=== PATIENT | male | born 1930 | race Caucasian/White ===

== ENCOUNTER 2016-04-02 09:43 | Outpatient (RCR) | payer MEDICARE ==
--- OUTSIDE RECORDS SUMMARY | 2016-02-03 09:50 | XMS REPORT | Continuity of Care Document ---
Author Author [facility] Organization [facility] Address Unknown Phone Unavailable Care Team Providers Care Green Tire Inspector Name Role Phone ROSALINA MENDEZ MD PCP Insurance Providers Payer Name Policy Number Subscriber Name Relationship Wps Medicare [id number] Shirley Dubois 18 Self / Same As Patient Blue Cross [facility] Supp [id number] Shirley Dubois 18 Self / Same As Patient Advance Directives Directive Response Recorded Date/Time Advance Directives Yes 11/06/15 9:54am Health Care Power of Etl Lead Yes 11/06/15 9:54am Organ Donor No 11/06/15 9:54am Resuscitation Status Full Code 11/06/15 9:54am Problems Active Problems Medical Problem Onset Date Status CVA (cerebral vascular accident) Unknown Acute Chest pain Unknown Acute GI bleed Unknown Acute Minor head injury Unknown Acute Renal insufficiency Unknown Acute Syncope Unknown Acute Urinary tract infection Unknown Acute Medications Current Home Medications Medication Dose Units Route Directions Days/Qty Instructions Start Date Oxybutynin Chloride 10 Mg 10 Mg Oral Daily 10/02/14 Psyllium Hydrophilic Mucilloid 1 Pkt 1 Tbs Oral Bedtime for Does Not Use On Sundays10/02/14 Magnesium Oxide 250 Mg 250 Mg Oral Daily 10/02/14 Tizanidine Hcl 4 Mg 4 Mg Oral Twice A Day as needed for Muscle Spasms 10/03/14 Calcium Carbonate/Vitamin D3 1 Each 1 Tab Oral Daily 10/03/14 Ferrous Sulfate 325 Mg 325 Mg Oral Daily 12/20/14 Cyanocobalamin (Vitamin B-12) 1,000 Mcg 1,000 Mcg Oral Daily Simvastatin 10 Mg 10 Mg Oral Daily 07/08/15 Pantoprazole Sodium 40 Mg 40 Mg Oral Twice A Day 07/08/15 Levothyroxine Sodium 88 Mcg 88 Mcg Oral Daily 11/06/15 Prochlorperazine Maleate 10 Mg 10 Mg Oral As Needed as needed for Nausea 11/06/15 Hyoscyamine Sulfate 0.125 Mg 0.125 Mg Oral As Needed as needed for Abdominal Pain 11/06/15 Hydrocodone/Acetaminophen 1 Each 1 Each Oral Every 4HRS as needed for Pain 11/06/15 Aspirin 81 Mg 81 Mg Oral Daily 11/06/15 Diclofenac Sodium 75 Mg 75 Mg Oral Daily 11/06/15 Past Home Medications Medication Directions Ordered Status Simvastatin 10 Mg Tab, 10 Mg Oral Daily 04/30/11 Discontinued [Volt] , 04/30/11 Discontinued [Synthroid Daily] , 04/30/11 Discontinued Aspirin 81 Mg Tabec, 81 Mg Oral Daily 05/17/13 Discontinued [Voltaren] , Oral 05/17/13 Discontinued Simvastatin 10 Mg Tab, 10 Mg Oral Bedtime 05/17/13 Discontinued [Thyroid ] , 0.1 Daily 05/17/13 Discontinued Psyllium Hydrophilic Mucilloid 1 Pkt Packet, 1 Pkt Oral Bedtime 05/17/13 Discontinued [Voltaren] , 05/17/13 Discontinued Pantoprazole Sodium 40 Mg Tablet., 1 Tab Oral Daily 05/17/13 Discontinued Simvastatin 10 Mg Tablet, 10 Mg Oral Daily 10/02/14 Discontinued Diclofenac Sodium 75 Mg Tablet.dr 75 Mg Oral Daily 10/02/14 Discontinued Levothyroxine Sodium (Levothroid) 100 Mcg Tablet, 100 Mcg Oral Daily Discontinued Tizanidine Hcl 4 Mg Capsule, 4 Mg Oral As Needed for Muscle Spasms 10/02/14 Discontinued Calcium Carbonate 1.25 G Tablet, 1.25 G Oral Daily 10/02/14 Discontinued Ibuprofen 200 Mg Tablet, 200 Mg Oral As Needed 10/02/14 Discontinued Simvastatin 20 Mg Tablet, 10 Mg Oral Bedtime 10/03/14 Discontinued Hydrocodone Bit/Acetaminophen 1 Tab Tablet, 1-2 Tab Oral Daily as needed for Severe Pain 10/03/14 Discontinued Docusate Sodium 100 Mg Cap, 100 Mg Oral Twice A Day 10/08/14 Discontinued Sucralfate 1 Gm Tab, 1 Gm Oral Before Meals And At Bedtime 10/08/14 Discontinued [Omnicef] , 300 Twice A Day 12/23/14 Discontinued Social History Social History Problem Response Recorded Date/Time Alcohol Use Denies Use 11/06/2015 9:54am Recreational Drug Use No 11/06/2015 9:54am Recent Foreign Travel No 11/06/2015 9:54am Recent Infectious Disease Exposure No 11/06/2015 9:54am Hospitalization with Isolation Denies 11/06/2015 9:54am Sexually Transmitted Disease No 11/06/2015 9:54am HIV/AIDS No 11/06/2015 9:54am Smoking Status Never a Smoker 11/06/2015 9:53am Do you dip or chew tobacco? No 07/09/2015 1:34pm Query Response Start Date Stop Date Smoking Status Never a Smoker 01/01/1955 Hospital Discharge Instructions No hospital discharge instructions. Plan of Care Discharge Date 11/06/15 12:37pm Prescriptions See Medication Section Functional Status No functional status results. Allergies, Adverse Reactions, Alerts Allergen Type Severity Reaction Status Last Updated Morphine Allergy Mild Active 12/20/14 sulfamethoxazole ([id number]) Allergy Unknown Active 11/06/15 Trimethoprim Allergy Unknown Active 11/06/15 Quinine Allergy Mild Active 12/20/14 Immunizations Name Given Type Date of Pneumonia Vaccine 01/17/15 Historical Date of Influenza Vaccine 01/17/15 Historical Tetanus Booster (TDap) Less than 5yrs Historical Vital Signs Acute Vital Signs Vital Response Date/Time Pulse Rate (adult) 61 bpm (60 - 90) 11/06/2015 9:54am Respiratory Rate 16 bpm (12 - 24) 11/06/2015 9:54am O2 Sat by Pulse Oximetry 98 % (88 - 100) 11/06/2015 9:54am Blood Pressure 140/61 mm Hg 11/06/2015 9:54am Pain Numeric Pain Scale 8 11/06/2015 9:54am Height (Feet) 5 feet 11/06/2015 9:54am Height (Inches) 10.00 inches 11/06/2015 9:54am Height (Calculated Centimeters) 177.680514 cm 11/06/2015 9:54am Weight (Pounds) 165 pounds 11/06/2015 9:54am Weight (Ounces) 2.0 oz 11/06/2015 9:54am Weight (Calculated Grams) 31685.441 gm 11/06/2015 9:54am Weight (Calculated Kilograms) 74.727268 kilograms 11/06/2015 9:54am Calculated BMI 27.45 11/06/2015 9:54am Results Laboratory Results Test Name Result Units Flags Reference Collection Date/Time Result Date/ Time Comments White Blood Count 5.3 10^3/uL 4.3-11.0 10/08/2015 2:52pm 10/08/2015 2: 59pm Red Blood Count 3.55 10^6/uL L 4.35-5.85 10/08/2015 2:52pm 10/08/2015 2: 59pm Hemoglobin 10.8 G/DL L 13.3-17.7 10/08/2015 2:52pm 10/08/2015 2:59pm Hematocrit 35 % L 40-54 10/08/2015 2:52pm 10/08/2015 2:59pm Mean Corpuscular Volume 97 FL 80-99 10/08/2015 2:52pm 10/08/2015 2: 59pm Mean Corpuscular Hemoglobin 30 PG 25-34 10/08/2015 2:52pm 10/08/2015 2: 59pm Mean Corpuscular Hemoglobin Concent 31 G/DL L 32-36 10/08/2015 2:52pm 2:59pm Red Cell Distribution Width 14.1 % 10.0-14.5 10/08/2015 2:52pm 2015 2:59pm Platelet Count 189 10^3/uL 130-400 10/08/2015 2:52pm 10/08/2015 2:59pm Mean Platelet Volume 9.3 FL 7.4-10.4 10/08/2015 2:52pm 10/08/2015 2: 59pm Neutrophils (%) (Auto) 69 % 42-75 10/08/2015 2:52pm 10/08/2015 2:59pm Lymphocytes (%) (Auto) 19 % 12-44 10/08/2015 2:52pm 10/08/2015 2:59pm Monocytes (%) (Auto) 10 % 0-12 10/08/2015 2:52pm 10/08/2015 2:59pm Eosinophils (%) (Auto) 2 % 0-10 10/08/2015 2:52pm 10/08/2015 2:59pm Basophils (%) (Auto) 0 % 0-10 10/08/2015 2:52pm 10/08/2015 2:59pm Neutrophils # (Auto) 3.7 X 10^3 1.8-7.8 10/08/2015 2:52pm 10/08/2015 2: 59pm Lymphocytes # (Auto) 1.0 X 10^3 1.0-4.0 10/08/2015 2:52pm 10/08/2015 2: 59pm Monocytes # (Auto) 0.5 X 10^3 0.0-1.0 10/08/2015 2:52pm 10/08/2015 2: 59pm Eosinophils # (Auto) 0.1 10^3/uL 0.0-0.3 10/08/2015 2:52pm 10/08/2015 2 :59pm Basophils # (Auto) 0.0 10^3/uL 0.0-0.1 10/08/2015 2:52pm 10/08/2015 2: 59pm Sodium Level 145 MMOL/L 135-145 10/02/2015 9:0510/02/2015 9:38am Potassium Level 5.0 MMOL/L 3.6-5.0 10/02/2015 9:0510/02/2015 9:38am Chloride Level 112 MMOL/L H 98-107 10/02/2015 9:0510/02/2015 9:38am Carbon Dioxide Level 23 MMOL/L 21-32 10/02/2015 9:0510/02/2015 9: 38am Anion Gap 10 MMOL/L 5-14 10/02/2015 9:0510/02/2015 9:38am Blood Urea Nitrogen 29 MG/DL H 7-18 10/02/2015 9:0510/02/2015 9:38am Creatinine 1.42 MG/DL H 0.60-1.30 10/02/2015 9:0510/02/2015 9:38am BUN/Creatinine Ratio 20 10/02/2015 9:0510/02/2015 9:38am Estimat Glomerular Filtration Rate 47 10/02/2015 9:0510/02/2015 9:38am GFR INTERPRETIVE DATA UNITS FOR ESTIMATED GFR (eGFR): mL/min/1.73 M2 REFERENCE RANGE FOR ESTIMATED GFR (eGFR) eGFR NORMAL eGFR >60 MODERATELY DECREASED eGFR 30-59 SEVERLY DECREASED eGFR 15-29 KIDNEY FAILURE <15 (OR DIALYSIS) Glucose Level 95 MG/DL 70-105 10/02/2015 9:0510/02/2015 9:38am Calcium Level 8.4 MG/DL L 8.5-10.1 10/02/2015 9:0510/02/2015 9:38am Total Bilirubin 0.5 MG/DL 0.1-1.0 10/02/2015 9:0510/02/2015 9:38am Alkaline Phosphatase 89 U/L 40-136 10/02/2015 9:0510/02/2015 9:38am Aspartate Amino Transf (AST/SGOT) 13 U/L 5-34 10/02/2015 9:052015 9:38am Alanine Aminotransferase (ALT/SGPT) 8 U/L 0-55 10/02/2015 9:052015 9:38am Lactate Dehydrogenase 183 U/L 125-220 10/02/2015 9:0510/02/2015 9: 38am Total Protein 5.9 G/DL L 6.4-8.2 10/02/2015 9:0510/02/2015 9:38am Albumin 3.4 G/DL 3.2-4.5 10/02/2015 9:0510/02/2015 9:38am Ferritin 54 ng/mL 25-300 10/08/2015 2:52pm 10/10/2015 8:45am Test performed at [facility], CLIA# [id number] Iron Level 130 ug/dL 40-180 10/08/2015 2:52pm 10/09/2015 1:12pm Transferrin % Saturation 46 % 15-50 10/08/2015 2:52pm 10/09/2015 1: 12pm Total Iron Binding Capacity 280 ug/dL 280-380 10/08/2015 2:52pm 2015 1:12pm Unsaturated Iron Binding Capacity 150 ug/dL 55-450 10/08/2015 2:52pm 1:12pm Test performed at [facility], CLIA# [id number] Procedures No known history of procedures. Encounters Encounter Location Arrival/Admit Date Discharge/Depart Date Attending Provider Departed Clinic [facility] 11/06/15 9:37am 11/06/15 12: 37pm ERIKA COLBY DO Registered Clinic [facility] 10/28/15 11:40am ROSALINA MENDEZ MD Registered Clinic [facility] 10/17/15 2:17pm ROSALINA MENDEZ MD Registered Recurring [facility] 10/08/15 1:27pm CHRISTOPHER MANCUSO
[2016-02-03 09:58] LABS: BASOPHILS % (AUTO) 0 % (0-10); EOSINOPHILS # (AUTO) 0.1 10^3/uL (0.0-0.3); EOSINOPHILS % (AUTO) 2 % (0-10); LYMPHOCYTES # (AUTO) 0.6 X 10^3 (1.0-4.0); LYMPHOCYTES % (AUTO) 14 % (12-44); MEAN CORPUSCULAR HEMOGLOBIN 30 PG (25-34); MEAN CORPUSCULAR HGB CONC 31 G/DL (32-36); MEAN CORPUSCULAR VOLUME 97 FL (80-99); MEAN PLATELET VOLUME 8.9 FL (7.4-10.4); MONOCYTES # (AUTO) 0.4 X 10^3 (0.0-1.0); MONOCYTES % (AUTO) 10 % (0-12); NEUTROPHILS % (AUTO) 74 % (42-75); PLATELET COUNT 184 10^3/uL (130-400); RED BLOOD COUNT 3.65 10^6/uL (4.35-5.85); RED CELL DISTRIBUTION WIDTH 14.4 % (10.0-14.5)
[2016-02-03 10:28] LABS: ALBUMIN 3.4 G/DL (3.2-4.5); BILIRUBIN,TOTAL 0.6 MG/DL (0.1-1.0); CALCIUM 8.7 MG/DL (8.5-10.1); CREATININE SERUM 1.39 MG/DL (0.60-1.30); POTASSIUM 4.7 MMOL/L (3.6-5.0)
[~2016-04-02 09:43] MED LIST: ASP81TEC PO; ASPI-586 PO; ASPI-587 PO; CALC-656 PO; CALC500T55 PO; CYAN100088 PO; DCS100C PO; DICL75TA2 PO; FERR-84 PO; HYDR-3062 PO; HYDR-3454 PO; HYDR-3714 PO; HYDR-3812 PO; HYOS0.127 PO; IBUP200T48 PO; LEVO88TA54 PO; LVT.1T PO; MAGN250T7 PO; OMNICEF; OXYB10TA8 PO; PANT40TA2 PO; PANT40VI3 PO; PNT40TEC PO; PROC10TA PO; PSYL1PAC15 PO; PSYL1PAC18 PO; SCR1T1 PO; SIMV10TA PO; SIMV10TA3 PO; SIMV20TA3 PO; SMV10T PO; TIZA4CAP6 PO; TIZA4TAB55 PO; [UNRECOGNIZED DRUG - OTHER]; [UNRECOGNIZED DRUG - OTHER]; thyroid; voltaren; voltaren PO
[2016-04-02 10:00] LABS: BASOPHILS % (AUTO) 0 % (0-10); EOSINOPHILS # (AUTO) 0.1 10^3/uL (0.0-0.3); EOSINOPHILS % (AUTO) 2 % (0-10); LYMPHOCYTES # (AUTO) 0.8 X 10^3 (1.0-4.0); LYMPHOCYTES % (AUTO) 18 % (12-44); MEAN CORPUSCULAR HEMOGLOBIN 30 PG (25-34); MEAN CORPUSCULAR HGB CONC 32 G/DL (32-36); MEAN CORPUSCULAR VOLUME 96 FL (80-99); MEAN PLATELET VOLUME 9.2 FL (7.4-10.4); MONOCYTES # (AUTO) 0.4 X 10^3 (0.0-1.0); MONOCYTES % (AUTO) 10 % (0-12); NEUTROPHILS % (AUTO) 69 % (42-75); PLATELET COUNT 184 10^3/uL (130-400); RED BLOOD COUNT 3.72 10^6/uL (4.35-5.85); RED CELL DISTRIBUTION WIDTH 14.1 % (10.0-14.5); WHITE BLOOD COUNT 4.3 10^3/uL (4.3-11.0)
[2016-04-02 10:30] LABS: ALBUMIN 3.6 G/DL (3.2-4.5); BILIRUBIN,TOTAL 0.6 MG/DL (0.1-1.0); CALCIUM 8.7 MG/DL (8.5-10.1); CREATININE SERUM 1.53 MG/DL (0.60-1.30); POTASSIUM 4.9 MMOL/L (3.6-5.0)
== END 2016-05-03 | disposition home or self-care (01) ==
LOC: ONC 09:43
PROVIDERS: ATTEND Internal Medicine Hematology & Oncology
DX: C49.4 Malignant neoplasm of connective and soft tissue of abdomen (principal); E03.9 Hypothyroidism, unspecified; N18.3 Chronic kidney disease, stage 3 (moderate); D50.0 Iron deficiency anemia secondary to blood loss (chronic); Z79.899 Other long term (current) drug therapy
CPT/HCPCS: 36415; 80053; 82728; 85025; 99213

== ENCOUNTER → 2016-05-06 | Outpatient (CLI) | payer MEDICARE ==
--- OUTSIDE RECORDS SUMMARY | 2016-05-06 12:14 | XMS REPORT | Continuity of Care Document ---
Author Author [facility] Organization [facility] Address Unknown Phone Unavailable Care Team Providers Care Home School Coordinator Name Role Phone ROSALINA MENDEZ MD PCP Insurance Providers Payer Name Policy Number Subscriber Name Relationship Wps Medicare [id number] Shirley Dubois 18 Self / Same As Patient Blue Cross [facility] Supp [id number] Shirley Dubois 18 Self / Same As Patient Advance Directives Directive Response Recorded Date/Time Advance Directives Yes 11/06/15 9:54am Health Care Power of Livestock Exhibitor Yes 11/06/15 9:54am Organ Donor No 11/06/15 [...] Updated Morphine Allergy Mild Active 12/20/14 sulfamethoxazole ([id number]) Allergy Unknown Active 11/06/15 Trimethoprim Allergy Unknown [...] 10.00 inches 11/06/2015 9:54am Height (Calculated Centimeters) 177.266060 cm 11/06/2015 9:54am Weight (Pounds) 165 pounds 11/06/2015 9:54am Weight (Ounces) 2.0 oz 11/06/2015 9:54am Weight (Calculated Grams) 71819.441 gm 11/06/2015 9:54am Weight (Calculated Kilograms) 74.448858 kilograms 11/06/2015 9:54am Calculated BMI 27.45 11/06/2015 [...] 10/08/2015 2:52pm 10/10/2015 8:45am Test performed at [facility], CLIA# [id number] Iron Level 130 ug/dL 40-180 10/08/2015 2:52pm 10/09/2015 1:12pm Transferrin % Saturation 46 % 15-50 10/08/2015 2:52pm 10/09/2015 1: 12pm Total Iron Binding Capacity 280 ug/dL 280-380 10/08/2015 2:52pm 2015 1:12pm Unsaturated Iron Binding Capacity 150 ug/dL 55-450 10/08/2015 2:52pm 1:12pm Test performed at [facility], CLIA# [id number] Procedures No known history of procedures. Encounters Encounter Location Arrival/Admit Date Discharge/Depart Date Attending Provider Departed Clinic [facility] 11/06/15 9:37am 11/06/15 12: 37pm ERIKA COLBY DO Registered Clinic [facility] 10/28/15 11:40am ROSALINA MENDEZ MD Registered Clinic [facility] 10/17/15 2:17pm ROSALINA MENDEZ MD Registered Recurring [facility] 10/08/15 1:27pm CHRISTOPHER MANCUSO
--- NOTE | 2016-05-06 13:35 | Diagnostic Imaging Report ---
EXAMINATION: Three views of the left elbow. INDICATION: Injury. FINDINGS: There is elevation of the anterior fat pad, suggestive of an elbow effusion. There is a transverse radiolucent line through the distal humerus seen on the AP projection with no definitive correlate on the oblique or lateral views. There is a well-corticated 4 mm osseous fragment at the tip of the coronoid process, probably related to old injury. No radiopaque foreign body. IMPRESSION: There is suggestion of an elbow effusion with a questionable transverse lucent line through the distal humerus seen. If there is a high index of suspicion for an underlying fracture, then correlate with a CT scan of the left elbow or repeat radiographs in 10 days. The report was faxed to the office of Jj Jackson APRN, by CLAUDIA at 1:30 PM. Dictated by: Dictated on workstation # [id number]
== END ==
LOC: RAD 12:10
PROVIDERS: ATTEND Nurse Practitioner
DX: S59.902A Unspecified injury of left elbow, initial encounter (principal); W19.XXXA Unspecified fall, initial encounter; Y92.009 Unspecified place in unspecified non-institutional (private) residence as the place of occurrence of the external cause; Y99.8 Other external cause status
CPT/HCPCS: 73080

== ENCOUNTER → 2016-05-07 | Outpatient (CLI) | payer MEDICARE ==
--- OUTSIDE RECORDS SUMMARY | 2016-05-07 14:00 | XMS REPORT | Continuity of Care Document ---
Author Author [facility] Organization [facility] Address Unknown Phone Unavailable Care Team Providers Care Ocular Care Aide Name Role Phone ROSALINA MENDEZ MD PCP Insurance Providers Payer Name Policy Number Subscriber Name Relationship Wps Medicare [id number] Shirley Dubois 18 Self / Same As Patient Blue Cross [facility] Supp [id number] Shirley Dubois 18 Self / Same As Patient Advance Directives Directive Response Recorded Date/Time Advance Directives Yes 11/06/15 9:54am Health Care Power of Product Accountant Yes 11/06/15 9:54am Organ Donor No 11/06/15 [...] Updated Morphine Allergy Mild Active 12/20/14 sulfamethoxazole ([id number]) Allergy Unknown Active 11/06/15 Trimethoprim Allergy Unknown [...] 10.00 inches 11/06/2015 9:54am Height (Calculated Centimeters) 177.965783 cm 11/06/2015 9:54am Weight (Pounds) 165 pounds 11/06/2015 9:54am Weight (Ounces) 2.0 oz 11/06/2015 9:54am Weight (Calculated Grams) 06329.441 gm 11/06/2015 9:54am Weight (Calculated Kilograms) 74.749260 kilograms 11/06/2015 9:54am Calculated BMI 27.45 11/06/2015 [...] 10/08/2015 2:52pm 10/10/2015 8:45am Test performed at [facility], CLIA# [id number] Iron Level 130 ug/dL 40-180 10/08/2015 2:52pm 10/09/2015 1:12pm Transferrin % Saturation 46 % 15-50 10/08/2015 2:52pm 10/09/2015 1: 12pm Total Iron Binding Capacity 280 ug/dL 280-380 10/08/2015 2:52pm 2015 1:12pm Unsaturated Iron Binding Capacity 150 ug/dL 55-450 10/08/2015 2:52pm 1:12pm Test performed at [facility], CLIA# [id number] Procedures No known history of procedures. Encounters Encounter Location Arrival/Admit Date Discharge/Depart Date Attending Provider Departed Clinic [facility] 11/06/15 9:37am 11/06/15 12: 37pm ERIKA COLBY DO Registered Clinic [facility] 10/28/15 11:40am ROSALINA MENDEZ MD Registered Clinic [facility] 10/17/15 2:17pm ROSALINA MENDEZ MD Registered Recurring [facility] 10/08/15 1:27pm CHRISTOPHER MANCUSO
--- NOTE | 2016-05-07 18:20 | Diagnostic Imaging Report ---
PA and lateral views of the chest. INDICATION: Fall. FINDINGS: The lungs are hyperinflated but clear of focal infiltrate. There are calcified granulomas in the lung bases. The heart size is borderline enlarged. No effusion or pneumothorax. The mediastinum and magda appear unremarkable. IMPRESSION: Hyperinflated clear lungs. Borderline cardiomegaly. Dictated by: Dictated on workstation # [id number]
--- NOTE | 2016-05-07 18:21 | Diagnostic Imaging Report ---
Three views of the left ribs. INDICATION: Left rib pain after fall. FINDINGS: No rib fracture is seen. Enchondroma or bone infarct lesion without aggressive features seen in the proximal left humerus. Cervical spine fusion hardware noted. IMPRESSION: No rib fracture identified. Dictated by: Dictated on workstation # [id number]
== END ==
LOC: RAD 13:56
PROVIDERS: ATTEND Nurse Practitioner
DX: R07.81 Pleurodynia (principal); W19.XXXA Unspecified fall, initial encounter; Y99.8 Other external cause status
CPT/HCPCS: 71020; 71100

== ENCOUNTER → 2016-06-29 | Outpatient (CLI) | payer MEDICARE ==
[~2016-06-29] MED LIST changes: +BARIUM SUSPENSION 2.1% (VANILLA SILQ) 450 ML PO ONE; +CATHETER FLUSH 10 ML SYR IV PRN; +IOHEXOL 350 MG/ML 100 ML (OMNIPAQUE 350) VIAL IV ONE; +NS 100 ML (IVPB) BAG IV ONE
--- OUTSIDE RECORDS SUMMARY | 2016-06-29 09:11 | XMS REPORT | Continuity of Care Document ---
Author Author [facility] Organization [facility] Address Unknown Phone Unavailable Care Team Providers Care Barn Hand Name Role Phone ROSALINA MENDEZ MD PCP Insurance Providers Payer Name Policy Number Subscriber Name Relationship Wps Medicare [id number] Shirley Dubois 18 Self / Same As Patient Blue Cross [facility] Supp [id number] Shirley Dubois 18 Self / Same As Patient Advance Directives Directive Response Recorded Date/Time Advance Directives Yes 11/06/15 9:54am Health Care Power of Support Merchandiser Yes 11/06/15 9:54am Organ Donor No 11/06/15 [...] Updated Morphine Allergy Mild Active 12/20/14 sulfamethoxazole ([id number]) Allergy Unknown Active 11/06/15 Trimethoprim Allergy Unknown [...] 10.00 inches 11/06/2015 9:54am Height (Calculated Centimeters) 177.081424 cm 11/06/2015 9:54am Weight (Pounds) 165 pounds 11/06/2015 9:54am Weight (Ounces) 2.0 oz 11/06/2015 9:54am Weight (Calculated Grams) 02587.441 gm 11/06/2015 9:54am Weight (Calculated Kilograms) 74.629873 kilograms 11/06/2015 9:54am Calculated BMI 27.45 11/06/2015 [...] 10/08/2015 2:52pm 10/10/2015 8:45am Test performed at [facility], CLIA# [id number] Iron Level 130 ug/dL 40-180 10/08/2015 2:52pm 10/09/2015 1:12pm Transferrin % Saturation 46 % 15-50 10/08/2015 2:52pm 10/09/2015 1: 12pm Total Iron Binding Capacity 280 ug/dL 280-380 10/08/2015 2:52pm 2015 1:12pm Unsaturated Iron Binding Capacity 150 ug/dL 55-450 10/08/2015 2:52pm 1:12pm Test performed at [facility] [address], CLIA# [id number] Procedures No known history of procedures. Encounters Encounter Location Arrival/Admit Date Discharge/Depart Date Attending Provider Departed Clinic [facility] 11/06/15 9:37am 11/06/15 12: 37pm ERIKA COLBY DO Registered Clinic [facility] 10/28/15 11:40am ROSALINA MENDEZ MD Registered Clinic [facility] 10/17/15 2:17pm ROSALINA MENDEZ MD Registered Recurring [facility] 10/08/15 1:27pm CHRISTOPHER MANCUSO
--- NOTE | 2016-06-29 14:24 | Diagnostic Imaging Report ---
PROCEDURE: CT abdomen with contrast only. TECHNIQUE: Multiple contiguous axial images were obtained through the abdomen after the administration of intravenous contrast. INDICATION: Follow-up malignant GIST. 75 mL of Omnipaque-350 is administered intravenously. COMPARISON: 10/28/2015. FINDINGS: There are calcified granulomas and mild scarring seen in the lung base on the left side as well as subacute posterior rib fractures with no underlying lesions seen involving the left 8th through 12th ribs. There is also suggestion of a compression fracture of T11 vertebral body, when compared to the previous exam, demonstrates no change. There is oral contrast failure to fill the posterior aspect of the fundus with a filling defect measuring 4.1 x 4.0 cm in the axial dimensions and craniocaudally approximately 3.1 cm. This is compared to maximum prior axial dimensions estimated on 10/28/2015. There is better visualization at this time related to use of oral contrast. There is probable slight enlargement in the interval. There is an enhancing small focus in the right hepatic lobe measuring 0.6 cm seen, axial image 11. This is poorly identified on the delayed phase imaging and is too small to accurately characterize. This appeared to be present on prior enhanced CT from 2016 exam and could be a tiny hemangioma. Follow-up studies are suggested. The spleen is not enlarged. The pancreas and the adrenal glands appear unremarkable. There is moderate atrophy of both kidneys with no hydronephrosis. The abdominal aorta is normal in caliber. No para-aortic significantly enlarged lymph nodes. Cholecystectomy clips are seen. The osseous structures demonstrate subacute lower left rib fractures and old T11 compression fracture as described above. There are also bridging syndesmophytes in the lower thoracic and upper lumbar spine levels. IMPRESSION: 1. A 4.1-cm mass in the gastric fundus slightly enlarged compared to 10/28/2015, exam, presumably representing the GIST tumor as provided in the history. 2. Nonspecific 0.6-cm focus of hyperenhancement in the right hepatic lobe too small to accurately characterize. Dictated by: Dictated on workstation # [id number]
== END ==
LOC: RAD 09:07
PROVIDERS: ATTEND Internal Medicine Hematology & Oncology
DX: Z01.89 Encounter for other specified special examinations (principal); C49.4 Malignant neoplasm of connective and soft tissue of abdomen
CPT/HCPCS: 74160

== ENCOUNTER 2016-07-02 15:45 | Outpatient (RCR) | payer MEDICARE ==
--- OUTSIDE RECORDS SUMMARY | 2016-06-29 08:44 | XMS REPORT | Continuity of Care Document ---
Author Author [facility] Organization [facility] Address Unknown Phone Unavailable Care Team Providers Care A R Collections Rep Name Role Phone ROSALINA MENDEZ MD PCP Insurance Providers Payer Name Policy Number Subscriber Name Relationship Wps Medicare [id number] Shirley Dubois 18 Self / Same As Patient Blue Cross [facility] Supp [id number] Shirley Dubois 18 Self / Same As Patient Advance Directives Directive Response Recorded Date/Time Advance Directives Yes 11/06/15 9:54am Health Care Power of Salesperson Sheet Music Yes 11/06/15 9:54am Organ Donor No 11/06/15 [...] Updated Morphine Allergy Mild Active 12/20/14 sulfamethoxazole ([id number]) Allergy Unknown Active 11/06/15 Trimethoprim Allergy Unknown [...] 10.00 inches 11/06/2015 9:54am Height (Calculated Centimeters) 177.838916 cm 11/06/2015 9:54am Weight (Pounds) 165 pounds 11/06/2015 9:54am Weight (Ounces) 2.0 oz 11/06/2015 9:54am Weight (Calculated Grams) 46773.441 gm 11/06/2015 9:54am Weight (Calculated Kilograms) 74.428609 kilograms 11/06/2015 9:54am Calculated BMI 27.45 11/06/2015 [...] 10/08/2015 2:52pm 10/10/2015 8:45am Test performed at [facility], CLIA# [id number] Iron Level 130 ug/dL 40-180 10/08/2015 2:52pm 10/09/2015 1:12pm Transferrin % Saturation 46 % 15-50 10/08/2015 2:52pm 10/09/2015 1: 12pm Total Iron Binding Capacity 280 ug/dL 280-380 10/08/2015 2:52pm 2015 1:12pm Unsaturated Iron Binding Capacity 150 ug/dL 55-450 10/08/2015 2:52pm 1:12pm Test performed at [facility] [address], CLIA# [id number] Procedures No known history of procedures. Encounters Encounter Location Arrival/Admit Date Discharge/Depart Date Attending Provider Departed Clinic [facility] 11/06/15 9:37am 11/06/15 12: 37pm ERIKA COLBY DO Registered Clinic [facility] 10/28/15 11:40am ROSALINA MENDEZ MD Registered Clinic [facility] 10/17/15 2:17pm ROSALINA MENDEZ MD Registered Recurring [facility] 10/08/15 1:27pm CHRISTOPHER MANCUSO
[2016-06-29 09:01] LABS: BASOPHILS % (AUTO) 0 % (0-10); EOSINOPHILS # (AUTO) 0.1 10^3/uL (0.0-0.3); EOSINOPHILS % (AUTO) 2 % (0-10); LYMPHOCYTES # (AUTO) 0.8 X 10^3 (1.0-4.0); LYMPHOCYTES % (AUTO) 17 % (12-44); MEAN CORPUSCULAR HEMOGLOBIN 30 PG (25-34); MEAN CORPUSCULAR HGB CONC 32 G/DL (32-36); MEAN CORPUSCULAR VOLUME 96 FL (80-99); MEAN PLATELET VOLUME 9.5 FL (7.4-10.4); MONOCYTES # (AUTO) 0.5 X 10^3 (0.0-1.0); MONOCYTES % (AUTO) 11 % (0-12); NEUTROPHILS # (AUTO) 3.3 X 10^3 (1.8-7.8); NEUTROPHILS % (AUTO) 70 % (42-75); PLATELET COUNT 182 10^3/uL (130-400); RED BLOOD COUNT 3.89 10^6/uL (4.35-5.85); RED CELL DISTRIBUTION WIDTH 13.7 % (10.0-14.5); WHITE BLOOD COUNT 4.7 10^3/uL (4.3-11.0)
[2016-06-29 09:32] LABS: ALBUMIN 3.5 G/DL (3.2-4.5); BILIRUBIN,TOTAL 0.6 MG/DL (0.1-1.0); CALCIUM 9.1 MG/DL (8.5-10.1); CREATININE SERUM 1.43 MG/DL (0.60-1.30); TOTAL PROTEIN 6.4 G/DL (6.4-8.2)
[~2016-07-02 15:45] MED LIST changes: -BARIUM SUSPENSION 2.1% (VANILLA SILQ) 450 ML PO ONE; -CATHETER FLUSH 10 ML SYR IV PRN; -IOHEXOL 350 MG/ML 100 ML (OMNIPAQUE 350) VIAL IV ONE; -NS 100 ML (IVPB) BAG IV ONE
== END 2016-09-27 | disposition home or self-care (01) ==
LOC: ONC 15:45
PROVIDERS: ATTEND Internal Medicine Hematology & Oncology
DX: C49.4 Malignant neoplasm of connective and soft tissue of abdomen (principal); E03.9 Hypothyroidism, unspecified; N18.3 Chronic kidney disease, stage 3 (moderate); D50.0 Iron deficiency anemia secondary to blood loss (chronic); Z79.899 Other long term (current) drug therapy
CPT/HCPCS: 36415; 80053; 82728; 85025; 99213

== ENCOUNTER → 2016-10-01 | Outpatient (CLI) | payer MEDICARE | LOC: LAB 10:00 | PROVIDERS: ATTEND Internal Medicine Gastroenterology | DX: D50.9 Iron deficiency anemia, unspecified (principal); R79.89 Other specified abnormal findings of blood chemistry | CPT/HCPCS: 85652; 86141 ==

== ENCOUNTER → 2016-12-29 | Outpatient (CLI) | payer MEDICARE ==
[~2016-12-29] MED LIST changes: +CATHETER FLUSH 10 ML SYR IV PRN; +IOHEXOL 350 MG/ML 100 ML (OMNIPAQUE 350) VIAL IV ONE; +NS 100 ML (IVPB) BAG IV ONE
--- NOTE | 2016-12-29 13:36 | Diagnostic Imaging Report ---
PROCEDURE: CT abdomen with contrast only. TECHNIQUE: Multiple contiguous axial images were obtained through the abdomen after the administration of intravenous contrast. INDICATION: Malignant GIST. 6 mL of Omnipaque 350 is administered intravenously. COMPARISON: 06/29/2016. FINDINGS: There is a gastric fundus mass measuring 5.0 x 4.5 cm compared to 4.0 x 4.1 cm on 06/29/2016 exam. This obliterates most of the fundus lumen. There is passage of the oral contrast, however, seen from the gastroesophageal junction through a relatively narrow remaining luminal channel into the gastric body and antrum, and oral contrast is seen also further distally within the small bowel loops. The tumor appears to be confined to the gastric fundus with mostly tumor mass projecting into the lumen and is probably arising from the left side wall of the gastric fundus. There is no CT scan evidence of extension outside the stomach. No perigastric lymphadenopathy seen. The liver demonstrates no evidence of metastasis. The pancreas and the adrenal glands appear unremarkable. The spleen is not enlarged. The kidneys have symmetric enhancement and contrast excretion with no hydronephrosis. The renal parenchyma demonstrates krcm-ry-lqfqqprj atrophy bilaterally, however. The thoracic aorta is normal in caliber. No para-aortic significantly enlarged lymph node is seen. The lung bases appear clear. The osseous structures demonstrate degenerative changes and an old compression fracture of T11 vertebral body. IMPRESSION: Interval enlargement of the gastric fundus mass filling the most of the gastric fundus lumen measuring up to 5 cm compared to 4.1 cm on 06/29/2016 exam. Dictated by: Dictated on workstation # [id number]
== END ==
LOC: RAD 09:51
PROVIDERS: ATTEND Nurse Practitioner Adult Health
DX: C49.4 Malignant neoplasm of connective and soft tissue of abdomen (principal)
CPT/HCPCS: 74160

== ENCOUNTER → 2016-12-29 | Outpatient (RCR) | payer MEDICARE ==
[2016-09-30 10:09] LABS: BASOPHILS % (AUTO) 0 % (0-10); EOSINOPHILS # (AUTO) 0.1 10^3/uL (0.0-0.3); EOSINOPHILS % (AUTO) 2 % (0-10); LYMPHOCYTES # (AUTO) 0.8 X 10^3 (1.0-4.0); LYMPHOCYTES % (AUTO) 18 % (12-44); MEAN CORPUSCULAR HEMOGLOBIN 30 PG (25-34); MEAN CORPUSCULAR HGB CONC 31 G/DL (32-36); MEAN CORPUSCULAR VOLUME 97 FL (80-99); MEAN PLATELET VOLUME 9.4 FL (7.4-10.4); MONOCYTES # (AUTO) 0.4 X 10^3 (0.0-1.0); MONOCYTES % (AUTO) 9 % (0-12); NEUTROPHILS % (AUTO) 71 % (42-75); PLATELET COUNT 161 10^3/uL (130-400); WHITE BLOOD COUNT 4.2 10^3/uL (4.3-11.0)
[2016-09-30 10:31] LABS: ALBUMIN 3.4 GM/DL (3.2-4.5); BILIRUBIN,TOTAL 0.6 MG/DL (0.1-1.0); CREATININE SERUM 1.68 MG/DL (0.60-1.30); POTASSIUM 4.9 MMOL/L (3.6-5.0); TOTAL PROTEIN 6.2 GM/DL (6.4-8.2)
[~2016-12-29] MED LIST changes: -CATHETER FLUSH 10 ML SYR IV PRN; -IOHEXOL 350 MG/ML 100 ML (OMNIPAQUE 350) VIAL IV ONE; +NS (IVPB) CANCER CENTER 250 ML ONE; -NS 100 ML (IVPB) BAG IV ONE; +NS IV 500 ML (CANCER CENTER) 500 ML ONE
[2016-12-29 10:31] LABS: BASOPHILS % (AUTO) 0 % (0-10); EOSINOPHILS # (AUTO) 0.1 10^3/uL (0.0-0.3); EOSINOPHILS % (AUTO) 2 % (0-10); LYMPHOCYTES # (AUTO) 0.9 X 10^3 (1.0-4.0); LYMPHOCYTES % (AUTO) 17 % (12-44); MEAN CORPUSCULAR HGB CONC 31 G/DL (32-36); MEAN CORPUSCULAR VOLUME 98 FL (80-99); MEAN PLATELET VOLUME 8.9 FL (7.4-10.4); MONOCYTES # (AUTO) 0.5 X 10^3 (0.0-1.0); MONOCYTES % (AUTO) 10 % (0-12); NEUTROPHILS # (AUTO) 3.6 X 10^3 (1.8-7.8); NEUTROPHILS % (AUTO) 72 % (42-75); PLATELET COUNT 190 10^3/uL (130-400); RED BLOOD COUNT 3.84 10^6/uL (4.35-5.85); RED CELL DISTRIBUTION WIDTH 14.1 % (10.0-14.5); WHITE BLOOD COUNT 5.1 10^3/uL (4.3-11.0)
[2016-12-29 10:32] LABS: MEAN CORPUSCULAR HEMOGLOBIN 30 PG (25-34)
[2016-12-29 11:38] LABS: ALBUMIN 3.4 GM/DL (3.2-4.5); BILIRUBIN,TOTAL 0.5 MG/DL (0.1-1.0); CREATININE SERUM 1.57 MG/DL (0.60-1.30); MAGNESIUM 1.9 MG/DL (1.8-2.4); POTASSIUM 4.7 MMOL/L (3.6-5.0); TOTAL PROTEIN 6.2 GM/DL (6.4-8.2)
== END | disposition home or self-care (01) ==
LOC: ONC 09-30 10:01
PROVIDERS: ATTEND Internal Medicine Hematology & Oncology
DX: C49.4 Malignant neoplasm of connective and soft tissue of abdomen (principal); E03.9 Hypothyroidism, unspecified; N18.3 Chronic kidney disease, stage 3 (moderate); D50.0 Iron deficiency anemia secondary to blood loss (chronic); Z79.899 Other long term (current) drug therapy
CPT/HCPCS: 36415; 80053; 82728; 83735; 85025; 85652; 86141; 96360; 96361; 99213

== ENCOUNTER → 2017-01-01 | Outpatient (CLI) | payer MEDICARE ==
[~2017-01-01] MED LIST changes: -NS (IVPB) CANCER CENTER 250 ML ONE; -NS IV 500 ML (CANCER CENTER) 500 ML ONE
--- NOTE | 2017-01-01 14:06 | Diagnostic Imaging Report ---
PROCEDURE: MRI lumbar spine. TECHNIQUE: Multiplanar, multisequence MRI of the lumbar spine was performed without contrast. INDICATION: Sharp pain in lower back. FINDINGS: There is good alignment of the vertebral bodies. Body height is well maintained. Marrow signal is normal with no evidence of compression fractures. Conus medullaris appears normal. L5-S1: There is a small central disc herniation with settling of disc space. Moderate facet and ligamentous hypertrophy noted which is causing moderate encroachment upon the lateral recesses and neural foramen. L4-L5: There is severe facet and ligamentous hypertrophy with broad-based disc bulge. This is causing a severe spinal stenosis. Minimal AP central canal dimension of 4 mm. There is a marked encroachment upon the lateral recesses bilaterally. L3-L4: Disc shows normal contour. There is mild posterior facet and ligamentous hypertrophy. L2-L3: Disc shows normal contour. Mild posterior facet and ligamentous hypertrophy. L1-L2: Disc shows normal contour with normal facets and ligaments. The paraspinal soft tissues are normal. IMPRESSION: 1. There is severe spinal stenosis at L4-L5 level with marked posterior facet and ligamentous hypertrophy and broad-based disc bulge. Dictated by: Dictated on workstation # [id number]
== END ==
LOC: RAD 12:59
PROVIDERS: ATTEND Orthopaedic Surgery Orthopaedic Surgery of the Spine
DX: M51.26 Other intervertebral disc displacement, lumbar region (principal); M48.07 Spinal stenosis, lumbosacral region
CPT/HCPCS: 72148

== ENCOUNTER 2017-01-06 09:39 | Outpatient (RCR) | payer MEDICARE | END 2017-01-16 | disposition home or self-care (01) | LOC: ONC 09:39 | PROVIDERS: ATTEND Internal Medicine Hematology & Oncology | DX: C49.4 Malignant neoplasm of connective and soft tissue of abdomen (principal); E03.9 Hypothyroidism, unspecified; N18.3 Chronic kidney disease, stage 3 (moderate); D50.0 Iron deficiency anemia secondary to blood loss (chronic); Z79.899 Other long term (current) drug therapy | CPT/HCPCS: 99213 ==

== ENCOUNTER → 2017-01-21 | Outpatient (CLI) | payer MEDICARE ==
[~2017-01-21] VITALS: Ht 175.3 cm; Wt 68.0 kg
[~2017-01-21] MED LIST changes: +methylPREDNISolone 80 MG/ML (DEPO MEDROL) VIAL ONE
[2017-01-21 14:23] VITALS: BP 164/65
[2017-01-21 14:53] VITALS: BP 145/77
--- NOTE | 2017-01-27 13:28 | OPERATIVE REPORT ---
DATE OF SERVICE: DIAGNOSIS: Lumbar radiculopathy. PROCEDURE: Fluoroscopic guided interlaminar epidural steroid injection. PROCEDURE IN DETAIL: After obtaining informed consent from the patient, the patient's chart was reviewed. The patient was then brought to the procedure room and placed in the prone position. A timeout was performed. The back was prepped with antiseptic solution and under fluoro guidance, the patient's lumbar spine was identified at the level of L5-S1. The L5-M5nkethzus was identified with fluoro guidance and approximately 2 mL of 1.5% lidocaine solution was used to anesthetize the skin directly down to the pedicle of the L5-S1 and under fluoroscopic guidance, the tract was anesthetized up to the interlaminar space and the ligamentum flavum. This needle was withdrawn. Then, a 20-gauge 3.5 inch Tuohy needle was then directed following the same tract that was anesthetized with the spinal needle. Using loss of resistance, the epidural space was identified and then the syringe was switched for contrast solution which was injected, approximately 1 mL. After secondary confirmation of epidural access, another syringe was placed and 80 mg of Depo-Medrol was injected. The Tuohy needle was then flushed out with approximately 2 mL of the normal saline used from the loss of resistance syringe. Band-Aids were applied to all the procedure sites. The patient tolerated the procedure well and was taken to the recovery room in stable condition. COMPLICATIONS: None. 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
== END ==
LOC: CARD 13:08
PROVIDERS: ATTEND Pain Medicine Interventional Pain Medicine
DX: M54.16 Radiculopathy, lumbar region (principal)
CPT/HCPCS: 62323

== ENCOUNTER 2017-04-27 14:24 | Outpatient (RCR) | payer OTHER, MEDICARE ==
[2017-04-01 10:38] LABS: BASOPHILS % (AUTO) 0 % (0-10); EOSINOPHILS # (AUTO) 0.1 10^3/uL (0.0-0.3); EOSINOPHILS % (AUTO) 2 % (0-10); HEMATOCRIT 35 % (40-54); HEMOGLOBIN 10.7 G/DL (13.3-17.7); LYMPHOCYTES # (AUTO) 0.7 X 10^3 (1.0-4.0); LYMPHOCYTES % (AUTO) 15 % (12-44); MEAN CORPUSCULAR HEMOGLOBIN 31 PG (25-34); MEAN CORPUSCULAR HGB CONC 31 G/DL (32-36); MEAN CORPUSCULAR VOLUME 100 FL (80-99); MEAN PLATELET VOLUME 9.6 FL (7.4-10.4); MONOCYTES # (AUTO) 0.5 X 10^3 (0.0-1.0); MONOCYTES % (AUTO) 12 % (0-12); NEUTROPHILS # (AUTO) 3.2 X 10^3 (1.8-7.8); NEUTROPHILS % (AUTO) 71 % (42-75); PLATELET COUNT 150 10^3/uL (130-400); RED BLOOD COUNT 3.47 10^6/uL (4.35-5.85); RED CELL DISTRIBUTION WIDTH 14.2 % (10.0-14.5); WHITE BLOOD COUNT 4.5 10^3/uL (4.3-11.0)
[2017-04-01 11:02] LABS: ALBUMIN 3.5 GM/DL (3.2-4.5); BILIRUBIN,TOTAL 0.6 MG/DL (0.1-1.0); CALCIUM 8.7 MG/DL (8.5-10.1); CREATININE SERUM 1.47 MG/DL (0.60-1.30); POTASSIUM 4.8 MMOL/L (3.6-5.0); TOTAL PROTEIN 6.4 GM/DL (6.4-8.2)
[~2017-04-27 14:24] MED LIST changes: +ACHD5005 PO; -HYDR-3812 PO; -methylPREDNISolone 80 MG/ML (DEPO MEDROL) VIAL ONE
== END 2017-05-02 | disposition home or self-care (01) ==
LOC: ONC 14:24
PROVIDERS: ATTEND Internal Medicine Hematology & Oncology
DX: C49.4 Malignant neoplasm of connective and soft tissue of abdomen (principal); E03.9 Hypothyroidism, unspecified; N18.3 Chronic kidney disease, stage 3 (moderate); D50.0 Iron deficiency anemia secondary to blood loss (chronic); Z79.899 Other long term (current) drug therapy
CPT/HCPCS: 36415; 80053; 85025; 99213

== ENCOUNTER → 2017-06-08 | Outpatient (CLI) | payer MEDICARE ==
--- NOTE | 2017-06-08 11:22 | Diagnostic Imaging Report ---
INDICATION: Elevated liver enzymes. FINDINGS: Overlying bowel gas limits acoustical windows to evaluate the left hepatic lobe. The right lobe of the liver and visualized left lobe are normal. The gallbladder is surgically absent. There is no pathological bile duct dilatation. The right kidney measures 10.6 cm and contains a 1.8 cm anechoic simple benign cyst off its lower pole. There is no hydronephrosis. There is no ascites. The pancreas is obscured by overlying gas. IMPRESSION: Simple right renal cortical cyst without hydronephrosis. Absent gallbladder with no pathological bile duct dilatation. The visualized portions of the liver appear unremarkable. No ascites or fluid collection. Dictated by: Dictated on workstation # [id number]
== END ==
LOC: RAD 08:22
PROVIDERS: ATTEND Internal Medicine Gastroenterology
DX: K28.1 Acute gastrojejunal ulcer with perforation (principal); R74.8 Abnormal levels of other serum enzymes; Z90.49 Acquired absence of other specified parts of digestive tract
CPT/HCPCS: 76705

== ENCOUNTER 2017-06-21 10:38 | Outpatient (RCR) | payer OTHER, MEDICARE ==
[2017-05-10 14:13] LABS: BASOPHILS % (AUTO) 0 % (0-10); EOSINOPHILS # (AUTO) 0.1 10^3/uL (0.0-0.3); EOSINOPHILS % (AUTO) 2 % (0-10); HEMATOCRIT 36 % (40-54); HEMOGLOBIN 11.5 G/DL (13.3-17.7); LYMPHOCYTES # (AUTO) 0.8 X 10^3 (1.0-4.0); LYMPHOCYTES % (AUTO) 18 % (12-44); MEAN CORPUSCULAR HEMOGLOBIN 31 PG (25-34); MEAN CORPUSCULAR HGB CONC 32 G/DL (32-36); MEAN CORPUSCULAR VOLUME 97 FL (80-99); MEAN PLATELET VOLUME 9.8 FL (7.4-10.4); MONOCYTES # (AUTO) 0.4 X 10^3 (0.0-1.0); MONOCYTES % (AUTO) 8 % (0-12); NEUTROPHILS # (AUTO) 3.4 X 10^3 (1.8-7.8); NEUTROPHILS % (AUTO) 73 % (42-75); PLATELET COUNT 154 10^3/uL (130-400); RED BLOOD COUNT 3.66 10^6/uL (4.35-5.85); RED CELL DISTRIBUTION WIDTH 13.9 % (10.0-14.5); WHITE BLOOD COUNT 4.7 10^3/uL (4.3-11.0)
[2017-05-10 14:37] LABS: ALBUMIN 3.5 GM/DL (3.2-4.5); BILIRUBIN,TOTAL 0.6 MG/DL (0.1-1.0); CALCIUM 8.4 MG/DL (8.5-10.1); CREATININE SERUM 1.83 MG/DL (0.60-1.30); POTASSIUM 4.5 MMOL/L (3.6-5.0); TOTAL PROTEIN 6.5 GM/DL (6.4-8.2)
[2017-05-17 14:42] LABS: BASOPHILS % (AUTO) 0 % (0-10); EOSINOPHILS # (AUTO) 0.1 10^3/uL (0.0-0.3); EOSINOPHILS % (AUTO) 1 % (0-10); HEMATOCRIT 36 % (40-54); HEMOGLOBIN 11.3 G/DL (13.3-17.7); LYMPHOCYTES # (AUTO) 0.8 X 10^3 (1.0-4.0); LYMPHOCYTES % (AUTO) 15 % (12-44); MEAN CORPUSCULAR HEMOGLOBIN 31 PG (25-34); MEAN CORPUSCULAR HGB CONC 32 G/DL (32-36); MEAN CORPUSCULAR VOLUME 98 FL (80-99); MEAN PLATELET VOLUME 10.1 FL (7.4-10.4); MONOCYTES # (AUTO) 0.5 X 10^3 (0.0-1.0); MONOCYTES % (AUTO) 10 % (0-12); NEUTROPHILS # (AUTO) 3.8 X 10^3 (1.8-7.8); NEUTROPHILS % (AUTO) 73 % (42-75); PLATELET COUNT 145 10^3/uL (130-400); RED BLOOD COUNT 3.64 10^6/uL (4.35-5.85); WHITE BLOOD COUNT 5.1 10^3/uL (4.3-11.0)
[2017-05-17 15:08] LABS: ALBUMIN 3.5 GM/DL (3.2-4.5); BILIRUBIN,TOTAL 0.5 MG/DL (0.1-1.0); CALCIUM 8.3 MG/DL (8.5-10.1); CREATININE SERUM 1.79 MG/DL (0.60-1.30); POTASSIUM 4.9 MMOL/L (3.6-5.0); TOTAL PROTEIN 6.4 GM/DL (6.4-8.2)
[2017-05-24 13:39] LABS: POTASSIUM 5.2 MMOL/L (3.6-5.0)
[2017-05-24 13:40] LABS: ALBUMIN 3.2 GM/DL (3.2-4.5); BILIRUBIN,TOTAL 0.6 MG/DL (0.1-1.0); CALCIUM 8.3 MG/DL (8.5-10.1); CREATININE SERUM 1.77 MG/DL (0.60-1.30); TOTAL PROTEIN 6.1 GM/DL (6.4-8.2)
[2017-05-24 13:42] LABS: EOSINOPHILS % (AUTO) 2 % (0-10); HEMATOCRIT 33 % (40-54); HEMOGLOBIN 10.7 G/DL (13.3-17.7); LYMPHOCYTES % (AUTO) 12 % (12-44); MEAN CORPUSCULAR HEMOGLOBIN 31 PG (25-34); MEAN CORPUSCULAR HGB CONC 32 G/DL (32-36); MEAN CORPUSCULAR VOLUME 98 FL (80-99); MEAN PLATELET VOLUME 9.6 FL (7.4-10.4); MONOCYTES % (AUTO) 9 % (0-12); NEUTROPHILS % (AUTO) 78 % (42-75); PLATELET COUNT 127 10^3/uL (130-400); RED BLOOD COUNT 3.41 10^6/uL (4.35-5.85); RED CELL DISTRIBUTION WIDTH 14.2 % (10.0-14.5); WHITE BLOOD COUNT 4.1 10^3/uL (4.3-11.0)
[2017-05-24 13:43] LABS: BASOPHILS % (AUTO) 1 % (0-10); EOSINOPHILS # (AUTO) 0.1 10^3/uL (0.0-0.3); LYMPHOCYTES # (AUTO) 0.5 X 10^3 (1.0-4.0); MONOCYTES # (AUTO) 0.4 X 10^3 (0.0-1.0); NEUTROPHILS # (AUTO) 3.2 X 10^3 (1.8-7.8)
[2017-05-31 12:02] LABS: BASOPHILS % (AUTO) 0 % (0-10); EOSINOPHILS # (AUTO) 0.1 10^3/uL (0.0-0.3); EOSINOPHILS % (AUTO) 1 % (0-10); HEMATOCRIT 33 % (40-54); HEMOGLOBIN 10.4 G/DL (13.3-17.7); LYMPHOCYTES # (AUTO) 0.6 X 10^3 (1.0-4.0); LYMPHOCYTES % (AUTO) 15 % (12-44); MEAN CORPUSCULAR HEMOGLOBIN 31 PG (25-34); MEAN CORPUSCULAR HGB CONC 32 G/DL (32-36); MEAN CORPUSCULAR VOLUME 98 FL (80-99); MEAN PLATELET VOLUME 8.9 FL (7.4-10.4); MONOCYTES # (AUTO) 0.5 X 10^3 (0.0-1.0); MONOCYTES % (AUTO) 11 % (0-12); NEUTROPHILS # (AUTO) 3.1 X 10^3 (1.8-7.8); NEUTROPHILS % (AUTO) 73 % (42-75); PLATELET COUNT 146 10^3/uL (130-400); RED BLOOD COUNT 3.37 10^6/uL (4.35-5.85); RED CELL DISTRIBUTION WIDTH 14.5 % (10.0-14.5); WHITE BLOOD COUNT 4.3 10^3/uL (4.3-11.0)
[2017-05-31 12:20] LABS: ALBUMIN 3.3 GM/DL (3.2-4.5); BILIRUBIN,TOTAL 0.6 MG/DL (0.1-1.0); CALCIUM 8.6 MG/DL (8.5-10.1); CREATININE SERUM 1.52 MG/DL (0.60-1.30); POTASSIUM 4.8 MMOL/L (3.6-5.0); TOTAL PROTEIN 5.9 GM/DL (6.4-8.2)
[2017-06-07 11:28] LABS: BASOPHILS % (AUTO) 0 % (0-10); EOSINOPHILS # (AUTO) 0.1 10^3/uL (0.0-0.3); EOSINOPHILS % (AUTO) 2 % (0-10); HEMATOCRIT 34 % (40-54); HEMOGLOBIN 10.7 G/DL (13.3-17.7); LYMPHOCYTES # (AUTO) 0.8 X 10^3 (1.0-4.0); LYMPHOCYTES % (AUTO) 18 % (12-44); MEAN CORPUSCULAR HEMOGLOBIN 31 PG (25-34); MEAN CORPUSCULAR HGB CONC 32 G/DL (32-36); MEAN CORPUSCULAR VOLUME 97 FL (80-99); MEAN PLATELET VOLUME 9.5 FL (7.4-10.4); MONOCYTES # (AUTO) 0.6 X 10^3 (0.0-1.0); MONOCYTES % (AUTO) 13 % (0-12); NEUTROPHILS # (AUTO) 2.9 X 10^3 (1.8-7.8); NEUTROPHILS % (AUTO) 67 % (42-75); PLATELET COUNT 174 10^3/uL (130-400); RED BLOOD COUNT 3.45 10^6/uL (4.35-5.85); RED CELL DISTRIBUTION WIDTH 14.9 % (10.0-14.5); WHITE BLOOD COUNT 4.3 10^3/uL (4.3-11.0)
[2017-06-07 11:47] LABS: ALBUMIN 3.5 GM/DL (3.2-4.5); BILIRUBIN,TOTAL 0.6 MG/DL (0.1-1.0); CALCIUM 8.6 MG/DL (8.5-10.1); CREATININE SERUM 1.55 MG/DL (0.60-1.30); POTASSIUM 4.6 MMOL/L (3.6-5.0); TOTAL PROTEIN 6.5 GM/DL (6.4-8.2)
[2017-06-14 10:55] LABS: BASOPHILS % (AUTO) 0 % (0-10); EOSINOPHILS % (AUTO) 1 % (0-10); HEMATOCRIT 33 % (40-54); HEMOGLOBIN 10.4 G/DL (13.3-17.7); LYMPHOCYTES # (AUTO) 0.7 X 10^3 (1.0-4.0); LYMPHOCYTES % (AUTO) 16 % (12-44); MEAN CORPUSCULAR HEMOGLOBIN 31 PG (25-34); MEAN CORPUSCULAR HGB CONC 32 G/DL (32-36); MEAN CORPUSCULAR VOLUME 99 FL (80-99); MEAN PLATELET VOLUME 9.6 FL (7.4-10.4); MONOCYTES # (AUTO) 0.5 X 10^3 (0.0-1.0); MONOCYTES % (AUTO) 11 % (0-12); NEUTROPHILS # (AUTO) 3.4 X 10^3 (1.8-7.8); NEUTROPHILS % (AUTO) 72 % (42-75); PLATELET COUNT 164 10^3/uL (130-400); RED BLOOD COUNT 3.35 10^6/uL (4.35-5.85); RED CELL DISTRIBUTION WIDTH 14.9 % (10.0-14.5); WHITE BLOOD COUNT 4.7 10^3/uL (4.3-11.0)
[2017-06-14 11:13] LABS: ALBUMIN 3.5 GM/DL (3.2-4.5); BILIRUBIN,TOTAL 0.6 MG/DL (0.1-1.0); CALCIUM 8.5 MG/DL (8.5-10.1); CREATININE SERUM 1.4 MG/DL (0.60-1.30); TOTAL PROTEIN 6.3 GM/DL (6.4-8.2)
[2017-06-21 10:54] LABS: BASOPHILS % (AUTO) 0 % (0-10); EOSINOPHILS # (AUTO) 0.1 10^3/uL (0.0-0.3); EOSINOPHILS % (AUTO) 1 % (0-10); HEMATOCRIT 34 % (40-54); HEMOGLOBIN 10.8 G/DL (13.3-17.7); LYMPHOCYTES # (AUTO) 0.8 X 10^3 (1.0-4.0); LYMPHOCYTES % (AUTO) 18 % (12-44); MEAN CORPUSCULAR HEMOGLOBIN 31 PG (25-34); MEAN CORPUSCULAR HGB CONC 32 G/DL (32-36); MEAN CORPUSCULAR VOLUME 98 FL (80-99); MEAN PLATELET VOLUME 9.4 FL (7.4-10.4); MONOCYTES # (AUTO) 0.4 X 10^3 (0.0-1.0); MONOCYTES % (AUTO) 10 % (0-12); NEUTROPHILS % (AUTO) 70 % (42-75); PLATELET COUNT 164 10^3/uL (130-400); RED BLOOD COUNT 3.45 10^6/uL (4.35-5.85); RED CELL DISTRIBUTION WIDTH 14.9 % (10.0-14.5); WHITE BLOOD COUNT 4.3 10^3/uL (4.3-11.0)
[2017-06-21 11:12] LABS: ALBUMIN 3.6 GM/DL (3.2-4.5); BILIRUBIN,TOTAL 0.7 MG/DL (0.1-1.0); CALCIUM 8.7 MG/DL (8.5-10.1); CREATININE SERUM 1.52 MG/DL (0.60-1.30); POTASSIUM 4.6 MMOL/L (3.6-5.0); TOTAL PROTEIN 6.3 GM/DL (6.4-8.2)
[2017-07-31] MEDS ORDERED: DIGO125T (06:57)
== END 2017-08-08 | disposition home or self-care (01) ==
LOC: ONC 10:38
PROVIDERS: ATTEND Internal Medicine Hematology & Oncology
DX: C49.4 Malignant neoplasm of connective and soft tissue of abdomen (principal); E03.9 Hypothyroidism, unspecified; N18.3 Chronic kidney disease, stage 3 (moderate); D50.0 Iron deficiency anemia secondary to blood loss (chronic); Z79.899 Other long term (current) drug therapy
CPT/HCPCS: 36415; 80053; 83615; 84443; 85025; 99213

== ENCOUNTER 2017-07-31 06:30 | Emergency (ER) | payer MEDICARE ==
[~2017-07-31] VITALS: Ht 175.3 cm; Wt 68.0 kg
[~2017-07-31 06:30] MED LIST changes: -PROC10TA PO; +PROC10TA10 PO
[2017-07-31] MEDS ORDERED: DIGO125T (06:57)
[2017-07-31] MEDS ORDERED: DIGOXIN IMMUNE FAB IV ONE (07:02)
--- NOTE | 2017-07-31 07:06 | ED Cardiac General ---
History of Present Illness General Stated Complaint: DIZZY Source: patient, family Exam Limitations: no limitations History of Present Illness Date Seen by Provider: Jul 31, 2017 Time Seen by Provider: 06:35 Initial Comments This 86-year-old white male presents with paroxysmal dizziness began this morning when he awoke and attempted to get out of bed. The patient noted associated weakness and a significant headache. 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 Patient was subsequently noted to have a cardiac arrhythmia (atrial fibrillation?). The patient did not take any significant fluid yesterday as he was attending the of a friend. He may be dehydrated as part of this presentation. The patient denies lateralizing or localizing neurologic complaints. He is complaining of dizziness whenever he moves or looks to his right. The patient' s headache is frontally located and moderately severe. The patient is nauseated but has not vomited. Allergies and Home Medications Allergies Coded Allergies: morphine (Verified Allergy, Mild, 12/20/14) quinine (Verified Allergy, Mild, 12/20/14) sulfamethoxazole (Verified Allergy, Unknown, 11/06/15) trimethoprim (Verified Allergy, Unknown, 11/06/15) Home Medications Calcium Carbonate/Vitamin D3 1 Each Tablet, 1 TAB PO DAILY, (Reported) Cyanocobalamin (Vitamin B-12) 1,000 Mcg Tablet, 1,000 MCG PO DAILY, (Reported) Ferrous Sulfate 325 Mg Tablet, 325 MG PO DAILY, (Reported) Hydrocodone/Acetaminophen 1 Each Tablet, 1 TAB PO Q4H PRN for PAIN Prescribed by: BIANKA MENDES NWKARLY on 11/08/15 1410 Hyoscyamine Sulfate 0.125 Mg Tab.rapdis, 0.125 MG PO PRN PRN for ABDOMINAL PAIN, (Reported) Levothyroxine Sodium 88 Mcg Tablet, 88 MCG PO DAILY, (Reported) Magnesium Oxide 250 Mg Tablet, 250 MG PO DAILY, (Reported) Oxybutynin Chloride 10 Mg Tab.er.24, 10 MG PO DAILY, (Reported) Pantoprazole Sodium 40 Mg Tablet.dr, 40 MG PO BID, (Reported) Prochlorperazine Maleate 10 Mg Tablet, 10 MG PO PRN PRN for NAUSEA, (Reported) Psyllium 1 Pkt Box, 1 TBS PO HS, (Reported) Simvastatin 10 Mg Tablet, 10 MG PO DAILY, (Reported) Tizanidine Hcl 4 Mg Tablet, 4 MG PO BID PRN for MUSCLE SPASMS, (Reported) Patient Home Medication List Home Medication List Reviewed: Yes Review of Systems Constitutional: No chills; dizziness; No fever; weakness EENTM: No Blurred Vision, No Ear Drainage, No Ear Pain Respiratory: Denies Cough Cardiovascular: Denies Chest Pain, Denies Palpitations Gastrointestinal: Denies Abdominal Pain; Nausea; Denies Vomiting Genitourinary: No Symptoms Reported Musculoskeletal: no symptoms reported Skin: No rash Psychiatric/Neurological: No Symptoms Reported Endocrine: No Symptoms Reported Hematologic/Lymphatic: No Symptoms Reported Past Cocjdvg-Uhmfaa-Tikbif Hx Patient Social History 2nd Hand Smoke Exposure: No Recent Foreign Travel: No Contact w/Someone Who Travel: No Immunizations Up To Date Tetanus Booster (TDap): Less than 5yrs Date of Pneumonia Vaccine: Jan 17, 2015 Date of Influenza Vaccine: Jan 17, 2015 Seasonal Allergies Seasonal Allergies: No Past Medical History Abdominal, Appendectomy, Gallbladder, Orthopedic, Thyroidectomy Heart Murmur Reproductive Disorders: No Sexually Transmitted Disease: No HIV/AIDS: No Kidney Stones Gastroesophageal Reflux, Diverticulosis, Ulcer Arthritis Hypothyroidsim Loss of Vision: Bilateral Hearing Impairment: Hard of Hearing, Bilateral Hearing Aide Adverse Reaction/Blood Tranf: No (HAS HAD BLOOD WITH NO REACTION) Family Medical History Reviewed Nursing Family Hx Congenital heart disease 19 FATHER 19 MOTHER FH: renal cell carcinoma G8 SISTER Leukemia G8 BROTHER G8 BROTHER No Pertinent Family Hx Physical Exam Vital Signs Vital Signs - First Documented 07/31/17 06:41 Temp 98.2 Pulse 48 Resp 12 B/P (MAP) 141/86 (104) Pulse Ox 97 Capillary Refill : General Appearance: Mild Distress, Thin HEENT: Other (on ENT exam the patient demonstrates a significant nystatin this with right lateral gaze. This exacerbates the patient's symptoms of dizziness) Neck: Full Range of Motion, Normal Inspection, Non Tender, Supple Respiratory: Chest Non Tender, Lungs Clear, Normal Breath Sounds Cardiovascular: Bradycardia, Systolic Murmur (there is a grade 4/6 systolic ejection murmur heard best at the apex suggestive of an aortic murmur.) Gastrointestinal: Normal Bowel Sounds, No Organomegaly, No Pulsatile Mass, Non Tender Extremity: Normal Capillary Refill, Normal Inspection, Normal Range of Motion, Non Tender Neurologic/Psychiatric: Alert, Oriented x3, No Motor/Sensory Deficits, Normal Mood/Affect, Other (although the patient according to the family as mild dementia the patient's neurologic exam is grossly normal.) Skin: Normal Color, Warm/Dry Progress/Results/Core Measures Lab Results Laboratory Tests Test 07/31/17 06:50 Range/Units White Blood Count 4.3 4.3-11.0 10^3/uL Red Blood Count 3.52 L 4.35-5.85 10^6/uL Hemoglobin 10.9 L 13.3-17.7 G/DL Hematocrit 35 L 40-54 % Mean Corpuscular Volume 98 80-99 FL Mean Corpuscular Hemoglobin 31 25-34 PG Mean Corpuscular Hemoglobin Concent 32 32-36 G/DL Red Cell Distribution Width 15.2 H 10.0-14.5 % Platelet Count 163 130-400 10^3/uL Mean Platelet Volume 9.6 7.4-10.4 FL Neutrophils (%) (Auto) 64 42-75 % Lymphocytes (%) (Auto) 23 12-44 % Monocytes (%) (Auto) 10 0-12 % Eosinophils (%) (Auto) 3 0-10 % Basophils (%) (Auto) 0 0-10 % Neutrophils # (Auto) 2.7 1.8-7.8 X 10^3 Lymphocytes # (Auto) 1.0 1.0-4.0 X 10^3 Monocytes # (Auto) 0.4 0.0-1.0 X 10^3 Eosinophils # (Auto) 0.1 0.0-0.3 10^3/uL Basophils # (Auto) 0.0 0.0-0.1 10^3/uL Prothrombin Time 16.9 H 12.2-14.7 SEC INR Comment 1.4 0.8-1.4 Sodium Level 143 135-145 MMOL/L Potassium Level 4.6 3.6-5.0 MMOL/L Chloride Level 111 H 98-107 MMOL/L Carbon Dioxide Level 22 21-32 MMOL/L Anion Gap 10 5-14 MMOL/L Blood Urea Nitrogen 38 H 7-18 MG/DL Creatinine 1.54 H 0.60-1.30 MG/DL Estimat Glomerular Filtration Rate 43 BUN/Creatinine Ratio 25 Glucose Level 105 70-105 MG/DL Calcium Level 9.1 8.5-10.1 MG/DL Total Bilirubin 0.7 0.1-1.0 MG/DL Aspartate Amino Transf (AST/SGOT) 30 5-34 U/L Alanine Aminotransferase (ALT/SGPT) 35 0-55 U/L Alkaline Phosphatase 121 40-136 U/L Total Protein 6.7 6.4-8.2 GM/DL Albumin 3.7 3.2-4.5 GM/DL Digoxin Level 1.26 0.80-2.00 NG/ML My Orders Orders - PO DALAL MD Cbc With Automated Diff (07/31/17 07:06) Comprehensive Metabolic Panel (07/31/17 07:06) Ct Head Wo (07/31/17 07:06) Digoxin (07/31/17 07:06) Chest 1 View, Ap/Pa Only (07/31/17 07:08) Protime With Inr (07/31/17 07:08) Ekg Tracing (07/31/17 07:08) Ns Iv 1000 Ml (Sodium Chloride 0.9%) (07/31/17 07:15) Ondansetron Injection (Zofran Injectio (07/31/17 07:30) Fentanyl Injection (Sublimaze Injection (07/31/17 07:30) Digoxin Immune Timothy Injection (Digifab In (07/31/17 07:02) Ns Iv 500 Ml (Sodium Chloride 0.9%) (07/31/17 07:12) Medications Given in ED Current Medications Medications Dose Ordered Sig/Femi Route Start Time Stop Time Status Last Admin Dose Admin Fentanyl Citrate 50 mcg ONCE ONCE IVP 07/31/17 07:30 07/31/17 07:31 DC 07/31/17 07:48 50 MCG Ondansetron HCl 4 mg ONCE ONCE IVP 07/31/17 07:30 07/31/17 07:31 DC 07/31/17 07:48 4 MG Vital Signs/I&O 07/31/17 06:41 Temp 98.2 Pulse 48 Resp 12 B/P (MAP) 141/86 (104) Pulse Ox 97 Progress Note : Time: 07:37 Progress Note The patient's EKG demonstrated a marked bradycardia. I see no significant atrial activity preceding the QRS complexes and believe this is consistent with a complete heart block. However the ventricular response is not regular and there may be underlying atrial fibrillation. External pacer was applied as the patient's rate dipped occasionally into the mid 40s. As long as the patient was In recumbent position he was tolerating the rate. I spoke with the patient's cardiology group at [place] (Dr. Martins) who accepted the patient in transfer. We discussed the patient's presentation and collectively agreed a CT of his head was in order as well as the usual laboratory evaluation including a digoxin level. 4 mg of ondansetron IV and 50 g of fentanyl were ordered for the patient's nausea and headach 7:51 a.m. The patient remained in a bradycardia with a rate of approximately 50. He dig level was therapeutic at 1.25. His chest x-ray demonstrated cardiomegaly with questionable vascular redistribution. CT of the head on my read did not demonstrate an acute hemorrhage. There was an area of hypo- lucency in the right cerebrum. Departure Impression Primary Impression: Vertigo Additional Impressions: Headache Qualified Codes: R51 - Headache Bradycardia Disposition: 02 XFER SHT-TRM HOSP Condition: Improved Admissions Decision to Admit Reason: Admit from ER (General) Decision to Admit/Date: Jul 31, 2017 Time/Decision to Admit Time: 08:14 Transfer Time Spoke to Accepting Phy: 08:14 Transfer Progress Notes I spoke to Dr. Martins and subsequently to Dr. Smith who accepted the patient in transfer to the ICU at [place]. Method of Transfer: EMS Departure-Patient Inst. Referrals: ROSALINA MENDEZ MD (PCP/Family) Primary Care Physician PO DALAL MD Jul 31, 2017 07:06
[2017-07-31] MEDS ORDERED: NS IV 500 ML 500 ML ONE (07:12)
[2017-07-31] MEDS ORDERED: NS IV 1000 ML 1,000 ML IV SCH (07:15)
[2017-07-31 07:19] LABS: BASOPHILS % (AUTO) 0 % (0-10); EOSINOPHILS # (AUTO) 0.1 10^3/uL (0.0-0.3); EOSINOPHILS % (AUTO) 3 % (0-10); HEMATOCRIT 35 % (40-54); HEMOGLOBIN 10.9 G/DL (13.3-17.7); LYMPHOCYTES % (AUTO) 23 % (12-44); MEAN CORPUSCULAR HEMOGLOBIN 31 PG (25-34); MEAN CORPUSCULAR HGB CONC 32 G/DL (32-36); MEAN CORPUSCULAR VOLUME 98 FL (80-99); MEAN PLATELET VOLUME 9.6 FL (7.4-10.4); MONOCYTES # (AUTO) 0.4 X 10^3 (0.0-1.0); MONOCYTES % (AUTO) 10 % (0-12); NEUTROPHILS # (AUTO) 2.7 X 10^3 (1.8-7.8); NEUTROPHILS % (AUTO) 64 % (42-75); PLATELET COUNT 163 10^3/uL (130-400); RED BLOOD COUNT 3.52 10^6/uL (4.35-5.85); RED CELL DISTRIBUTION WIDTH 15.2 % (10.0-14.5); WHITE BLOOD COUNT 4.3 10^3/uL (4.3-11.0)
[2017-07-31 07:20] LABS: INR 1.4 (0.8-1.4); PROTHROMBIN TIME PATIENT 16.9 SEC (12.2-14.7)
[2017-07-31 07:29] LABS: ALBUMIN 3.7 GM/DL (3.2-4.5); BILIRUBIN,TOTAL 0.7 MG/DL (0.1-1.0); CALCIUM 9.1 MG/DL (8.5-10.1); CREATININE SERUM 1.54 MG/DL (0.60-1.30); POTASSIUM 4.6 MMOL/L (3.6-5.0); TOTAL PROTEIN 6.7 GM/DL (6.4-8.2)
[2017-07-31] MEDS ORDERED: ONDANSETRON 4 MG/2 ML (SDV) Z0FRAN IVP ONE (07:30)
[2017-07-31] MEDS ORDERED: fentaNYL INJECTION 100 MCG/2 ML AMP IVP ONE (07:30)
[2017-07-31 07:35] LABS: DIGOXIN 1.26 NG/ML (0.80-2.00)
--- NOTE | 2017-07-31 08:04 | Diagnostic Imaging Report ---
EXAM: CHEST 1 VIEW, AP/PA ONLY INDICATION: Dizziness. Weakness. COMPARISON: Chest radiograph 05/07/2016. FINDINGS: Cardiomegaly. Normal central pulmonary vascularity. New airspace consolidation in the right lung apex. No pleural effusion or pneumothorax. No acute osseous findings. Demineralization. 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 Postoperative changes in the lower cervical spine. IMPRESSION: 1. New consolidation in the right lung apex. 2. Stable cardiomegaly. Dictated by: Dictated on workstation # [id number]
--- NOTE | 2017-07-31 08:05 | Diagnostic Imaging Report ---
PROCEDURE: CT head without contrast. TECHNIQUE: Multiple contiguous axial images were obtained through the brain without the use of intravenous contrast. DATE: 07/31/2017. COMPARISON: MRI brain 10/03/2014. CT head and cervical spine 10/02/2014. INDICATION: 86-year-old male, dizziness and weakness. FINDINGS: There are areas of low attenuation in the periventricular white matter which are nonspecific although may potentially reflect mild changes of chronic small vessel ischemic disease. The ventricles and cerebral spinal fluid spaces are of normal size and configuration for the patient's age. There is no mass effect or midline shift. There is no acute intracranial hemorrhage. There is no abnormal extra-axial fluid collection. The visualized portions of the paranasal sinuses, mastoid air cells and middle ears are well aerated. IMPRESSION: 1. No identified acute intracranial abnormality. 2. Mild probable changes of chronic small vessel ischemic disease. Dictated by: Dictated on workstation # [id number]
[2017-07-31 08:22] VITALS: BP 140/87
--- OUTSIDE RECORDS SUMMARY | 2017-08-01 09:28 | XMS REPORT | Continuity of Care Document ---
Author Author [employer] Organization [facility] Address Unknown Phone Unavailable Care Team Providers Care Line Assembler Aircraft Name Role Phone [employer] Unavailable Unavailable Problems Medications Allergies, Adverse Reactions, Alerts Immunizations Results Vital Signs Encounters Location Location Details Encounter Type Encounter Number Reason For Visit Attending Provider ADM Date DC Date Status Source [place] SERIES [id number] KERLINE ROMERO 01/27/20172016 Active [facility] OUTPATIENT [id number] 01/27/2017 Active [facility] INPATIENT [id number] KERLINE ROMERO 02/25/20172016 Active [facility] CA SERIES [id number] KERLINE ROMERO 03/24/20172016 Active [facility] CA SERIES [id number] KERLINE ROMERO 06/23/20172017 Active [facility] O KERLINE HANKINS Active [facility] Procedures Plan of Care Social History Assessment and Plan Family History Advance Directives Functional Status
--- OUTSIDE RECORDS SUMMARY | 2017-08-01 09:29 | XMS REPORT | Encounter Summary ---
Author Author [facility] Address Unknown Phone Unavailable Care Team Providers Care Animal Nursery Worker Name Role Phone Juan Bettencourt MD PCP Alan Manzano MD Unavailable Roxana Say DO Unavailable Reason for Visit * Reason Comments Heme/Onc Care Gastrointestinal stromal tumor (GIST) of stomach Encounter Details Date Type Department Care Team Description 06/23/2017 Office Visit [facility] Chan Alexander MD [facility] [address] tumor (GIST) of stomach [address] [place] [address] (HCC) (Primary Dx) [place] [address] [place] [address] [phone] Social History Tobacco Use Types Packs/Day Years Used Date Former Smoker Cigarettes 0.5 5 Quit: 04/19/1957 Smokeless Tobacco: Never Used Alcohol Use Drinks/Week oz/Week Comments No Sex Assigned at Date Recorded Not on file as of this encounter Last Filed Vital Signs Vital Sign Reading Time Taken Blood Pressure 140/78 06/23/2017 12:17 PM DENTAL TECHNICIAN APPRENTICE Pulse 54 06/23/2017 12:17 PM DENTAL TECHNICIAN APPRENTICE Temperature 36.6 C (97.8 F) 06/23/2017 12:17 PM DENTAL TECHNICIAN APPRENTICE Respiratory Rate 18 06/23/2017 12:17 PM DENTAL TECHNICIAN APPRENTICE Oxygen Saturation 96% 06/23/2017 12:17 PM DENTAL TECHNICIAN APPRENTICE Inhaled Oxygen - - Concentration Weight 71.4 kg (157 lb 6.4 oz) 06/23/2017 12:17 PM DENTAL TECHNICIAN APPRENTICE Height - - Body Mass Index 23.23 06/23/2017 12:17 PM DENTAL TECHNICIAN APPRENTICE in this encounter Functional Status Functional Status Response Date of Assessment Does the patient have a hearing impairment: No 03/01/2017 Does the patient have a visual impairment: Yes 03/01/2017 Does the patient have impaired ambulation: No 03/01/2017 Does the patient have an activity of daily living No 03/01/2017 (ADL) impairment: Does the patient have an instrumental activity of Yes 03/01/2017 daily living (IADL) impairment: Cognitive Status Response Date of Assessment Does the patient have a cognitive impairment: No 03/01/2017 as of this encounter Progress Notes * Chan Alexander MD - 06/23/2017 11:20 AM DENTAL TECHNICIAN APPRENTICE Formatting of this note may be different from the original. Date of Service: 06/23/2017 Subjective Reason for Visit: Heme/Onc Care Julio Dubois is a 86 y.o. male. 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 He was diagnosed with the GIST in August 2015 but declined to start Gleevec due to possible side effects. He began having difficulty swallowing and weight loss and is interested in surgical resection. On 02/25/2017, he underwent a laparoscopic partial gastrectomy with resection of the GIST. Pathology confirmed a 4.5 cm GIST that was completely excised (T2Nx). He presents today for a surveillance appt. He follows with Dr. Alan Manzano, medical oncology. He was prescribed Gleevac and has been experiencing cytopenias and leg swelling and has decided to discontinue the Gleevec therapy. No recent imaging has been performed. He is able to eat all types of food without restriction. Bowels move regularly. Review of Systems Constitutional: Negative for chills, fatigue and fever. Respiratory: Negative for cough, shortness of breath and wheezing. Cardiovascular: Positive for leg swelling (with Gleevec). Negative for chest pain and palpitations. Gastrointestinal: Negative for abdominal pain, constipation, diarrhea, nausea and vomiting. Musculoskeletal: Negative for arthralgias and back pain. Hematological: Negative for adenopathy. Does not bruise/bleed easily. All other systems reviewed and are negative. The remainder of the complete 12-point comprehensive ROS is otherwise entirely negative. Past Medical History: Diagnosis Date Acquired hypothyroidism s/p partial thyroidectomy Anemia Arthritis Back pain CKD (chronic kidney disease) Diverticulosis Fracture of sternum 1996 GERD (gastroesophageal reflux disease) GIST, non-malignant Hearing reduced Heart murmur Hyperlipidemia Past Surgical History: Procedure Laterality Date HX APPENDECTOMY 1948 KIDNEY STONE SURGERY 1983 HX CHOLECYSTECTOMY 2000 ESOPHAGUS SURGERY 2000 hiatal hernia repair? PARTIAL THYROIDECTOMY 2004 HERNIA REPAIR Bilateral 2016 Pt has had two left and two right hernias repaired BARIATRIC SURGERY N/A 02/25/2017 LAPAROSCOPIC PARTIAL GASTRECTOMY, ESOPHAGOGASTRODUODENOSCOPY performed by Chan Alexander MD at [facility]/Periop CERVICAL SPINE SURGERY C4-6 COLONOSCOPY HX ROTATOR CUFF REPAIR Bilateral 1998, 2004 right 1998, left 2004 INGUINAL HERNIA REPAIR Left 1978, 2015 INGUINAL HERNIA REPAIR Right 1995, 2008 No family history on file. Social History Social History Marital status: Spouse name: Danielle Number of children: 2 Years of education: N/A Occupational History Retired Social History Main Topics Smoking status: Former Smoker Packs/day: 0.50 Years: 5.00 Types: Cigarettes Quit date: 04/19/1957 Smokeless tobacco: Never Used Alcohol use No Drug use: No Sexual activity: Not on file Other Topics Concern Not on file Social History Narrative No narrative on file Objective: artificial tears(hypromellose) 0.4 % ophthalmic solution Place 1 drop into or around eye(s) as Needed. calcium carbonate (OS-TRACY) 1250 mg tablet Take 1,250 mg by mouth every morning. cyanocobalamin(+) (VITAMIN B-12) 500 mcg tablet Take by mouth daily. docusate sodium (COLACE) 50 mg capsule Take 1 capsule by mouth twice daily. Take while on narcotic pain medication. Hold for loose stools. ferrous sulfate (FEOSOL, FEROSUL) 325 mg (65 mg iron) tablet Take 325 mg by mouth every morning. Take on an empty stomach at least 1 hour before or 2 hours after food. HYDROcodone/acetaminophen (NORCO) 5/325 mg tablet Take 1 tablet by mouth every 4 hours as needed for Pain hyoscyamine (ANASPAZ; NULEV; SYMAX FASTABS; HYOMAX-FT; ED-SPAZ; OSCIMIN) 0.125 [address] dissolve tablet [address] 125 mcg under tongue every 6 hours as needed for Cramps. levothyroxine (SYNTHROID) 100 mcg tablet Take 100 mcg by mouth daily 30 minutes before breakfast. Magnesium 250 mg tab Take 250 mg by mouth at bedtime daily. oxybutynin XL (DITROPAN XL) 10 mg tablet Take 10 mg by mouth every morning. oxyCODONE (ROXICODONE, OXY-IR) 5 mg tablet Take 1-2 tablets by mouth every 4 hours as needed pantoprazole DR (PROTONIX) 40 mg tablet Take 40 mg by mouth every morning. prochlorperazine maleate (COMPAZINE) 10 mg tablet Take 10 mg by mouth every 6 hours as needed for Nausea or Vomiting. psyllium (METAMUCIL) 3.4 gram packet Take 1 packet by mouth at bedtime daily. simvastatin (ZOCOR) 20 mg tablet Take 10 mg by mouth at bedtime daily. tiZANidine (ZANAFLEX) 4 mg tablet Take 4 mg by mouth twice daily as needed. Vitals: 06/23/17 1217 BP: 140/78 Pulse: 54 Resp: 18 Temp: 36.6 C (97.8 F) TempSrc: Oral SpO2: 96% Weight: 71.4 kg (157 lb 6.4 oz) Body mass index is 23.23 kg/m. Pain Score: Zero Pain Rating: Pain Addressed: N/A Patient Evaluated for a Clinical Trial: No treatment clinical trial available for this patient. Eastern Cooperative Oncology Group performance status is 0, Fully active, able to carry on all pre-disease performance without restriction.. Physical Exam Constitutional: He is oriented to person, place, and time. He appears well- developed and well-nourished. No distress. HENT: Head: Normocephalic. Mouth/Throat: Oropharynx is clear and moist. No oropharyngeal exudate. Eyes: Conjunctivae are normal. Pupils are equal, round, and reactive to light. No scleral icterus. Neck: Normal range of motion. Neck supple. Cardiovascular: Normal rate and regular rhythm. Exam reveals no gallop and no friction rub. No murmur heard. Pulmonary/Chest: Effort normal and breath sounds normal. No respiratory distress. He has no wheezes. He has no rales. Abdominal: Soft. Bowel sounds are normal. He exhibits no distension and no mass. There is no tenderness. No hernia. Musculoskeletal: Normal range of motion. He exhibits no edema or tenderness. Lymphadenopathy: He has no cervical adenopathy. Right: No supraclavicular adenopathy present. Left: No supraclavicular adenopathy present. Neurological: He is alert and oriented to person, place, and time. Skin: Skin is warm and dry. No rash noted. He is not diaphoretic. No erythema. No pallor. Psychiatric: He has a normal mood and affect. His behavior is normal. Judgment and thought content normal. Nursing note and vitals reviewed. Assessment and Plan: Julio Dubois is a 86 y.o. 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 He was diagnosed with the GIST in August 2015 but declined to start Gleevec due to possible side effects. He began having difficulty swallowing and weight loss and is interested in surgical resection. On 02/25/2017, he underwent a laparoscopic partial gastrectomy with resection of the GIST. Pathology confirmed a 4.5 cm GIST that was completely excised (T2Nx). - Overall, he feels well from a GI perspective and is only dealing with the side effects from Gleevec therapy, which has been stopped. - Due to his age, comorbidites and distance he lives from the cancer center, pt and family request to follow with Dr. Manzano, medical oncology only. He will contact us if any surgical concerns arise. - RTC as needed. - Pt was evaluated and plan developed in conjunction with Dr. Chan Garcia. Sanjana Weir PA-C ATTESTATION I personally interviewed and examined the patient. I have reviewed the history , physical, impression and plan outlined by the Physician Utility Sales Representative. The patient presents with (HPI) a history of a resected GIST tumor February 2011. Gleevec therapy was discontinued due to poor tolerance. HPI otherwise reviewed with the patient and the PA, who made the documentation in their note after our discussion and expresses my exact observations and interpretations. HPI otherwise reviewed with the patient and the PA, who made the documentation in their note after our discussion and expresses my exact observations and interpretations. On examination there are no findings suggestive of distant metastatic disease. Exam otherwise repeated and reviewed with the PA, who made the documentation in their note after our discussion and expresses my exact findings. My impression is that there is no clear clinical evidence of cancer recurrence. My plan is to have the patient continue to follow-up with Dr. Manzano, his medical oncologist. RTC PRN only. Assessment and plan otherwise reviewed with the patient and the PA, who made the documentation in their note after our discussion and expresses my exact impression and plan. 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
--- OUTSIDE RECORDS SUMMARY | 2017-08-01 09:29 | XMS REPORT | Clinical Summary ---
Author Author [facility] Organization [facility] Address Unknown Phone Unavailable Care Team Providers Care Sack Sewer Name Role Phone Juan Bettencourt MD PCP Alan Manzano MD Unavailable Say Schmidt DO Unavailable Source Comments Some departments are not documenting in the electronic medical record. If you do not see the information that you expected, contact Release of Information in the Health Information Management department at [phone] for further assistance in locating additional records.[facility] Allergies Active Allergy Reactions Severity Noted Date Comments Sulfamethoxazole-Trimetho FEVER Medium 01/27/2017 prim Morphine NAUSEA AND VOMITING Low 01/27/2017 Quinine CHILLS Low 01/27/2017 Current Medications Prescription Sig. Disp. Refills Start End Date Status Date simvastatin (ZOCOR) 20 mg Take 10 mg by mouth at Active tablet bedtime daily. levothyroxine (SYNTHROID) Take 100 mcg by mouth Active 100 mcg tablet daily 30 minutes before breakfast. oxybutynin XL (DITROPAN Take 10 mg by mouth every Active XL) 10 mg tablet morning. tiZANidine (ZANAFLEX) 4 Take 4 mg by mouth twice Active mg tablet daily as needed. psyllium (METAMUCIL) 3.4 Take 1 packet by mouth at Active gram packet bedtime daily. pantoprazole DR Take 40 mg by mouth every Active (PROTONIX) 40 mg tablet morning. prochlorperazine maleate Take 10 mg by mouth every Active (COMPAZINE) 10 mg tablet 6 hours as needed for Nausea or Vomiting. hyoscyamine (ANASPAZ; Place 125 mcg under Active NULEV; SYMAX FASTABS; tongue every 6 hours as HYOMAX-FT; ED-SPAZ; needed for Cramps. OSCIMIN) 0.125 mg rapid dissolve tablet HYDROcodone/acetaminophen Take 1 tablet by mouth Active (NORCO) 5/325 mg tablet every 4 hours as needed for Pain Magnesium 250 mg tab Take 250 mg by mouth at Active bedtime daily. calcium carbonate Take 1,250 mg by mouth Active (OS-TRACY) 1250 mg tablet every morning. ferrous sulfate (FEOSOL, Take 325 mg by mouth Active FEROSUL) 325 mg (65 mg every morning. Take on an iron) tablet empty stomach at least 1 hour before or [address] artificial [address] 1 drop into or Active tears(hypromellose) 0.4 % around eye(s) as Needed. ophthalmic solution cyanocobalamin(+) Take by mouth daily. Active (VITAMIN B-12) 500 mcg tablet oxyCODONE (ROXICODONE, Take 1-2 tablets by mouth 40 tablet 0 03/01/20 Active OXY-IR) 5 mg tablet every 4 hours as needed 17 docusate sodium (COLACE) Take 1 capsule by mouth 10 capsule 0 Active 50 mg capsule twice daily. Take while 17 on narcotic pain medication. Hold for loose stools. 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) (Primary Dx) from Last 3 Months Social History Tobacco Use Types Packs/Day Years Used Date Former Smoker Cigarettes 0.5 5 Quit: 04/19/1957 Smokeless Tobacco: Never Used Alcohol Use Drinks/Week oz/Week Comments No Sex Assigned at Date Recorded Not on file Last Filed Vital Signs Vital Sign Reading Time Taken Blood Pressure 140/78 06/23/2017 12:17 PM THIMBLE PRESS OPERATOR Pulse 54 06/23/2017 12:17 PM THIMBLE PRESS OPERATOR Temperature 36.6 C (97.8 F) 06/23/2017 12:17 PM THIMBLE PRESS OPERATOR Respiratory Rate 18 06/23/2017 12:17 PM THIMBLE PRESS OPERATOR Oxygen Saturation 96% 06/23/2017 12:17 PM THIMBLE PRESS OPERATOR Inhaled Oxygen - - Concentration Weight 71.4 kg (157 lb 6.4 oz) 06/23/2017 12:17 PM THIMBLE PRESS OPERATOR Height 175.3 cm (5' 9.02") 03/24/2017 1:18 PM THIMBLE PRESS OPERATOR Body Mass Index 23.23 06/23/2017 12:17 PM THIMBLE PRESS OPERATOR Plan of Treatment Health Maintenance Due Date Last Done Comments PHYSICAL (COMPREHENSIVE) 1937 EXAM PERTUSSIS VACCINE 1941 TETANUS VACCINE 09/06/1947 SHINGLES VACCINE 1990 PREVNAR/PNEUMOVAX (#1) 09/06/1995 INFLUENZA VACCINE 01/17/2018 Results Not on filefrom Last 3 Months
--- OUTSIDE RECORDS SUMMARY | 2017-08-01 09:32 | XMS REPORT | Continuity of Care Document ---
Author Author [facility] Organization [facility] Address Unknown Phone Unavailable Allergies Active Description Code Type Severity Reaction Onset Reported/Identified Relationship to Patient Clinical Status Yes morphine [id number] Drug Allergy Mild N/A 12/20/2014 Yes quinine [id number] Drug Allergy Mild N/A 12/20/2014 Yes sulfamethoxazole [id number] Drug Allergy Unknown N/A 11/06/2015 Yes trimethoprim [id number] Drug Allergy Unknown N/A 11/06/2015 Medications There is no data. 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 10/08/2014 ROSALINA MENDEZ MD Ot 244.9 10/08/2014 ROSALINA MENDEZ MD Ot 272.4 HYPERLIPIDEMIA NEC/NOS 10/08/2014 ROSALINA MENDEZ MD Ot 276.0 HYPEROSMOLALITY 10/08/2014 ROSALINA MENDEZ MD Ot 276.7 HYPERPOTASSEMIA 10/08/2014 ROSALINA MENDEZ MD Ot 285.1 AC POSTHEMORRHAG ANEMIA 10/08/2014 ROSALINA MENDEZ MD Ot 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 10/08/2014 ROSALINA MENDEZ MD Ot 396.3 10/08/2014 ROSALINA MENDEZ MD Ot 397.0 TRICUSPID VALVE DISEASE 10/08/2014 ROSALINA MENDEZ MD Ot 403.90 HYPTNSV CHR KID DIS, UNSPEC, W CHR KD ST 10/08/2014 ROSALINA MENDEZ MD Ot 414.01 CORONARY ATHEROSCLEROSIS OF JENA CORON 10/08/2014 ROSALINA MENDEZ MD Ot 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 NOS 10/08/2014 ROSALINA MENDEZ MD Ot 433.10 CAROTID ARTERY OCCLUSION W O CEREBRAL IN 10/08/2014 ROSALINA MENDEZ MD Ot 433.30 MULT BILTRAL ARTERY OCCLUSION WO CEREBRA 10/08/2014 ROSALINA MENDEZ MD Ot 458.0 ORTHOSTATIC HYPOTENSION 10/08/2014 ROSALINA MENDEZ MD Ot 531.40 CHR STOMACH ULC W HEM 10/08/2014 ROSALINA MENDEZ MD Ot 533.40 10/08/2014 ROSALINA MENDEZ MD Ot 585.3 CHRONIC KIDNEY DISEASE, STAGE III (MODER 10/08/2014 ROSALINA MENDEZ MD Ot 599.0 URIN TRACT INFECTION NOS 10/08/2014 ROSALINA MENDEZ MD Ot 715.90 OSTEOARTHROS NOS-UNSPEC 10/08/2014 ROSALINA MENDEZ MD Ot 784.0 HEADACHE 10/08/2014 ROSALINA MENDEZ MD Ot 785.2 CARDIAC MURMURS NEC 10/08/2014 ROSALINA MENDEZ MD Ot 786.59 CHEST PAIN NEC 10/08/2014 ROSALINA MENDEZ MD Ot 908.9 LATE EFFECT INJURY NOS 10/08/2014 ROSALINA MENDEZ MD Ot E929.9 LATE EFF ACCIDENT NOS 10/08/2014 ROSALINA MENDEZ MD Ot V15.81 HX OF PAST NONCOMPLIANCE 12/20/2014 Ot 285.9 12/20/2014 Ot V72.84 12/21/2014 RG CLINTON MD Ot 578.1 BLOOD IN STOOL 12/21/2014 RG CLINTON MD Ot 578.9 GASTROINTEST HEMORR NOS 12/23/2014 RG CLINTON MD Ot 599.0 URIN TRACT INFECTION NOS 12/23/2014 RG CLINTON MD Ot 788.1 DYSURIA 12/28/2014 ERIKA COLBY DO Ot 211.1 12/28/2014 ERIKA COLBY DO Ot 535.50 12/31/2014 ERIKA COLBY DO Ot 211.1 12/31/2014 ERIKA COLBY DO Ot 535.50 01/18/2015 ERIKA COLBY DO Ot 211.1 01/18/2015 EARNESTINE NYE ERIKA D Ot 535.50 01/23/2015 COLBY ERIKA Ot 211.1 01/23/2015 EARNESTINE NYEERIKA Ot 535.50 01/30/2015 ANDERS MENDEZ MD Ot R07.9 CHEST PAIN, UNSPECIFIED 02/13/2015 ROSALINA MENDEZ MD Ot N39.0 02/21/2015 ROSALINA MENDEZ MD Ot I73.9 02/28/2015 ROSALINA MENDEZ MD Ot I73.9 07/05/2015 EARNESTINE NYEERIKA Ot Z01.818 07/08/2015 TRENTON ERIKA Ot Z01.818 07/08/2015 COLBY ERIKA Ot Z01.818 ENCOUNTER FOR OTHER PREPROCEDURAL EXAMIN 07/09/2015 ERIAK COLBY DO Ot Z01.818 07/09/2015 COLBY ERIKA NYE Ot K29.70 GASTRITIS, UNSPECIFIED, WITHOUT BLEEDING 07/09/2015 COLBY ERIKA NYE Ot K31.9 DISEASE OF STOMACH AND DUODENUM, UNSPECI 07/14/2015 COLBY ERIKA Ot Z01.818 10/02/2015 Ot 451.0 SUPERFIC PHLEBITIS-LEG 10/02/2015 Ot 530.81 ESOPHAGEAL REFLUX 10/02/2015 Ot 518.89 OTHER DISEASES OF LUNG, NEC 10/02/2015 Ot 786.50 CHEST PAIN NOS 10/02/2015 Ot 807.03 FRACTURE THREE RIBS-CLOS 10/02/2015 Ot E000.8 OTHER EXTERNAL CAUSE STATUS 10/02/2015 Ot E928.9 ACCIDENT NOS 10/02/2015 Ot 429.3 CARDIOMEGALY 10/02/2015 Ot 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 10/02/2015 MIGUEL ANGEL SHAY MD Ot V72.84 EXAM PRE-OPERATIVE NOS 10/02/2015 ERIKA COLBY DO Ot 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 10/02/2015 ERIKA COLBY DO Ot 535.50 UNSP GASTRITIS GASTRODUODENITIS W/O ME 10/02/2015 Ot 285.9 ANEMIA NOS 10/02/2015 Ot V72.84 EXAM PRE- OPERATIVE NOS 10/02/2015 ROSALINA MENDEZ MD Ot I73.9 PERIPHERAL VASCULAR DISEASE, UNSPECIFIED 10/02/2015 ROSALINA MENDEZ MD, Ot N39.0 URINARY TRACT INFECTION, SITE NOT SPECIF 10/03/2015 BARTOLOME, CHRISTOPHER Roman Ot 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 10/03/2015 BARTOLOME CHRISTOPHER Roman Ot K31.9 DISEASE OF STOMACH AND DUODENUM, UNSPECI 10/03/2015 BARTOLOMECHRISTOPHER Ot 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/O PERFORATION OR AB 10/03/2015 CHRISTOPHER MANCUSO Ot M85.88 OTH DISRD OF BONE DENSITY AND STRUCTURE, 10/03/2015 BARTOLOMECHRISTOPHER Ot 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 10/03/2015 BARTOLOMECHRISTOPHER Ot K31.9 DISEASE OF STOMACH AND DUODENUM, UNSPECI 10/03/2015 BARTOLOMECHRISTOPHER Ot 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/O PERFORATION OR AB 10/03/2015 CHRISTOPHER MANCUSO Ot M85.88 OTH DISRD OF BONE DENSITY AND STRUCTURE, 10/08/2015 CHRISTOPHER MANCUSO Ot 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 10/08/2015 BARTOLOMECHRISTOPHER Ot 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 10/18/2015 ROSALINA MENDEZ MD Ot R10.32 LEFT LOWER QUADRANT PAIN 10/23/2015 ROSALINA MENDEZ MD, Ot R10.32 LEFT LOWER QUADRANT PAIN 10/23/2015 CHRISTOPHER MANCUSO Ot 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 10/23/2015 CHRISTOPHER MANCUSO Ot K31.9 DISEASE OF STOMACH AND DUODENUM, UNSPECI 10/23/2015 CHRISTOPHER MANCUSO Ot 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/O PERFORATION OR AB 10/23/2015 CHRISTOPHER MANCUSO Ot M85.88 OTH DISRD OF BONE DENSITY AND STRUCTURE, 10/24/2015 ROSALINA MENDEZ MD Ot R10.32 LEFT LOWER QUADRANT PAIN 11/03/2015 ROSALINA MENDEZ MD Ot K46.9 UNSPECIFIED ABDOMINAL HERNIA WITHOUT OBS 11/03/2015 ROSALINA MENDEZ MD Ot 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/O PERFORATION OR AB 11/03/2015 ROSALINA MENDEZ MD Ot R93.5 ABN FINDINGS ON DX IMAGING OF ABD REGION 11/06/2015 CHRISTOPHER MANCUSO Abel Ot 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 11/06/2015 BARTOLOME CHRISTOPHER Roman Ot K31.9 DISEASE OF STOMACH AND DUODENUM, UNSPECI 11/06/2015 BARTOLOME CHRISTOPHER Roman Ot 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/O PERFORATION OR AB 11/06/2015 CHRISTOPHER MANCUSO Abel Ot M85.88 OTH DISRD OF BONE DENSITY AND STRUCTURE, 11/06/2015 ERIKA COLBY DO Ot K40.90 UNIL INGUINAL HERNIA, W/O OBST OR GANGR, 11/06/2015 ERIKA COLBY DO Ot Z01.818 ENCOUNTER FOR OTHER PREPROCEDURAL EXAMIN 11/06/2015 ERIKA COLBY DO Ot Z11.2 ENCOUNTER FOR SCREENING FOR OTHER BACTER 11/07/2015 TRENTON ERIKA NYE Ot K40.90 UNIL INGUINAL HERNIA, W/O OBST OR GANGR, 11/07/2015 ERIKA COLBY DO Ot Z01.818 ENCOUNTER FOR OTHER PREPROCEDURAL EXAMIN 11/07/2015 COLBY ERIKA NYE Ot Z11.2 ENCOUNTER FOR SCREENING FOR OTHER BACTER 11/07/2015 BARTOLOME, CHRISTOPHER Roman Ot 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 11/07/2015 ROSALINA MENDEZ MD Ot R10.32 LEFT LOWER QUADRANT PAIN 11/08/2015 ERIKA COLBY DO Ot K43.9 VENTRAL HERNIA WITHOUT OBSTRUCTION OR GA 11/11/2015 ERIKA COLBY DO Ot K43.9 VENTRAL HERNIA WITHOUT OBSTRUCTION OR GA 11/14/2015 CHRISTOPHER MANCUSO Ot 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 11/14/2015 ROSALINA MENDEZ MD Ot R10.32 LEFT LOWER QUADRANT PAIN 11/28/2015 ROSALINA MENDEZ MD Ot K46.9 UNSPECIFIED ABDOMINAL HERNIA WITHOUT OBS 11/28/2015 ROSALINA MENDEZ MD Ot 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/O PERFORATION OR AB 11/28/2015 ROSALINA MENDEZ MD Ot R93.5 ABN FINDINGS ON DX IMAGING OF ABD REGION 12/06/2015 ABHISHEK BASILIO CDL INSTRUCTOR Ot 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 12/06/2015 BASILIO, HILAH S CDL INSTRUCTOR Ot E03.9 HYPOTHYROIDISM, UNSPECIFIED 12/06/2015 ABHISHEK BASILIO S CDL INSTRUCTOR Ot Z79.899 OTHER [facility] (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 THERAPY 12/16/2015 ROSALINA MENDEZ MD Ot K46.9 UNSPECIFIED ABDOMINAL HERNIA WITHOUT OBS 12/16/2015 ROSALINA MENDEZ MD Ot 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/O PERFORATION OR AB 12/16/2015 ROSALINA MENDEZ MD Ot R93.5 ABN FINDINGS ON DX IMAGING OF ABD REGION 12/27/2015 ABHISHEK BASILIO S CDL INSTRUCTOR Ot 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 12/27/2015 ABHISHEK BASILIO S CDL INSTRUCTOR Ot E03.9 HYPOTHYROIDISM, UNSPECIFIED 12/27/2015 ABHISHEK BASILIO S CDL INSTRUCTOR Ot Z79.899 OTHER [facility] (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 THERAPY 12/31/2015 BARTOLOME, BOBAN N Ot 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 12/31/2015 BARTOLOME, BOBAN N Ot 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 12/31/2015 BARTOLOME, BOBAN N Ot D50.0 IRON DEFICIENCY ANEMIA SECONDARY TO BLOO 12/31/2015 BARTOLOME, BOBAN N Ot E03.9 HYPOTHYROIDISM, UNSPECIFIED 12/31/2015 BARTOLOME, BOBAN N Ot N18.3 CHRONIC KIDNEY DISEASE, STAGE 3 (MODERAT 12/31/2015 BARTOLOME, BOBAN N Ot Z79.899 OTHER [facility] (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 THERAPY 01/01/2016 BARTOLOME, BOBAN N Ot 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 01/01/2016 BARTOLOME, BOBAN N Ot D50.0 IRON DEFICIENCY ANEMIA SECONDARY TO BLOO 01/01/2016 BARTOLOME, BOBAN N Ot E03.9 HYPOTHYROIDISM, UNSPECIFIED 01/01/2016 BARTOLOME, BOBAN N Ot N18.3 CHRONIC KIDNEY DISEASE, STAGE 3 (MODERAT 01/01/2016 BARTOLOME, BOBAN N Ot Z79.899 OTHER [facility] (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 THERAPY 01/07/2016 ABHISHEK BASILIO S CDL INSTRUCTOR Ot 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 01/07/2016 ABHISHEK BASILIO S CDL INSTRUCTOR Ot E03.9 HYPOTHYROIDISM, UNSPECIFIED 01/07/2016 ABHISHEK BASILIO S CDL INSTRUCTOR Ot Z79.899 OTHER [facility] (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 THERAPY 01/07/2016 COLBY ERIKA NYE D Ot 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 01/07/2016 ERIKA COLBY DO Ot 535.50 UNSP GASTRITIS GASTRODUODENITIS W/O ME 02/04/2016 BARTOLOME, BOBAN N Ot 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 03/10/2016 BARTOLOME, BOBAN N Ot 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 03/10/2016 BARTOLOME, BOBAN N Ot D50.0 IRON DEFICIENCY ANEMIA SECONDARY TO BLOO 03/10/2016 BARTOLOME, BOBAN N Ot E03.9 HYPOTHYROIDISM, UNSPECIFIED 03/10/2016 BARTOLOME, BOBAN N Ot N18.3 CHRONIC KIDNEY DISEASE, STAGE 3 (MODERAT 03/10/2016 BARTOLOME, BOBAN N Ot Z79.899 OTHER [facility] (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 THERAPY 03/18/2016 BARTOLOME, BOBAN N Ot 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 03/18/2016 BARTOLOME, BOBAN N Ot D50.0 IRON DEFICIENCY ANEMIA SECONDARY TO BLOO 03/18/2016 BARTOLOME, BOBAN N Ot E03.9 HYPOTHYROIDISM, UNSPECIFIED 03/18/2016 BARTOLOME, BOBAN N Ot N18.3 CHRONIC KIDNEY DISEASE, STAGE 3 (MODERAT 03/18/2016 BARTOLOME, BOBAN N Ot Z79.899 OTHER [facility] (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 THERAPY 05/03/2016 BARTOLOME, BOBAN N Ot 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 05/03/2016 BARTOLOME, BOBAN N Ot D50.0 IRON DEFICIENCY ANEMIA SECONDARY TO BLOO 05/03/2016 BARTOLOME, BOBAN N Ot E03.9 HYPOTHYROIDISM, UNSPECIFIED 05/03/2016 BARTOLOME, BOBAN N Ot N18.3 CHRONIC KIDNEY DISEASE, STAGE 3 (MODERAT 05/03/2016 BARTOLOME, BOBAN N Ot Z79.899 OTHER [facility] (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 THERAPY 05/04/2016 BARTOLOME, BOBAN N Ot 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 05/04/2016 BARTOLOME, BOBAN N Ot D50.0 IRON DEFICIENCY ANEMIA SECONDARY TO BLOO 05/04/2016 BARTOLOME, BOBAN N Ot E03.9 HYPOTHYROIDISM, UNSPECIFIED 05/04/2016 BARTOLOME, BOBAN N Ot N18.3 CHRONIC KIDNEY DISEASE, STAGE 3 (MODERAT 05/04/2016 BARTOLOMECHRISTOPHER Ot Z79.899 OTHER [facility] (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 THERAPY 05/06/2016 Ot 530.81 ESOPHAGEAL REFLUX 05/06/2016 Ot 518.89 OTHER DISEASES OF LUNG, NEC 05/06/2016 Ot 786.50 CHEST PAIN NOS 05/06/2016 Ot 807.03 FRACTURE THREE RIBS-CLOS 05/06/2016 Ot E000.8 OTHER EXTERNAL CAUSE STATUS 05/06/2016 Ot E928.9 ACCIDENT NOS 05/06/2016 Ot 429.3 CARDIOMEGALY 05/06/2016 Ot 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 05/06/2016 MIGUEL ANGEL HSAY MD Ot V72.84 EXAM PRE-OPERATIVE NOS 05/06/2016 ERIKA COLBY DO Ot 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 05/06/2016 REIKA COLBY DO Ot 535.50 UNSP GASTRITIS GASTRODUODENITIS W/O ME 05/06/2016 Ot 285.9 ANEMIA NOS 05/06/2016 Ot V72.84 EXAM PRE- OPERATIVE NOS 05/06/2016 ROSALINA MENDEZ MD Ot I73.9 PERIPHERAL VASCULAR DISEASE, UNSPECIFIED 05/06/2016 ROSALINA MENDEZ MD Ot N39.0 URINARY TRACT INFECTION, SITE NOT SPECIF 05/06/2016 CHRISTOPHER MANCUSO Ot 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 05/06/2016 CHRISTOPHER MANCUSO Ot K31.9 DISEASE OF STOMACH AND DUODENUM, UNSPECI 05/06/2016 CHRISTOPHER MANCUSO Ot 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/O PERFORATION OR AB 05/06/2016 CHRISTOPHER MANCUSO Ot M85.88 OTH DISRD OF BONE DENSITY AND STRUCTURE, 05/06/2016 ROSALINA MENDEZ MD Ot R10.32 LEFT LOWER QUADRANT PAIN 05/06/2016 ROSALINA MENDEZ MD Ot K46.9 UNSPECIFIED ABDOMINAL HERNIA WITHOUT OBS 05/06/2016 ROSALINA MENEDZ MD Ot 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/O PERFORATION OR AB 05/06/2016 ROSALINA MENDEZ MD Ot R93.5 ABN FINDINGS ON DX IMAGING OF ABD REGION 05/06/2016 ABHISHEK BASILIO CDL INSTRUCTOR Ot 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 05/06/2016 ABHISHEK BASILIO CDL INSTRUCTOR Ot E03.9 HYPOTHYROIDISM, UNSPECIFIED 05/06/2016 ABHISHEK BASILIO CDL INSTRUCTOR Ot Z79.899 OTHER [facility] (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 THERAPY 05/06/2016 CHRISTOPHER MANCUSO Ot 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 05/06/2016 CHRISTOPHER MANCUSO Ot D50.0 IRON DEFICIENCY ANEMIA SECONDARY TO BLOO 05/06/2016 CHRISTOPHER MANCUSO N Ot E03.9 HYPOTHYROIDISM, UNSPECIFIED 05/06/2016 CHRISTOPHER MANCUSO Ot N18.3 CHRONIC KIDNEY DISEASE, STAGE 3 (MODERAT 05/06/2016 CHRISTOPHER MANCUSO N Ot Z79.899 OTHER [facility] (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 THERAPY 05/08/2016 DUANE PIMENTEL ENROLLMENT CLERK Ot R07.81 PLEURODYNIA 05/08/2016 DUANE PIMENTEL ENROLLMENT CLERK Ot W19.XXXA UNSPECIFIED FALL, INITIAL ENCOUNTER 05/08/2016 DUANE PIMENTEL ENROLLMENT CLERK Ot Y99.8 OTHER EXTERNAL CAUSE STATUS 05/28/2016 DUANE PIMENTEL ENROLLMENT CLERK Ot S59.902A UNSPECIFIED INJURY OF LEFT ELBOW, INITIA 05/28/2016 DUANE PIMENTEL ENROLLMENT CLERK Ot W19.XXXA UNSPECIFIED FALL, INITIAL ENCOUNTER 05/28/2016 DUANE PIMENTEL ENROLLMENT CLERK Ot Y92.[address] IN [facility] NON-INSTITUT (PRIVATE 05/28/2016 DUANE PIMENTEL ENROLLMENT CLERK Ot Y99.8 OTHER EXTERNAL CAUSE STATUS 05/28/2016 DUANE PIMENTEL ENROLLMENT CLERK Ot R07.81 PLEURODYNIA 05/28/2016 DUANE PIMENTEL ENROLLMENT CLERK Ot W19.XXXA UNSPECIFIED FALL, INITIAL ENCOUNTER 05/28/2016 DUANE PIMENTEL ENROLLMENT CLERK Ot Y99.8 OTHER EXTERNAL CAUSE STATUS 06/03/2016 DUANE PIMENTEL ENROLLMENT CLERK Ot S59.902A UNSPECIFIED INJURY OF LEFT ELBOW, INITIA 06/03/2016 DUANE PIMENTEL ENROLLMENT CLERK Ot W19.XXXA UNSPECIFIED FALL, INITIAL ENCOUNTER 06/03/2016 DUANE PIMENTEL ENROLLMENT CLERK Ot Y92.[address] IN [facility] NON-INSTIT[facility] (PRIVATE 06/03/2016 DUANE PIMENTEL ENROLLMENT CLERK Ot Y99.8 OTHER EXTERNAL CAUSE STATUS 06/03/2016 DUANE PIMENTEL ENROLLMENT CLERK Ot R07.81 PLEURODYNIA 06/03/2016 DUANE PIMENTEL ENROLLMENT CLERK Ot W19.XXXA UNSPECIFIED FALL, INITIAL ENCOUNTER 06/03/2016 DUANE PIMENTEL ENROLLMENT CLERK Ot Y99.8 OTHER EXTERNAL CAUSE STATUS 06/30/2016 BARTOLOMEREX FLOWERAN N Ot 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 06/30/2016 BARTOLOME, BOBAN N Ot D50.0 IRON DEFICIENCY ANEMIA SECONDARY TO BLOO 06/30/2016 BARTOLOME, BOBAN N Ot E03.9 HYPOTHYROIDISM, UNSPECIFIED 06/30/2016 BARTOLOME, BOBAN N Ot N18.3 CHRONIC KIDNEY DISEASE, STAGE 3 (MODERAT 06/30/2016 BARTOLOME, BOBAN N Ot Z79.899 OTHER [facility] (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 THERAPY 06/30/2016 BARTOLOME, BOBAN N Ot 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 06/30/2016 BARTOLOME, BOBAN N Ot Z01.89 ENCOUNTER FOR OTHER SPECIFIED SPECIAL EX 07/05/2016 BARTOLOME, BOBAN N Ot 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 07/05/2016 BARTOLOME, BOBAN N Ot Z01.89 ENCOUNTER FOR OTHER SPECIFIED SPECIAL EX 07/30/2016 BARTOLOME, BOBAN N Ot 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 07/30/2016 BARTOLOME, BOBAN N Ot Z01.89 ENCOUNTER FOR OTHER SPECIFIED SPECIAL EX 08/11/2016 BARTOLOME, BOBAN N Ot 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 08/11/2016 BARTOLOME, BOBAN N Ot Z01.89 ENCOUNTER FOR OTHER SPECIFIED SPECIAL EX 08/14/2016 BARTOLOME, BOBAN N Ot 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 08/14/2016 BARTOLOME, BOBAN N Ot D50.0 IRON DEFICIENCY ANEMIA SECONDARY TO BLOO 08/14/2016 BARTOLOME, BOBAN N Ot E03.9 HYPOTHYROIDISM, UNSPECIFIED 08/14/2016 BARTOLOME, BOBAN N Ot N18.3 CHRONIC KIDNEY DISEASE, STAGE 3 (MODERAT 08/14/2016 BARTOLOME, BOBAN N Ot Z79.899 OTHER [facility]ARE HOME (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 THERAPY 08/27/2016 BARTOLOME, BOBAN N Ot 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 08/27/2016 BARTOLOME, BOBAN N Ot D50.0 IRON DEFICIENCY ANEMIA SECONDARY TO BLOO 08/27/2016 BARTOLOME, BOBAN N Ot E03.9 HYPOTHYROIDISM, UNSPECIFIED 08/27/2016 BARTOLOME, BOBAN N Ot N18.3 CHRONIC KIDNEY DISEASE, STAGE 3 (MODERAT 08/27/2016 BARTOLOME, BOBAN N Ot Z79.899 OTHER [facility]ARE HOME (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 THERAPY 09/27/2016 BARTOLOME, BOBAN N Ot 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 09/27/2016 BARTOLOME, BOBAN N Ot D50.0 IRON DEFICIENCY ANEMIA SECONDARY TO BLOO 09/27/2016 BARTOLOME, BOBAN N Ot E03.9 HYPOTHYROIDISM, UNSPECIFIED 09/27/2016 BARTOLOME, BOBAN N Ot N18.3 CHRONIC KIDNEY DISEASE, STAGE 3 (MODERAT 09/27/2016 BARTOLOME, BOBAN N Ot Z79.899 OTHER [facility] (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 THERAPY 09/28/2016 BARTOLOME, BOBAN N Ot 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 09/28/2016 BARTOLOME, BOBAN N Ot D50.0 IRON DEFICIENCY ANEMIA SECONDARY TO BLOO 09/28/2016 BARTOLOME, BOBAN N Ot E03.9 HYPOTHYROIDISM, UNSPECIFIED 09/28/2016 BARTOLOME, BOBAN N Ot N18.3 CHRONIC KIDNEY DISEASE, STAGE 3 (MODERAT 09/28/2016 BARTOLOME, BOBAN N Ot Z79.899 OTHER [facility] (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 THERAPY 10/01/2016 BARTOLOME, BOBAN N Ot 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 10/01/2016 BARTOLOME, BOBAN N Ot D50.0 IRON DEFICIENCY ANEMIA SECONDARY TO BLOO 10/01/2016 BARTOLOME, BOBAN N Ot E03.9 HYPOTHYROIDISM, UNSPECIFIED 10/01/2016 BARTOLOME, BOBAN N Ot N18.3 CHRONIC KIDNEY DISEASE, STAGE 3 (MODERAT 10/01/2016 BARTOLOME, BOBAN N Ot Z79.899 OTHER [facility] (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 THERAPY 10/02/2016 DEFFENBAUGH DOSANIYARY D Ot D50.9 IRON DEFICIENCY ANEMIA, UNSPECIFIED 10/02/2016 DEFFENBAUGH DO JULIAN D Ot R79.89 OTHER SPECIFIED ABNORMAL FINDINGS OF BLO 10/22/2016 DEFFENBADEL DOSANIYARY D Ot D50.9 IRON DEFICIENCY ANEMIA, UNSPECIFIED 10/22/2016 JULIAN HERNANDEZ DO Ot R79.89 OTHER SPECIFIED ABNORMAL FINDINGS OF BLO 11/09/2016 CHRISTOPHER MANCUSO N Ot 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 11/09/2016 CHRISTOPHER MANCUSO N Ot D50.0 IRON DEFICIENCY ANEMIA SECONDARY TO BLOO 11/09/2016 CHRISTOPHER MANCUSO N Ot E03.9 HYPOTHYROIDISM, UNSPECIFIED 11/09/2016 CHRISTOPHER MANCUSO N Ot N18.3 CHRONIC KIDNEY DISEASE, STAGE 3 (MODERAT 11/09/2016 CHRISTOPHER MANCUSO N Ot Z79.899 OTHER [facility] (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 THERAPY 11/13/2016 CHRISTOPHER MANCUOS N Ot 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 11/13/2016 CHRISTOPHER MANCUSO N Ot D50.0 IRON DEFICIENCY ANEMIA SECONDARY TO BLOO 11/13/2016 CHRISTOPHER MANCUSO N Ot E03.9 HYPOTHYROIDISM, UNSPECIFIED 11/13/2016 CHRISTOPHER MANUCSO N Ot N18.3 CHRONIC KIDNEY DISEASE, STAGE 3 (MODERAT 11/13/2016 CHRISTOPHER MANCUSO N Ot Z79.899 OTHER [facility] (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 THERAPY 12/17/2016 Ot 518.89 OTHER DISEASES OF LUNG, NEC 12/17/2016 Ot 786.50 CHEST PAIN NOS 12/17/2016 Ot 807.03 FRACTURE THREE RIBS-CLOS 12/17/2016 Ot E000.8 OTHER EXTERNAL CAUSE STATUS 12/17/2016 Ot E928.9 ACCIDENT NOS 12/17/2016 Ot 429.3 CARDIOMEGALY 12/17/2016 Ot 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 12/17/2016 MIGUEL ANGEL SHAY MD Ot V72.84 EXAM PRE-OPERATIVE NOS 12/17/2016 ERIKA COLBY DO Ot 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 12/17/2016 ERIKA COLBY DO Ot 535.50 UNSP GASTRITIS GASTRODUODENITIS W/O ME 12/17/2016 Ot 285.9 ANEMIA NOS 12/17/2016 Ot V72.84 EXAM PRE- OPERATIVE NOS 12/17/2016 ROSALINA MENDEZ MD Ot I73.9 PERIPHERAL VASCULAR DISEASE, UNSPECIFIED 12/17/2016 ROSALINA MENDEZ MD Ot N39.0 URINARY TRACT INFECTION, SITE NOT SPECIF 12/17/2016 CHRISTOPHER MANCUSO N Ot 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 12/17/2016 CHRISTOPHER MANCUSO Ot K31.9 DISEASE OF STOMACH AND DUODENUM, UNSPECI 12/17/2016 CHRISTOPHER MANCUSO Ot 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/O PERFORATION OR AB 12/17/2016 CHRISTOPHER MANCUSO Ot M85.88 OTH DISRD OF BONE DENSITY AND STRUCTURE, 12/17/2016 ROSALINA MENDEZ MD Ot R10.32 LEFT LOWER QUADRANT PAIN 12/17/2016 ROSALINA MENDEZ MD Ot K46.9 UNSPECIFIED ABDOMINAL HERNIA WITHOUT OBS 12/17/2016 ROSALINA MENDEZ MD, Ot 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/O PERFORATION OR AB 12/17/2016 ROSALINA MENDEZ MD Ot R93.5 ABN FINDINGS ON DX IMAGING OF ABD REGION 12/17/2016 ABHISHEK BASILIO CDL INSTRUCTOR Ot 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 12/17/2016 ABHISHEK BASILIO CDL INSTRUCTOR Ot E03.9 HYPOTHYROIDISM, UNSPECIFIED 12/17/2016 ABHISHEK BASILIO CDL INSTRUCTOR Ot Z79.899 OTHER [facility] (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 THERAPY 12/17/2016 CHRISTOPHER MANCUSO Ot 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 12/17/2016 CHRISTOPHER MANCUSO Ot Z01.89 ENCOUNTER FOR OTHER SPECIFIED SPECIAL EX 12/17/2016 DUANE PIMENTEL ENROLLMENT CLERK Ot S59.902A UNSPECIFIED INJURY OF LEFT ELBOW, INITIA 12/17/2016 DUANE PIMENTEL ENROLLMENT CLERK Ot W19.XXXA UNSPECIFIED FALL, INITIAL ENCOUNTER 12/17/2016 DUANE PIMENTEL APRN Ot Y92.[address] [facility] [address] IN [facility] NON-INSTITUT (PRIVATE 12/17/2016 DUANE PIMENTEL ENROLLMENT CLERK Ot Y99.8 OTHER EXTERNAL CAUSE STATUS 12/17/2016 DUANE PIMENTEL APRN Ot R07.81 PLEURODYNIA 12/17/2016 DUANE PIMENTEL ENROLLMENT CLERK Ot W19.XXXA UNSPECIFIED FALL, INITIAL ENCOUNTER 12/17/2016 DUANE PIMENTEL APRN Ot Y99.8 OTHER EXTERNAL CAUSE STATUS 12/17/2016 CHRISTOPHER MANCUSO Ot 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 12/17/2016 BARTOLOME, BOBAN N Ot D50.0 IRON DEFICIENCY ANEMIA SECONDARY TO BLOO 12/17/2016 CHRISTOPHER MANCUSO Ot E03.9 HYPOTHYROIDISM, UNSPECIFIED 12/17/2016 CHRISTOPHER MANCUSO Ot N18.3 CHRONIC KIDNEY DISEASE, STAGE 3 (MODERAT 12/17/2016 CHRISTOPHER MANCUSO N Ot Z79.899 OTHER [facility] (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 THERAPY 12/17/2016 DEFFENBAJULIAN MATHIS DO Ot D50.9 IRON DEFICIENCY ANEMIA, UNSPECIFIED 12/17/2016 DEFFENBAUGH DOSANIYARY Vazquez Ot R79.89 OTHER SPECIFIED ABNORMAL FINDINGS OF BLO 12/29/2016 CHRITSOPHER MANCUSO N Ot 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 12/29/2016 CHRISTOPHER MANCUSO N Ot D50.0 IRON DEFICIENCY ANEMIA SECONDARY TO BLOO 12/29/2016 CHRISTOPHER MANCUSO Ot E03.9 HYPOTHYROIDISM, UNSPECIFIED 12/29/2016 CHRISTOPHER MANCUSO N Ot N18.3 CHRONIC KIDNEY DISEASE, STAGE 3 (MODERAT 12/29/2016 CHRISTOPHER MANCUSO N Ot Z79.899 [facility] (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 THERAPY 12/29/2016 Ot 518.89 OTHER DISEASES OF LUNG, NEC 12/29/2016 Ot 786.50 CHEST PAIN NOS 12/29/2016 Ot 807.03 FRACTURE THREE RIBS-CLOS 12/29/2016 Ot E000.8 OTHER EXTERNAL CAUSE STATUS 12/29/2016 Ot E928.9 ACCIDENT NOS 12/29/2016 Ot 429.3 CARDIOMEGALY 12/29/2016 Ot 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 12/29/2016 MIGUEL ANGEL SHAY MD Ot V72.84 EXAM PRE-OPERATIVE NOS 12/29/2016 ERIKA COLBY DO Ot 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 12/29/2016 ERIKA COLBY DO Ot 535.50 UNSP GASTRITIS GASTRODUODENITIS W/O ME 12/29/2016 Ot 285.9 ANEMIA NOS 12/29/2016 Ot V72.84 EXAM PRE- OPERATIVE NOS 12/29/2016 VANESSA HASTINGS, ROSALINA Shukla Ot I73.9 PERIPHERAL VASCULAR DISEASE, UNSPECIFIED 12/29/2016 ROSALINA MENDEZ MD Ot N39.0 URINARY TRACT INFECTION, SITE NOT SPECIF 12/29/2016 BARTOLOMECHRISTOPHER FLOWER Abel Ot 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 12/29/2016 CHRISTOPHER MANCUSO Ot K31.9 DISEASE OF STOMACH AND DUODENUM, UNSPECI 12/29/2016 CHRISTOPHER MANCUSO Ot 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/O PERFORATION OR AB 12/29/2016 CHRISTOPHER MANCUSO Ot M85.88 OTH DISRD OF BONE DENSITY AND STRUCTURE, 12/29/2016 ROSALINA MENDEZ MD Ot R10.32 LEFT LOWER QUADRANT PAIN 12/29/2016 ROSALINA MENDEZ MD Ot K46.9 UNSPECIFIED ABDOMINAL HERNIA WITHOUT OBS 12/29/2016 ROSALINA MENDEZ MD Ot 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/O PERFORATION OR AB 12/29/2016 ROSALINA MENDEZ MD Ot R93.5 ABN FINDINGS ON DX IMAGING OF ABD REGION 12/29/2016 ABHISHEK BASILIO CDL INSTRUCTOR Ot 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 12/29/2016 ABHISHEK BASILIO CDL INSTRUCTOR Ot E03.9 HYPOTHYROIDISM, UNSPECIFIED 12/29/2016 ABHISHEK BASILIO CDL INSTRUCTOR Ot Z79.899 OTHER CARE HOME (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 THERAPY 12/29/2016 CHRISTOPHER MANCUSO Ot 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 12/29/2016 CHRISTOPHER MANCUSO Ot Z01.89 ENCOUNTER FOR OTHER SPECIFIED SPECIAL EX 12/29/2016 DUANE PIMENTEL APRN Ot S59.902A UNSPECIFIED INJURY OF LEFT ELBOW, INITIA 12/29/2016 DUANE PIMENTEL ENROLLMENT CLERK Ot W19.XXXA UNSPECIFIED FALL, INITIAL ENCOUNTER 12/29/2016 DUANE PIMENTEL APRN Ot Y92.[address] [facility] [address] IN [facility] NON[facility] (PRIVATE 12/29/2016 DUANE PIMENTEL ENROLLMENT CLERK Ot Y99.8 OTHER EXTERNAL CAUSE STATUS 12/29/2016 DUANE PIMENTEL APRN Ot R07.81 PLEURODYNIA 12/29/2016 DUANE PIMENTEL APRN Ot W19.XXXA UNSPECIFIED FALL, INITIAL ENCOUNTER 12/29/2016 DUANE PIMENTEL ENROLLMENT CLERK Ot Y99.8 OTHER EXTERNAL CAUSE STATUS 12/29/2016 CHRISTOPHER MANCUSO Ot 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 12/29/2016 CHRISTOPHER MANCUSO Ot D50.0 IRON DEFICIENCY ANEMIA SECONDARY TO BLOO 12/29/2016 REX MANCUSOAN N Ot E03.9 HYPOTHYROIDISM, UNSPECIFIED 12/29/2016 BARTOLOME, BOBAN N Ot N18.3 CHRONIC KIDNEY DISEASE, STAGE 3 (MODERAT 12/29/2016 BARTOLOME BOBAN N Ot Z79.899 OTHER [facility] (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 THERAPY 12/29/2016 DEFFENBAJULIAN MATHIS DO Ot D50.9 IRON DEFICIENCY ANEMIA, UNSPECIFIED 12/29/2016 JOSÉFENBAJULIAN MATHIS DO D Ot R79.89 OTHER SPECIFIED ABNORMAL FINDINGS OF BLO 01/04/2017 BASILIOABHISHEK Wilkerson Rhea CDL INSTRUCTOR Ot 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 01/04/2017 LEE THOMAS MD, Ot M48.07 SPINAL STENOSIS, LUMBOSACRAL REGION 01/04/2017 LEE THOMAS MD Ot M51.26 OTHER INTERVERTEBRAL DISC DISPLACEMENT, 01/07/2017 BARTOLOMECHRISTOPHER N Ot 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 01/07/2017 BARTOLOME, BOBAN N Ot D50.0 IRON DEFICIENCY ANEMIA SECONDARY TO BLOO 01/07/2017 BARTOLOME, BOBAN N Ot E03.9 HYPOTHYROIDISM, UNSPECIFIED 01/07/2017 BARTOLOME, BOBAN N Ot N18.3 CHRONIC KIDNEY DISEASE, STAGE 3 (MODERAT 01/07/2017 BARTOLOME, BOBAN N Ot Z79.899 OTHER CARE HOME (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 THERAPY 01/16/2017 BARTOLOME, BOBAN N Ot 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 01/16/2017 BARTOLOME, BOBAN N Ot D50.0 IRON DEFICIENCY ANEMIA SECONDARY TO BLOO 01/16/2017 BARTOLOME, BOBAN N Ot E03.9 HYPOTHYROIDISM, UNSPECIFIED 01/16/2017 BARTOLOME, BOBAN N Ot N18.3 CHRONIC KIDNEY DISEASE, STAGE 3 (MODERAT 01/16/2017 BARTOLOME, BOBAN N Ot Z79.899 OTHER CARE HOME (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 THERAPY 01/28/2017 LEE THOMAS MD Ot M48.07 SPINAL STENOSIS, LUMBOSACRAL REGION 01/28/2017 LEE THOMAS MD Ot M51.26 OTHER INTERVERTEBRAL DISC DISPLACEMENT, 02/02/2017 Ot 518.89 OTHER DISEASES OF LUNG, NEC 02/02/2017 Ot 786.50 CHEST PAIN NOS 02/02/2017 Ot 807.03 FRACTURE THREE RIBS-CLOS 02/02/2017 Ot E000.8 OTHER EXTERNAL CAUSE STATUS 02/02/2017 Ot E928.9 ACCIDENT NOS 02/02/2017 Ot 429.3 CARDIOMEGALY 02/02/2017 Ot 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 02/02/2017 MIGUEL ANGEL SHAY MD Ot V72.84 EXAM PRE-OPERATIVE NOS 02/02/2017 ERIKA COLBY DO Ot 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 02/02/2017 ERIKA COLBY DO Ot 535.50 UNSP GASTRITIS GASTRODUODENITIS W/O ME 02/02/2017 Ot 285.9 ANEMIA NOS 02/02/2017 Ot V72.84 EXAM PRE- OPERATIVE NOS 02/02/2017 ROSALINA MENDEZ MD Ot I73.9 PERIPHERAL VASCULAR DISEASE, UNSPECIFIED 02/02/2017 ROSALINA MENDEZ MD Ot N39.0 URINARY TRACT INFECTION, SITE NOT SPECIF 02/02/2017 CHRISTOPHER MANCUSO Ot 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 02/02/2017 CHRISTOPHER MANCUSO Ot K31.9 DISEASE OF STOMACH AND DUODENUM, UNSPECI 02/02/2017 CHRISTOPHER MANCUSO Ot 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/O PERFORATION OR AB 02/02/2017 CHRISTOPHER MANCUSO Ot M85.88 OTH DISRD OF BONE DENSITY AND STRUCTURE, 02/02/2017 ROSALINA MENDEZ MD Ot R10.32 LEFT LOWER QUADRANT PAIN 02/02/2017 ROSALINA MENDEZ MD Ot K46.9 UNSPECIFIED ABDOMINAL HERNIA WITHOUT OBS 02/02/2017 ROSALINA MENDEZ MD Ot 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/O PERFORATION OR AB 02/02/2017 ROSALINA MENDEZ MD Ot R93.5 ABN FINDINGS ON DX IMAGING OF ABD REGION 02/02/2017 ABHISHEK BASILIOP Ot 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 02/02/2017 ABHISHEK BASILIO Ot E03.9 HYPOTHYROIDISM, UNSPECIFIED 02/02/2017 ABHISHEK BASILIOP Ot Z79.899 OTHER [facility] (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 THERAPY 02/02/2017 CHRISTOPHER MANCUSO Ot 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 02/02/2017 CHRISTOPHER MANCUSO Ot Z01.89 ENCOUNTER FOR OTHER SPECIFIED SPECIAL EX 02/02/2017 LORENZIONN Baljit ENROLLMENT CLERK Ot S59.902A UNSPECIFIED INJURY OF LEFT ELBOW, INITIA 02/02/2017 ZION PIMENTELAbel Smiley ENROLLMENT CLERK Ot W19.XXXA UNSPECIFIED FALL, INITIAL ENCOUNTER 02/02/2017 LORENZIONN Baljit ENROLLMENT CLERK Ot Y92.009 [facility] (PRIVATE 02/02/2017 ZION PIMENTELAbel Smiley APRN Ot Y99.8 OTHER EXTERNAL CAUSE STATUS 02/02/2017 LOREN DUANE Smiley APRN Ot R07.81 PLEURODYNIA 02/02/2017 LOREN DUANE Baljit ENROLLMENT CLERK Ot W19.XXXA UNSPECIFIED FALL, INITIAL ENCOUNTER 02/02/2017 LOREN DUANE Smiley APRN Ot Y99.8 OTHER EXTERNAL CAUSE STATUS 02/02/2017 JULIAN HERNANDEZ DO Ot D50.9 IRON DEFICIENCY ANEMIA, UNSPECIFIED 02/02/2017 JULIAN HERNANDEZ DO Ot R79.89 OTHER SPECIFIED ABNORMAL FINDINGS OF BLO 02/02/2017 ABHISHEK BASILIO Ot 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 02/02/2017 LEE THOMAS MD Ot M48.07 SPINAL STENOSIS, LUMBOSACRAL REGION 02/02/2017 LEE THOMAS MD, Ot M51.26 OTHER INTERVERTEBRAL DISC DISPLACEMENT, 02/02/2017 CHARLEY BOO DO Ot M54.16 RADICULOPATHY, LUMBAR REGION 02/02/2017 CHRISTOPHER MANCUSO Ot 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 02/02/2017 CHRISTOPHER MANCUSO Ot D50.0 IRON DEFICIENCY ANEMIA SECONDARY TO BLOO 02/02/2017 CHRISTOPHER MANCUSO Ot E03.9 HYPOTHYROIDISM, UNSPECIFIED 02/02/2017 CHRISTOPHER MANCUSO Ot N18.3 CHRONIC KIDNEY DISEASE, STAGE 3 (MODERAT 02/02/2017 CHRISTOPHER MANCUSO Ot Z79.899 OTHER CARE HOME (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 THERAPY 02/02/2017 CHARLEY BOO DO Ot M54.16 RADICULOPATHY, LUMBAR REGION 02/03/2017 LEE THOMAS MD Ot M48.07 SPINAL STENOSIS, LUMBOSACRAL REGION 02/03/2017 LEE THOMAS MD Ot M51.26 OTHER INTERVERTEBRAL DISC DISPLACEMENT, 02/08/2017 ABHISHEK BASILIO CDL INSTRUCTOR Ot 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 02/11/2017 BARTOLOME, CHRISTOPHER N Ot 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 02/11/2017 BARTOLOME, BOBAN N Ot D50.0 IRON DEFICIENCY ANEMIA SECONDARY TO BLOO 02/11/2017 BARTOLOME, BOBAN N Ot E03.9 HYPOTHYROIDISM, UNSPECIFIED 02/11/2017 BARTOLOME, BOBAN N Ot N18.3 CHRONIC KIDNEY DISEASE, STAGE 3 (MODERAT 02/11/2017 BARTOLOME, BOBAN N Ot Z79.899 OTHER [facility] (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 THERAPY 02/11/2017 ABHISHEK BASILIO CDL INSTRUCTOR Ot 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 03/19/2017 HEARNDON DO, CHARLEY L Ot M54.16 RADICULOPATHY, LUMBAR REGION 03/24/2017 HEARNDON DO, CHARLEY L Ot M54.16 RADICULOPATHY, LUMBAR REGION 05/02/2017 BARTOLOME, BOBNICHOLE N Ot 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 05/02/2017 BARTOLOME, BOBAN N Ot D50.0 IRON DEFICIENCY ANEMIA SECONDARY TO BLOO 05/02/2017 BARTOLOME, BOBAN N Ot E03.9 HYPOTHYROIDISM, UNSPECIFIED 05/02/2017 BARTOLOME, BOBAN N Ot N18.3 CHRONIC KIDNEY DISEASE, STAGE 3 (MODERAT 05/02/2017 BARTOLOME, BOBAN N Ot Z79.899 OTHER [facility] (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 THERAPY 05/11/2017 BARTOLOME, BOBAN N Ot 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 05/11/2017 BARTOLOME, BOBAN N Ot D50.0 IRON DEFICIENCY ANEMIA SECONDARY TO BLOO 05/11/2017 BARTOLOME, BOBAN N Ot E03.9 HYPOTHYROIDISM, UNSPECIFIED 05/11/2017 BARTOLOME, BOBAN N Ot N18.3 CHRONIC KIDNEY DISEASE, STAGE 3 (MODERAT 05/11/2017 BARTOLOME, BOBAN N Ot Z79.899 OTHER [facility] (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 THERAPY 06/09/2017 JULIAN HERNANDEZ DO Ot K28.1 ACUTE GASTROJEJUNAL ULCER WITH PERFORATI 06/09/2017 JULIAN HERNANDEZ DO Ot R74.8 ABNORMAL LEVELS OF OTHER SERUM ENZYMES 06/09/2017 DEFFENBAUGH DOSANIYARY D Ot 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 06/14/2017 DEFFENBAUGH DOSANIYARY D Ot K28.1 ACUTE GASTROJEJUNAL ULCER WITH PERFORATI 06/14/2017 JOSÉFENBAUGH DOSANIYARY D Ot R74.8 ABNORMAL LEVELS OF OTHER SERUM ENZYMES 06/14/2017 JOSÉFENBAUGH DOJULIAN D Ot 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 07/06/2017 DEFFENBAUGH DOSANIYARY D Ot K28.1 ACUTE GASTROJEJUNAL ULCER WITH PERFORATI 07/06/2017 DEFFENBAUGH DOSANIYARY D Ot R74.8 ABNORMAL LEVELS OF OTHER SERUM ENZYMES 07/06/2017 JOSÉFENBAUGH DOJULIAN D Ot 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 07/07/2017 JOSÉFENBAUGH DOJULIAN D Ot K28.1 ACUTE GASTROJEJUNAL ULCER WITH PERFORATI 07/07/2017 DEFFENBAUGH DOJULIAN D Ot R74.8 ABNORMAL LEVELS OF OTHER SERUM ENZYMES 07/07/2017 JOSÉFENBAUGH DOSANIYARY D Ot 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 Procedures Code Description Performed By Performed On 44.43 ENDOSCOPIC CONTROL OF GASTRIC OR DUODENA 10/03/2014 Results Test Result Range Complete blood count (CBC) with automated white blood cell (WBC) differential - 05/24/17 13:09 Blood leukocytes automated count (number/volume) 4.1 10*3/uL 4.3-11.0 Blood erythrocytes automated count (number/volume) 3.41 10*6/uL 4.35-5.85 Venous blood hemoglobin measurement (mass/volume) 10.7 g/dL 13.3-17.7 Blood hematocrit (volume fraction) 33 % 40-54 Automated erythrocyte mean corpuscular volume 98 [foz_us] 80-99 Automated erythrocyte mean corpuscular hemoglobin (mass per erythrocyte) 31 pg 25-34 Automated erythrocyte mean corpuscular hemoglobin concentration measurement ( mass/volume) 32 g/dL 32-36 Automated erythrocyte distribution width ratio 14.2 % 10.0-14.5 Automated blood platelet count (count/volume) 127 10*3/uL 130-400 Automated blood platelet mean volume measurement 9.6 [foz_us] 7.4-10.4 Automated blood neutrophils/100 leukocytes 78 % 42-75 Automated blood lymphocytes/100 leukocytes 12 % 12-44 Blood monocytes/100 leukocytes 9 % 0-12 Automated blood eosinophils/100 leukocytes 2 % 0-10 Automated blood basophils/100 leukocytes 1 % 0-10 Blood neutrophils automated count (number/volume) 3.2 10*3 1.8-7.8 Blood lymphocytes automated count (number/volume) 0.5 10*3 1.0-4.0 Blood monocytes automated count (number/volume) 0.4 10*3 0.0-1.0 Automated eosinophil count 0.1 10*3/uL 0.0-0.3 Automated blood basophil count (count/volume) 0.0 10*3/uL 0.0-0.1 Encounters ACCT No. Visit Date/Time Discharge Status Pt. Type Provider Facility Loc./Unit Complaint [id number] 06/14/2017 10:25:00 06/14/2017 23:59:59 CLS Outpatient CHRISTOPHER MANCUSO [facility] ONC [id number] 06/08/2017 08:22:00 06/08/2017 23:59:59 CLS Outpatient JULIAN HERNANDEZ DO [facility] RAD R769 R799 [id number] 04/27/2017 14:24:00 05/02/2017 00:01:00 DIS Outpatient CHRISTOPHER MANCUSO [facility] ONC [id number] 01/21/2017 13:08:00 01/21/2017 23:59:59 CLS Outpatient CHARLEY BOO DO [facility] CARD LUMBAR RADICULOPATHY [id number] 01/06/2017 09:39:00 01/16/2017 00:01:00 DIS Outpatient CHRISTOPHER MANCUSO [facility] ONC [id number] 01/06/2017 08:25:00 01/06/2017 08:25:00 CAN Preadmit CHRISTOPHER MANCUSO [facility] ONC [id number] 01/01/2017 12:59:00 01/01/2017 23:59:59 CLS Outpatient LEE THOMAS MD [facility] RAD M54.5 [id number] 12/29/2016 09:51:00 12/29/2016 23:59:59 CLS Outpatient ABHISHEK BASILIO [facility] 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 [id number] 12/29/2016 10:00:00 12/29/2016 00:01:00 DIS Outpatient CHRISTOPHER MANCUSO [facility] ONC [id number] 10/01/2016 10:00:00 10/01/2016 23:59:59 CLS Outpatient JULIAN HERNANDEZ DO [facility] LAB R79.89, D50.9 [id number] 07/02/2016 15:45:00 09/27/2016 00:01:00 DIS Outpatient CHRISTOPHER MANCUSO [facility] ONC [id number] 06/29/2016 09:07:00 06/29/2016 23:59:59 CLS Outpatient CHRISTOPHER MANCUSO [facility] RAD C49.4 [id number] 05/07/2016 13:56:00 05/07/2016 23:59:59 CLS Outpatient DUANE PIMENTEL ENROLLMENT CLERK [facility] RAD LEFT RIB PAIN POST FALL [id number] 05/06/2016 12:10:00 05/06/2016 23:59:59 CLS Outpatient DUANE PIMENTEL ENROLLMENT CLERK [facility] RAD FALL AT HOME ON 05/03 [id number] 04/02/2016 09:43:00 05/03/2016 00:01:00 DIS Outpatient CHRISTOPHER MANCUSO [facility] ONC [id number] 12/05/2015 14:14:00 12/31/2015 00:01:00 DIS Outpatient CHRISTOPHER MANCUSO [facility] ONC [id number] 12/05/2015 14:12:00 12/05/2015 23:59:59 CLS Outpatient ABHISHEK BASILIOP [facility] ONC [id number] 11/08/2015 07:59:00 11/08/2015 15:00:00 DIS Outpatient ERIKA COLBY DO [facility] SDC LEFT INGUINAL HERNIA [id number] 11/06/2015 09:37:00 11/06/2015 12:37:00 DIS Outpatient ERIKA COLBY DO [facility] PREOP LEFT INGUINAL HERNIA [id number] 10/28/2015 11:40:00 10/28/2015 23:59:59 CLS Outpatient ROSALINA MENDEZ MD [facility] RAD ABNORMAL ABD SONO [id number] 10/17/2015 14:17:00 10/17/2015 23:59:59 CLS Outpatient ROSALINA MENDEZ MD [facility] RAD L GROIN PAIN [id number] 10/02/2015 09:16:00 10/02/2015 23:59:59 CLS Outpatient CHRISTOPHER MANCUSO Abel [facility] RAD GIST MALIGNANT,GASTRIC MASS [id number] 07/09/2015 13:28:00 07/09/2015 15:55:00 DIS Outpatient ERIKA COLBY DO [facility] HISTORY GASTRIC MASS [id number] 07/08/2015 09:55:00 07/08/2015 10:32:00 DIS Outpatient ERIKA COLBY DO [facility] PREOP HISTORY GASTRIC MASS [id number] 01/30/2015 15:00:00 01/30/2015 17:40:00 DIS Emergency ANDERS MENDEZ MD [facility] ER CP [id number] 01/28/2015 13:00:00 01/28/2015 23:59:59 CLS Outpatient ROSALINA MENDEZ MD [facility] RAD CLAUDICATION, LT LEG DIMISHED PULSE IN LOWER LT EX [id number] 01/24/2015 09:22:00 01/24/2015 23:59:59 CLS Outpatient ROSALINA MENDEZ MD [facility] LAB URINARY TRACT INFECTION N39.0 [id number] 12/23/2014 15:17:00 12/23/2014 17:35:00 DIS Emergency RG CLINTON MD [facility] ER FEVER,PAINFUL URINATION [id number] 12/21/2014 15:46:00 12/21/2014 17:45:00 DIS Emergency RG CLINTON MD [facility] ER BLOOD IN STOOLS [id number] 12/20/2014 11:33:00 12/20/2014 23:59:59 CLS Outpatient ERIKA COLBY DO [facility] ANEMIA [id number] 10/02/2014 18:54:00 10/08/2014 10:30:00 DIS Inpatient ROSALINA MENDEZ MD [facility] CVA,SYNCOPE,SEVERE ANEMIA ,CP,MINOR HEAD INJ [id number] 05/17/2013 07:54:00 05/17/2013 11:30:00 DIS Outpatient MIGUEL ANGEL SHAY MD [facility] HISTORY OF [place] [id number] 05/10/2013 07:21:00 05/10/2013 23:59:59 CLS Outpatient MIGUEL ANGEL SHAY MD [facility] PREOP HISTORY OF [place] [id number] 12/19/2014 06:23:00 Document Registration [id number] 08/28/2011 10:06:00 Document Registration [id number] 08/24/2011 10:44:00 Document Registration [id number] 06/12/2011 10:46:00 Document Registration [id number] 04/30/2011 06:34:00 Document Registration [id number] 05/30/2010 11:08:00 Document Registration [email or web address] 01/28/2015 14:11:16 ACT Document Registration
== END 2017-07-31 08:22 | disposition short-term general hospital (02) ==
LOC: EDUNIT# 06:30 → ER 06:32
DX: R42 Dizziness and giddiness (principal); R51 Headache; R00.1 Bradycardia, unspecified; E03.9 Hypothyroidism, unspecified; K21.9 Gastro-esophageal reflux disease without esophagitis; Z87.19 Personal history of other diseases of the digestive system; Z90.49 Acquired absence of other specified parts of digestive tract; Z87.442 Personal history of urinary calculi; Z88.2 Allergy status to sulfonamides; Z88.1 Allergy status to other antibiotic agents; Z88.5 Allergy status to narcotic agent; Z85.09 Personal history of malignant neoplasm of other digestive organs
CPT/HCPCS: 36415; 70450; 71045; 80053; 80162; 85025; 85610; 93005; 96361; 96374; 96375

== ENCOUNTER 2017-08-23 09:45 | Outpatient (RCR) | payer MEDICARE ==
[~2017-08-23 09:45] MED LIST changes: +DIGO125T
[2017-11-18] MEDS ORDERED: OXYC-529 PO (09:23)
[2017-11-18] MEDS ORDERED: APIX2.5T PO (09:23)
[2017-11-18] MEDS ORDERED: OXYB10TA PO (09:23)
[2017-11-18] MEDS ORDERED: SIMV20TA3 PO (09:23)
[2017-11-18] MEDS ORDERED: MAGN250T35 PO (09:23)
[2017-11-18] MEDS ORDERED: CALC-676 PO (09:23)
[2017-11-18] MEDS ORDERED: HYOS-19 SL (09:23)
== END 2017-11-21 | disposition home or self-care (01) ==
LOC: CARD 09:45
PROVIDERS: ATTEND Internal Medicine Interventional Cardiology
DX: I48.91 Unspecified atrial fibrillation (principal)
CPT/HCPCS: 93225; 93226

== ENCOUNTER 2017-09-20 10:19 | Outpatient (RCR) | payer MEDICARE ==
[2017-09-20 10:40] LABS: BASOPHILS % (AUTO) 0 % (0-10); EOSINOPHILS # (AUTO) 0.1 10^3/uL (0.0-0.3); EOSINOPHILS % (AUTO) 2 % (0-10); HEMATOCRIT 32 % (40-54); HEMOGLOBIN 10.3 G/DL (13.3-17.7); LYMPHOCYTES # (AUTO) 0.5 X 10^3 (1.0-4.0); LYMPHOCYTES % (AUTO) 14 % (12-44); MEAN CORPUSCULAR HEMOGLOBIN 31 PG (25-34); MEAN CORPUSCULAR HGB CONC 32 G/DL (32-36); MEAN CORPUSCULAR VOLUME 99 FL (80-99); MEAN PLATELET VOLUME 9.4 FL (7.4-10.4); MONOCYTES # (AUTO) 0.4 X 10^3 (0.0-1.0); MONOCYTES % (AUTO) 11 % (0-12); NEUTROPHILS # (AUTO) 2.6 X 10^3 (1.8-7.8); NEUTROPHILS % (AUTO) 73 % (42-75); PLATELET COUNT 179 10^3/uL (130-400); RED BLOOD COUNT 3.28 10^6/uL (4.35-5.85); RED CELL DISTRIBUTION WIDTH 14.5 % (10.0-14.5); WHITE BLOOD COUNT 3.6 10^3/uL (4.3-11.0)
[2017-09-20 10:57] LABS: ALBUMIN 3.4 GM/DL (3.2-4.5); BILIRUBIN,TOTAL 0.6 MG/DL (0.1-1.0); CALCIUM 8.8 MG/DL (8.5-10.1); CREATININE SERUM 1.71 MG/DL (0.60-1.30); TOTAL PROTEIN 6.2 GM/DL (6.4-8.2)
[2017-11-18] MEDS ORDERED: OXYC-529 PO (09:23)
[2017-11-18] MEDS ORDERED: MAGN250T35 PO (09:23)
[2017-11-18] MEDS ORDERED: APIX2.5T PO (09:23)
[2017-11-18] MEDS ORDERED: OXYB10TA PO (09:23)
[2017-11-18] MEDS ORDERED: CALC-676 PO (09:23)
[2017-11-18] MEDS ORDERED: HYOS-19 SL (09:23)
[2017-11-18] MEDS ORDERED: SIMV20TA3 PO (09:23)
[2017-11-23] MEDS ORDERED: CEPH-507 PO (08:45)
== END 2017-12-17 13:25 | disposition home or self-care (01) ==
LOC: ONC 10:19
PROVIDERS: ATTEND Internal Medicine Hematology & Oncology
DX: C49.4 Malignant neoplasm of connective and soft tissue of abdomen (principal); D50.0 Iron deficiency anemia secondary to blood loss (chronic); E03.9 Hypothyroidism, unspecified; N18.3 Chronic kidney disease, stage 3 (moderate); Z79.899 Other long term (current) drug therapy
CPT/HCPCS: 36415; 80053; 82728; 83540; 83615; 85025; 99213

== ENCOUNTER → 2017-11-18 | Day surgery (SDC) | payer MEDICARE ==
[~2017-11-18] VITALS: Ht 175.3 cm; Wt 65.8 kg
[2017-11-18] VITALS (15 sets, daily range): BP systolic 119–190; BP diastolic 60–137
[~2017-11-18] MED LIST changes: +APIX2.5T PO; +CALC-676 PO; +CEPH-507 PO; +HYOS-19 SL; +MAGN250T35 PO; +NS IV 1000 ML 1,000 ML IV SCH; +NS IV 1000 ML 1,000 ML ONE; +OXYB10TA PO; +OXYC-529 PO; +proPOfol 200 MG/20 ML (DIPRIVAN) VIAL IV ONE
--- NOTE | 2017-11-18 10:50 | Anesthesia-Procedure Note ---
Procedures/Interventions Procedure Start/Stop/Diagnosis Date of Procedure: Nov 18, 2017 Start Time: 09:53 Referring Physician: Dr Lord Preprocedural Diagnosis: A-Fib Brief History Brief history obtained from patient and Dr Lord. Monitors on including EtCO2. Propofol 50 mg IV in divided doses for sedation. Pt maintained spontaneous ventilation throughout and tolerated the procedure well. He returned to sinus rhythm after the first cardioversion. Pt tolerated the procedure well. Stop Time: 09:58 Postprocedural Diagnosis: Sinus Rhythm KIRK/Cardioversion Anesthesia Type: MAC ASA Class: 3 Medications Propofol 50 mg IV Monitors and Equipment: BP Cuff - Left, Continuous EKG, End Tidal CO2, IV, Pulse Oximeter CRYSTAL RASCON DO Nov 18, 2017 10:50
--- NOTE | 2017-11-18 11:28 | Cardioversion ---
Cardioversion PROCEDURE PHYSICIAN: Asher Lord MD DATE OF PROCEDURE: 11/18/17 DIRECT EXTERNAL ELECTRICAL CARDIOVERSION: Indications: Atrial Fibrillation with controlled ventricular rate. Preoperative diagnoses: Atrial Fibrillation with controlled ventricular rate. Postoperative diagnosis: Sinus rhythm, Successful Electrical Cardioversion History: Anesthesia: By Anesthesia services Complications: None Specimen: None Contrast: 0 Flouroscopy: none Procedure Details: The patient was brought the dairy and food laboratory assistant after informed consent was taken, all the risks and complications were explained including the risk of stroke. Electrical cardioversion was carried out twice with anesthesia support with propofol. 120 joules of synchronized shock was delivered through external patches which promptly restored sinus rhythm. However the patient went into atrial flutter and we had to give a second shock. The patient tolerated the procedure well. Conclusions: 1.Successful Cardioversion. 2.Continue oral anticoagulation and rate controlling agent. 3.Follow up in office in 7 days. Asher Lord MD, FHRS, CCDS Cardiac Electrophysiology Sky LORD MD Nov 18, 2017 11:28 am
--- NOTE | 2017-11-18 11:36 | Anesthesia-Procedure Note ---
Procedures/Interventions Procedure Start/Stop/Diagnosis Date of Procedure: Nov 18, 2017 Start Time: 11:15 Referring Physician: Pop Preprocedural Diagnosis: A-Flutter Brief History Called to lab courier for sedation of repeat cardioversion. Hx obtained from applications developer. ASA3 NPO verified. O2 per NC and all emergency equipment verified. Propofol bolus of 50 mg given without complications. Cardioversion successful with conversion to SB with PVC's. Report to RN, pt spontaneously breathing. Opened eyes to command. Stop Time: 11:21 Postprocedural Diagnosis: Sinus Darren PEGGY WOODALL CRNA Nov 18, 2017 11:36
--- NOTE | 2017-11-18 15:43 | Anesthesia-General Post-Op ---
MAC Patient Condition Mental Status/LOC: Same as Preop Cardiovascular: Satisfactory Nausea/Vomiting: Absent Respiratory: Satisfactory Pain: Controlled Complications: Absent Post Op Complications Complications None Follow Up Care/Instructions Patient Instructions None needed. Anesthesiology Discharge Order Discharge Order Patient was seen after the procedure and he was doing well, no complaints, stable vital signs, no apparent adverse anesthesia problems. CRYSTAL RASCON DO Nov 18, 2017 15:43
--- OUTSIDE RECORDS SUMMARY | 2017-11-18 15:47 | XMS REPORT | Clinical Summary ---
Author Author [facility] Organization [facility] Address Unknown Phone Unavailable Care Team Providers Care Personal Secretary Name Role Phone Juan Bettencourt MD PCP Alan Manzano MD Unavailable Say Schmidt DO Unavailable Source Comments Some departments are not documenting in the electronic medical record. If you do not see the information that you expected, contact Release of Information in the Health Information Management department at [phone] for further assistance in locating additional records.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 Social History Tobacco Use Types Packs/Day Years Used Date Former Smoker Cigarettes 0.5 5 Quit: 04/19/1957 Smokeless Tobacco: Never Used Alcohol Use Drinks/Week oz/Week Comments No Sex Assigned at Date Recorded Not on file Last Filed Vital Signs Vital Sign Reading Time Taken Blood Pressure 140/78 06/23/2017 12:17 PM PATROL SUPERVISOR Pulse 54 06/23/2017 12:17 PM PATROL SUPERVISOR Temperature 36.6 C (97.8 F) 06/23/2017 12:17 PM PATROL SUPERVISOR Respiratory Rate 18 06/23/2017 12:17 PM PATROL SUPERVISOR Oxygen Saturation 96% 06/23/2017 12:17 PM PATROL SUPERVISOR Inhaled Oxygen - - Concentration Weight 71.4 kg (157 lb 6.4 oz) 06/23/2017 12:17 PM PATROL SUPERVISOR Height 175.3 cm (5' 9.02") 03/24/2017 1:18 PM PATROL SUPERVISOR Body Mass Index 23.23 06/23/2017 12:17 PM PATROL SUPERVISOR Plan of Treatment Health Maintenance Due Date Last Done Comments PHYSICAL (COMPREHENSIVE) 1937 EXAM PERTUSSIS VACCINE 1941 TETANUS VACCINE 09/06/1947 SHINGLES RECOMBINANT 1980 VACCINE (1 of 2) PNEUMONIA (PCV13/PPSV23) 09/06/1995 VACCINES (1 of 2 - PCV13) INFLUENZA VACCINE 01/17/2018 Results Not on filefrom Last 3 Months
== END | disposition home or self-care (01) ==
LOC: CATH 08:03
PROVIDERS: ATTEND Internal Medicine Interventional Cardiology
DX: I48.1 Persistent atrial fibrillation (principal); I08.3 Combined rheumatic disorders of mitral, aortic and tricuspid valves; I25.10 Atherosclerotic heart disease of native coronary artery without angina pectoris; E78.5 Hyperlipidemia, unspecified; E03.9 Hypothyroidism, unspecified; N18.3 Chronic kidney disease, stage 3 (moderate); R53.83 Other fatigue; C16.9 Malignant neoplasm of stomach, unspecified; Z79.01 Long term (current) use of anticoagulants; Z87.891 Personal history of nicotine dependence
CPT/HCPCS: 92960; 93005

== ENCOUNTER 2017-11-21 20:30 | Inpatient (IN) | payer MEDICARE ==
[~2017-11-21] VITALS: Ht 175.3 cm; Wt 65.8 kg
[~2017-11-21 20:30] MED LIST changes: -CEPH-507 PO; -NS IV 1000 ML 1,000 ML IV SCH; -NS IV 1000 ML 1,000 ML ONE; -proPOfol 200 MG/20 ML (DIPRIVAN) VIAL IV ONE
[2017-11-21 20:55] LABS: BASOPHILS % (AUTO) 0 % (0-10); EOSINOPHILS # (AUTO) 0.1 10^3/uL (0.0-0.3); EOSINOPHILS % (AUTO) 2 % (0-10); HEMATOCRIT 34 % (40-54); HEMOGLOBIN 10.8 G/DL (13.3-17.7); LYMPHOCYTES # (AUTO) 0.9 X 10^3 (1.0-4.0); LYMPHOCYTES % (AUTO) 18 % (12-44); MEAN CORPUSCULAR HEMOGLOBIN 31 PG (25-34); MEAN CORPUSCULAR HGB CONC 32 G/DL (32-36); MEAN CORPUSCULAR VOLUME 98 FL (80-99); MEAN PLATELET VOLUME 9.8 FL (7.4-10.4); MONOCYTES # (AUTO) 0.5 X 10^3 (0.0-1.0); MONOCYTES % (AUTO) 10 % (0-12); NEUTROPHILS # (AUTO) 3.6 X 10^3 (1.8-7.8); NEUTROPHILS % (AUTO) 70 % (42-75); PLATELET COUNT 160 10^3/uL (130-400); RED BLOOD COUNT 3.45 10^6/uL (4.35-5.85); RED CELL DISTRIBUTION WIDTH 15.2 % (10.0-14.5); WHITE BLOOD COUNT 5.1 10^3/uL (4.3-11.0)
--- NOTE | 2017-11-21 20:57 | ED Neurological Problem ---
General Stated Complaint: CONFUSION;POSS STROKE SYMPTOMS Source: patient, family History of Present Illness Date Seen by Provider: Nov 21, 2017 Time Seen by Provider: 20:30 Initial Comments PT ARRIVES VIA POV FROM HOME STATES HE HAS BEEN CONFUSED--NOTICED 2-3 HOURS AGO, THAT WHEN HE WAS TRYING TO WRITE, HE COULD NOT WRITE WHAT HE WANTED TO WRITE. PT WRITES DOWN THE WEATHER REPORT EVERY DAY, AND DID THIS SHORTLY AFTER EATING TONIGHT AROUND 1800. NO PROBLEMS TALKING OR SWALLOWING NO PARESTHESIAS OR MOTOR DEFICITS PT HAS HAD RIGHT LOWER LEG PAIN AND INCREASE IN CHRONIC SWELLING SINCE YESTERDAY PT HAS HISTORY OF ATRIAL FIBRILLATION AND IS ON ELIQUIS BID, AND TOOK TONIGHT'S MEDICATIONS, AND NO MISSED DOSES PT HAD CARDIOVERSION ON Wednesday11/16/[address] ORELLANA. NO CHEST PAIN, SHORTNESS OF BREATH OR PALPITATIONS NO HEADACHE VISION MAY BE SLIGHTLY BLURRY/BOTH EYES NO DIZZINESS NO NAUSEA/VOMITING PT STATES "JUST DON'T FEEL RIGHT" BUT CANNOT ELABORATE. PCP: DR. MENDEZ HOME RESTORATION SERVICE CLEANER: DR. ORELLANA Allergies and Home Medications Allergies Coded Allergies: morphine (Verified Allergy, Mild, 12/20/14) quinine (Verified Allergy, Mild, 12/20/14) sulfamethoxazole (Verified Allergy, Unknown, 11/06/15) trimethoprim (Verified Allergy, Unknown, 11/06/15) Home Medications Apixaban 2.5 Mg Tablet, 2.5 MG PO BID, (Reported) Calcium Carbonate/Vitamin D3 1 Each Tablet, 1 TAB PO DAILY, (Reported) Cyanocobalamin (Vitamin B-12) 1,000 Mcg Tablet, 1,000 MCG PO DAILY, (Reported) Ferrous Sulfate 325 Mg Tablet, 325 MG PO DAILY, (Reported) Hyoscyamine Sulfate 0.125 Mg Tab.subl, 0.125 MG SL AC, (Reported) Levothyroxine Sodium 88 Mcg Tablet, 88 MCG PO DAILY, (Reported) Magnesium Oxide 250 Mg Tablet, 250 MG PO DAILY, (Reported) Oxybutynin Chloride 10 Mg Tab.er.24, 10 MG PO DAILY, (Reported) Oxycodone HCl 5 Mg Tablet, 5 MG PO TID PRN for PAIN-SEVERE, (Reported) Pantoprazole Sodium 40 Mg Tablet.dr, 40 MG PO DAILY, (Reported) Simvastatin 20 Mg Tablet, 10 MG PO HS, (Reported) TAKES 1/2 (20MG) TABLET Patient Home Medication List Home Medication List Reviewed: Yes Review of Systems Constitutional: No dizziness, No malaise, No weakness Eyes: See HPI, Blurred Vision Ears, Nose, Mouth, Throat: no symptoms reported Respiratory: no symptoms reported; No short of breath Cardiovascular: see HPI; No chest pain; edema; No palpitations, No syncope Gastrointestinal: no symptoms reported Genitourinary: no symptoms reported Musculoskeletal: see HPI Skin: no symptoms reported Psychiatric/Neurological: See HPI, Cognitive Dysfunction; Denies Headache, Denies Numbness, Denies Tingling, Denies Tonic Clonic Seizures, Denies Weakness Endocrine: No Symptoms Reported Hematologic/Lymphatic: No Symptoms Reported Past Rbydfxn-Vpahxe-Rhcivc Hx Patient Social History Alcohol Use: Denies Use Recreational Drug Use: No Smoking Status: Never a Smoker 2nd Hand Smoke Exposure: No Immunizations Up To Date Tetanus Booster (TDap): Less than 5yrs Date of Pneumonia Vaccine: Jan 17, 2015 Date of Influenza Vaccine: Jan 17, 2015 Seasonal Allergies Seasonal Allergies: No Past Medical History Surgeries: Yes (L INGUINAL HERNIA; KIDNEY STONES; BILAT ROTATOR CUFF; CERVICAL SPINE FUSION; CARDIOVERSION 11/16/17 ) Abdominal, Appendectomy, Cardiac, Gallbladder, Orthopedic, Thyroidectomy Respiratory: No Cardiac: Yes (HX HEART MURMUR) Atrial Fibrillation, Chronic Edema/Swelling, Heart Murmur, High Cholesterol Neurological: No Reproductive Disorders: No Sexually Transmitted Disease: No HIV/AIDS: No Genitourinary: Yes (CHRONIC RENAL INSUFFICIENCY) Kidney Stones, Renal Failure 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) Gastroesophageal Reflux Musculoskeletal: Yes ( neck fusion, FX STERNUM 1996) Arthritis Endocrine: Yes (HYPOTHYROIDISM) Hypothyroidsim HEENT: Yes Loss of Vision: Bilateral Hearing Impairment: Hard of Hearing, Bilateral Hearing Aide Cancer: No Psychosocial: No Integumentary: Yes (DRY SKIN, THIN SKIN) Blood Disorders: Yes (ANEMIA) Adverse Reaction/Blood Tranf: No (HAS HAD BLOOD WITH NO REACTION) Family Medical History Congenital heart disease 19 FATHER 19 MOTHER FH: renal cell carcinoma G8 SISTER Leukemia G8 BROTHER G8 BROTHER No Pertinent Family Hx Physical Exam Vital Signs Vital Signs - First Documented 11/21/17 20:33 Temp 98.0 Pulse 111 Resp 21 B/P (MAP) 173/70 (104) Pulse Ox 99 O2 Delivery Room Air Capillary Refill : Height, Weight, BMI Height: 5'9.00" Weight: 145lbs. 0.0oz. [id number]; 21.4 BMI Method:Stated General Appearance: WD/WN, no apparent distress HEENT: PERRL/EOMI, normal ENT inspection Neck: non-tender, full range of motion, supple, normal inspection, other ( BRUITS VS RADIATION OF HEART MURMUR) Respiratory: normal breath sounds, no respiratory distress, no accessory muscle use Cardiovascular: normal peripheral pulses, regular rate, rhythm, no JVD, systolic murmur (4/6), extra beats (PAC'S ON MONITOR) Peripheral Pulses: 2+ Dorsalis Pedis (R), 2+ Left Dors-Pedis (L), 2+ Radial Pulses (R), 2+ Radial Pulses (L) Gastrointestinal: normal bowel sounds, non tender, soft Extremities: normal range of motion, normal capillary refill, pedal edema (3+ ON RIGHT, 2+ ON LEFT. TENDERNESS AROUND RIGHT LOWER LEG. NO EXTERNAL EVIDENCE OF TRAUMA. CHRONIC VENOUS STASIS CHANGES BILATERALLY) Neurologic/Psychiatric: campus recruiting internship II-XII nml as tested, no motor/sensory deficits, alert, normal mood/affect, oriented x 3 Crainal Nerves: normal hearing, normal speech, PERRL Coordination/Gait: ABN nose to finger (R) (SLIGHT) Motor/Sensory: no motor deficit, no sensory deficit, no pronator drift Skin: normal color, warm/dry Progress/Results/Core Measures Results/Orders Lab Results Laboratory Tests Test 11/21/17 20:40 11/21/17 20:55 11/21/17 21:20 Range/Units White Blood Count 5.1 4.3-11.0 10^3/uL Red Blood Count 3.45 L 4.35-5.85 10^6/uL Hemoglobin 10.8 L 13.3-17.7 G/DL Hematocrit 34 L 40-54 % Mean Corpuscular Volume 98 80-99 FL Mean Corpuscular Hemoglobin 31 25-34 PG Mean Corpuscular Hemoglobin Concent 32 32-36 G/DL Red Cell Distribution Width 15.2 H 10.0-14.5 % Platelet Count 160 130-400 10^3/uL Mean Platelet Volume 9.8 7.4-10.4 FL Neutrophils (%) (Auto) 70 42-75 % Lymphocytes (%) (Auto) 18 12-44 % Monocytes (%) (Auto) 10 0-12 % Eosinophils (%) (Auto) 2 0-10 % Basophils (%) (Auto) 0 0-10 % Neutrophils # (Auto) 3.6 1.8-7.8 X 10^3 Lymphocytes # (Auto) 0.9 L 1.0-4.0 X 10^3 Monocytes # (Auto) 0.5 0.0-1.0 X 10^3 Eosinophils # (Auto) 0.1 0.0-0.3 10^3/uL Basophils # (Auto) 0.0 0.0-0.1 10^3/uL Prothrombin Time 16.1 H 12.2-14.7 SEC INR Comment 1.3 0.8-1.4 Activated Partial Thromboplast Time 37 H 24-35 SEC D-Dimer 1.06 H 0.00-0.49 UG/ML Sodium Level 142 135-145 MMOL/L Potassium Level 4.7 3.6-5.0 MMOL/L Chloride Level 112 H 98-107 MMOL/L Carbon Dioxide Level 23 21-32 MMOL/L Anion Gap 7 5-14 MMOL/L Blood Urea Nitrogen 42 H 7-18 MG/DL Creatinine 1.68 H 0.60-1.30 MG/DL Estimat Glomerular Filtration Rate 39 BUN/Creatinine Ratio 25 Glucose Level 117 H 70-105 MG/DL Calcium Level 8.8 8.5-10.1 MG/DL Total Bilirubin 0.5 0.1-1.0 MG/DL Aspartate Amino Transf (AST/SGOT) 42 H 5-34 U/L Alanine Aminotransferase (ALT/SGPT) 48 0-55 U/L Alkaline Phosphatase 153 H 40-136 U/L Troponin I < 0.30 <0.30 NG/ML Total Protein 6.1 L 6.4-8.2 GM/DL Albumin 3.4 3.2-4.5 GM/DL Urine Color YELLOW Urine Clarity CLEAR Urine pH 6 5-9 Urine Specific [place] 1.010 L 1.016-1.022 Urine Protein NEGATIVE NEGATIVE Urine Glucose (UA) NEGATIVE NEGATIVE Urine Ketones NEGATIVE NEGATIVE Urine Nitrite NEGATIVE NEGATIVE Urine Bilirubin NEGATIVE NEGATIVE Urine Urobilinogen NORMAL NORMAL MG/DL Urine Leukocyte Esterase 3+ H NEGATIVE Urine RBC (Auto) 1+ H NEGATIVE Urine RBC 0-2 /HPF Urine WBC >100 H /HPF Urine Crystals NONE /LPF Urine Bacteria FEW H /HPF Urine Casts NONE /LPF Urine Mucus NEGATIVE /LPF Urine Culture Indicated YES Glucometer 88 70-110 MG/DL My Orders Orders - STEFANIA CHAWLA DO Cbc With Automated Diff (11/21/17 20:43) Protime With Inr (11/21/17 20:43) Partial Thromboplastin Time (11/21/17 20:43) Comprehensive Metabolic Panel (11/21/17 20:43) Fibrin Degradation Products (11/21/17 20:43) Troponin I (11/21/17 20:43) Ua Culture If Indicated (11/21/17 20:43) Chest 1 View, Ap/Pa Only (11/21/17 20:43) Ekg Tracing (11/21/17 20:43) Accucheck Stat ONCE (11/21/17 20:43) Saline Lock/Iv-Start (11/21/17 20:43) Saline Lock/Iv-Start (11/21/17 20:43) Vital Signs Stroke Patient Q15M (11/21/17 20:43) Ct Head Wo-R/O Stroke (11/21/17 20:43) O2 (11/21/17 20:43) Intake & Output 06,14,22 (11/21/17 20:43) Monitor-Rhythm Ecg Trace Only (11/21/17 20:43) Dysphagia Screening Tool (11/21/17 20:43) Lipid Panel (11/22/17 06:00) Urine Culture (11/21/17 20:55) Ceftriaxone Injection (Rocephin Injectio (11/21/17 21:45) Ceftriaxone Injection (Rocephin Injectio (11/21/17 22:02) Medications Given in ED Current Medications Medications Dose Ordered Sig/Femi Route Start Time Stop Time Status Last Admin Dose Admin Ceftriaxone Sodium 1000 mg/ Sodium Chloride 50 ml @ 100 mls/hr ONCE ONCE IV 11/21/17 21:45 11/21/17 22:32 DC 11/21/17 22:10 100 MLS/HR Sodium Chloride 50 ml @ ud STK-MED ONCE .ROUTE 11/21/17 22:02 11/21/17 22:05 DC 11/21/17 22:10 100 MLS/HR Vital Signs/I&O 11/21/17 20:33 Temp 98.0 Pulse 111 Resp 21 B/P (MAP) 173/70 (104) Pulse Ox 99 O2 Delivery Room Air Progress Progress Note : Progress Note 2139--FAMILY NOW REPORTS (OTHER FAMILY MEMBERS NOW IN ROOM ALSO ) THAT FOR AT LEAST THE LAST MONTH, PT HAS HAD PROBLEMS GETTING WORDS OUT, PROBLEMS BALANCING CHECKBOOK, PROBLEMS WRITING, CAN'T REMEMBER NAMES, ETC, BUT WAS WORSE TONIGHT NO DETERIORATION IN PT'S CONDITION DURING ER STAY Initial ECG Impression Date: Nov 21, 2017 Initial ECG Impression Time: 20:43 Initial ECG Rate: 63 Initial ECG Rhythm: Normal Sinus (WITH PAC'S) Initial ECG Impression: Nonspecific Changes Diagnostic Imaging Comments CT HEAD--NO INTRACRANIAL BLEED. RIGHT FRONTAL/PARIETAL AREA WITH DECREASED DENSITY AT CORTEX--POSSIBLY SUBACUTE INFARCT--> 6 HOURS OLD--CHANGED FROM 2017. OLD INFARCTS AND CHRONIC ISCHEMIC CHANGES. PER RADIOLOGIST VIA PHONE AT 2109 CXR--MILD CARDIOMEGALY AND VASCULAR CONGESTION AND BIBASILAR EFFUSIONS, PER RADIOLOGIST REPORT @ 2127 Reviewed: Reviewed by Me Departure Communication (Admissions) 2139--SPOKE WITH DR. CLINTON, ACCEPTS PT FOR ADMIT Impression Primary Impression: CONFUSION Additional Impressions: EXPRESSIVE WRITING DFFICULTY UTI (urinary tract infection) CHF (congestive heart failure) SUBACUTE CVA Disposition: ADMITTED INPATIENT Condition: Stable Admissions Decision to Admit Reason: Admit from ER (General) Decision to Admit/Date: Nov 21, 2017 Time/Decision to Admit Time: 21:40 Departure-Patient Inst. Referrals: ROSALINA MENDEZ MD (PCP/Family) Primary Care Physician STEFANIA CHAWLA DO Nov 21, 2017 20:56
[2017-11-21 21:02] LABS: BILIRUBIN,URINE NEGATIVE (NEGATIVE); CLARITY,URINE CLEAR; COLOR,URINE YELLOW; GLUCOSE, URINE (UA) NEGATIVE (NEGATIVE); KETONES,URINE NEGATIVE (NEGATIVE); LEUKOCYTE ESTERASE ,URINE 3+ (NEGATIVE); NITRITE,URINE NEGATIVE (NEGATIVE); PH,URINE 6 (5-9); PROTEIN,URINE NEGATIVE (NEGATIVE); UROBILINOGEN,URINE NORMAL (NORMAL)
[2017-11-21 21:09] LABS: ALANINE AMINOTRANSFERASE 48 U/L (0-55); ALBUMIN 3.4 GM/DL (3.2-4.5); ALKALINE PHOSPHATASE 153 U/L (40-136); BILIRUBIN,TOTAL 0.5 MG/DL (0.1-1.0); BUN/CREATININE RATIO 25; CALCIUM 8.8 MG/DL (8.5-10.1); CARBON DIOXIDE 23 MMOL/L (21-32); CHLORIDE 112 MMOL/L (98-107); CREATININE SERUM 1.68 MG/DL (0.60-1.30); GFR ESTIMATED 39; GLUCOSE 117 MG/DL (70-105); POTASSIUM 4.7 MMOL/L (3.6-5.0); SODIUM 142 MMOL/L (135-145); TOTAL PROTEIN 6.1 GM/DL (6.4-8.2)
[2017-11-21 21:12] LABS: RBC,URINE 0-2 /HPF
[2017-11-21 21:13] LABS: BACTERIA,URINE FEW /HPF; WBC,URINE >100 /HPF
--- NOTE | 2017-11-21 21:19 | Diagnostic Imaging Report ---
PATIENT HISTORY: Altered mental status, confusion history of strokes. History of cancer.. TECHNIQUE: Noncontrast axial CT of the head COMPARISON: 07/31/2017 FINDINGS: The ventricles and cortical sulci are diffusely prominent. There is no midline shift or mass effect identified. There is no extra axial or intraparenchymal hemorrhage seen. Focal areas of decreased attenuation are seen in the subcortical and periventricular white matter. These likely represent chronic small vessel ischemic changes. There appears to be hypoattenuation extending up to the cortex in the left frontoparietal region in the region of the left precentral gyrus. The bony calvarium is intact. The paranasal sinuses are clear. IMPRESSION: 1. Focal area of low-density extending to the cortex in the region of the left precentral gyrus, which appears new since the prior study, and may represent acute or subacute ischemia. 2. No acute intracranial hemorrhage is seen. 3. Nonspecific white matter changes most likely representing small vessel ischemic disease. Generalized parenchymal volume loss. Findings discussed with STEFANIA CHAWLA DO by Dr. Mendoza, on 11/21/2017 9:14 PM. Dictated by: Dictated on workstation # [id number]
--- NOTE | 2017-11-21 21:25 | Diagnostic Imaging Report ---
PATIENT HISTORY: Confusion, altered mental status, history of strokes, history of cancer. TECHNIQUE: Single frontal view of the chest. COMPARISON: 07/31/2017 FINDINGS: There is mild cardiomegaly with mild central vascular congestion. There are minimal bilateral pleural effusions. No pneumothorax is seen. 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 Cervical spine fusion hardware is noted. IMPRESSION: 1. Mild cardiomegaly with mild central vascular congestion. 2. Minimal bilateral pleural effusions. Dictated by: Dictated on workstation # [id number]
[2017-11-21] MEDS ORDERED: cefTRIAXone INJECTION 1,000 MG in NS (IVPB) 50 ML IV ONE (21:45)
[2017-11-21 21:55] LABS: FIBRIN DEGRADATION PRODUCTS 1.06 UG/ML (0.00-0.49); INR 1.3 (0.8-1.4); PROTHROMBIN TIME PATIENT 16.1 SEC (12.2-14.7)
[2017-11-21] MEDS ORDERED: cefTRIAXone 1 GM (ROCEPHIN) VIAL ONE (22:02)
[2017-11-21] MEDS ORDERED: NS (IVPB) 50 ML ONE (22:02)
[2017-11-21 22:33] VITALS: BP 165/72
[2017-11-21] MEDS ORDERED: CATHETER FLUSH 10 ML SYR IV PRN (23:00)
[2017-11-22] VITALS: BP 142/67
[2017-11-22 03:52] VITALS: BP 145/68
[2017-11-22 05:57] LABS: BASOPHILS % (AUTO) 0 % (0-10); EOSINOPHILS # (AUTO) 0.1 10^3/uL (0.0-0.3); EOSINOPHILS % (AUTO) 3 % (0-10); HEMATOCRIT 34 % (40-54); HEMOGLOBIN 10.7 G/DL (13.3-17.7); LYMPHOCYTES # (AUTO) 0.8 X 10^3 (1.0-4.0); LYMPHOCYTES % (AUTO) 20 % (12-44); MEAN CORPUSCULAR HEMOGLOBIN 31 PG (25-34); MEAN CORPUSCULAR HGB CONC 32 G/DL (32-36); MEAN CORPUSCULAR VOLUME 97 FL (80-99); MEAN PLATELET VOLUME 9.7 FL (7.4-10.4); MONOCYTES # (AUTO) 0.5 X 10^3 (0.0-1.0); MONOCYTES % (AUTO) 12 % (0-12); NEUTROPHILS # (AUTO) 2.7 X 10^3 (1.8-7.8); NEUTROPHILS % (AUTO) 66 % (42-75); PLATELET COUNT 144 10^3/uL (130-400); RED BLOOD COUNT 3.45 10^6/uL (4.35-5.85); WHITE BLOOD COUNT 4.2 10^3/uL (4.3-11.0)
[2017-11-22 06:23] LABS: BILIRUBIN,TOTAL 0.5 MG/DL (0.1-1.0); CALCIUM 8.9 MG/DL (8.5-10.1); CREATININE SERUM 1.5 MG/DL (0.60-1.30); POTASSIUM 4.6 MMOL/L (3.6-5.0); TOTAL PROTEIN 5.5 GM/DL (6.4-8.2)
[2017-11-22 08:00] VITALS: BP 138/71
[2017-11-22] MEDS ORDERED: GADOBUTROL 7.5 MMOL/7.5 ML (GADAVIST) VIAL IV ONE (08:45)
--- NOTE | 2017-11-22 09:39 | Diagnostic Imaging Report ---
PROCEDURE: MR imaging of the brain with and without contrast. TECHNIQUE: Multiplanar, multisequence MR imaging of the brain was performed with and without contrast. INDICATION: Confusion and prior history of stroke. Correlation is made with head CT performed one day earlier. FINDINGS: Diffusion weighted images demonstrate an area of restriction in the left posterior parietal lobe cortex consistent with an acute infarct. No other areas of diffusion restriction are identified. The normal expected flow-voids within the carotid siphons are seen. Moderate periventricular and subcortical white matter signal abnormalities are noted consistent with senescent change. There is no midline shift. No acute intra-axial or extra-axial hemorrhage is detected. No abnormal enhancement following contrast administration is identified. The corpus callosum is unremarkable. The sella and parasellar structures are unremarkable. IMPRESSION: 1. Small region of diffusion restriction left posterior parietal lobe cortex and subcortical region consistent with acute nonhemorrhagic infarct. No area of intracranial hemorrhage is seen. 2. Changes of chronic microvascular ischemia and senescent change. Dictated by: Dictated on workstation # [id number]
[2017-11-22] MEDS: CATHETER FLUSH 10 ML SYR IV SCH ×3 (09:53→21:48)
[2017-11-22] MEDS ORDERED: PATIENT MAY USE OWN MEDS, ALL MC SCH (11:00)
--- NOTE | 2017-11-22 11:12 | History & Physical-Hospitalist ---
History of Present Illness HPI/Chief Complaint Pt is a n 87yoCM with a PMH of atrial fibrillation, esophageal cancer, hypothyroidism who presented to the ER due to inability to write. He states that he normally writes down the weather forecast every night but when he went to write he was unable to write the letters he wanted. He called his son who came over and asked him to write the alphabet but the patient started writing numbers instead. That was what prompted them to seek evaluation in the ER. He also complained of right sided leg pain and weakness. He normally ambulates without any assistance but was hardly able to lift his leg last night. Of note he underwent cardioversion for atrial fibrillation on 11/16/[address] Lord. Source: patient, family Date Seen 11/22/17 Time Seen by Provider: 10:05 Attending Physician Anival Noonan MD PCP Juan Bettencourt MD Referring Physician Date of Admission Nov 21, 2017 at 10:04 pm Home Medications & Allergies Home Medications Reviewed patient Home Medication Reconciliation performed by pharmacy medication reconciliations hvac/r service technician and/or nursing. Patients Allergies have been reviewed. Allergies Allergies Coded Allergies morphine (Verified Allergy, Mild, 12/20/14) quinine (Verified Allergy, Mild, 12/20/14) sulfamethoxazole (Verified Allergy, Unknown, 11/06/15) trimethoprim (Verified Allergy, Unknown, 11/06/15) digoxin (Verified Adverse Reaction, Unknown, bradycardia, 11/22/17) Past Bcmdxes-Frunyg-Stiaro Hx Past Med/Social Hx: Reviewed Nursing Past Med/Soc Hx Patient Social History Alcohol Use: Denies Use Recreational Drug Use: No Smoking Status: Never a Smoker 2nd Hand Smoke Exposure: No Physical Abuse Screen: No Sexual Abuse: No Recent Foreign Travel: No Contact w/other who traveled: No Recent Hopitalizations: No Recent Infectious Disease Expo: No Immunizations Up To Date Tetanus Booster (TDap): Less than 5yrs Date of Pneumonia Vaccine: Jan 17, 2015 Date of Influenza Vaccine: Jan 17, 2015 Seasonal Allergies Seasonal Allergies: No Past Medical History Surgeries: Abdominal, Appendectomy, Cardiac, Gallbladder, Orthopedic, Thyroidectomy Currently Using CPAP: No Currently Using BIPAP: No Cardiac: Atrial Fibrillation, Chronic Edema/Swelling, Heart Murmur, High Cholesterol Reproductive: No Sexually Transmitted Disease: No HIV/AIDS: No Genitourinary: Kidney Stones, Renal Failure Gastrointestinal: Gastroesophageal Reflux Musculoskeletal: Arthritis Endocrine: Hypothyroidsim Loss of Vision: Bilateral Hearing Impairment: Hard of Hearing, Bilateral Hearing Aide History of Blood Disorders: Yes (ANEMIA) Adverse Reaction to Blood Marquez: No (HAS HAD BLOOD WITH NO REACTION) Family History Congenital heart disease 19 FATHER 19 MOTHER FH: renal cell carcinoma G8 SISTER Leukemia G8 BROTHER G8 BROTHER No Pertinent Family Hx Review of Systems Constitutional: No chills, No fever; weakness EENTM: No blurred vision, No double vision, No nose congestion, No throat pain Respiratory: No cough, No dyspnea on exertion, No short of breath Cardiovascular: No chest pain, No edema, No palpitations Gastrointestinal: No abdominal pain, No constipation, No diarrhea, No nausea, No vomiting Genitourinary: No dysuria, No frequency Musculoskeletal: No joint pain, No muscle pain Skin: No lesions, No rash Psychiatric/Neurological: Denies Headache, Denies Numbness, Denies Pre- Existing Deficit, Denies Tingling; Weakness Physical Exam Physical Exam Vital Signs Vital Signs - First Documented 11/21/17 20:33 Temp 98.0 Pulse 111 Resp 21 B/P (MAP) 173/70 (104) Pulse Ox 99 O2 Delivery Room Air Capillary Refill : Less Than 3 Seconds Height, Weight, BMI Height: 5'9.00" Weight: 145lbs. 0.0oz. 65.456654aw; 21.4 BMI Method:Stated General Appearance: No Apparent Distress, WD/WN HEENT: PERRL/EOMI; No Scleral Icterus (L), No Scleral Icterus (R) Respiratory: Lungs Clear, No Respiratory Distress Cardiovascular: Regular Rate, Rhythm, No Murmur Gastrointestinal: Normal Bowel Sounds, Non Tender, Soft Extremity: Normal Capillary Refill, No Calf Tenderness, No Pedal Edema Neurologic/Psychiatric: Alert, Oriented x3, Normal Mood/Affect, 2nd pressman II-XII Norm as Tested Results Results/Procedures Labs Patient resulted labs reviewed. Imaging: Reviewed Imaging Report Assessment/Plan Admission Diagnosis Left posterior parietal stroke Admission Status: Inpatient Order (span 2 midnights) Reason for Inpatient Admission: stroke- need rehab evaluation and medical optimization Diagnosis/Problems Diagnosis/Problems (1) CVA (cerebral vascular accident) Status: Acute Assessment & Plan: Confirmed on MRI Patient took home eliquis this AM PT/OT consulted Passed bedside swallow FLP done and LDL <70 Carotid dopplers ordered (2) Urinary tract infection Status: Acute Assessment & Plan: UA consistent with UTI culture sent to [facility]- await results No signs of sepsis Qualifiers: Urinary tract infection type: acute cystitis Hematuria presence: without hematuria Qualified Codes: N30.00 - Acute cystitis without hematuria (3) Renal insufficiency Status: Acute Assessment & Plan: At baseline (4) Afib Status: Chronic Assessment & Plan: s/p cardioversion on 11/16 Cardiology consulted, appreciate recs rate controlled On eliquis Qualifiers: Atrial fibrillation type: paroxysmal Qualified Codes: I48.0 - Paroxysmal atrial fibrillation Clinical Quality Measures DVT/VTE Risk/Contraindication: Risk Factor Score Per Nursin RFS Level Per Nursing on Admit: 3=High MISTY HAGEN MD Nov 22, 2017 11:12
--- OUTSIDE RECORDS SUMMARY | 2017-11-22 11:25 | XMS REPORT | Clinical Summary ---
Author Author [facility] Organization [facility] Address Unknown Phone Unavailable Care Team Providers Care Aquaculture Director Name Role Phone Juan Bettencourt MD PCP Alan Manzano MD Unavailable Say Schmidt DO Unavailable Source Comments Some departments are not documenting in the electronic medical record. If you do not see the information that you expected, contact Release of Information in the Health Information Management department at [phone] for further assistance in locating additional records.[facility] Allergies Active Allergy Reactions Severity Noted Date [...] Taken Blood Pressure 140/78 06/23/2017 12:17 PM SKEIN STRAIGHTENER Pulse 54 06/23/2017 12:17 PM SKEIN STRAIGHTENER Temperature 36.6 C (97.8 F) 06/23/2017 12:17 PM SKEIN STRAIGHTENER Respiratory Rate 18 06/23/2017 12:17 PM SKEIN STRAIGHTENER Oxygen Saturation 96% 06/23/2017 12:17 PM SKEIN STRAIGHTENER Inhaled Oxygen - - Concentration Weight 71.4 kg (157 lb 6.4 oz) 06/23/2017 12:17 PM SKEIN STRAIGHTENER Height 175.3 cm (5' 9.02") 03/24/2017 1:18 PM SKEIN STRAIGHTENER Body Mass Index 23.23 06/23/2017 12:17 PM SKEIN STRAIGHTENER Plan of Treatment Health Maintenance Due Date Last Done Comments PHYSICAL (COMPREHENSIVE) 1937 EXAM PERTUSSIS VACCINE 1941 TETANUS VACCINE 09/06/1947 SHINGLES RECOMBINANT 1980 VACCINE (1 of 2) PNEUMONIA (PCV13/PPSV23) 09/06/1995 VACCINES (1 of 2 - PCV13) INFLUENZA VACCINE 01/17/2018 Results Not on filefrom Last 3 Months
--- OUTSIDE RECORDS SUMMARY | 2017-11-22 11:28 | XMS REPORT | Continuity of Care Document ---
Author Author [facility] Organization [facility] Address Unknown Phone Unavailable Allergies Active Description Code Type Severity Reaction Onset Reported/Identified Relationship to Patient Clinical Status Yes morphine [id number] Drug Allergy Mild N/A 12/20/2014 Yes quinine [id number] Drug Allergy Mild N/A 12/20/2014 Yes sulfamethoxazole [id number] Drug Allergy Unknown N/A 11/06/2015 Yes trimethoprim [id number] Drug Allergy Unknown N/A 11/06/2015 Medications There [...] MENDEZ MD Ot 414.01 CORONARY ATHEROSCLEROSIS OF [place] CORON 10/08/2014 ROSALINA MENDEZ MD Ot 427.9 [...] I73.9 07/05/2015 EARNESTINE NYEERIKA Ot Z01.818 07/08/2015 FLAGSTAFF ERIKA Ot Z01.818 07/08/2015 COLBY ERIKA Ot Z01.818 ENCOUNTER FOR OTHER PREPROCEDURAL EXAMIN 07/09/2015 ERIKA COLBY DO Ot Z01.818 07/09/2015 COLBY ERIKA [...] Ot I73.9 PERIPHERAL VASCULAR DISEASE, UNSPECIFIED 10/02/2015 ROSLAINA MENDEZ MD, Ot N39.0 URINARY TRACT INFECTION, [...] ENCOUNTER FOR SCREENING FOR OTHER BACTER 11/07/2015 FLAGSTAFF ERIKA NYE Ot K40.90 UNIL INGUINAL HERNIA, [...] IMAGING OF ABD REGION 12/06/2015 ABHISHEK BASILIO COMPUTER HARDWARE DESIGNER Ot 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 12/06/2015 BASILIO, HILAH S COMPUTER HARDWARE DESIGNER Ot E03.9 HYPOTHYROIDISM, UNSPECIFIED 12/06/2015 ABHISHEK BASILIO S COMPUTER HARDWARE DESIGNER Ot 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 12/16/2015 ROSALINA MENDEZ MD Ot K46.9 UNSPECIFIED ABDOMINAL HERNIA WITHOUT OBS 12/16/2015 ROSALINA MENDEZ MD Ot 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/O PERFORATION OR AB 12/16/2015 ROSALINA MENDEZ MD Ot R93.5 ABN FINDINGS ON DX IMAGING OF ABD REGION 12/27/2015 ABHISHEK BASILIO S COMPUTER HARDWARE DESIGNER Ot 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 12/27/2015 ABHISHEK BASILIO S COMPUTER HARDWARE DESIGNER Ot E03.9 HYPOTHYROIDISM, UNSPECIFIED 12/27/2015 ABHISHEK BASILIO S COMPUTER HARDWARE DESIGNER Ot 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 12/31/2015 BARTOLOME, BOBAN N [...] 12/31/2015 BARTOLOME, BOBAN N Ot 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 01/01/2016 BARTOLOME, BOBAN N Ot 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 01/01/2016 BARTOLOME, BOBAN N Ot D50.0 IRON DEFICIENCY ANEMIA SECONDARY TO BLOO 01/01/2016 BARTOLOME, BOBAN N Ot E03.9 HYPOTHYROIDISM, UNSPECIFIED 01/01/2016 BARTOLOME, BOBAN N Ot N18.3 CHRONIC KIDNEY DISEASE, STAGE 3 (MODERAT 01/01/2016 BARTOLOME, BOBAN N Ot Z79.899 OTHER SENIOR CARE (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 THERAPY 01/07/2016 ABHISHEK BASILIO S COMPUTER HARDWARE DESIGNER Ot 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 01/07/2016 ABHISHEK BASILIO S COMPUTER HARDWARE DESIGNER Ot E03.9 HYPOTHYROIDISM, UNSPECIFIED 01/07/2016 ABHISHEK BASILIO S COMPUTER HARDWARE DESIGNER Ot 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 01/07/2016 COLBY ERIKA NYE [...] 03/10/2016 BARTOLOME, BOBAN N Ot Z79.899 OTHER SENIOR CARE (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 THERAPY 03/18/2016 BARTOLOME, BOBAN N Ot 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 03/18/2016 BARTOLOME, BOBAN N Ot D50.0 IRON DEFICIENCY ANEMIA SECONDARY TO BLOO 03/18/2016 BARTOLOME, BOBAN N Ot E03.9 HYPOTHYROIDISM, UNSPECIFIED 03/18/2016 BARTOLOME, BOBAN N Ot N18.3 CHRONIC KIDNEY DISEASE, STAGE 3 (MODERAT 03/18/2016 BARTOLOME, BOBAN N Ot Z79.899 OTHER SENIOR CARE (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 THERAPY 05/03/2016 BARTOLOME, BOBAN N Ot 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 05/03/2016 BARTOLOME, BOBAN N Ot D50.0 IRON DEFICIENCY ANEMIA SECONDARY TO BLOO 05/03/2016 BARTOLOME, BOBAN N Ot E03.9 HYPOTHYROIDISM, UNSPECIFIED 05/03/2016 BARTOLOME, BOBAN N Ot N18.3 CHRONIC KIDNEY DISEASE, STAGE 3 (MODERAT 05/03/2016 BARTOLOME, BOBAN N Ot 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 05/04/2016 BARTOLOME, BOBAN N Ot 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 05/04/2016 BARTOLOME, BOBAN N Ot D50.0 IRON DEFICIENCY ANEMIA SECONDARY TO BLOO 05/04/2016 BARTOLOME, BOBAN N Ot E03.9 HYPOTHYROIDISM, UNSPECIFIED 05/04/2016 BARTOLOME, BOBAN N Ot N18.3 CHRONIC KIDNEY DISEASE, STAGE 3 (MODERAT 05/04/2016 BARTOLOMECHRISTOPHER Ot Z79.899 OTHER SENIOR CARE (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 THERAPY 05/06/2016 Ot 530.81 ESOPHAGEAL REFLUX 05/06/2016 Ot 518.89 OTHER DISEASES OF LUNG, NEC 05/06/2016 Ot 786.50 CHEST PAIN NOS 05/06/2016 Ot 807.03 FRACTURE THREE RIBS-CLOS 05/06/2016 Ot E000.8 OTHER EXTERNAL CAUSE STATUS 05/06/2016 Ot E928.9 ACCIDENT NOS 05/06/2016 Ot 429.3 CARDIOMEGALY 05/06/2016 Ot 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 05/06/2016 MIGUEL ANGEL SHAY MD Ot V72.84 EXAM PRE-OPERATIVE NOS 05/06/2016 ERIKA COLBY DO Ot 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 05/06/2016 ERIKA COLBY DO Ot 535.50 UNSP GASTRITIS [...] UNSPECIFIED ABDOMINAL HERNIA WITHOUT OBS 05/06/2016 ROSALINA MENDEZ MD Ot 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/O PERFORATION OR AB 05/06/2016 ROSALINA MENDEZ MD Ot R93.5 ABN FINDINGS ON DX IMAGING OF ABD REGION 05/06/2016 ABHISHEK BASILIO COMPUTER HARDWARE DESIGNER Ot 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 05/06/2016 ABHISHEK BASILIO COMPUTER HARDWARE DESIGNER Ot E03.9 HYPOTHYROIDISM, UNSPECIFIED 05/06/2016 ABHISHEK BASILIO COMPUTER HARDWARE DESIGNER Ot Z79.899 OTHER SENIOR CARE (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 THERAPY 05/06/2016 CHRISTOPHER MANCUSO Ot 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 05/06/2016 CHRISTOPHER MANCUSO Ot D50.0 IRON DEFICIENCY ANEMIA SECONDARY TO BLOO 05/06/2016 CHRISTOPHER MANCUSO N Ot E03.9 HYPOTHYROIDISM, UNSPECIFIED 05/06/2016 CHRISTOPHER MANCUSO Ot N18.3 CHRONIC KIDNEY DISEASE, STAGE 3 (MODERAT 05/06/2016 CHRISTOPHER MANCUSO N Ot Z79.899 OTHER SENIOR CARE (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 THERAPY 05/08/2016 DUANE PIMENTEL STUDENT ACC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 Ot R07.81 PLEURODYNIA 05/08/2016 DUANE PIMENTEL STUDENT ACC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 Ot W19.XXXA UNSPECIFIED FALL, INITIAL ENCOUNTER 05/08/2016 DUANE PIMENTEL STUDENT ACC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 Ot Y99.8 OTHER EXTERNAL CAUSE STATUS 05/28/2016 DUANE PIMENTEL STUDENT ACC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 Ot S59.902A UNSPECIFIED INJURY OF LEFT ELBOW, INITIA 05/28/2016 DUANE PIMENTEL STUDENT ACC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 Ot W19.XXXA UNSPECIFIED FALL, INITIAL ENCOUNTER 05/28/2016 DUANE PIMENTEL STUDENT ACC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 Ot Y92.[address] [facility] (PRIVATE 05/28/2016 DUANE PIMENTEL STUDENT ACC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 Ot Y99.8 OTHER EXTERNAL CAUSE STATUS 05/28/2016 DUANE PIMENTEL STUDENT ACC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 Ot R07.81 PLEURODYNIA 05/28/2016 DUANE PIMENTEL STUDENT ACC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 Ot W19.XXXA UNSPECIFIED FALL, INITIAL ENCOUNTER 05/28/2016 DUANE PIMENTEL STUDENT ACC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 Ot Y99.8 OTHER EXTERNAL CAUSE STATUS 06/03/2016 DUANE PIMENTEL STUDENT ACC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 Ot S59.902A UNSPECIFIED INJURY OF LEFT ELBOW, INITIA 06/03/2016 DUAEN PIMENTEL STUDENT ACC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 Ot W19.XXXA UNSPECIFIED FALL, INITIAL ENCOUNTER 06/03/2016 DUANE PIMENTEL STUDENT ACC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 Ot Y92.[address] [facility] (PRIVATE 06/03/2016 DUANE PIMENTEL STUDENT ACC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 Ot Y99.8 OTHER EXTERNAL CAUSE STATUS 06/03/2016 DUANE PIMENTEL STUDENT ACC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 Ot R07.81 PLEURODYNIA 06/03/2016 DUANE PIMENTEL STUDENT ACC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 Ot W19.XXXA UNSPECIFIED FALL, INITIAL ENCOUNTER 06/03/2016 DUANE PIMENTEL STUDENT ACC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 Ot Y99.8 OTHER EXTERNAL CAUSE STATUS 06/30/2016 BARTOLOMEREX FLOWERAN N Ot 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 06/30/2016 BARTOLOME, BOBAN N Ot D50.0 IRON DEFICIENCY ANEMIA SECONDARY TO BLOO 06/30/2016 BARTOLOME, BOBAN N Ot E03.9 HYPOTHYROIDISM, UNSPECIFIED 06/30/2016 BARTOLOME, BOBAN N Ot N18.3 CHRONIC KIDNEY DISEASE, STAGE 3 (MODERAT 06/30/2016 BARTOLOME, BOBAN N Ot 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 06/30/2016 BARTOLOME, BOBAN N [...] 08/14/2016 BARTOLOME, BOBAN N Ot Z79.899 OTHER SENIOR CARE (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 THERAPY 08/27/2016 BARTOLOME, BOBAN N Ot 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 08/27/2016 BARTOLOME, BOBAN N Ot D50.0 IRON DEFICIENCY ANEMIA SECONDARY TO BLOO 08/27/2016 BARTOLOME, BOBAN N Ot E03.9 HYPOTHYROIDISM, UNSPECIFIED 08/27/2016 BARTOLOME, BOBAN N Ot N18.3 CHRONIC KIDNEY DISEASE, STAGE 3 (MODERAT 08/27/2016 BARTOLOME, BOBAN N Ot Z79.899 OTHER SENIOR CARE (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 THERAPY 09/27/2016 BARTOLOME, BOBAN N Ot 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 09/27/2016 BARTOLOME, BOBAN N Ot D50.0 IRON DEFICIENCY ANEMIA SECONDARY TO BLOO 09/27/2016 BARTOLOME, BOBAN N Ot E03.9 HYPOTHYROIDISM, UNSPECIFIED 09/27/2016 BARTOLOME, BOBAN N Ot N18.3 CHRONIC KIDNEY DISEASE, STAGE 3 (MODERAT 09/27/2016 BARTOLOME, BOBAN N Ot 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 09/28/2016 BARTOLOME, BOBAN N Ot 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 09/28/2016 BARTOLOME, BOBAN N Ot D50.0 IRON DEFICIENCY ANEMIA SECONDARY TO BLOO 09/28/2016 BARTOLOME, BOBAN N Ot E03.9 HYPOTHYROIDISM, UNSPECIFIED 09/28/2016 BARTOLOME, BOBAN N Ot N18.3 CHRONIC KIDNEY DISEASE, STAGE 3 (MODERAT 09/28/2016 BARTOLOME, BOBAN N Ot 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 10/01/2016 BARTOLOME, BOBAN N Ot 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 10/01/2016 BARTOLOME, BOBAN N Ot D50.0 IRON DEFICIENCY ANEMIA SECONDARY TO BLOO 10/01/2016 BARTOLOME, BOBAN N Ot E03.9 HYPOTHYROIDISM, UNSPECIFIED 10/01/2016 BARTOLOME, BOBAN N Ot N18.3 CHRONIC KIDNEY DISEASE, STAGE 3 (MODERAT 10/01/2016 BARTOLOME, BOBAN N Ot 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 10/02/2016 DEFFENBAUGH DOSANIYARY D [...] 11/09/2016 CHRISTOPHER MANCUSO N Ot 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 11/13/2016 CHRISTOPHER MANCUSO N Ot 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 11/13/2016 CHRISTOPHER MANCUSO N Ot D50.0 IRON DEFICIENCY ANEMIA SECONDARY TO BLOO 11/13/2016 CHRISTOPHER MANCUSO N Ot E03.9 HYPOTHYROIDISM, UNSPECIFIED 11/13/2016 CHRISTOPHER MANCUSO N Ot N18.3 CHRONIC KIDNEY DISEASE, STAGE 3 (MODERAT 11/13/2016 CHRISTOPHER MANCUSO N Ot 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 12/17/2016 Ot 518.89 OTHER [...] IMAGING OF ABD REGION 12/17/2016 ABHISHEK BASILIO COMPUTER HARDWARE DESIGNER Ot 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 12/17/2016 ABHISHEK BASILIO COMPUTER HARDWARE DESIGNER Ot E03.9 HYPOTHYROIDISM, UNSPECIFIED 12/17/2016 ABHISHEK BASILIO COMPUTER HARDWARE DESIGNER Ot 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 12/17/2016 CHRISTOPHER MANCUSO Ot 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 12/17/2016 CHRISTOPHER MANCUSO Ot Z01.89 ENCOUNTER FOR OTHER SPECIFIED SPECIAL EX 12/17/2016 DUANE PIMENTEL STUDENT ACC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 Ot S59.902A UNSPECIFIED INJURY OF LEFT ELBOW, INITIA 12/17/2016 DUANE PIMENTEL STUDENT ACC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 Ot W19.XXXA UNSPECIFIED FALL, INITIAL ENCOUNTER 12/17/2016 DUANE PIMENTEL APRN Ot Y92.009 [facility] (PRIVATE 12/17/2016 DUANE PIMENTEL STUDENT ACC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 Ot Y99.8 OTHER EXTERNAL CAUSE STATUS 12/17/2016 DUANE PIMENTEL APRN Ot R07.81 PLEURODYNIA 12/17/2016 DUANE PIMENTEL STUDENT ACC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 Ot W19.XXXA UNSPECIFIED FALL, INITIAL ENCOUNTER 12/17/2016 [...] 12/17/2016 CHRISTOPHER MANCUSO N Ot Z79.899 OTHER SENIOR CARE (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 THERAPY 12/17/2016 DEFFENBAJULIAN MATHIS DO Ot D50.9 IRON DEFICIENCY ANEMIA, UNSPECIFIED 12/17/2016 DEFFENBAUGH DOSANIYARY Vazquez Ot R79.89 OTHER SPECIFIED ABNORMAL FINDINGS OF BLO 12/29/2016 CHRISTOPHER MANCUSO N Ot 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 12/29/2016 CHRISTOPHER MANCUSO N Ot D50.0 IRON DEFICIENCY ANEMIA SECONDARY TO BLOO 12/29/2016 CHRISTOPHER MANCUSO Ot E03.9 HYPOTHYROIDISM, UNSPECIFIED 12/29/2016 CHRISTOPHER MANCUSO N Ot N18.3 CHRONIC KIDNEY DISEASE, STAGE 3 (MODERAT 12/29/2016 CHRISTOPHER MANCUSO N Ot Z79.899 OTHER SENIOR CARE (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 THERAPY 12/29/2016 Ot 518.89 OTHER [...] IMAGING OF ABD REGION 12/29/2016 ABHISHEK BASILIO COMPUTER HARDWARE DESIGNER Ot 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 12/29/2016 ABHISHEK BASILIO COMPUTER HARDWARE DESIGNER Ot E03.9 HYPOTHYROIDISM, UNSPECIFIED 12/29/2016 ABHISHEK BASILIO COMPUTER HARDWARE DESIGNER Ot Z79.899 OTHER SENIOR CARE (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 THERAPY 12/29/2016 CHRISTOPHER MANCUSO Ot 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 12/29/2016 CHRISTOPHER MANCUSO Ot Z01.89 ENCOUNTER FOR OTHER SPECIFIED SPECIAL EX 12/29/2016 DUANE PIMENTEL APRN Ot S59.902A UNSPECIFIED INJURY OF LEFT ELBOW, INITIA 12/29/2016 DUANE PIMENTEL STUDENT ACC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 Ot W19.XXXA UNSPECIFIED FALL, INITIAL ENCOUNTER 12/29/2016 DUANE PIMENTEL APRN Ot Y92.009 [facility] (PRIVATE 12/29/2016 DUANE PIMENTEL STUDENT ACC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 Ot Y99.8 OTHER EXTERNAL CAUSE STATUS 12/29/2016 DUANE PIMENTEL APRN Ot R07.81 PLEURODYNIA 12/29/2016 DUANE PIMENTEL APRN Ot W19.XXXA UNSPECIFIED FALL, INITIAL ENCOUNTER 12/29/2016 DUANE PIMENTEL STUDENT ACC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 Ot Y99.8 OTHER EXTERNAL CAUSE STATUS 12/29/2016 CHRISTOPHER MANCUSO Ot 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 12/29/2016 CHRISTOPHER MANCUSO Ot D50.0 IRON DEFICIENCY ANEMIA SECONDARY TO BLOO 12/29/2016 REX MANCUSOAN N Ot E03.9 HYPOTHYROIDISM, UNSPECIFIED 12/29/2016 BARTOLOME, BOBAN N Ot N18.3 CHRONIC KIDNEY DISEASE, STAGE 3 (MODERAT 12/29/2016 BARTOLOME BOBAN N Ot 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 12/29/2016 DEFFENBAJULIAN MATHIS DO Ot D50.9 IRON DEFICIENCY ANEMIA, UNSPECIFIED 12/29/2016 JOSÉFENBAJULIAN MATHIS DO D Ot R79.89 OTHER SPECIFIED ABNORMAL FINDINGS OF BLO 01/04/2017 BASILIOABHISHEK Wilkerson Rhea COMPUTER HARDWARE DESIGNER Ot C49.4 MALIGNANT NEOPLASM OF CONNECTIVE AND [...] 01/07/2017 BARTOLOME, BOBAN N Ot Z79.899 OTHER SENIOR CARE (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 THERAPY 01/16/2017 BARTOLOME, BOBAN N Ot 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 01/16/2017 BARTOLOME, BOBAN N Ot D50.0 IRON DEFICIENCY ANEMIA SECONDARY TO BLOO 01/16/2017 BARTOLOME, BOBAN N Ot E03.9 HYPOTHYROIDISM, UNSPECIFIED 01/16/2017 BARTOLOME, BOBAN N Ot N18.3 CHRONIC KIDNEY DISEASE, STAGE 3 (MODERAT 01/16/2017 BARTOLOME, BOBAN N Ot Z79.899 OTHER SENIOR CARE (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 THERAPY 01/28/2017 LEE THOMAS MD [...] UNSPECIFIED 02/02/2017 ABHISHEK BASILIOP Ot 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 02/02/2017 CHRISTOPHER MANCUSO Ot 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 02/02/2017 CHRISTOPHER MANCUSO Ot Z01.89 ENCOUNTER FOR OTHER SPECIFIED SPECIAL EX 02/02/2017 LORENZIONN Baljit STUDENT ACC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 Ot S59.902A UNSPECIFIED INJURY OF LEFT ELBOW, INITIA 02/02/2017 ZION PIMENTELAbel Smiley STUDENT ACC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 Ot W19.XXXA UNSPECIFIED FALL, INITIAL ENCOUNTER 02/02/2017 LORENZIONN Baljit STUDENT ACC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 Ot Y92.[address] [facility] (PRIVATE 02/02/2017 ZION PIMENTELAbel Smiley APRN Ot Y99.8 OTHER EXTERNAL CAUSE STATUS 02/02/2017 LOREN DUANE Smiley APRN Ot R07.81 PLEURODYNIA 02/02/2017 LOREN DUANE Baljit STUDENT ACC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 Ot W19.XXXA UNSPECIFIED FALL, INITIAL ENCOUNTER 02/02/2017 [...] (MODERAT 02/02/2017 CHRISTOPHER MANCUSO Ot Z79.899 OTHER SENIOR CARE (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 THERAPY 02/02/2017 CHARLEY BOO DO Ot M54.16 RADICULOPATHY, LUMBAR REGION 02/03/2017 LEE THOMAS MD Ot M48.07 SPINAL STENOSIS, LUMBOSACRAL REGION 02/03/2017 LEE THOMAS MD Ot M51.26 OTHER INTERVERTEBRAL DISC DISPLACEMENT, 02/08/2017 ABHISHEK BASILIO COMPUTER HARDWARE DESIGNER Ot 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 02/11/2017 BARTOLOME, CHRISTOPHER N Ot 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 02/11/2017 BARTOLOME, BOBAN N Ot D50.0 IRON DEFICIENCY ANEMIA SECONDARY TO BLOO 02/11/2017 BARTOLOME, BOBAN N Ot E03.9 HYPOTHYROIDISM, UNSPECIFIED 02/11/2017 BARTOLOME, BOBAN N Ot N18.3 CHRONIC KIDNEY DISEASE, STAGE 3 (MODERAT 02/11/2017 BARTOLOME, BOBAN N Ot 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 02/11/2017 ABHISHEK BASILIO COMPUTER HARDWARE DESIGNER Ot C49.4 MALIGNANT NEOPLASM OF CONNECTIVE AND [...] 05/02/2017 BARTOLOME, BOBAN N Ot 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 05/11/2017 BARTOLOME, BOBAN N Ot 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 05/11/2017 BARTOLOME, BOBAN N Ot D50.0 IRON DEFICIENCY ANEMIA SECONDARY TO BLOO 05/11/2017 BARTOLOME, BOBAN N Ot E03.9 HYPOTHYROIDISM, UNSPECIFIED 05/11/2017 BARTOLOME, BOBAN N Ot N18.3 CHRONIC KIDNEY DISEASE, STAGE 3 (MODERAT 05/11/2017 BARTOLOME, BOBAN N Ot 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 06/09/2017 JULIAN HERNANDEZ DO Ot K28.1 ACUTE GASTROJEJUNAL ULCER WITH PERFORATI 06/09/2017 JULIAN HERNANDEZ DO Ot R74.8 ABNORMAL LEVELS OF OTHER SERUM ENZYMES 06/09/2017 DEFFENBAUGH DO, JULIAN D Ot 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 06/14/2017 DEFFENBAUGH DO, JULIAN D Ot K28.1 ACUTE GASTROJEJUNAL ULCER WITH PERFORATI 06/14/2017 DEFFENBAUGH DO, JLUIAN D Ot R74.8 ABNORMAL LEVELS OF OTHER SERUM ENZYMES 06/14/2017 DEFFENBAUGH DO, JULIAN D Ot 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 07/06/2017 DEFFENBAUGH DO, JULIAN D Ot K28.1 ACUTE GASTROJEJUNAL ULCER WITH PERFORATI 07/06/2017 DEFFENBAUGH DO, JULIAN D Ot R74.8 ABNORMAL LEVELS OF OTHER SERUM ENZYMES 07/06/2017 DEFFENBAUGH DO, JULIAN D Ot 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 07/07/2017 DEFFENBAUGH DO, JULIAN D Ot K28.1 ACUTE GASTROJEJUNAL ULCER WITH PERFORATI 07/07/2017 DEFFENBAUGH DO, JULIAN D Ot R74.8 ABNORMAL LEVELS OF OTHER SERUM ENZYMES 07/07/2017 DEFFENBAUGH DO, JULIAN D Ot 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 07/31/2017 PO DALAL MD Ot E03.9 HYPOTHYROIDISM, UNSPECIFIED 07/31/2017 PO DALAL MD Ot K21.9 GASTRO-ESOPHAGEAL REFLUX DISEASE WITHOUT 07/31/2017 PO DALAL MD Ot R00.1 BRADYCARDIA, UNSPECIFIED 07/31/2017 PO DALAL MD Ot R42 DIZZINESS AND GIDDINESS 07/31/2017 PO DALAL MD Ot R51 HEADACHE 07/31/2017 PO DALAL MD Ot Z85.09 PERSONAL HISTORY OF MALIGNANT NEOPLASM O 07/31/2017 PO DALAL MD Ot Z87.19 PERSONAL HISTORY OF OTHER DISEASES OF TH 07/31/2017 PO DALAL MD Ot Z87.442 PERSONAL HISTORY OF URINARY CALCULI 07/31/2017 PO DALAL MD Ot Z88.1 ALLERGY STATUS TO OTHER ANTIBIOTIC AGENT 07/31/2017 PO DALAL MD Ot Z88.2 ALLERGY STATUS TO SULFONAMIDES STATUS 07/31/2017 PO DALAL MD Ot Z88.5 ALLERGY STATUS TO NARCOTIC AGENT STATUS 07/31/2017 KATLIN HASTINGS, PO Rhea Ot 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 08/02/2017 KATLIN HASTINGS, PO Wilkerson Ot E03.9 HYPOTHYROIDISM, UNSPECIFIED 08/02/2017 KATLIN HASTINGS, OP Rhea Ot K21.9 GASTRO-ESOPHAGEAL REFLUX DISEASE WITHOUT 08/02/2017 KATLIN HASTINGS, PO Wilkerson Ot R00.1 BRADYCARDIA, UNSPECIFIED 08/02/2017 KATLIN HASTINGS, PO Wilkerson Ot R42 DIZZINESS AND GIDDINESS 08/02/2017 KATLIN HASTINGS, PO Wilkerson Ot R51 HEADACHE 08/02/2017 KATLIN HASTINGS, PO Wilkerson Ot Z85.09 PERSONAL HISTORY OF MALIGNANT NEOPLASM O 08/02/2017 KATLIN HASTINGS, PO Wilkerson Ot Z87.19 PERSONAL HISTORY OF OTHER DISEASES OF 08/02/2017 KATLIN HASTINGS, PO Wilkreson Ot Z87.442 PERSONAL HISTORY OF URINARY CALCULI 08/02/2017 AKTLIN HASTINGS, PO Wilkerson Ot Z88.1 ALLERGY STATUS TO OTHER ANTIBIOTIC AGENT 08/02/2017 KATLIN HASTINGS, PO Wilkerson Ot Z88.2 ALLERGY STATUS TO SULFONAMIDES STATUS 08/02/2017 KATLIN HASTINGS, PO Wilkerson Ot Z88.5 ALLERGY STATUS TO NARCOTIC AGENT STATUS 08/02/2017 KATLIN HASTINGS, PO Wilkerson Ot 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 08/06/2017 KATLIN HASTINGS, PO Wilkerson Ot E03.9 HYPOTHYROIDISM, UNSPECIFIED 08/06/2017 KATLIN HASTINGS, PO Rhea Ot K21.9 GASTRO-ESOPHAGEAL REFLUX DISEASE WITHOUT 08/06/2017 KATLIN HASTINGS, PO Wilkerson Ot R00.1 BRADYCARDIA, UNSPECIFIED 08/06/2017 KATLIN HASTINGS, PO Wilkerson Ot R42 DIZZINESS AND GIDDINESS 08/06/2017 KATLIN HASTINGS, PO Wilkerson Ot R51 HEADACHE 08/06/2017 KATLIN HASTINGS, PO Wilkerson Ot Z85.09 PERSONAL HISTORY OF MALIGNANT NEOPLASM O 08/06/2017 KATLIN HASTINGS, PO Wilkerson Ot Z87.19 PERSONAL HISTORY OF OTHER DISEASES OF 08/06/2017 KATLIN HASTINGS, PO Wilkerson Ot Z87.442 PERSONAL HISTORY OF URINARY CALCULI 08/06/2017 KATLIN HASTINGS, PO Wilkerson Ot Z88.1 ALLERGY STATUS TO OTHER ANTIBIOTIC AGENT 08/06/2017 KATLIN HASTINGS, PO Wilkerson Ot Z88.2 ALLERGY STATUS TO SULFONAMIDES STATUS 08/06/2017 KATLIN HASTINGS, PO Wilkerson Ot Z88.5 ALLERGY STATUS TO NARCOTIC AGENT STATUS 08/06/2017 KATLIN HASTINGS, PO Wilkerson Ot 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 08/08/2017 BARTOLOME, BOBAN N Ot 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 08/08/2017 BARTOLOME, BOBAN N Ot D50.0 IRON DEFICIENCY ANEMIA SECONDARY TO BLOO 08/08/2017 BARTOLOME, BOBAN N Ot E03.9 HYPOTHYROIDISM, UNSPECIFIED 08/08/2017 BARTOLOME, BOBAN N Ot N18.3 CHRONIC KIDNEY DISEASE, STAGE 3 (MODERAT 08/08/2017 BARTOLOME, BOBAN N Ot Z79.899 OTHER SENIOR CARE (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 THERAPY 08/09/2017 BARTOLOME, BOBAN N Ot 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 08/09/2017 BARTOLOME, BOBAN N Ot D50.0 IRON DEFICIENCY ANEMIA SECONDARY TO BLOO 08/09/2017 BARTOLOME, BOBAN N Ot E03.9 HYPOTHYROIDISM, UNSPECIFIED 08/09/2017 BARTOLOME, BOBAN N Ot N18.3 CHRONIC KIDNEY DISEASE, STAGE 3 (MODERAT 08/09/2017 BARTOLOME, BOBAN N Ot 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 09/21/2017 BARTOLOME, BOBAN N Ot 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 09/21/2017 BARTOLOME, BOBAN N Ot D50.0 IRON DEFICIENCY ANEMIA SECONDARY TO BLOO 09/21/2017 BARTOLOME, BOBAN N Ot E03.9 HYPOTHYROIDISM, UNSPECIFIED 09/21/2017 BARTOLOME, BOBAN N Ot N18.3 CHRONIC KIDNEY DISEASE, STAGE 3 (MODERAT 09/21/2017 BARTOLOME, BOBAN N Ot Z79.899 OTHER SENIOR CARE (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 THERAPY 09/23/2017 BARTOLOME, BOBAN N Ot 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 09/23/2017 BARTOLOME, BOBAN N Ot D50.0 IRON DEFICIENCY ANEMIA SECONDARY TO BLOO 09/23/2017 BARTOLOME, BOBAN N Ot E03.9 HYPOTHYROIDISM, UNSPECIFIED 09/23/2017 BARTOLOME, BOBAN N Ot N18.3 CHRONIC KIDNEY DISEASE, STAGE 3 (MODERAT 09/23/2017 BARTOLOME, BOBAN N Ot Z79.899 OTHER SENIOR CARE (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 THERAPY 10/08/2017 ESTEBAN HASTINGS, Sky KRUSE Ot I48.91 UNSPECIFIED ATRIAL FIBRILLATION 10/13/2017 Sky ORELLANA MD Ot I48.91 UNSPECIFIED ATRIAL FIBRILLATION 11/08/2017 CHRISTOPHER MANCUSO N Ot 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 11/08/2017 CHRISTOPHER MANCUSO N Ot D50.0 IRON DEFICIENCY ANEMIA SECONDARY TO BLOO 11/08/2017 BARTOLOMECHRISTOPHER N Ot E03.9 HYPOTHYROIDISM, UNSPECIFIED 11/08/2017 CHRISTOPHER MANCUSO N Ot N18.3 CHRONIC KIDNEY DISEASE, STAGE 3 (MODERAT 11/08/2017 CHRISTOPHER MANCUSO N Ot 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 11/10/2017 CHRISTOPHER MANCUSO N Ot 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 11/10/2017 BARTOLOMECHRISTOPHER FLOWER N Ot D50.0 IRON DEFICIENCY ANEMIA SECONDARY TO BLOO 11/10/2017 CHRISTOPHER MANCUSO N Ot E03.9 HYPOTHYROIDISM, UNSPECIFIED 11/10/2017 CHRISTOPHER MANCUSO N Ot N18.3 CHRONIC KIDNEY DISEASE, STAGE 3 (MODERAT 11/10/2017 CHRISTOPHER MANCUSO N Ot Z79.899 OTHER SENIOR CARE (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 THERAPY Procedures Code Description Performed By Performed On [...] blood basophil count (count/volume) 0.0 10*3/uL 0.0-0.1 Complete blood count (CBC) with automated white blood cell (WBC) differential - 07/31/17 06:50 Blood leukocytes automated count (number/volume) 4.3 10*3/uL 4.3-11.0 Blood erythrocytes automated count (number/volume) 3.52 10*6/uL 4.35-5.85 Venous blood hemoglobin measurement (mass/volume) 10.9 g/dL 13.3-17.7 Blood hematocrit (volume fraction) 35 % 40-54 Automated erythrocyte mean corpuscular volume 98 [foz_us] 80-99 Automated erythrocyte mean corpuscular hemoglobin (mass per erythrocyte) 31 pg 25-34 Automated erythrocyte mean corpuscular hemoglobin concentration measurement ( mass/volume) 32 g/dL 32-36 Automated erythrocyte distribution width ratio 15.2 % 10.0-14.5 Automated blood platelet count (count/volume) 163 10*3/uL 130-400 Automated blood platelet mean volume measurement 9.6 [foz_us] 7.4-10.4 Automated blood neutrophils/100 leukocytes 64 % 42-75 Automated blood lymphocytes/100 leukocytes 23 % 12-44 Blood monocytes/100 leukocytes 10 % 0-12 Automated blood eosinophils/100 leukocytes 3 % 0-10 Automated blood basophils/100 leukocytes 0 % 0-10 Blood neutrophils automated count (number/volume) 2.7 10*3 1.8-7.8 Blood lymphocytes automated count (number/volume) 1.0 10*3 1.0-4.0 Blood monocytes automated count (number/volume) 0.4 10*3 0.0-1.0 Automated eosinophil count 0.1 10*3/uL 0.0-0.3 Automated blood basophil count (count/volume) 0.0 10*3/uL 0.0-0.1 PT panel in platelet poor plasma by coagulation assay - 07/31/17 06:50 Prothrombin time (PT) in platelet poor plasma by coagulation assay 16.9 s 12.2-14.7 INR in platelet poor plasma or blood by coagulation assay 1.4 0.8-1.4 Comprehensive metabolic panel - 07/31/17 06:50 Serum or plasma sodium measurement (moles/volume) 143 mmol/L 135-145 Serum or plasma potassium measurement (moles/volume) 4.6 mmol/L 3.6-5.0 Serum or plasma chloride measurement (moles/volume) 111 mmol/L 98-107 Carbon dioxide 22 mmol/L 21-32 Serum or plasma anion gap determination (moles/volume) 10 mmol/L 5-14 Serum or plasma urea nitrogen measurement (mass/volume) 38 mg/dL 7-18 Serum or plasma creatinine measurement (mass/volume) 1.54 mg/dL 0.60-1.30 Serum or plasma urea nitrogen/creatinine mass ratio 25 NRG Serum or plasma creatinine measurement with calculation of estimated glomerular filtration rate 43 NRG Serum or plasma glucose measurement (mass/volume) 105 mg/dL 70-105 Serum or plasma calcium measurement (mass/volume) 9.1 mg/dL 8.5-10.1 Serum or plasma total bilirubin measurement (mass/volume) 0.7 mg/dL 0.1-1.0 Serum or plasma alkaline phosphatase measurement (enzymatic activity/volume) 121 U/L 40-136 Serum or plasma aspartate aminotransferase measurement (enzymatic activity/ volume) 30 U/L 5-34 Serum or plasma alanine aminotransferase measurement (enzymatic activity/volume ) 35 U/L 0-55 Serum or plasma protein measurement (mass/volume) 6.7 g/dL 6.4-8.2 Serum or plasma albumin measurement (mass/volume) 3.7 g/dL 3.2-4.5 Digoxin - 07/31/17 06:50 Digoxin 1.26 ng/mL 0.80-2.00 Encounters ACCT No. Visit Date/Time Discharge Status Pt. Type Provider Facility Loc./Unit Complaint [id number] 11/18/2017 09:00:00 11/18/2017 23:59:59 CLS Preadmit Sky ORELLANA MD [facility] CATH PERSITENT ATRIAL FIBRILLATION [id number] 09/20/2017 10:19:00 09/20/2017 23:59:59 CLS Outpatient CHRISTOPHER MANCUSO [facility] ONC [id number] 08/25/2017 08:30:00 08/25/2017 23:59:59 CLS Preadmit Sky ORELLANA MD [facility] CARD I48.91 AFIB [id number] 08/23/2017 09:45:00 08/23/2017 23:59:59 CLS Outpatient Sky ORELLANA MD [facility] CARD I48.91 AFIB [id number] 06/21/2017 10:38:00 08/08/2017 00:01:00 DIS Outpatient CHRISTOPHER MANCUSO [facility] ONC [id number] 07/31/2017 06:32:00 07/31/2017 08:22:00 DIS Emergency PO DALAL MD [facility] ER DIZZY [id number] 06/08/2017 08:22:00 06/08/2017 23:59:59 CLS Outpatient JULIAN HERNANDEZ DO [facility] RAD R769 R799 [id number] 04/27/2017 14:24:00 05/02/2017 00:01:00 DIS Outpatient CHRISTOPHER MANCUSO [facility] ONC [id number] 01/21/2017 13:08:00 01/21/2017 23:59:59 CLS Outpatient CHARLEY BOO DO [facility] CARD LUMBAR RADICULOPATHY [id number] 01/06/2017 09:39:00 01/16/2017 00:01:00 DIS Outpatient CHRISTOPHER MANCUSO [facility] ONC [id number] 01/06/2017 08:25:00 01/06/2017 08:25:00 CAN Preadmit CHRISTOPHER MANCUSO [facility] ONC [id number] 01/01/2017 12:59:00 01/01/2017 23:59:59 CLS Outpatient LEE THOMAS MD [facility] RAD M54.5 [id number] 12/29/2016 09:51:00 12/29/2016 23:59:59 CLS Outpatient ABHISHEK BASILIO [facility] 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 [id number] 12/29/2016 10:00:00 12/29/2016 00:01:00 DIS Outpatient CHRISTOPHER MANCUSO [facility] ONC [id number] 10/01/2016 10:00:00 10/01/2016 23:59:59 CLS Outpatient JULIAN HERNANDEZ DO [facility] LAB R79.89, D50.9 [id number] 07/02/2016 15:45:00 09/27/2016 00:01:00 DIS Outpatient CHRISTOPHER MANCUSO [facility] ONC [id number] 06/29/2016 09:07:00 06/29/2016 23:59:59 CLS Outpatient CHRISTOPHER MANCUSO [facility] RAD C49.4 [id number] 05/07/2016 13:56:00 05/07/2016 23:59:59 CLS Outpatient DUANE PIMENTEL [employer]UD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 [facility] RAD LEFT RIB PAIN POST FALL [id number] 05/06/2016 12:10:00 05/06/2016 23:59:59 CLS Outpatient DUANE PIMENTEL [employer]UD[employer]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 [facility] RAD FALL AT HOME ON 05/03 [id number] 04/02/2016 09:43:00 05/03/2016 00:01:00 DIS Outpatient CHRISTOPHER MANCUSO [facility] ONC [id number] 12/05/2015 14:14:00 12/31/2015 00:01:00 DIS Outpatient CHRISTOPHER MANCUSO [facility] ONC [id number] 12/05/2015 14:12:00 12/05/2015 23:59:59 CLS Outpatient ABHISHEK BASILIO [facility] ONC [id number] 11/08/2015 07:59:00 11/08/2015 15:00:00 DIS Outpatient ERIKA COLBY DO [facility] LEFT INGUINAL HERNIA [id number] 11/06/2015 09:37:00 11/06/2015 12:37:00 DIS Outpatient ERIKA COLBY DO [facility] PREOP LEFT INGUINAL HERNIA [id number] 10/28/2015 11:40:00 10/28/2015 23:59:59 CLS Outpatient ROSALINA MENDEZ MD [facility] RAD ABNORMAL ABD SONO [id number] 10/17/2015 14:17:00 10/17/2015 23:59:59 CLS Outpatient ROSALINA MENDEZ MD [facility] RAD L GROIN PAIN [id number] 10/02/2015 09:16:00 10/02/2015 23:59:59 CLS Outpatient CHRISTOPHER MANCUSO [facility] RAD GIST MALIGNANT,GASTRIC MASS [id number] 07/09/2015 13:28:00 07/09/2015 15:55:00 DIS Outpatient ERIKA COLBY DO [facility] HISTORY GASTRIC MASS [id number] 07/08/2015 09:55:00 07/08/2015 10:32:00 DIS Outpatient ERIKA COLBY DO [facility] PREOP HISTORY GASTRIC MASS [id number] 01/30/2015 15:00:00 01/30/2015 17:40:00 DIS Emergency ANDERS MENDEZ MD [facility] ER CP [id number] 01/28/2015 13:00:00 01/28/2015 23:59:59 CLS Outpatient ROSALINA MENDEZ MD [facility] RAD CLAUDICATION, LT LEG DIMISHED PULSE IN LOWER LT EX [id number] 01/24/2015 09:22:00 01/24/2015 23:59:59 CLS Outpatient ROSALINA MENDEZ MD [facility] LAB URINARY TRACT INFECTION N39.0 [id number] 12/23/2014 15:17:00 12/23/2014 17:35:00 DIS Emergency RG CLINTON MD [facility] ER FEVER,PAINFUL URINATION [id number] 12/21/2014 15:46:00 12/21/2014 17:45:00 DIS Emergency RG CLINTON MD [facility] ER BLOOD IN STOOLS [id number] 12/20/2014 11:33:00 12/20/2014 23:59:59 CLS Outpatient ERIKA COLBY DO [facility] ANEMIA [id number] 10/02/2014 18:54:00 10/08/2014 10:30:00 DIS Inpatient ROSALINA MENDEZ MD [facility] CVA,SYNCOPE,SEVERE ANEMIA ,CP,MINOR HEAD INJ [id number] 05/17/2013 07:54:00 05/17/2013 11:30:00 DIS Outpatient MIGUEL ANGEL SHAY MD [facility] HISTORY OF [place] [id number] 05/10/2013 07:21:00 05/10/2013 23:59:59 CLS Outpatient MIGUEL ANGEL SHAY MD [facility] PREOP HISTORY OF [place] [id number] 12/19/2014 06:23:00 Document Registration [id number] 08/28/2011 10:06:00 Document Registration [id number] 08/24/2011 10:44:00 Document Registration [id number] 06/12/2011 10:46:00 Document Registration [id number] 04/30/2011 06:34:00 Document Registration [id number] 05/30/2010 11:08:00 Document Registration [email or web address] 01/28/2015 14:11:16 ACT Document Registration
[2017-11-22] MEDS ORDERED: LEVOTHYROXINE 88 MCG (LEVOTHORID) TAB ONE (11:44)
[2017-11-22] MEDS ORDERED: HYOSCYAMINE 0.125 MG (LEVSIN) TAB SL PRN (11:45)
[2017-11-22] MEDS: APIXABAN 2.5 MG (ELIQUIS) TABLET PO SCH ×2 (11:48→21:42)
[2017-11-22] MEDS: OXYBUTYNIN (DITROPAN) 5 MG TAB PO SCH ×2 (11:55→21:41)
[2017-11-22] MEDS: CALCIUM CARB + VIT D 600 MG (CALCARB + D) TAB PO SCH (11:55)
[2017-11-22 12:00] VITALS: BP 131/64
--- NOTE | 2017-11-22 13:39 | Diagnostic Imaging Report ---
INDICATION: Right lower extremity edema. COMPARISON: None. TECHNIQUE: Duplex, goldsmith-scale and color-flow imaging of the right lower extremity venous system was performed. FINDINGS: The common femoral vein, superficial femoral vein, profunda femoris, and popliteal veins are normal. These vessels show normal compressibility, color flow, and Doppler augmentation. The deep calf veins, although not very well seen, demonstrate no distinct intraluminal thrombus. IMPRESSION: Negative venous Doppler of the right lower extremity. Dictated by: Dictated on workstation # [id number]
--- NOTE | 2017-11-22 13:40 | Physical Therapy Evaluation ---
PT Evaluation-General Medical Diagnosis Admission Date Nov 22, 2017 at 11:20 Medical Diagnosis: confusion/UTI Onset Date: Nov 21, 2017 Therapy Diagnosis Therapy Diagnosis: debility/weakness Height/Weight Height (Feet): 5 Height (Inches): 9.00 Weight (Pounds): 145 Weight (Ounces): 0.0 Precautions Precautions/Isolations: Fall Prevention, Standard Precautions Weight Bear Status Right Lower Extremity: Right Weight Bearing/Tolerated Left Lower Extremity: Left Weight Bearing/Tolerated Referral Physician: Javier Reason for Referral: Evaluation/Treatment Medical History Pertinent Medical History: Atrial Fib, CVA, Hypothroidism, Renal Insufficiency Additional Medical History cardioversion in the past year Current History ER via family due to confusion and expressive writing difficulty Reviewed History: Yes Social History Home: Single Level Current Living Status: Spouse Entry Into Home: Stairs With Railing PT Steps Into Home: 4 Prior/Core FIM Prior Level of Function Functional [place] Measure 0=Not Assessed/NA 4=Minimal Assistance 1=Total Assistance 5=Supervision or Setup 2=Maximal Assistance 6=Modified [place] 3=Moderate Assistance 7=Complete [place] Bed Mobility: 7 Transfers (B,C,W/C) (FIM): 7 Gait: 7 PT Evaluation-Current Subjective Patient agrees to PT. No c/o. at this time. Pain Numeric Pain Scale: 0-No Pain Location: No Pain Reported Objective Patient Orientation: Normal For Age Problem Solving: Fair ROM/Strength ROM Lower Extremities bilateral LE WNL Strength Lower Extremities 4+/5 grossly bilaterally Integumentary/Posture Integumentary refer to nursing notes Bowel Incontinence: No Bladder Incontinence: No Posture kyphotic/cervical flexed posture Neuromuscular (Tone, Coordination, Reflexes) grossly intact Sensory Vision: Functional Hearing: Hearing Aid/Aides Sensation Right Lower Extremit: Intact Sensation Left Lower Extremity: Intact Transfers Functional [place] Measure 0=Not Assessed/NA 4=Minimal Assistance 1=Total Assistance 5=Supervision or Setup 2=Maximal Assistance 6=Modified [place] 3=Moderate Assistance 7=Complete [place] Transfers (B, C, W/C) (FIM): 7 Scootin Rollin Supine to/from Sit: 7 Sit to/from Stand: 7 Gait Mode of Locomotion: Walk Anticipated Mode of Locomotion: Walk Gait (FIM): 7 Distance (FIM): 3=150 ft Distance: >800' Gait Level of Assist: 7 Gait Assistive Device: None Comments/Gait Description safe and functional Stairs Stairs (FIM): 6 #of Steps: 12 Level of Assist: 6 Balance Sitting Static: Normal Sitting Dynamic: Normal Standing Static: Normal Standing Dynamic: Normal Assessment/Needs 87 y.o. male, is currently at independent [facility] with all gross motor skills and does not require skilled PT intervention. From a PT standpoint, Patient would benefit from community exercise program (wellness or outpatient) to address functional needs if patient desires. Rehab Potential: Fair PT Plan Treatment/Plan Treatment Plan: Discontinue PT, goals met Treatment Plan: Other Treatment Duration: Nov 22, 2017 Frequency: 1 time per week Estimated Hrs Per Day: .5 hour per day Patient and/or Family Agrees t: Yes Safety Risks/Education Patient Education: Safety Issues Teaching Recipient: Patient, Family Teaching Methods: Discussion Response to Teaching: Verbalize Understanding Discharge Recommendations Therapy D/C Recommendations: Home w/ Family Support, Physical Therapy Outpatient Time/GCodes Time In: 1300 Time Out: 1332 Total Billed Treatment Time: 32 Total Billed Treatment 1 visit EVModC 17 min FA 15 min ROMY GONZALES PT Nov 22, 2017 13:40
--- NOTE | 2017-11-22 13:54 | Diagnostic Imaging Report ---
PROCEDURE: US carotid duplex, bilateral. TECHNIQUE: Multiple real-time grayscale images were obtained over the carotid arteries in various projections, bilaterally. Additional duplex Doppler and color Doppler images were also obtained. INDICATION: Confusion. FINDINGS: Minimal plaquing is identified in the proximal internal carotid arteries bilaterally. No velocity elevation or stenosis is seen. Both vertebral arteries show antegrade flow. IMPRESSION: No evidence of a hemodynamically significant stenosis. Parameters based on the consensus panel Mobley-Scale and Doppler ultrasound criteria published February 2003, Radiology, Volume 229. DOPPLER (peak systolic velocity M/S Right Left CCA .77 .83 ICA Proximal .81 .94 ICA Mid .62 .67 ICA Distal .78 .57 RATIO 1.06 1.1 ECA .8 1.12 VERT .36 .69 Dictated by: Dictated on workstation # [id number]
--- NOTE | 2017-11-22 14:24 | Occupational Therapy Eval ---
OT Evaluation-General/PLF Medical Diagnosis Admission Date Nov 22, 2017 at 11:20 Medical Diagnosis: confusion/UTI/CVA Onset Date: Nov 21, 2017 Therapy Diagnosis Therapy Diagnosis: Weakness Height/Weight Height (Feet): 5 Height (Inches): 9.00 Weight (Pounds): 145 Weight (Ounces): 0.0 Precautions Precautions/Isolations: Fall Prevention, Standard Precautions Weight Bear Status Weight Bearing Restriction: Weight Bearing/Tolerated Referral Physician: Javier Referral Reason: Activity Tolerance, Self Care, Evaluation/Treatment, Strengthening/ROM Medical History Pertinent Medical History: Atrial Fib, CVA, Hypothroidism, Renal Insufficiency Current History Pt. became confused at home. Brought to ED. Reviewed History: Yes Social History Home: Single Level Current Living Status: Spouse Entry Into Home: Stairs With Railing Steps Into Home: 4 ADL-Prior Level of Function ADL PLOF Comments Pt. and family state that he was fully independent previous to this hospitalization. Did have previous CVA, with right sided weakness. However, reports that this has not caused any issues. DME/Equipment: Shower Drive Self: Yes OT Current Status Subjective No pain reported. Appearance Pt. in bathroom with spouse. Ambulates out with SBA from spouse. Mental Status/Objective Patient Orientation: Person, Place Current Upper Extremity ROM WFL Upper Extremity Strength Right- 3+/5 Left- 4/5 ADL-Treatment Functional [place] Measure 0=Not Assessed/NA 4=Minimal Assistance 1=Total Assistance 5=Supervision or Setup 2=Maximal Assistance 6=Modified [place] 3=Moderate Assistance 7=Complete IndependenceIRFPAI Quality Coding Scale 6 Independent with activity with or without an assistive device 5 Patient requires set up or clean up by helper. Patient completes activity by themselves 4 Supervision or touching assist (CGA). Magna provide cues , steadying assist 3 The helper provides less than half the effort to complete the activity 2 The helper provides more than half the effort to complete the activity 1 Dependent. The helper does all the effort to complete an activity 7 Patient refused to complete or attempt activity 9 The patient did not perform the activity before the current illness or injury 88 Not attempted due to Medical conditions or safety concerns Eating (FIM): 6 (Pt. reports that he has a good appetite and was able to eat a big lunch.) Toileting (FIM): 6 Transfers (B, C, W/C) (FIM): 5 Toilet/Commode Transfer (FIM): 6 Other Treatments OT offers to assist pt. with shower. Pt. declines at this time. Pt. states that he is feeling good. Reports having no difficulty at this time. However, son reports that pt. is weak. Let family know that OT will go over UE exercise program before discharge and will provide theraband exercises. Pt. reports no difficulty with eating, swallowing, or LE ADLs. All needs met in room. Education OT Patient Education: Correct positioning, Progress toward Goal/Update tx plan , Purpose of tx/functional activities, Reviewed precautions, Rehab process, Transfer techniques Teaching Recipient: Patient Teaching Methods: Demonstration, Discussion Response to Teaching: Verbalize Understanding, Return Demonstration OT Short Term Goals Short Term Goals 1=Demonstrate adherence to instructed precautions during ADL tasks. 2=Patient will verbalize/demonstrate understanding of assistive devices/ modifications for ADL. 3=Patient will improve strength/tolerance for activity to enable patient to perform ADL's. OT Die Finisher Goals Mcc Goals Time Frame: Nov 29, 2017 Transfers (B,C,W/C) (FIM): 6 Additional Goals: 2-Verbalize Understanding, 3-ImproveStrength/Deepika 1=Demonstrate adherence to instructed precautions during ADL tasks. 2=Patient will verbalize/demonstrate understanding of assistive devices/ modifications for ADL. 3=Patient will improve strength/tolerance for activity to enable patient to perform ADL's. OT Education/Plan Problem List/Assessment Assessment: Decreased UE Strength Discharge Recommendations Plan/Recommendations: Continue POC Therapy D/C Recommendations: Home w/ Family Support Target Placement Home with family support. Treatment Plan/Plan of Care Treatment,Training & Education: Yes Patient would benefit from OT for education, treatment and training to promote independence in ADL's, mobility, safety and/or upper extremity function for ADL' s. Plan of Care: Functional Mobility, UE Funct Exercise/Act Treatment Duration: Nov 29, 2017 Frequency: 5 times per week Estimated Hrs Per Day: .25 hour per day Agreement: Yes Rehab Potential: Fair Time/GCodes Start Time: 13:55 Stop Time: 14:10 Total Time Billed (hr/min): 15 Billed Treatment Time 1, EVL Selfcur-CJ Selfgoal-CI G Codes Necessary: Yes CANDY LAINEZ OT Nov 22, 2017 14:24
--- NOTE | 2017-11-22 14:57 | Consultation-Cardiology ---
HPI-Cardiology Cardiology Consultation: Date of Consultation 11/22/17 Date of Admission Attending Physician Anival Noonan MD Admitting Physician Juan Bettencourt MD Consulting Physician Sky LORD MD HPI: Time Seen by Provider: 15:00 Chief Complaint: Stroke This is a 87-year-old gentleman with history of persistent atrial fibrillation, esophageal cancer, hypothyroidism. He underwent electrical cardioversion on . He presented in the ER with complaint of difficulty writing and right lower extremity discomfort. He was diagnosed with acute nonhemorrhagic stroke confirmed with MRI with small left-sided posterior parietal infarct. Significant improvement with no residual deficit. Was found to be in atrial fibrillation. On oral anticoagulation. Review of Systems-Cardiology Review of Systems Constitutional: As described under HPI; No As described under HPI, No no symptoms reported, No chills, No fever, No lightheadedness Eyes: No As described under HPI, No no symptoms reported, No blindness, No blurred vision, No contact lenses, No drainage, No decreased acuity, No foreign body sensation, No pain, No vision change Ears/Nose/Throat: No As described under HPI, No no symptoms reported, No chronic hearing loss, No ear discharge, No ear pain, No nasal drainage, No ulcerations Respiratory: No no symptoms reported; As described under HPI; No As described under HPI, No cough, No orthopnea, No shortness of breath, No SOB with excertion Cardiovascular: No no symptoms reported; As described under HPI; No As described under HPI, No chest pain, No edema; irregular heart rate; No lightheadedness, No palpitations Gastrointestinal: No no symptoms reported, No As described under HPI, No abdomen distended, No abdominal pain, No blood streaked bowels, No constipation , No diarrhea, No nausea, No vomiting, No stool coloration changes Genitourinary: No As described under HPI, No burning, No dysuria, No discharge , No frequency, No flank pain, No hematuria, No urgency Skin: No rash, No skin related problems, No ulcerations Psychiatric/Neurological: As described under HPI, focal weakness; No anxiety, No depression, No seizure, No syncope Hematologic: No bleeding abnormalities PUN-Eivuts-Dtcdfo Hx Patient Social History Alcohol Use: Denies Use Recreational Drug Use: No Smoking Status: Never a Smoker Former smoker/When Quit: Jan 01, 1955 2nd Hand Smoke Exposure: No Recent Foreign Travel: No Recent Infectious Disease Expo: No Physical Abuse Screen: No Sexual Abuse: No Immunizations Up To Date Tetanus Booster (TDap): Less than 5yrs Date of Pneumonia Vaccine: Jan 17, 2015 Date of Influenza Vaccine: Jan 17, 2015 Past Medical History PMH As described under Assessment. Family Medical History Family History: Congenital heart disease 19 FATHER 19 MOTHER FH: renal cell carcinoma G8 SISTER Leukemia G8 BROTHER G8 BROTHER Allergies and Home Medications Allergies Coded Allergies: morphine (Verified Allergy, Mild, 12/20/14) quinine (Verified Allergy, Mild, 12/20/14) sulfamethoxazole (Verified Allergy, Unknown, 11/06/15) trimethoprim (Verified Allergy, Unknown, 11/06/15) digoxin (Verified Adverse Reaction, Unknown, bradycardia, 11/22/17) Home Medications Apixaban 2.5 Mg Tablet, 2.5 MG PO BID, (Reported) Calcium Carbonate/Vitamin D3 1 Each Tablet, 1 TAB PO DAILY, (Reported) Cyanocobalamin (Vitamin B-12) 1,000 Mcg Tablet, 1,000 MCG PO DAILY, (Reported) Ferrous Sulfate 325 Mg Tablet, 325 MG PO DAILY, (Reported) Hyoscyamine Sulfate 0.125 Mg Tab.subl, 0.125 MG SL AC, (Reported) Levothyroxine Sodium 88 Mcg Tablet, 88 MCG PO DAILY, (Reported) Magnesium Oxide 250 Mg Tablet, 250 MG PO DAILY, (Reported) Oxybutynin Chloride 10 Mg Tab.er.24, 10 MG PO DAILY, (Reported) Oxycodone HCl 5 Mg Tablet, 5 MG PO TID PRN for PAIN-SEVERE, (Reported) Pantoprazole Sodium 40 Mg Tablet.dr, 40 MG PO DAILY, (Reported) Simvastatin 20 Mg Tablet, 10 MG PO HS, (Reported) TAKES 1/2 (20MG) TABLET Patient Home Medication List Home Medication List Reviewed: Yes Physical Exam-Cardiology Physical Exam Vital Signs/I&O 11/22/17 11/22/17 11/22/17 11/22/17 07:00 08:00 12:00 13:00 Temp 98.0 97.6 Pulse 57 62 70 101 Resp 18 18 B/P (MAP) 138/71 (93) 131/64 (86) Pulse Ox 97 92 O2 Delivery Room Air Room Air Capillary Refill : Less Than 3 Seconds Constitutional: appears stated age, AAO x 3; No apparent distress; well- developed, well-nourished HEENT: PERRL; No normal ENT inspection, No TMs normal, No pharynx normal, No scleral icterus (R), No scleral icterus (L), No pale conjunctivae (R), No pale conjunctivae (L), No photophobia, No TM abnormal (R), No TM abnormal (L), No pharyngeal erythema, No tonsillar exudate, No other, No discharge, No EOMI; hearing is well preserved; No hard of hearing; oral hygience is good; No ulceration, No xanthelasmas are seen Neck: No non-tender, No full range of motion, No supple, No normal inspection, No carotid bruit, No limited range of motion, No lymphadenopathy (R), No lymphadenopathy (L), No tender lateral, No tender midline, No thyromegaly, No other; carotid pulses are 2 + bilaterally; No with good upstrokes Respiratory: No accessory muscle use, No respiratory distress, No chest tender , No chest expansion is symmetric; chest is bilaterally symmetric; No lungs clear to percussion; lungs clear to auscultation; No crackles, No rhonchi, No rales, No stridor, No wheezing, No pleural rub, No other Cardiovascular: No regular rate-rhythm; irregularly irregular; No extra beats, No parasternal heave is noted, No JVD, No edema, No bradycardia, No tachycardia , No point of maximal impulse, No cardiac thrills are palpable; S1 and S2; No gallop/S3, No gallop/S4, No diastolic murmur, No systolic murmur, No friction rub, No click, No other Gastrointestinal: No tender, No soft, No round, No distended, No pulsatile mass , No organomegaly, No guarding, No rebound, No tenderness, No hernia, No mass, No audible bowel sounds, No abnormal bowel sounds, No abdominal bruits, No spleenomegaly, No other Rectal: deferred Extremities: No normal range of motion, No non-tender, No normal inspection, No pedal edema, No calf tenderness, No normal capillary refill, No pelvis stable , No calf tenderness, No inflammation, No pedal edema, No slow capillary refill , No swelling, No other, No abrasion, No clubbing, No cyanosis, No ecchymosis, No laceration, No no lower extremity edema bilateral, No significant edema, No tenderness, No wound Neurologic/Psychiatric: no motor/sensory deficits, alert, normal mood/affect, oriented x 3, power is 5/5 both on sides Skin: No normal color, No warm/dry, No cyanosis, No cool, No diaphoresis, No damp, No ecchymosis, No jaundice, No mottled, No pallor, No rash, No tattoos/ piercings, No ulcerations, No rash on exposed areas, No ulcerations on exposed areas, No other Data Review Labs Laboratory Tests 11/21/17 20:40: White Blood Count 5.1, Red Blood Count 3.45L, Hemoglobin 10.8L, Hematocrit 34L, Mean Corpuscular Volume 98, Mean Corpuscular Hemoglobin 31, Mean Corpuscular Hemoglobin Concent 32, Red Cell Distribution Width 15.2H, Platelet Count 160, Mean Platelet Volume 9.8, Neutrophils (%) (Auto) 70, Lymphocytes (%) (Auto) 18, Monocytes (%) (Auto) 10, Eosinophils (%) (Auto) 2, Basophils (%) (Auto) 0, Neutrophils # (Auto) 3.6, Lymphocytes # (Auto) 0.9L, Monocytes # (Auto) 0.5, Eosinophils # (Auto) 0.1, Basophils # (Auto) 0.0, Prothrombin Time 16.1H, INR Comment 1.3, Activated Partial Thromboplast Time 37H, D-Dimer 1.06H, Sodium Level 142, Potassium Level 4.7, Chloride Level 112H, Carbon Dioxide Level 23, Anion Gap 7, Blood Urea Nitrogen 42H, Creatinine 1.68H, Estimat Glomerular Filtration Rate 39, BUN/Creatinine Ratio 25, Glucose Level 117H, Calcium Level 8.8, Total Bilirubin 0.5, Aspartate Amino Transf (AST/SGOT) 42H, Alanine Aminotransferase (ALT/SGPT) 48, Alkaline Phosphatase 153H, Troponin I < 0.30, Total Protein 6.1L, Albumin 3.4 11/21/17 20:55: Urine Color YELLOW, Urine Clarity CLEAR, Urine pH 6, Urine Specific [place] 1.010L, Urine Protein NEGATIVE, Urine Glucose (UA) NEGATIVE, Urine Ketones NEGATIVE, Urine Nitrite NEGATIVE, Urine Bilirubin NEGATIVE, Urine Urobilinogen NORMAL, Urine Leukocyte Esterase 3+H, Urine RBC (Auto) 1+H, Urine RBC 0-2, Urine WBC >100H, Urine Crystals NONE, Urine Bacteria FEWH, Urine Casts NONE, Urine Mucus NEGATIVE, Urine Culture Indicated YES 11/21/17 21:20: Glucometer 88 11/22/17 05:32: White Blood Count 4.2L, Red Blood Count 3.45L, Hemoglobin 10.7L, Hematocrit 34L , Mean Corpuscular Volume 97, Mean Corpuscular Hemoglobin 31, Mean Corpuscular Hemoglobin Concent 32, Red Cell Distribution Width 15.0H, Platelet Count 144, Mean Platelet Volume 9.7, Neutrophils (%) (Auto) 66, Lymphocytes (%) (Auto) 20, Monocytes (%) (Auto) 12, Eosinophils (%) (Auto) 3, Basophils (%) (Auto) 0, Neutrophils # (Auto) 2.7, Lymphocytes # (Auto) 0.8L, Monocytes # (Auto) 0.5, Eosinophils # (Auto) 0.1, Basophils # (Auto) 0.0, Sodium Level 146H, Potassium Level 4.6, Chloride Level 113H, Carbon Dioxide Level 25, Anion Gap 8, Blood Urea Nitrogen 38H, Creatinine 1.50H, Estimat Glomerular Filtration Rate 44, BUN/ Creatinine Ratio 25, Glucose Level 86, Calcium Level 8.9, Total Bilirubin 0.5, Aspartate Amino Transf (AST/SGOT) 33, Alanine Aminotransferase (ALT/SGPT) 39, Alkaline Phosphatase 131, Total Protein 5.5L, Albumin 3.0L, Triglycerides Level 30, Cholesterol Level 140, LDL Cholesterol Direct 66, VLDL Cholesterol 6, HDL Cholesterol 55 Microbiology 11/21/17 Urine Culture - Preliminary, Resulted Gram Negative Hank Sent To [facility] ECG Impression ECG Initial ECG Impression: Atrial Fibrillation A/P-Cardiology Assessment/Admission Diagnosis Small acute left parietal stroke, Atrial fibrillation, Esophageal cancer, Hypothyroidism Plan Stroke is unlikely secondary to electrical cardioversion since the cardioversion was done on 11/16/2017 and neurological deficits occurred 6 days later. Neurological deficits are associated with recurrent atrial fibrillation. Patient was on regular oral anticoagulation with Eliquis. Request bilateral carotid ultrasound. Patient also complained of right lower extremity pain. I will request an ultrasound to rule out embolic phenomenon. On examination does not have acute limb. Atrial fibrillation with controlled ventricular rate, continue rate control and oral anticoagulation. Rhythm control strategy will not be pursued in this patient. Thank you for your consultation. Please call me if you have any questions. Ahser Lord MD, FACP, FACC, FSCAI, FHRS, CCDS Interventional Cardiology Cardiac Electrophysiology Vascular Medicine and Endovascular Interventions Clinical Quality Measures DVT/VTE Risk/Contraindication: Risk Factor Score Per Nursin RFS Level Per Nursing on Admit: 3=High Sky LORD MD Nov 22, 2017 2:57 pm
[2017-11-22 16:44] VITALS: BP 131/60
--- NOTE | 2017-11-22 17:19 | Diagnostic Imaging Report ---
INDICATION: Right leg pain. History of atrial fibrillation TECHNIQUE: Multiple real time goldsmith scale sonographic images along with duplex Doppler imaging assessment was obtained of the right lower extremity. CORRELATION STUDY: None FINDINGS: Overall, there is diffusely dampened biphasic to monophasic waveforms noted throughout the right lower arterial system. The right leg arteries are patent to the level of the ankle including within the posterior tibial and dorsalis pedis artery. There is more focal rather pronounced velocity elevation of the posterior tibial artery at 276 cm/second, compatible with likely stenosis. Additionally, there is markedly diminished velocity at the dorsalis pedis artery at 19 cm/second. This vessel is also with monophasic waveform. IMPRESSION: 1. The right lower extremity arterial system is patent. However, there appears to be likely small vessel disease below the tibial peroneal trifurcations. Dictated by: Dictated on workstation # [id number]
[2017-11-22 20:49] VITALS: BP 116/59
[2017-11-22] MEDS ORDERED: cefTRIAXone 1 GM/NS 50 ML IVPB IV SCH ×2 (21:00)
[2017-11-22] MEDS ORDERED: SIMvastatin 10 MG (ZOCOR) TAB PO SCH (21:00)
[2017-11-23 00:39] VITALS: BP 134/60
[2017-11-23 04:30] VITALS: BP 174/78
[2017-11-23] MEDS: CATHETER FLUSH 10 ML SYR IV SCH (05:21)
[2017-11-23 08:00] VITALS: BP 108/56
[2017-11-23] MEDS ORDERED: MAGNESIUM OXIDE (MAG-OX)400 MG TAB PO SCH (08:00)
[2017-11-23] MEDS: OXYBUTYNIN (DITROPAN) 5 MG TAB PO SCH (08:34)
[2017-11-23] MEDS: CALCIUM CARB + VIT D 600 MG (CALCARB + D) TAB PO SCH (08:34)
[2017-11-23] MEDS: APIXABAN 2.5 MG (ELIQUIS) TABLET PO SCH (08:35)
[2017-11-23] MEDS ORDERED: CEPH-507 PO (08:45)
--- NOTE | 2017-11-23 08:55 | Discharge Summary-Hospitalist ---
Diagnosis/Chief Complaint Date of Admission Nov 22, 2017 at 11:20 Date of Discharge Discharge Date: Nov 23, 2017 Admission Diagnosis Left posterior parietal stroke Discharge Diagnosis (1) CVA (cerebral vascular accident) Status: Acute Assessment & Plan: Confirmed on MRI Patient took home eliquis this AM PT/OT consulted Passed bedside swallow FLP done and LDL <70 Carotid dopplers showed no significant stenosis (2) Urinary tract infection Status: Acute Assessment & Plan: UA consistent with UTI culture sent to [facility] No signs of sepsis (3) Renal insufficiency Status: Acute Assessment & Plan: At baseline (4) Afib Status: Chronic Assessment & Plan: s/p cardioversion on 11/16 Cardiology consulted, appreciate recs rate controlled On eliquis Discharge Summary Procedures/Consulations Dr Lord- Cardiology Discharge Physical Exam Allergies: Coded Allergies: morphine (Verified Allergy, Mild, 12/20/14) quinine (Verified Allergy, Mild, 12/20/14) sulfamethoxazole (Verified Allergy, Unknown, 11/06/15) trimethoprim (Verified Allergy, Unknown, 11/06/15) digoxin (Verified Adverse Reaction, Unknown, bradycardia, 11/22/17) Vitals & I&Os Vital Signs Date Time Temp Pulse Resp B/P (MAP) Pulse Ox O2 Delivery O2 Flow Rate FiO2 11/23/17 10:49 86 18 108/56 96 Room Air 11/23/17 08:00 97.6 General Appearance: Alert, Oriented X3 Respiratory: Clear to Auscultation Cardiovascular: Regular Rate Neuro: Normal Speech, Strength at 5/5 X4 Ext Psych/Mental Status: Mental Status NL Hospital Course Pt was admitted due to concern for stroke as he could not write like he normally does 1 week after cardioversion for a-fib. Due to timing it was not believed to be due to cardioversion. MRI was obtained which revealed an acute infarct but by the second day of admission his symptoms had resolved and he was writing as he normally does. He was able to write the alphabet for me on day of discharge which was an improvement from his presentation. He was evaluated by PT /OT for rehab but had regained his prior level of functioning by discharge. He was also found to have a UTI which was treated with Rocephin during his hospitalization based on previous cultures. He was discharged on Keflex prior to sensitivities being back.Upon following up on cultures I realized there was resistant to Keflex and called his PCP Jj Jackson APRN who will contact patient and prescribed appropriate antibiotics (like cipro based off sensitives and allergies). He is to follow up with his PCP this week to follow up his hospitalization. Labs (last 24 hrs) Microbiology 11/21/17 Urine Culture - Final, Complete Escherichia [facility] Patient resulted labs reviewed. Imaging: Reviewed Imaging Report Discussion & Recommendations Discharge Planning: >30 minutes discharge planning Discharge Home Medications: Active Scripts Active Keflex (Cephalexin) 500 Mg Capsule 500 Mg PO BID Reported Oxycodone HCl 5 Mg Tablet 5 Mg PO TID PRN Hyoscyamine Sulfate 0.125 Mg Tab.subl 0.125 Mg SL AC Eliquis (Apixaban) 2.5 Mg Tablet 2.5 Mg PO BID Simvastatin 20 Mg Tablet 10 Mg PO HS TAKES 1/2 (20MG) TABLET Calcium 500 + Vit D 200 Caplet (Calcium Carbonate/Vitamin D3) 1 Each Tablet 1 Tab PO DAILY Magnesium Oxide 250 Mg Tablet 250 Mg PO DAILY Oxybutynin Chloride ER (Oxybutynin Chloride) 10 Mg Tab.er.24 10 Mg PO DAILY Levothyroxine Sodium 88 Mcg Tablet 88 Mcg PO DAILY Protonix (Pantoprazole Sodium) 40 Mg Tablet.dr 40 Mg PO DAILY B-12 (Cyanocobalamin (Vitamin B-12)) 1,000 Mcg Tablet 1,000 Mcg PO DAILY Iron (Ferrous Sulfate) 325 Mg Tablet 325 Mg PO DAILY Instructions to patient/family Please see electronic discharge instructions given to patient. Clinical Quality Measures DVT/VTE Risk/Contraindication: Risk Factor Score Per Nursin RFS Level Per Nursing on Admit: 3=High Copy Copies To 1: ROSALINA MENDEZ MD Problem Qualifiers (1) CVA (cerebral vascular accident): CVA mechanism: unspecified Qualified Codes: I63.9 - Cerebral infarction, unspecified (2) Urinary tract infection: Urinary tract infection type: acute cystitis Hematuria presence: without hematuria Qualified Codes: N30.00 - Acute cystitis without hematuria (3) Afib: Atrial fibrillation type: paroxysmal Qualified Codes: I48.0 - Paroxysmal atrial fibrillation MISTY HAGEN MD Nov 23, 2017 08:55
[2017-11-23] MEDS ORDERED: LEVOTHYROXINE 88 MCG (LEVOTHORID) TAB PO SCH (09:00)
[2017-11-23] MEDS ORDERED: PANTOPRAZOLE 40 MG (PROTONIX) TAB PO SCH (09:00)
[2017-11-23] MEDS ORDERED: FERROUS SULF 325 MG (IRON) TAB PO SCH (09:00)
[2017-11-23] MEDS ORDERED: CYANOCOBALAMIN 1,000 MCG (VITAMIN B-12) TABLET PO SCH (09:00)
[2017-11-23 10:49] VITALS: BP 108/56
== END 2017-11-23 10:51 | disposition home or self-care (01) | DRG 65 ==
LOC: EDUNIT# 20:30 → ER 20:31 → 4TH 22:04 → UNDOADMOB 22:04 → 4TH 22:28 → INTOOBSV 11-22 11:20 → OBSVTOIN 11-22 11:20 → UNDODISIN 11-23 10:51
PROVIDERS: ADMIT Internal Medicine; ATTEND Internal Medicine
DX: I63.9 Cerebral infarction, unspecified (principal); N30.00 Acute cystitis without hematuria; N28.9 Disorder of kidney and ureter, unspecified; I48.0 Paroxysmal atrial fibrillation; K21.9 Gastro-esophageal reflux disease without esophagitis; E89.0 Postprocedural hypothyroidism; Z85.850 Personal history of malignant neoplasm of thyroid
CPT/HCPCS: 36415; 70450; 70553; 71045; 80053; 80061; 81000; 82962; 84484; 85025; 85379; 85610; 85730; 87077; 87088; 87186; 93005; 93041; 93306; 93880; 93926; 96374; G0378

== ENCOUNTER 2017-12-21 10:27 | Outpatient (RCR) | payer MEDICARE ==
[~2017-12-21 10:27] MED LIST changes: +CEPH-507 PO
[2017-12-21 10:55] LABS: BASOPHILS % (AUTO) 0 % (0-10); EOSINOPHILS # (AUTO) 0.1 10^3/uL (0.0-0.3); EOSINOPHILS % (AUTO) 1 % (0-10); HEMATOCRIT 34 % (40-54); HEMOGLOBIN 10.7 G/DL (13.3-17.7); LYMPHOCYTES # (AUTO) 0.7 X 10^3 (1.0-4.0); LYMPHOCYTES % (AUTO) 16 % (12-44); MEAN CORPUSCULAR HEMOGLOBIN 31 PG (25-34); MEAN CORPUSCULAR HGB CONC 32 G/DL (32-36); MEAN CORPUSCULAR VOLUME 98 FL (80-99); MEAN PLATELET VOLUME 9.5 FL (7.4-10.4); MONOCYTES # (AUTO) 0.5 X 10^3 (0.0-1.0); MONOCYTES % (AUTO) 11 % (0-12); NEUTROPHILS % (AUTO) 72 % (42-75); PLATELET COUNT 169 10^3/uL (130-400); RED BLOOD COUNT 3.47 10^6/uL (4.35-5.85); RED CELL DISTRIBUTION WIDTH 15.1 % (10.0-14.5); WHITE BLOOD COUNT 4.2 10^3/uL (4.3-11.0)
[2017-12-21 11:12] LABS: ALBUMIN 3.5 GM/DL (3.2-4.5); BILIRUBIN,TOTAL 0.5 MG/DL (0.1-1.0); CREATININE SERUM 1.64 MG/DL (0.60-1.30); POTASSIUM 4.8 MMOL/L (3.6-5.0); TOTAL PROTEIN 6.2 GM/DL (6.4-8.2)
[2017-12-27 11:33] LABS: IMMUNOFIX PATH REPORT NUMBER Complete (Complete)
== END 2018-01-16 | disposition home or self-care (01) ==
LOC: ONC 10:27
PROVIDERS: ATTEND Internal Medicine Hematology & Oncology
DX: C49.4 Malignant neoplasm of connective and soft tissue of abdomen (principal); D50.0 Iron deficiency anemia secondary to blood loss (chronic); N18.3 Chronic kidney disease, stage 3 (moderate); I48.91 Unspecified atrial fibrillation; R00.1 Bradycardia, unspecified; R53.1 Weakness; R13.10 Dysphagia, unspecified; E03.9 Hypothyroidism, unspecified; Z79.899 Other long term (current) drug therapy; Z79.01 Long term (current) use of anticoagulants
CPT/HCPCS: 36415; 80053; 82728; 82784; 83883; 84155; 84165; 85025; 86334; 99213

== ENCOUNTER → 2018-02-21 | Outpatient (CLI) | payer MEDICARE | LOC: LAB 15:07 | PROVIDERS: ATTEND Internal Medicine Gastroenterology | DX: R79.89 Other specified abnormal findings of blood chemistry (principal) | CPT/HCPCS: 36415; 85652; 86141 ==

== ENCOUNTER → 2018-02-28 | Outpatient (CLI) | payer MEDICARE ==
--- NOTE | 2018-02-28 12:21 | Diagnostic Imaging Report ---
CLINICAL INDICATION: Patient with elevated liver function test. EXAM: Right upper quadrant ultrasound. COMPARISON: Right upper quadrant ultrasound dated 06/08/2017. FINDINGS: There is limited visualization of the intra-abdominal structures due to patient body habitus and overlying bowel gas. The gallbladder has been surgically removed, as noted on the prior study. The liver has normal echogenicity, echotexture, and size. The liver measures 12.8 cm in craniocaudal dimension. The liver surface is smooth. Common bile duct measures 7 mm which is within normal limits post cholecystectomy. There is an ill-defined 1.4 cm x 1.1 cm x 1.3 cm exophytic lesion involving the inferior pole of the right kidney. This area is slightly obscured with adjacent bowel gas seen in limited visualization due to patient body habitus. Patient was also noted to have a cyst involving the inferior pole of the right kidney on the prior study and this may represent the same lesion. The pancreas is not able to be visualized on this exam. There is no abdominal ascites. IMPRESSION: 1: There is limited visualization of intra-abdominal structures due to patient body habitus and overlying bowel gas. 2: There is a partially visualized 1.4 cm exophytic lesion involving the inferior pole of the right kidney. Patient was noted to have exophytic cyst involving the inferior pole of the right kidney on the prior study and this may represent the same lesion. 3: Again seen post cholecystectomy. 4: The pancreas is not able to be visualized on this exam. If there is clinical concern for pancreatic abnormality, serology tests or CT scan may better evaluate. 5: The remainder of this exam shows no significant abnormality as visualized. Dictated by: Dictated on workstation # [id number]
== END ==
LOC: RAD 07:25
PROVIDERS: ATTEND Internal Medicine Gastroenterology
DX: K76.9 Liver disease, unspecified (principal); R14.0 Abdominal distension (gaseous); N28.1 Cyst of kidney, acquired; N28.89 Other specified disorders of kidney and ureter; Z90.49 Acquired absence of other specified parts of digestive tract
CPT/HCPCS: 76705

== ENCOUNTER 2018-05-02 10:17 | Outpatient (RCR) | payer MEDICARE ==
[2018-02-18 10:05] LABS: BASOPHILS % (AUTO) 0 % (0-10); EOSINOPHILS # (AUTO) 0.1 10^3/uL (0.0-0.3); EOSINOPHILS % (AUTO) 2 % (0-10); HEMATOCRIT 37 % (40-54); HEMOGLOBIN 11.5 G/DL (13.3-17.7); LYMPHOCYTES # (AUTO) 0.8 X 10^3 (1.0-4.0); LYMPHOCYTES % (AUTO) 20 % (12-44); MEAN CORPUSCULAR HEMOGLOBIN 31 PG (25-34); MEAN CORPUSCULAR HGB CONC 31 G/DL (32-36); MEAN CORPUSCULAR VOLUME 100 FL (80-99); MEAN PLATELET VOLUME 9.6 FL (7.4-10.4); MONOCYTES # (AUTO) 0.4 X 10^3 (0.0-1.0); MONOCYTES % (AUTO) 11 % (0-12); NEUTROPHILS # (AUTO) 2.6 X 10^3 (1.8-7.8); NEUTROPHILS % (AUTO) 68 % (42-75); PLATELET COUNT 146 10^3/uL (130-400); RED CELL DISTRIBUTION WIDTH 14.7 % (10.0-14.5); WHITE BLOOD COUNT 3.8 10^3/uL (4.3-11.0)
[2018-02-18 10:21] LABS: ALBUMIN 3.5 GM/DL (3.2-4.5); BILIRUBIN,TOTAL 0.5 MG/DL (0.1-1.0); CALCIUM 9.2 MG/DL (8.5-10.1); CREATININE SERUM 1.47 MG/DL (0.60-1.30); TOTAL PROTEIN 6.3 GM/DL (6.4-8.2)
[2018-02-18 10:42] LABS: ABSOLUTE RETIC # 22 10e9/L (24-90)
== END 2018-05-19 | disposition home or self-care (01) ==
LOC: ONC 10:17
PROVIDERS: ATTEND Internal Medicine Hematology & Oncology
DX: C49.4 Malignant neoplasm of connective and soft tissue of abdomen (principal); D50.0 Iron deficiency anemia secondary to blood loss (chronic); N18.3 Chronic kidney disease, stage 3 (moderate); I48.91 Unspecified atrial fibrillation; R00.1 Bradycardia, unspecified; R53.1 Weakness; R13.10 Dysphagia, unspecified; E03.9 Hypothyroidism, unspecified; Z79.899 Other long term (current) drug therapy; Z79.01 Long term (current) use of anticoagulants
CPT/HCPCS: 36415; 80053; 82607; 82728; 82746; 85025; 85045; 99213

== ENCOUNTER 2018-07-28 09:20 | Outpatient (RCR) | payer MEDICARE ==
[2018-07-28 09:34] LABS: BASOPHILS % (AUTO) 0 % (0-10); EOSINOPHILS # (AUTO) 0.1 10^3/uL (0.0-0.3); EOSINOPHILS % (AUTO) 3 % (0-10); HEMATOCRIT 33 % (40-54); HEMOGLOBIN 10.2 G/DL (13.3-17.7); LYMPHOCYTES # (AUTO) 0.7 X 10^3 (1.0-4.0); LYMPHOCYTES % (AUTO) 14 % (12-44); MEAN CORPUSCULAR HEMOGLOBIN 31 PG (25-34); MEAN CORPUSCULAR HGB CONC 31 G/DL (32-36); MEAN CORPUSCULAR VOLUME 101 FL (80-99); MEAN PLATELET VOLUME 9.4 FL (7.4-10.4); MONOCYTES # (AUTO) 0.6 X 10^3 (0.0-1.0); MONOCYTES % (AUTO) 11 % (0-12); NEUTROPHILS # (AUTO) 3.5 X 10^3 (1.8-7.8); NEUTROPHILS % (AUTO) 71 % (42-75); PLATELET COUNT 177 10^3/uL (130-400); RED CELL DISTRIBUTION WIDTH 14.6 % (10.0-14.5); WHITE BLOOD COUNT 4.9 10^3/uL (4.3-11.0)
[2018-07-28 09:57] LABS: ALBUMIN 3.4 GM/DL (3.2-4.5); BILIRUBIN,TOTAL 0.6 MG/DL (0.1-1.0); CALCIUM 8.9 MG/DL (8.5-10.1); CREATININE SERUM 1.79 MG/DL (0.60-1.30); POTASSIUM 4.8 MMOL/L (3.6-5.0); TOTAL PROTEIN 6.1 GM/DL (6.4-8.2)
== END 2018-10-26 | disposition home or self-care (01) ==
LOC: ONC 09:20
PROVIDERS: ATTEND Internal Medicine Hematology & Oncology
DX: C49.4 Malignant neoplasm of connective and soft tissue of abdomen (principal); D50.0 Iron deficiency anemia secondary to blood loss (chronic); N18.3 Chronic kidney disease, stage 3 (moderate); I48.91 Unspecified atrial fibrillation; R00.1 Bradycardia, unspecified; R53.1 Weakness; R13.10 Dysphagia, unspecified; E03.9 Hypothyroidism, unspecified; Z79.899 Other long term (current) drug therapy; Z79.01 Long term (current) use of anticoagulants
CPT/HCPCS: 36415; 80053; 82728; 83615; 85025; 99213

== ENCOUNTER 2018-11-06 21:36 | Emergency (ER) | payer MEDICARE ==
[~2018-11-06] VITALS: Ht 177.8 cm; Wt 65.8 kg
--- NOTE | 2018-11-06 21:41 | NUR ---
PT HERE WITH SON PER SON. PT ALERT GCS 15. IN [facility] PT SAME TIME. PT RELATES JUST FINISHED LEVAQUIN FOR A UTI FEW WEEKS AGO. PT SAYS " HOLE CLOSED UP" TODAY. DR LOOKED AT PENIS AND IT WAS SWOLLEN UP INCLUDING THE SCROTUM AREA. PT RELATES H/O TESTICL REMOVAL. PT RELATES BEING ON BLOOD THINNER FOR A FIB. PT DENIES CHEST AND ABD PAIN. DENIES N/V/D. DENIES DYSPNEA AND NO ACUTE SIGHNS OF DYSPNEA NOTED. SON RELATES PT SAID HE WAS SOB EARLIER TODAY WHEN HE WAS WALKING AROUND. PT DENIES THIS C/O. LUNGS CTA BILATERALLY. ABD SOFT NONDISTENDED NEG PAIN WITH PALPATION. PT HAS 3-4 PLUS EDEMA BILATERAL LOWER LEGS NOTED WITH TEDS ON. AUSC HR IRREG AND RESP SHALLOW NONLABORED. HAD HARD TIME WITH BP X 4 TILL IT GAVE A READING. DONE JAROD PT AT 2151.
--- NOTE | 2018-11-06 21:50 | ED GU-Male ---
General Stated Complaint: URINARY INFECTION Source: patient Exam Limitations: no limitations History of Present Illness Date Seen by Provider: Nov 06, 2018 Time Seen by Provider: 21:47 Initial Comments To ER per private vehicle accompanied by his son with reports of suspected urinary tract infection. He suspects this because he has had some swelling of the tip of his penis. He states that he is uncircumcised and is having trouble getting the foreskin pulled back. He is still able to urinate but worries that he will not be able to later if the swelling continues. His is admitted upstairs, he's been sitting in a recliner at her bedside most of the day today and in fact for the past 8 days as well. He's had his feet hanging down. Typically when he is at home he has his feet elevated in the recliner but his is admitted to the second floor so he sitting in a chair up there with his feet and the dependent position. he's also had some increased swelling in both lower extremities up to the knees which is unusual for him. He typically has some swelling but not to this degree. Also had some shortness of breath on exertion when walking from the car to the hospital across the parking lot today and typically that would not have winded him as it did today. Timing/Duration: constant Severity/Quality: moderate Location: unknown Radiation: none Activities at Onset: none Prior Genitourinary Problems: none Associated Symptoms: denies symptoms Allergies and Home Medications Allergies Coded Allergies: morphine (Verified Allergy, Mild, 12/20/14) quinine (Verified Allergy, Mild, 12/20/14) sulfamethoxazole (Verified Allergy, Unknown, 11/06/15) trimethoprim (Verified Allergy, Unknown, 11/06/15) digoxin (Verified Adverse Reaction, Unknown, bradycardia, 11/22/17) Home Medications Apixaban 2.5 Mg Tablet, 2.5 MG PO BID, (Reported) Calcium Carbonate/Vitamin D3 1 Each Tablet, 1 TAB PO DAILY, (Reported) Cephalexin 500 Mg Capsule, 500 MG PO BID Prescribed by: MISTY HAGEN on 11/23/17 0861 Cyanocobalamin (Vitamin B-12) 1,000 Mcg Tablet, 1,000 MCG PO DAILY, (Reported) Ferrous Sulfate 325 Mg Tablet, 325 MG PO DAILY, (Reported) Furosemide 40 Mg Tablet, 40 MG PO DAILY Prescribed by: SRAVANI OCAMPO on 11/06/182236 Hyoscyamine Sulfate 0.125 Mg Tab.subl, 0.125 MG SL AC, (Reported) Levothyroxine Sodium 88 Mcg Tablet, 88 MCG PO DAILY, (Reported) Magnesium Oxide 250 Mg Tablet, 250 MG PO DAILY, (Reported) Oxybutynin Chloride 10 Mg Tab.er.24, 10 MG PO DAILY, (Reported) Oxycodone HCl 5 Mg Tablet, 5 MG PO TID PRN for PAIN-SEVERE, (Reported) Pantoprazole Sodium 40 Mg Tablet.dr, 40 MG PO DAILY, (Reported) Simvastatin 20 Mg Tablet, 10 MG PO HS, (Reported) TAKES 1/2 (20MG) TABLET Patient Home Medication List Home Medication List Reviewed: Yes Review of Systems Review of Systems Constitutional: see HPI EENTM: see HPI Respiratory: see HPI, short of breath Cardiovascular: no symptoms reported Genitourinary: no symptoms reported Musculoskeletal: no symptoms reported Skin: no symptoms reported Psychiatric/Neurological: No Symptoms Reported Endocrine: No Symptoms Reported Past Igfklyf-Ifoekl-Bptuak Hx Patient Social History 2nd Hand Smoke Exposure: No Recent Foreign Travel: No Contact w/Someone Who Travel: No Recent Hopitalizations: No Immunizations Up To Date Tetanus Booster (TDap): Less than 5yrs Date of Pneumonia Vaccine: Jan 17, 2015 Date of Influenza Vaccine: Jan 17, 2015 Seasonal Allergies Seasonal Allergies: No Past Medical History Surgeries: Yes Abdominal, Appendectomy, Cardiac, Gallbladder, Orthopedic, Thyroidectomy Respiratory: No Currently Using CPAP: No Currently Using BIPAP: No Cardiac: Yes (HX HEART MURMUR) Atrial Fibrillation, Chronic Edema/Swelling, Heart Murmur, High Cholesterol Neurological: No Reproductive Disorders: No Sexually Transmitted Disease: No HIV/AIDS: No Genitourinary: Yes (CHRONIC RENAL INSUFFICIENCY) Kidney Stones, Renal Failure 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) Gastroesophageal Reflux Musculoskeletal: Yes ( neck fusion, FX STERNUM 1996) Arthritis Endocrine: Yes Hypothyroidsim HEENT: Yes Loss of Vision: Bilateral Hearing Impairment: Hard of Hearing, Bilateral Hearing Aide Cancer: No Psychosocial: No Integumentary: Yes (DRY SKIN, THIN SKIN) Blood Disorders: Yes (ANEMIA) Adverse Reaction/Blood Tranf: No (HAS HAD BLOOD WITH NO REACTION) Family Medical History Congenital heart disease 19 FATHER 19 MOTHER FH: renal cell carcinoma G8 SISTER Leukemia G8 BROTHER G8 BROTHER No Pertinent Family Hx Physical Exam Vital Signs Vital Signs - First Documented 11/06/18 21:41 Temp 98.7 Pulse 60 Resp 20 B/P (MAP) 95/54 (68) Pulse Ox 95 O2 Delivery Room Air Capillary Refill : Height, Weight, BMI Height: 5'9.00" Weight: 145lbs. 0.0oz. 65.865449nt; 21.4 BMI Method:Stated General Appearance: WD/WN, no apparent distress, other (speaks in full sentences no distress) HEENT: PERRL/EOMI, normal ENT inspection Neck: non-tender, full range of motion Respiratory: normal breath sounds, no respiratory distress, no accessory muscle use Gastrointestinal: normal bowel sounds, non tender, soft Male: No erythema; other ( there is edema foreskin to the point that I'm unable to retract it proximally to the glans and as such I'm not able to evaluate the glans. However the proximal two thirds of the penile shaft are without edema. The scrotum has a trace amount of edema. There is 2+ pitting edema approximately to the knees bilaterally.) Extremities: normal range of motion, pedal edema Neurologic/Psychiatric: alert, normal mood/affect, oriented x 3 Skin: normal color, warm/dry Progress/Results/Core Measures Suspected Sepsis SIRS Temperature: Pulse: Respiratory Rate: Laboratory Tests 11/06/18 22:01: White Blood Count 5.9 Blood Pressure / Mean: Laboratory Tests 11/06/18 22:01: Creatinine 1.78H, Platelet Count 197 Results/Orders Lab Results Laboratory Tests Test 11/06/18 22:01 Range/Units White Blood Count 5.9 4.3-11.0 10^3/uL Red Blood Count 3.06 L 4.35-5.85 10^6/uL Hemoglobin 9.6 L 13.3-17.7 G/DL Hematocrit 31 L 40-54 % Mean Corpuscular Volume 102 H 80-99 FL Mean Corpuscular Hemoglobin 31 25-34 PG Mean Corpuscular Hemoglobin Concent 31 L 32-36 G/DL Red Cell Distribution Width 15.1 H 10.0-14.5 % Platelet Count 197 130-400 10^3/uL Mean Platelet Volume 10.0 7.4-10.4 FL Neutrophils (%) (Auto) 75 42-75 % Lymphocytes (%) (Auto) 14 12-44 % Monocytes (%) (Auto) 10 0-12 % Eosinophils (%) (Auto) 2 0-10 % Basophils (%) (Auto) 0 0-10 % Neutrophils # (Auto) 4.4 1.8-7.8 X 10^3 Lymphocytes # (Auto) 0.8 L 1.0-4.0 X 10^3 Monocytes # (Auto) 0.6 0.0-1.0 X 10^3 Eosinophils # (Auto) 0.1 0.0-0.3 10^3/uL Basophils # (Auto) 0.0 0.0-0.1 10^3/uL Urine Color YELLOW Urine Clarity CLEAR Urine pH 5 5-9 Urine Specific [place] 1.015 L 1.016-1.022 Urine Protein NEGATIVE NEGATIVE Urine Glucose (UA) NEGATIVE NEGATIVE Urine Ketones NEGATIVE NEGATIVE Urine Nitrite NEGATIVE NEGATIVE Urine Bilirubin NEGATIVE NEGATIVE Urine Urobilinogen NORMAL NORMAL MG/DL Urine Leukocyte Esterase 1+ H NEGATIVE Urine RBC (Auto) NEGATIVE NEGATIVE Urine RBC NONE /HPF Urine WBC 0-2 /HPF Urine Squamous Epithelial Cells 0-2 /HPF Urine Crystals NONE /LPF Urine Bacteria TRACE /HPF Urine Casts PRESENT /LPF Urine Hyaline Casts RARE /LPF Urine Mucus NEGATIVE /LPF Urine Culture Indicated NO Sodium Level 141 135-145 MMOL/L Potassium Level 5.2 H 3.6-5.0 MMOL/L Chloride Level 110 H 98-107 MMOL/L Carbon Dioxide Level 19 L 21-32 MMOL/L Anion Gap 12 5-14 MMOL/L Blood Urea Nitrogen 39 H 7-18 MG/DL Creatinine 1.78 H 0.60-1.30 MG/DL Estimat Glomerular Filtration Rate 36 BUN/Creatinine Ratio 22 Glucose Level 88 70-105 MG/DL Calcium Level 8.9 8.5-10.1 MG/DL B-Type Natriuretic Peptide 608.6 H <100.0 PG/ML My Orders Orders - SRAVANI OCAMPO APRN Ua Culture If Indicated (11/06/18 21:39) BNP (11/06/18 21:45) Chest 1 View, Ap/Pa Only (11/06/18 21:45) Ed Iv/Invasive Line Start (11/06/18 21:45) Cbc With Automated Diff (11/06/18 21:45) Basic Metabolic Panel (11/06/18 21:45) Furosemide Injection (Lasix Injection) (11/06/18 22:45) Vital Signs/I&O 11/06/18 21:41 Temp 98.7 Pulse 60 Resp 20 B/P (MAP) 95/54 (68) Pulse Ox 95 O2 Delivery Room Air Capillary Refill : Departure Communication (Admissions) Rather than giving this 88-year-old gentleman Lasix here and then having him up all night urinating, we will have him just start his Lasix tomorrow morning. He states that he has Lasix and potassium at home. Impression Primary Impression: Minor Phimosis Additional Impression: Dependent edema Disposition: 01 HOME, SELF-CARE Condition: Stable Departure-Patient Inst. Decision time for Depature: 22:25 Referrals: ROSALINA MENDEZ MD (PCP/Family) Primary Care Physician Patient Instructions: Dependent Edema (DC) Scripts Furosemide (Lasix) 40 Mg Tablet 40 MG PO DAILY, #2 TAB Prov: SRAVANI OCAMPO APRN 11/06/18 Copy Copies To 1: ROSALINA MENDEZ MD, PETER J APRN Nov 06, 2018 21:50
--- NOTE | 2018-11-06 22:05 | NUR ---
UA AND LABS TO LAB BY ME
[2018-11-06 22:09] LABS: BASOPHILS % (AUTO) 0 % (0-10); EOSINOPHILS # (AUTO) 0.1 10^3/uL (0.0-0.3); EOSINOPHILS % (AUTO) 2 % (0-10); HEMATOCRIT 31 % (40-54); HEMOGLOBIN 9.6 G/DL (13.3-17.7); LYMPHOCYTES # (AUTO) 0.8 X 10^3 (1.0-4.0); LYMPHOCYTES % (AUTO) 14 % (12-44); MEAN CORPUSCULAR HEMOGLOBIN 31 PG (25-34); MEAN CORPUSCULAR HGB CONC 31 G/DL (32-36); MEAN CORPUSCULAR VOLUME 102 FL (80-99); MONOCYTES # (AUTO) 0.6 X 10^3 (0.0-1.0); MONOCYTES % (AUTO) 10 % (0-12); NEUTROPHILS # (AUTO) 4.4 X 10^3 (1.8-7.8); NEUTROPHILS % (AUTO) 75 % (42-75); PLATELET COUNT 197 10^3/uL (130-400); RED CELL DISTRIBUTION WIDTH 15.1 % (10.0-14.5); WHITE BLOOD COUNT 5.9 10^3/uL (4.3-11.0)
[2018-11-06 22:10] LABS: BILIRUBIN,URINE NEGATIVE (NEGATIVE); CLARITY,URINE CLEAR; COLOR,URINE YELLOW; GLUCOSE, URINE (UA) NEGATIVE (NEGATIVE); KETONES,URINE NEGATIVE (NEGATIVE); LEUKOCYTE ESTERASE ,URINE 1+ (NEGATIVE); NITRITE,URINE NEGATIVE (NEGATIVE); PH,URINE 5 (5-9); PROTEIN,URINE NEGATIVE (NEGATIVE); UROBILINOGEN,URINE NORMAL (NORMAL)
[2018-11-06 22:17] LABS: BACTERIA,URINE TRACE /HPF; HYALINE CASTS, URINE RARE /LPF; SQUAMOUS EPITHELIAL CELL,UR 0-2 /HPF; WBC,URINE 0-2 /HPF
[2018-11-06 22:26] LABS: CALCIUM 8.9 MG/DL (8.5-10.1); CREATININE SERUM 1.78 MG/DL (0.60-1.30); POTASSIUM 5.2 MMOL/L (3.6-5.0)
[2018-11-06] MEDS ORDERED: FURO-124 PO (22:37)
--- NOTE | 2018-11-06 22:40 | NUR ---
PER DR SALEH AND D/CRoseline
--- NOTE | 2018-11-06 22:44 | NUR ---
PER PT HAS LASIX AT HOME HE WILL TAKE. NO IV LASIX NEEDED HERE.
[2018-11-06] MEDS ORDERED: FUROSEMIDE 40 MG/4 ML INJ (LASIX) IVP ONE (22:45)
[2018-11-06 22:52] VITALS: BP 130/71
--- NOTE | 2018-11-06 22:52 | NUR ---
D/C INSTRCUTIONS TO PT AND SON. TOLD TO READ ALL PAPERS. SCRIPTS FAX. PT LEFT AMBULATORY WITH SON. PT DID NOT WANT W/C FOR D/C. PT AND SON KNOWS F/U. I WENT OVER THE HANDTYPED BY INFORMATION ON THE CHART IV D/CD BY ME PRIOR TO D/C. URINAL FOR HOME USE GIVEN. D/C VS BP MACHINE IS 130/71 AUSC HR 72 IRREG AUSC RESP 20 SHALLOW NONLABORED RECHECK TEMP 98.4 P OX R/A IS 98.
--- NOTE | 2018-11-07 07:40 | Diagnostic Imaging Report ---
Indication: UTI, trouble urinating. Comparison made with prior examination from 11/21/2017. Findings: There's cardiomegaly. Lungs are clear. There is no pleural effusion or pneumothorax. The mediastinum is unremarkable. Impression: No acute cardiopulmonary abnormality. Cardiomegaly. Dictated by: Dictated on workstation # [id number]
--- OUTSIDE RECORDS SUMMARY | 2018-11-07 16:09 | XMS REPORT | Clinical Summary ---
Author Author [facility] Organization [facility] Address Unknown Phone Unavailable Care Team Providers Care Bundle Clerk Name Role Phone Juan Bettencourt MD PCP Alan Manzano MD Unavailable Say Schmidt DO Unavailable Source Comments Some departments are not documenting in the electronic medical record. If you d o not see the information that you expected, contact Release of Information in [facility] Information Management department at [phone] for further assistan ce in locating additional records.[facility] Allergies Comments Active Allergy Reactions Severity Noted Date Sulfamethoxazole-Trimetho FEVER Medium 01/27/2017 prim Morphine NAUSEA AND Low 01/27/2017 VOMITING Quinine CHILLS Low 01/27/2017 Medications End Date Status Medication Sig Dispensed Refills Start Date Active simvastatin (ZOCOR) 20 mg Take 10 mg by 0 tablet mouth at bedtime daily. Active levothyroxine (SYNTHROID) Take 100 mcg 0 100 mcg tablet by mouth daily 30 minutes before breakfast. Active oxybutynin XL (DITROPAN Take 10 mg by 0 XL) 10 mg tablet mouth every morning. Active tiZANidine (ZANAFLEX) 4 Take 4 mg by 0 mg tablet mouth twice daily as needed. Active psyllium (METAMUCIL) 3.4 Take 1 packet 0 gram packet by mouth at bedtime daily. Active pantoprazole DR Take 40 mg by 0 (PROTONIX) 40 mg tablet mouth every morning. Active prochlorperazine maleate Take 10 mg by 0 (COMPAZINE) 10 mg tablet mouth every 6 hours as needed for Nausea or Vomiting. Active hyoscyamine (ANASPAZ; Place 125 mcg 0 NULEV; SYMAX FASTABS; under tongue HYOMAX-FT; ED-SPAZ; every 6 hours OSCIMIN) 0.125 mg rapid as needed for dissolve tablet Cramps. Active HYDROcodone/acetaminophen Take 1 tablet 0 (NORCO) 5/325 mg tablet by mouth every 4 hours as needed for Pain Active Magnesium 250 mg tab Take 250 mg 0 by mouth at bedtime daily. Active calcium carbonate Take 1,250 mg 0 (OS-TRACY) 1250 mg tablet by mouth every morning. Active ferrous sulfate (FEOSOL, Take 325 mg 0 FEROSUL) 325 mg (65 mg by mouth iron) tablet every morning. Take on an empty stomach at least 1 hour before or 2 hours after food. Active artificial Place 1 drop 0 tears(hypromellose) 0.4 % into or ophthalmic solution around eye(s) as Needed. Active cyanocobalamin(+) Take by 0 (VITAMIN B-12) 500 mcg mouth daily. tablet Active oxyCODONE (ROXICODONE, Take 1-2 40 tablet 0 OXY-IR) 5 mg tablet tablets by 7 mouth every 4 hours as needed Active docusate sodium (COLACE) Take 1 10 capsule 0 50 mg capsule capsule by 7 mouth twice daily. Take while on narcotic pain medication. Hold for loose stools. 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 Last Filed Vital Signs Reading Time Taken Comments Vital Sign 140/78 06/23/2017 12:17 PM 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 Blood Pressure 54 06/23/2017 12:17 PM 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 Pulse 36.6 C (97.8 F) 06/23/2017 12:17 PM 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 Temperature 18 06/23/2017 12:17 PM 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 Respiratory Rate 96% 06/23/2017 12:17 PM 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 Oxygen Saturation - - Inhaled Oxygen Concentration 71.4 kg (157 lb 6.4 oz) 06/23/2017 12:17 PM 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 Weight 175.3 cm (5' 9.02") 03/24/2017 1:18 PM 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 Height 23.23 03/24/2017 1:18 PM 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 Body Mass Index Plan of Treatment Health Maintenance Due Date Last Done Comments PHYSICAL (COMPREHENSIVE) 1937 EXAM DTAP/TDAP VACCINES (1 - 1948 Tdap) SHINGLES RECOMBINANT 1980 VACCINE (1 of 2) PNEUMONIA (PCV13/PPSV23) 09/06/1995 VACCINES (1 of 2 - PCV13) INFLUENZA VACCINE 01/17/2019 02/12/2005, 01/24/2004, 03/05/1994, Additional history exists Results Not on filefrom Last 3 Months Insurance Type Payer Benefit Subscriber ID Effective Phone Address Plan / Dates Group Medicare MEDICARE RAILROAD MEDICARE xxxxxxxxxx [id number] RAILROAD resent PART A AND B Medicare BCBS [place] BCBS xxxxxxxxxxxx [id number] SUPPLEMENT resent Advance Directives Patient Growth Hacker Explanation Type Date Recorded Perceptive Content Scan Advance 02/25/2017 5:45 AM Directive/DPOA Date Inactivated Comments Code Status Date Activated 03/01/2017 12:08 PM Full Code 02/27/2017 7:34 PM Provider has discussed Code Status Yes w/Patient or Family? 02/27/2017 7:34 PM Full Code 02/25/2017 7:04 PM Provider has discussed Code Status Yes w/Patient or Family? 02/25/2017 7:04 PM Full Code 02/25/2017 4:10 PM Provider has discussed Code Status Yes w/Patient or Family?
--- OUTSIDE RECORDS SUMMARY | 2018-11-07 16:13 | XMS REPORT | Continuity of Care Document ---
Author Organization Unknown Address Unknown Allergies Active Description Code Type Severity Reaction Onset Reported/Identified Relationship to Patient Clinical Status Yes morphine [id number] Drug Allergy Mild N/A 12/20/2014 Yes quinine [id number] Drug Allergy Mild N/A 12/20/2014 Yes sulfamethoxazole [id number] Drug Allergy Unknown N/A 11/06/2015 Yes trimethoprim [id number] Drug Allergy Unknown N/A 11/06/2015 Yes digoxin [id number] Drug Allergy Unknown bradycardia 11/22/2017 Medications There is no data. 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 06/19/2011 Ot 723.4 BRACHIAL NEURITIS NOS 06/19/2011 [...] MENDEZ MD Ot 414.01 CORONARY ATHEROSCLEROSIS OF [place] CORON 10/08/2014 ROSALINA MENDEZ MD Ot 427.9 [...] 12/20/2014 Ot 285.9 12/20/2014 Ot V72.84 12/21/2014 MARY BETH HASTINGS, RG Chirinos Ot 578.1 BLOOD IN STOOL 12/21/2014 RG CLINTON MD Ot 578.9 GASTROINTEST HEMORR NOS 12/23/2014 RG CLINTON MD Ot 599.0 URIN TRACT INFECTION NOS 12/23/2014 RG CLINTON MD Ot 788.1 DYSURIA 12/28/2014 COLBY ERIKA NYE Ot 211.1 12/28/2014 COLBY ERIKA NYE Ot 535.50 12/31/2014 COLBY ERIKA NYE Ot 211.1 12/31/2014 COLBY ERIKA NYE Ot 535.50 01/18/2015 COLBY ERIKA NYE Ot 211.1 01/18/2015 COLBY ERIKA NYE Ot 535.50 01/23/2015 COLBY ERIKA NYE Ot 211.1 01/23/2015 COLBY ERIKA NYE Ot 535.50 01/30/2015 VANESSA HASTINGS, ANDERS Lugo Ot R07.9 CHEST PAIN, UNSPECIFIED 02/13/2015 VANESSA HASTINGS, ROSALINA Shukla Ot N39.0 02/21/2015 VANESSA HASTINGS, ROSALINA Shukla Ot I73.9 02/28/2015 ROSALINA MENDEZ MD Ot I73.9 07/05/2015 ERIKA COLBY DO Ot Z01.818 07/08/2015 [place] ERIKA NYE Ot Z01.818 07/08/2015 ERIKA COLBY DO Ot Z01.818 ENCOUNTER FOR OTHER PREPROCEDURAL EXAMIN 07/09/2015 ERIKA COLBY DO Ot Z01.818 07/09/2015 COLBY ERIKA NYE Ot K29.70 GASTRITIS, UNSPECIFIED, WITHOUT BLEEDING 07/09/2015 ERIKA COLBY DO Ot K31.9 DISEASE OF STOMACH AND DUODENUM, UNSPECI 07/14/2015 ERIKA COLBY DO Ot Z01.818 10/02/2015 Ot 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 10/02/2015 Ot 530.81 ESOPHAGEAL REFLUX 10/02/2015 Ot 518.89 OTHER DISEASES OF LUNG, NEC 10/02/2015 Ot 786.50 CHEST PAIN NOS 10/02/2015 Ot 807.03 FRACTURE THREE RIBS-CLOS 10/02/2015 Ot E000.8 OTHER EXTERNAL CAUSE STATUS 10/02/2015 Ot E928.9 ACCIDENT NOS 10/02/2015 Ot 429.3 CARDIOMEGALY 10/02/2015 Ot 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 10/02/2015 LAURITA HASTINGS, MIGUEL ANGEL Ot V72.84 EXAM PRE-OPERATIVE NOS 10/02/2015 ERIKA COLBY DO Ot 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 10/02/2015 ERIKA COLBY DO Ot 535.50 UNSP GASTRITIS GASTRODUODENITIS W/O ME 10/02/2015 Ot 285.9 ANEMIA NOS 10/02/2015 Ot V72.84 EXAM PRE-OPERATIVE NOS 10/02/2015 VANESSA HASTINGS, ROSALINA Shukla Ot I73.9 PERIPHERAL VASCULAR DISEASE, UNSPECIFIED 10/02/2015 ROSALINA MENDEZ MD Ot N39.0 URINARY TRACT INFECTION, SITE NOT SPECIF 10/03/2015 CHRISTOPHER MANCUSO Ot 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 10/03/2015 CHRISTOPHER MANCUSO Ot K31.9 DISEASE OF STOMACH AND DUODENUM, UNSPECI 10/03/2015 CHRISTOPHER MANCUSO Ot 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/O PERFORATION OR AB 10/03/2015 CHRISTOPHER MANCUSO Ot M85.88 OTH DISRD OF BONE DENSITY AND STRUCTURE, 10/03/2015 CHRISTOPHER MANCUSO Ot 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 10/03/2015 CHRISTOPHER MANCUSO Ot K31.9 DISEASE OF STOMACH AND DUODENUM, UNSPECI 10/03/2015 CHRISTOPHER MANCUSO Ot 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/O PERFORATION OR AB 10/03/2015 CHRISTOPHER MANCUSO N Ot M85.88 OTH DISRD OF BONE DENSITY AND STRUCTURE, 10/08/2015 CHRISTOPHER MANCUSO Ot 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 10/08/2015 CHRISTOPHER MANCUSO Ot 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 10/18/2015 ROSALINA MENDEZ MD Ot R10.32 LEFT LOWER QUADRANT PAIN 10/23/2015 ROSALINA MENDEZ MD Ot R10.32 LEFT LOWER [...] IMAGING OF ABD REGION 11/06/2015 CHRISTOPHER MANCUSO Ot 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 11/06/2015 CHRISTOPHER MANCUSO Ot K31.9 DISEASE OF STOMACH AND DUODENUM, UNSPECI 11/06/2015 CHRISTOPHER MANCUSO Ot 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/O PERFORATION OR AB 11/06/2015 CHRISTOPHER MANCUSO Ot M85.88 OTH DISRD OF BONE DENSITY AND STRUCTURE, 11/06/2015 ERIKA COLBY DO Ot K40.90 UNIL INGUINAL HERNIA, W/O OBST OR GANGR, 11/06/2015 ERIKA COLBY DO Ot Z01.818 ENCOUNTER FOR OTHER PREPROCEDURAL EXAMIN 11/06/2015 ERIKA COLBY DO Ot Z11.2 ENCOUNTER FOR SCREENING FOR OTHER BACTER 11/07/2015 ERIKA COLBY DO Ot K40.90 UNIL INGUINAL HERNIA, W/O OBST OR GANGR, 11/07/2015 ERIKA COLBY DO Ot Z01.818 ENCOUNTER FOR OTHER PREPROCEDURAL EXAMIN 11/07/2015 ERIKA COLBY DO Ot Z11.2 ENCOUNTER FOR SCREENING FOR OTHER BACTER 11/07/2015 CHRISTOPHER MANCUSO Ot C49.9 MALIGNANT NEOPLASM OF [...] LEFT LOWER QUADRANT PAIN 11/28/2015 ROSALINA MENDEZ MD, Ot K46.9 UNSPECIFIED ABDOMINAL HERNIA WITHOUT OBS 11/28/2015 ROSALINA MENDEZ MD Ot 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/O PERFORATION OR AB 11/28/2015 ROSALINA MENDEZ MD Ot R93.5 ABN FINDINGS ON DX IMAGING OF ABD REGION 12/06/2015 ABHISHEK BASILIO RECORD CLERK SALESPERSON Ot 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 12/06/2015 ABHISHEK BASILIO RECORD CLERK SALESPERSON Ot E03.9 HYPOTHYROIDISM, UNSPECIFIED 12/06/2015 ABHISHEK BASILIO RECORD CLERK SALESPERSON Ot Z79.899 OTHER MCC (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 THERAPY 12/16/2015 ROSALINA MENDEZ MD, Ot K46.9 UNSPECIFIED ABDOMINAL HERNIA WITHOUT OBS 12/16/2015 ROSALINA MENDEZ MD Ot 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/O PERFORATION OR AB 12/16/2015 ROSALINA MENDEZ MD Ot R93.5 ABN FINDINGS ON DX IMAGING OF ABD REGION 12/27/2015 ABHISHEK BASILIO RECORD CLERK SALESPERSON Ot 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 12/27/2015 ABHISHEK BASILIO RECORD CLERK SALESPERSON Ot E03.9 HYPOTHYROIDISM, UNSPECIFIED 12/27/2015 ABHISHEK BASILIO RECORD CLERK SALESPERSON Ot Z79.899 OTHER MCC (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 THERAPY 12/31/2015 CHRISTOPHER MANCUSO Ot 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 12/31/2015 CHRISTOPHER MANCUSO Ot 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 12/31/2015 CHRISTOPHER MANCUSO Ot D50.0 IRON DEFICIENCY ANEMIA SECONDARY TO BLOO 12/31/2015 CHRISTOPHER MANCUSO Ot E03.9 HYPOTHYROIDISM, UNSPECIFIED 12/31/2015 CHRISTOPHER MANCUSO Ot N18.3 CHRONIC KIDNEY DISEASE, STAGE 3 (MODERAT 12/31/2015 CHRISTOPHER MANCUSO Ot Z79.899 OTHER MCC (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 THERAPY 01/01/2016 CHRISTOPHER MANCUSO Ot 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 01/01/2016 BARTOLOMECHRISTOPHER N Ot D50.0 IRON DEFICIENCY ANEMIA SECONDARY TO BLOO 01/01/2016 BARTOLOME, CHRISTOPHER N Ot E03.9 HYPOTHYROIDISM, UNSPECIFIED 01/01/2016 BARTOLOME, BOBAN N Ot N18.3 CHRONIC KIDNEY DISEASE, STAGE 3 (MODERAT 01/01/2016 BARTOLOMEREXAN N Ot Z79.899 OTHER MCC (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 THERAPY 01/07/2016 ABHISHEK BASILIO S RECORD CLERK SALESPERSON Ot 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 01/07/2016 BASILIOABHISHEK S RECORD CLERK SALESPERSON Ot E03.9 HYPOTHYROIDISM, UNSPECIFIED 01/07/2016 BASILIOABHISHEK S RECORD CLERK SALESPERSON Ot Z79.899 OTHER MCC (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 THERAPY 01/07/2016 ERIKA COLBY DO Ot 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 01/07/2016 ERIKA COLBY DO Ot 535.50 UNSP GASTRITIS GASTRODUODENITIS W/O ME 02/04/2016 BARTOLOME REXNICHOLE N Ot 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 03/10/2016 BARTOLOME, BOBAN N Ot 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 03/10/2016 BARTOLOME, BOBAN N Ot D50.0 IRON DEFICIENCY ANEMIA SECONDARY TO BLOO 03/10/2016 BARTOLOME, BOBAN N Ot E03.9 HYPOTHYROIDISM, UNSPECIFIED 03/10/2016 BARTOLOME, BOBAN N Ot N18.3 CHRONIC KIDNEY DISEASE, STAGE 3 (MODERAT 03/10/2016 BARTOLOMEREXAN N Ot 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 03/18/2016 BARTOLOMEREXAN N Ot 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 03/18/2016 BARTOLOME BOBAN N Ot D50.0 IRON DEFICIENCY ANEMIA SECONDARY TO BLOO 03/18/2016 BARTOLOME, REXAN N Ot E03.9 HYPOTHYROIDISM, UNSPECIFIED 03/18/2016 BARTOLOME, BOBAN N Ot N18.3 CHRONIC KIDNEY DISEASE, STAGE 3 (MODERAT 03/18/2016 BARTOLOMEREXAN N Ot 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 05/03/2016 BARTOLOME REXAN N Ot 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 05/03/2016 BARTOLOME, BOBAN N Ot D50.0 IRON DEFICIENCY ANEMIA SECONDARY TO BLOO 05/03/2016 CHRISTOPHER MANCUSO Ot E03.9 HYPOTHYROIDISM, UNSPECIFIED 05/03/2016 CHRISTOPHER MANCUSO Ot N18.3 CHRONIC KIDNEY DISEASE, STAGE 3 (MODERAT 05/03/2016 CHRISTOPHER MANCUSO Ot Z79.899 OTHER MCC (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 THERAPY 05/04/2016 CHRISTOPHER MANCUSO Abel Ot 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 05/04/2016 CHRISTOPHER MANCUSO Ot D50.0 IRON DEFICIENCY ANEMIA SECONDARY TO BLOO 05/04/2016 CHRISTOPHER MANCUSO Ot E03.9 HYPOTHYROIDISM, UNSPECIFIED 05/04/2016 CHRISTOPHER MANCUSO Ot N18.3 CHRONIC KIDNEY DISEASE, STAGE 3 (MODERAT 05/04/2016 CHRISTOPHER MANCUSO Ot 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 05/06/2016 Ot 530.81 ESOPHAGEAL [...] 285.9 ANEMIA NOS 05/06/2016 Ot V72.84 EXAM PRE-OPERATIVE NOS 05/06/2016 VANESSA HASTINGS, ROSALINA Shukla Ot I73.9 PERIPHERAL VASCULAR DISEASE, UNSPECIFIED 05/06/2016 ROSALINA MENDEZ MD Ot N39.0 URINARY TRACT INFECTION, SITE NOT SPECIF 05/06/2016 CHRISTOPHER MANCUSO Abel Ot 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 05/06/2016 CHRISTOPHER MANCUSO Abel Ot K31.9 DISEASE OF STOMACH AND DUODENUM, UNSPECI 05/06/2016 CHRISTOPHER MANCUSO Abel Ot 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/O PERFORATION OR AB 05/06/2016 BARTOLOMECHRISTOPHER Ot M85.88 OTH DISRD OF BONE DENSITY AND STRUCTURE, 05/06/2016 ROSALINA MENDEZ MD Ot R10.32 LEFT LOWER QUADRANT PAIN 05/06/2016 ROSALINA MENDEZ MD Ot K46.9 UNSPECIFIED ABDOMINAL HERNIA WITHOUT OBS 05/06/2016 ROSALINA MENDEZ MD Ot 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/O PERFORATION OR AB 05/06/2016 ROSALINA MENDEZ MD Ot R93.5 ABN FINDINGS ON DX IMAGING OF ABD REGION 05/06/2016 ABHISHEK BASILIO RECORD CLERK SALESPERSON Ot 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 05/06/2016 ABHISHEK BASILIO RECORD CLERK SALESPERSON Ot E03.9 HYPOTHYROIDISM, UNSPECIFIED 05/06/2016 ABHISHEK BASILIO RECORD CLERK SALESPERSON Ot Z79.899 OTHER MCC (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 THERAPY 05/06/2016 CHRISTOPHER MANCUSO Ot 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 05/06/2016 CHRISTOPHER MANCUSO Ot D50.0 IRON DEFICIENCY ANEMIA SECONDARY TO BLOO 05/06/2016 CHRISTOPHER MANCUSO Ot E03.9 HYPOTHYROIDISM, UNSPECIFIED 05/06/2016 CHRISTOPHER MANCUSO Ot N18.3 CHRONIC KIDNEY DISEASE, STAGE 3 (MODERAT 05/06/2016 CHRISTOPHER MANCUSO N Ot Z79.899 OTHER MCC (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 THERAPY 05/08/2016 DUANE PIMENTEL APRN Ot R07.81 PLEURODYNIA 05/08/2016 DUANE PIMENTEL RECREATION DIRECTOR Ot W19.XXXA UNSPECIFIED FALL, INITIAL ENCOUNTER 05/08/2016 DUANE PIMENTEL RECREATION DIRECTOR Ot Y99.8 OTHER EXTERNAL CAUSE STATUS 05/28/2016 DUANE PIMENTEL APRN Ot S59.902A UNSPECIFIED INJURY OF LEFT ELBOW, INITIA 05/28/2016 DUANE PIMENTEL APRN Ot W19.XXXA UNSPECIFIED FALL, INITIAL ENCOUNTER 05/28/2016 DUANE PIMENTEL APRN Ot Y92.[address] IN [facility] NON-INSTITUT (PRIVATE 05/28/2016 DUANE PIMENTEL RECREATION DIRECTOR Ot Y99.8 OTHER EXTERNAL CAUSE STATUS 05/28/2016 LOREN, DUANE R RECREATION DIRECTOR Ot R07.81 PLEURODYNIA 05/28/2016 DUANE PIMENTEL RECREATION DIRECTOR Ot W19.XXXA UNSPECIFIED FALL, INITIAL ENCOUNTER 05/28/2016 ZION PIMENTELAbel Smiley RECREATION DIRECTOR Ot Y99.8 OTHER EXTERNAL CAUSE STATUS 06/03/2016 DUANE PIMENTEL RECREATION DIRECTOR Ot S59.902A UNSPECIFIED INJURY OF LEFT ELBOW, INITIA 06/03/2016 ZION PIMENTELAbel Smiley RECREATION DIRECTOR Ot W19.XXXA UNSPECIFIED FALL, INITIAL ENCOUNTER 06/03/2016 ZION PIMENTELAbel Smiley RECREATION DIRECTOR Ot Y92.[address] [facility] (PRIVATE 06/03/2016 ZION PIMENTELN Baljit RECREATION DIRECTOR Ot Y99.8 OTHER EXTERNAL CAUSE STATUS 06/03/2016 ZION PIMENTELAbel Smiley RECREATION DIRECTOR Ot R07.81 PLEURODYNIA 06/03/2016 ZION PIMENTELN Baljit RECREATION DIRECTOR Ot W19.XXXA UNSPECIFIED FALL, INITIAL ENCOUNTER 06/03/2016 ZION PIMENTELAbel Smiley RECREATION DIRECTOR Ot Y99.8 OTHER EXTERNAL CAUSE STATUS 06/30/2016 CHRISTOPHER MANCUSO Ot 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 06/30/2016 CHRISTOPHER MANCUSO N Ot D50.0 IRON DEFICIENCY ANEMIA SECONDARY TO BLOO 06/30/2016 CHRISTOPHER MANCUSO N Ot E03.9 HYPOTHYROIDISM, UNSPECIFIED 06/30/2016 CHRISTOPHER MANCUSO N Ot N18.3 CHRONIC KIDNEY DISEASE, STAGE 3 (MODERAT 06/30/2016 CHRISTOPHER MANCUSO N Ot 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] 08/14/2016 BARTOLOME, BOBAN N Ot 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 08/27/2016 BARTOLOME, BOBAN N Ot 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 08/27/2016 BARTOLOME, BOBAN N Ot D50.0 IRON DEFICIENCY ANEMIA SECONDARY TO BLOO 08/27/2016 BARTOLOME, BOBAN N Ot E03.9 HYPOTHYROIDISM, UNSPECIFIED 08/27/2016 BARTOLOME, BOBAN N Ot N18.3 CHRONIC KIDNEY DISEASE, STAGE 3 (MODERAT 08/27/2016 BARTOLOME, BOBAN N Ot 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 09/27/2016 BARTOLOME, BOBAN N Ot 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 09/27/2016 BARTOLOME, BOBAN N Ot D50.0 IRON DEFICIENCY ANEMIA SECONDARY TO BLOO 09/27/2016 BARTOLOME, BOBAN N Ot E03.9 HYPOTHYROIDISM, UNSPECIFIED 09/27/2016 BARTOLOME, BOBAN N Ot N18.3 CHRONIC KIDNEY DISEASE, STAGE 3 (MODERAT 09/27/2016 BARTOLOME, BOBAN N Ot Z79.899 OTHER MCC (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 THERAPY 09/28/2016 BARTOLOME, BOBAN N Ot 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 09/28/2016 BARTOLOME, BOBAN N Ot D50.0 IRON DEFICIENCY ANEMIA SECONDARY TO BLOO 09/28/2016 BARTOLOME, BOBAN N Ot E03.9 HYPOTHYROIDISM, UNSPECIFIED 09/28/2016 BARTOLOME, BOBAN N Ot N18.3 CHRONIC KIDNEY DISEASE, STAGE 3 (MODERAT 09/28/2016 BARTOLOME, BOBAN N Ot 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 10/01/2016 BARTOLOME, BOBAN N Ot 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 10/01/2016 BARTOLOME, BOBAN N Ot D50.0 IRON DEFICIENCY ANEMIA SECONDARY TO BLOO 10/01/2016 BARTOLOMECHRISTOPHER FLOWER N Ot E03.9 HYPOTHYROIDISM, UNSPECIFIED 10/01/2016 BARTOLOMECHRISTOPHER N Ot N18.3 CHRONIC KIDNEY DISEASE, STAGE 3 (MODERAT 10/01/2016 BARTOLOMECHRISTOPHER FLOWER N Ot 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 10/02/2016 DEFFENBAUGH DO, JLUIAN D Ot D50.9 IRON DEFICIENCY ANEMIA, UNSPECIFIED 10/02/2016 DEFFENBAUGH DO, JULIAN D Ot R79.89 OTHER SPECIFIED ABNORMAL FINDINGS OF BLO 10/22/2016 DEFFENBAUGH DO, JULIAN D Ot D50.9 IRON DEFICIENCY ANEMIA, UNSPECIFIED 10/22/2016 DEFFENBAUGH DO, JULIAN D Ot R79.89 OTHER SPECIFIED ABNORMAL FINDINGS OF BLO 11/09/2016 CHRISTOPHER MANCUSO N Ot 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 11/09/2016 CHRISTOPHER MANCSUO N Ot D50.0 IRON DEFICIENCY ANEMIA SECONDARY TO BLOO 11/09/2016 BARTOLOME, BOBNICHOLE N Ot E03.9 HYPOTHYROIDISM, UNSPECIFIED 11/09/2016 BARTOLOME, BOBNICHOLE N Ot N18.3 CHRONIC KIDNEY DISEASE, STAGE 3 (MODERAT 11/09/2016 BARTOLOMECHRISTOPHER FLOWER N Ot Z79.899 OTHER MCC (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 THERAPY 11/13/2016 BARTOLOMECHRISTOPHER N Ot 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 11/13/2016 CHRISTOPHER MANCUSO N Ot D50.0 IRON DEFICIENCY ANEMIA SECONDARY TO BLOO 11/13/2016 BARTOLOMECHRISTOPHER N Ot E03.9 HYPOTHYROIDISM, UNSPECIFIED 11/13/2016 BARTOLOME, BOBAN N Ot N18.3 CHRONIC KIDNEY DISEASE, STAGE 3 (MODERAT 11/13/2016 BARTOLOMECHRISTOPHER N Ot Z79.899 OTHER MCC (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 THERAPY 12/17/2016 Ot 518.89 OTHER DISEASES OF LUNG, NEC 12/17/2016 Ot 786.50 CHEST PAIN NOS 12/17/2016 Ot 807.03 FRACTURE THREE RIBS-CLOS 12/17/2016 Ot E000.8 OTHER EXTERNAL CAUSE STATUS 12/17/2016 Ot E928.9 ACCIDENT NOS 12/17/2016 Ot 429.3 CARDIOMEGALY 12/17/2016 Ot 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 12/17/2016 LAURITA HASTINGS, MIGUEL ANGEL Ot V72.84 EXAM PRE-OPERATIVE NOS 12/17/2016 ERIKA COLBY DO Ot 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 12/17/2016 ERIKA COLBY DO Ot 535.50 UNSP GASTRITIS GASTRODUODENITIS W/O ME 12/17/2016 Ot 285.9 ANEMIA NOS 12/17/2016 Ot V72.84 EXAM PRE-OPERATIVE NOS 12/17/2016 ROSALINA MENDEZ MD Ot I73.9 PERIPHERAL VASCULAR DISEASE, UNSPECIFIED 12/17/2016 ROSALINA MENDEZ MD Ot N39.0 URINARY TRACT INFECTION, SITE NOT SPECIF 12/17/2016 CHRISTOPHER MANCUSO Ot C49.9 MALIGNANT NEOPLASM OF [...] ABDOMINAL HERNIA WITHOUT OBS 12/17/2016 ROSALINA MENDEZ MD Ot 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/O PERFORATION OR AB 12/17/2016 ROSALINA MENDEZ MD Ot R93.5 ABN FINDINGS ON DX IMAGING OF ABD REGION 12/17/2016 ABHISHEK BASILIO Ot 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 12/17/2016 ABHISHEK BASILIOP Ot E03.9 HYPOTHYROIDISM, UNSPECIFIED 12/17/2016 ABHISHEK BASILIO Ot Z79.899 OTHER MCC (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 THERAPY 12/17/2016 CHRISTOPHER MANCUSO Ot 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 12/17/2016 CHRISTOPHER MANCUSO Ot Z01.89 ENCOUNTER FOR OTHER SPECIFIED SPECIAL EX 12/17/2016 DUANE PIMENTEL APRN Ot S59.902A UNSPECIFIED INJURY OF LEFT ELBOW, INITIA 12/17/2016 LOREN, DUANE R RECREATION DIRECTOR Ot W19.XXXA UNSPECIFIED FALL, INITIAL ENCOUNTER 12/17/2016 DUANE PIMENTEL RECREATION DIRECTOR Ot Y92.[address] [facility] [address] IN [facility] NON-INSTITUT (PRIVATE 12/17/2016 DUAEN PIMENTEL RECREATION DIRECTOR Ot Y99.8 OTHER EXTERNAL CAUSE STATUS 12/17/2016 DUANE PIMENTEL RECREATION DIRECTOR Ot R07.81 PLEURODYNIA 12/17/2016 DUANE PIMENTEL RECREATION DIRECTOR Ot W19.XXXA UNSPECIFIED FALL, INITIAL ENCOUNTER 12/17/2016 DUANE PIMENTEL RECREATION DIRECTOR Ot Y99.8 OTHER EXTERNAL CAUSE STATUS 12/17/2016 CHRISTOPHER MANCUSO N Ot 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 12/17/2016 BARTOLOMECHRISTOPHER FLOWER N Ot D50.0 IRON DEFICIENCY ANEMIA SECONDARY TO BLOO 12/17/2016 BARTOLOMECHRISTOPHER FLOWER N Ot E03.9 HYPOTHYROIDISM, UNSPECIFIED 12/17/2016 BARTOLOMECHRISTOPHER FLOWER N Ot N18.3 CHRONIC KIDNEY DISEASE, STAGE 3 (MODERAT 12/17/2016 BARTOLOMECHRISTOPHER FLOWER N Ot Z79.899 OTHER MCC (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 THERAPY 12/17/2016 DEFFENBAUGH DOSANIYARY D Ot D50.9 IRON DEFICIENCY ANEMIA, UNSPECIFIED 12/17/2016 DEFFENBAUGH SANIYA NYERY D Ot R79.89 OTHER SPECIFIED ABNORMAL FINDINGS OF BLO 12/29/2016 BARTOLOMECHRISTOPHER FLOWER N Ot 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 12/29/2016 BARTOLOMECHRISTOPHER FLOWER N Ot D50.0 IRON DEFICIENCY ANEMIA SECONDARY TO BLOO 12/29/2016 CHRISTOPHER MANCUSO N Ot E03.9 HYPOTHYROIDISM, UNSPECIFIED 12/29/2016 BARTOLOMECHRISTOPHER FLOWER N Ot N18.3 CHRONIC KIDNEY DISEASE, STAGE 3 (MODERAT 12/29/2016 BARTOLOMEREXAN N Ot 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 12/29/2016 Ot 518.89 OTHER DISEASES OF LUNG, NEC 12/29/2016 Ot 786.50 CHEST PAIN NOS 12/29/2016 Ot 807.03 FRACTURE THREE RIBS-CLOS 12/29/2016 Ot E000.8 OTHER EXTERNAL CAUSE STATUS 12/29/2016 Ot E928.9 ACCIDENT NOS 12/29/2016 Ot 429.3 CARDIOMEGALY 12/29/2016 Ot 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 12/29/2016 LAURITA HASTINGS, MIGUEL ANGEL Ot V72.84 EXAM PRE-OPERATIVE NOS 12/29/2016 ERIKA COLBY DO Ot 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 12/29/2016 ERIKA COLBY DO Ot 535.50 UNSP GASTRITIS GASTRODUODENITIS W/O ME 12/29/2016 Ot 285.9 ANEMIA NOS 12/29/2016 Ot V72.84 EXAM PRE-OPERATIVE NOS 12/29/2016 ROSALINA MENDEZ MD Ot I73.9 PERIPHERAL VASCULAR DISEASE, UNSPECIFIED 12/29/2016 ROSALINA MENDEZ MD Ot N39.0 URINARY TRACT INFECTION, SITE NOT SPECIF 12/29/2016 CHRISTOPHER MANCUSO Ot C49.9 MALIGNANT NEOPLASM OF [...] IMAGING OF ABD REGION 12/29/2016 ABHISHEK BASILIO Ot 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 12/29/2016 ABHISHEK BASILIO Ot E03.9 HYPOTHYROIDISM, UNSPECIFIED 12/29/2016 ABHISHEK BASILIO Ot Z79.899 OTHER [facility] (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 THERAPY 12/29/2016 CHRISTOPHER MANCUSO Ot 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 12/29/2016 CHRISTOPHER MANCUSO Ot Z01.89 ENCOUNTER FOR OTHER SPECIFIED SPECIAL EX 12/29/2016 DUANE PIMENTEL APRN Ot S59.902A UNSPECIFIED INJURY OF LEFT ELBOW, INITIA 12/29/2016 DUANE PIMENTEL APRN Ot W19.XXXA UNSPECIFIED FALL, INITIAL ENCOUNTER 12/29/2016 DUANE PIMENTEL RECREATION DIRECTOR Ot Y92.[address] [facility] [address] IN [facility] NON-INSTITUT (PRIVATE 12/29/2016 DUANE PIMENTEL RECREATION DIRECTOR Ot Y99.8 OTHER EXTERNAL CAUSE STATUS 12/29/2016 DUANE PIMENTEL RECREATION DIRECTOR Ot R07.81 PLEURODYNIA 12/29/2016 DUANE PIMENTEL RECREATION DIRECTOR Ot W19.XXXA UNSPECIFIED FALL, INITIAL ENCOUNTER 12/29/2016 DUANE PIMENTEL RECREATION DIRECTOR Ot Y99.8 OTHER EXTERNAL CAUSE STATUS 12/29/2016 BARTOLOME, REXAN N Ot 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 12/29/2016 BARTOLOME, BOBAN N Ot D50.0 IRON DEFICIENCY ANEMIA SECONDARY TO BLOO 12/29/2016 BARTOLOME, BOBAN N Ot E03.9 HYPOTHYROIDISM, UNSPECIFIED 12/29/2016 BARTOLOME, BOBAN N Ot N18.3 CHRONIC KIDNEY DISEASE, STAGE 3 (MODERAT 12/29/2016 BARTOLOME BOBAN N Ot 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 12/29/2016 DEFFENBAUGH DOSANIYARY D Ot D50.9 IRON DEFICIENCY ANEMIA, UNSPECIFIED 12/29/2016 DEFFENBAUGH DO JULIAN D Ot R79.89 OTHER SPECIFIED ABNORMAL FINDINGS OF BLO 01/04/2017 ABHISHEK [facility]ILIO [facility] Ot 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 01/04/2017 MARTHA HASTINGS, LEE Loo Ot M48.07 SPINAL STENOSIS, LUMBOSACRAL REGION 01/04/2017 LEE THOMAS MD Ot M51.26 OTHER INTERVERTEBRAL DISC DISPLACEMENT, 01/07/2017 BARTOLOME, BOBAN N Ot 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 01/07/2017 BARTOLOME BOBAN N Ot D50.0 IRON DEFICIENCY ANEMIA SECONDARY TO BLOO 01/07/2017 BARTOLOME, BOBAN N Ot E03.9 HYPOTHYROIDISM, UNSPECIFIED 01/07/2017 BARTOLOME, BOBAN N Ot N18.3 CHRONIC KIDNEY DISEASE, STAGE 3 (MODERAT 01/07/2017 BARTOLOME, BOBAN N Ot 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 01/16/2017 BARTOLOME BOBAN N Ot 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 01/16/2017 BARTOLOME BOBAN N Ot D50.0 IRON DEFICIENCY ANEMIA SECONDARY TO BLOO 01/16/2017 CHRISTOPHER MANCUSO Ot E03.9 HYPOTHYROIDISM, UNSPECIFIED 01/16/2017 CHRISTOPHER MANCUSO Ot N18.3 CHRONIC KIDNEY DISEASE, STAGE 3 (MODERAT 01/16/2017 CHRISTOPHER MANCUSO Ot Z79.899 OTHER [facility] (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 THERAPY 01/28/2017 LEE THOMAS MD [...] 285.9 ANEMIA NOS 02/02/2017 Ot V72.84 EXAM PRE-OPERATIVE NOS 02/02/2017 ROSALINA MENDEZ MD Ot I73.9 [...] DX IMAGING OF ABD REGION 02/02/2017 ABHISHEK BASILIO RECORD CLERK SALESPERSON Ot 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 02/02/2017 ABHISHEK BASILIO RECORD CLERK SALESPERSON Ot E03.9 HYPOTHYROIDISM, UNSPECIFIED 02/02/2017 ABHISHEK BASILIO RECORD CLERK SALESPERSON Ot Z79.899 OTHER [facility] (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 THERAPY 02/02/2017 CHRISTOPHER MANCUSO Ot 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 02/02/2017 CHRISTOPHER MANCUSO Ot Z01.89 ENCOUNTER FOR OTHER SPECIFIED SPECIAL EX 02/02/2017 DUANE PIMENTEL APRN Ot S59.902A UNSPECIFIED INJURY OF LEFT ELBOW, INITIA 02/02/2017 DUANE PIMENTEL RECREATION DIRECTOR Ot W19.XXXA UNSPECIFIED FALL, INITIAL ENCOUNTER 02/02/2017 DUANE PIMENTEL APRN Ot Y92.[address] IN [facility] NON-INSTITUT (PRIVATE 02/02/2017 DUANE PIMENTEL RECREATION DIRECTOR Ot Y99.8 OTHER EXTERNAL CAUSE STATUS 02/02/2017 DUANE PIMENTEL APRN Ot R07.81 PLEURODYNIA 02/02/2017 DUANE PIMENTEL APRN Ot W19.XXXA UNSPECIFIED FALL, INITIAL ENCOUNTER 02/02/2017 DUANE PIMENTEL RECREATION DIRECTOR Ot Y99.8 OTHER EXTERNAL CAUSE STATUS 02/02/2017 JULIAN HERNANDEZ DO Ot D50.9 IRON DEFICIENCY ANEMIA, UNSPECIFIED 02/02/2017 JULIAN HERNANDEZ DO Ot R79.89 OTHER SPECIFIED ABNORMAL FINDINGS OF BLO 02/02/2017 ABHISHEK BASILIO RECORD CLERK SALESPERSON Ot 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 02/02/2017 LEE THOMAS MD Ot M48.07 SPINAL STENOSIS, LUMBOSACRAL REGION 02/02/2017 LEE THOMAS MD Ot M51.26 OTHER INTERVERTEBRAL DISC DISPLACEMENT, 02/02/2017 CHARLEY BOO DO Ot M54.16 RADICULOPATHY, LUMBAR REGION 02/02/2017 CHRISTOPHER MANCUSO Ot 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 02/02/2017 BARTOLOMECHRISTOPHER N Ot D50.0 IRON DEFICIENCY ANEMIA SECONDARY TO BLOO 02/02/2017 BARTOLOME, BOBAN N Ot E03.9 HYPOTHYROIDISM, UNSPECIFIED 02/02/2017 BARTOLOME, BOBNICHOLE N Ot N18.3 CHRONIC KIDNEY DISEASE, STAGE 3 (MODERAT 02/02/2017 BARTOLOMEREX FLOWERAN N Ot 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 02/02/2017 CHARLEY BOO DO Ot M54.16 RADICULOPATHY, LUMBAR REGION 02/03/2017 MARTHA HASTINGS, LEE Loo Ot M48.07 SPINAL STENOSIS, LUMBOSACRAL REGION 02/03/2017 LEE THOMAS MD Ot M51.26 OTHER INTERVERTEBRAL DISC DISPLACEMENT, 02/08/2017 ABHISHEK BASILIO Ot 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 02/11/2017 BARTOLOME, REXNICHOLE N Ot 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 02/11/2017 BARTOLOME, BOBNICHOLE N Ot D50.0 IRON DEFICIENCY ANEMIA SECONDARY TO BLOO 02/11/2017 BARTOLOME, BOBAN N Ot E03.9 HYPOTHYROIDISM, UNSPECIFIED 02/11/2017 BARTOLOME, BOBAN N Ot N18.3 CHRONIC KIDNEY DISEASE, STAGE 3 (MODERAT 02/11/2017 BARTOLOME, BOBAN N Ot Z79.899 OTHER MCC (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 THERAPY 02/11/2017 ABHISHEK BASILIOP Ot 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 03/19/2017 CHARLEY BOO DO Ot M54.16 RADICULOPATHY, LUMBAR REGION 03/24/2017 CHARLEY BOO DO Ot M54.16 RADICULOPATHY, LUMBAR REGION 05/02/2017 BARTOLOME, CHRISTOPHER N Ot 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 05/02/2017 BARTOLOME, BOBAN N Ot D50.0 IRON DEFICIENCY ANEMIA SECONDARY TO BLOO 05/02/2017 BARTOLOME, BOBAN N Ot E03.9 HYPOTHYROIDISM, UNSPECIFIED 05/02/2017 BARTOLOME, BOBAN N Ot N18.3 CHRONIC KIDNEY DISEASE, STAGE 3 (MODERAT 05/02/2017 BARTOLOME, BOBAN N Ot Z79.899 OTHER MCC (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 THERAPY 05/11/2017 CHRISTOPHER MANCUSO Ot 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 05/11/2017 CHRISTOPHER MANCUSO Ot D50.0 IRON DEFICIENCY ANEMIA SECONDARY TO BLOO 05/11/2017 CHRISTOPHER MANCUSO Ot E03.9 HYPOTHYROIDISM, UNSPECIFIED 05/11/2017 CHRISTOPHER MANCUSO Ot N18.3 CHRONIC KIDNEY DISEASE, STAGE 3 (MODERAT 05/11/2017 CHRISTOPHER MANCUSO Ot 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 06/09/2017 DEFFENBAUGH DO, JULIAN D Ot K28.1 ACUTE GASTROJEJUNAL ULCER WITH PERFORATI 06/09/2017 DEFFENBAUGH DO, JULIAN D Ot R74.8 ABNORMAL LEVELS OF OTHER SERUM ENZYMES 06/09/2017 DEFFENBAUGH DO, JULIAN D Ot 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 06/14/2017 DEFFENBAUGH DO, JULIAN D Ot K28.1 ACUTE GASTROJEJUNAL ULCER WITH PERFORATI 06/14/2017 DEFFENBAUGH DO, JULIAN D Ot R74.8 ABNORMAL [...] ACQUIRED ABSENCE OF OTHER SPECIFIED PART 07/31/2017 KATLIN HASTINGS, PO Wilkerson Ot E03.9 HYPOTHYROIDISM, UNSPECIFIED 07/31/2017 PO DALAL MD Ot K21.9 GASTRO-ESOPHAGEAL REFLUX DISEASE WITHOUT 07/31/2017 KATLIN HASTINGS, PO Wilkerson Ot R00.1 BRADYCARDIA, UNSPECIFIED 07/31/2017 PO DALAL MD Ot R42 DIZZINESS AND GIDDINESS 07/31/2017 KATLIN HASTINGS, PO Wilkerson Ot R51 HEADACHE 07/31/2017 KATLIN HASTINGS, PO Wilkerson Ot Z85.09 PERSONAL HISTORY OF MALIGNANT NEOPLASM O 07/31/2017 KATLIN HASTINGS, PO Wilkerson Ot Z87.19 PERSONAL HISTORY OF OTHER DISEASES OF 07/31/2017 KATLIN HASTINGS, PO Wilkerson Ot Z87.442 PERSONAL HISTORY OF URINARY CALCULI 07/31/2017 KATLIN HASTINGS, PO Wilkerson Ot Z88.1 ALLERGY STATUS TO OTHER ANTIBIOTIC AGENT 07/31/2017 KATLIN HASTINGS, PO Wilkerson Ot Z88.2 ALLERGY STATUS TO SULFONAMIDES STATUS 07/31/2017 KATLIN HASTINGS, PO Wilkerson Ot Z88.5 ALLERGY STATUS TO NARCOTIC AGENT STATUS 07/31/2017 KATLIN HASTINGS, PO Wilkerson Ot 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 08/02/2017 PO DALAL MD Ot E03.9 HYPOTHYROIDISM, UNSPECIFIED 08/02/2017 PO DALAL MD Ot K21.9 GASTRO-ESOPHAGEAL REFLUX DISEASE WITHOUT 08/02/2017 KATLIN HASTINGS, PO Wilkerson Ot R00.1 BRADYCARDIA, UNSPECIFIED 08/02/2017 KATLIN HASTINGS, PO Wilkerson Ot R42 DIZZINESS AND GIDDINESS 08/02/2017 KATLIN HASTINGS, PO Wilkerson Ot R51 HEADACHE 08/02/2017 KATLIN HASTINGS, PO Wilkerson Ot Z85.09 PERSONAL HISTORY OF MALIGNANT NEOPLASM O 08/02/2017 KATLIN HASTINGS, PO Wilkerson Ot Z87.19 PERSONAL HISTORY OF OTHER DISEASES OF 08/02/2017 KATLIN HASTINGS, PO Wilkerson Ot Z87.442 PERSONAL HISTORY OF URINARY CALCULI 08/02/2017 KATLIN HASTINGS, PO Wilkerson Ot Z88.1 ALLERGY STATUS TO OTHER ANTIBIOTIC AGENT 08/02/2017 KATLIN HASTINGS, PO Wilkerson Ot Z88.2 ALLERGY STATUS TO SULFONAMIDES STATUS 08/02/2017 PO DALAL MD Ot Z88.5 ALLERGY STATUS TO NARCOTIC AGENT STATUS 08/02/2017 KATLIN HASTINGS, PO Wilkerson Ot 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 08/06/2017 PO DALAL MD Ot E03.9 HYPOTHYROIDISM, UNSPECIFIED 08/06/2017 KATLIN HASTINGS, PO Wilkerson Ot K21.9 GASTRO-ESOPHAGEAL REFLUX DISEASE WITHOUT 08/06/2017 KATLIN HASTINGS, PO Wilkerson Ot R00.1 BRADYCARDIA, UNSPECIFIED 08/06/2017 KATLIN HASTINGS, PO Wilkerson Ot R42 DIZZINESS AND GIDDINESS 08/06/2017 KATLIN HASTINGS, PO Wilkerson Ot R51 HEADACHE 08/06/2017 KATLIN HASTINGS, PO Wilkerson Ot Z85.09 PERSONAL HISTORY OF MALIGNANT NEOPLASM O 08/06/2017 KATLIN HASTINGS, PO Wilkerson Ot Z87.19 PERSONAL HISTORY OF OTHER DISEASES OF TH 08/06/2017 KATLIN HASTINGS, PO Wilkerson Ot Z87.442 [...] 08/08/2017 BARTOLOME, BOBAN N Ot 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 08/09/2017 BARTOLOME, BOBAN N Ot 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 08/09/2017 BARTOLOME, BOBAN N Ot D50.0 IRON DEFICIENCY ANEMIA SECONDARY TO BLOO 08/09/2017 BARTOLOME, BOBAN N Ot E03.9 HYPOTHYROIDISM, UNSPECIFIED 08/09/2017 BARTOLOME, BOBAN N Ot N18.3 CHRONIC KIDNEY DISEASE, STAGE 3 (MODERAT 08/09/2017 BARTOLOME, BOBAN N Ot 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 09/21/2017 BARTOLOME, BOBAN N Ot 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 09/21/2017 BARTOLOME, BOBAN N Ot D50.0 IRON DEFICIENCY ANEMIA SECONDARY TO BLOO 09/21/2017 BARTOLOME, BOBAN N Ot E03.9 HYPOTHYROIDISM, UNSPECIFIED 09/21/2017 BARTOLOME, BOBAN N Ot N18.3 CHRONIC KIDNEY DISEASE, STAGE 3 (MODERAT 09/21/2017 BARTOLOME, BOBAN N Ot Z79.899 OTHER MCC (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 THERAPY 09/23/2017 BARTOLOME, BOBAN N Ot 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 09/23/2017 BARTOLOME, BOBAN N Ot D50.0 IRON DEFICIENCY ANEMIA SECONDARY TO BLOO 09/23/2017 BARTOLOME, BOBAN N Ot E03.9 HYPOTHYROIDISM, UNSPECIFIED 09/23/2017 BARTOLOME, BOBAN N Ot N18.3 CHRONIC KIDNEY DISEASE, STAGE 3 (MODERAT 09/23/2017 BARTOLOME, BOBAN N Ot 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 10/08/2017 ESTEBAN HASTINGS, Sky KRUSE Ot I48.91 UNSPECIFIED ATRIAL FIBRILLATION 10/13/2017 Sky ORELLANA MD Ot I48.91 UNSPECIFIED ATRIAL FIBRILLATION 11/08/2017 BARTOLOME, BOBAN N Ot 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 11/08/2017 BARTOLOME, BOBAN N Ot D50.0 IRON DEFICIENCY ANEMIA SECONDARY TO BLOO 11/08/2017 BARTOLOME, BOBAN N Ot E03.9 HYPOTHYROIDISM, UNSPECIFIED 11/08/2017 BARTOLOME, BOBAN N Ot N18.3 CHRONIC KIDNEY DISEASE, STAGE 3 (MODERAT 11/08/2017 BARTOLOME, BOBAN N Ot Z79.899 OTHER MCC (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 THERAPY 11/10/2017 BARTOLOME, BOBAN N Ot 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 11/10/2017 BARTOLOME, BOBAN N Ot D50.0 IRON DEFICIENCY ANEMIA SECONDARY TO BLOO 11/10/2017 BARTOLOME, BOBAN N Ot E03.9 HYPOTHYROIDISM, UNSPECIFIED 11/10/2017 BARTOLOME, BOBAN N Ot N18.3 CHRONIC KIDNEY DISEASE, STAGE 3 (MODERAT 11/10/2017 BARTOLOME, BOBAN N Ot Z79.899 OTHER MCC (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 THERAPY 11/16/2017 LAURITA HASTINGS, MIGUEL ANGEL Ot V72.84 EXAM PRE-OPERATIVE NOS 11/16/2017 ERIKA COLBY DO Ot 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 11/16/2017 ERIKA COLBY DO Vazquez Ot 535.50 UNSP GASTRITIS GASTRODUODENITIS W/O ME 11/16/2017 Ot 285.9 ANEMIA NOS 11/16/2017 Ot V72.84 EXAM PRE-OPERATIVE NOS 11/16/2017 ROSALINA MENDEZ MD Ot I73.9 PERIPHERAL VASCULAR DISEASE, UNSPECIFIED 11/16/2017 ROSALINA MENDEZ MD Ot N39.0 URINARY TRACT INFECTION, SITE NOT SPECIF 11/16/2017 CHRISTOPHER MANCUSO Ot 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 11/16/2017 CHRISTOPHER MANCUSO Ot K31.9 DISEASE OF STOMACH AND DUODENUM, UNSPECI 11/16/2017 CHRISTOPHER MANCUSO Ot 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/O PERFORATION OR AB 11/16/2017 CHRISTOPHER MANCUSO Ot M85.88 OTH DISRD OF BONE DENSITY AND STRUCTURE, 11/16/2017 ROSALINA MENDEZ MD Ot R10.32 LEFT LOWER QUADRANT PAIN 11/16/2017 ROSALINA MENDEZ MD Ot K46.9 UNSPECIFIED ABDOMINAL HERNIA WITHOUT OBS 11/16/2017 ROSALINA MENDEZ MD Ot 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/O PERFORATION OR AB 11/16/2017 ROSALINA MENDEZ MD Ot R93.5 ABN FINDINGS ON DX IMAGING OF ABD REGION 11/16/2017 ABHISHEK BASILIO Ot 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 11/16/2017 ABHISHEK BASILIO Ot E03.9 HYPOTHYROIDISM, UNSPECIFIED 11/16/2017 ABHISHEK BASILIO RECORD CLERK SALESPERSON Ot Z79.899 OTHER MCC (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 THERAPY 11/16/2017 CHRISTOPHER MANCUSO Ot 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 11/16/2017 CHRISTOPHER MANCUSO Ot Z01.89 ENCOUNTER FOR OTHER SPECIFIED SPECIAL EX 11/16/2017 DUANE PIMENTEL APRN Ot S59.902A UNSPECIFIED INJURY OF LEFT ELBOW, INITIA 11/16/2017 DUANE PIMENTEL APRN Ot W19.XXXA UNSPECIFIED FALL, INITIAL ENCOUNTER 11/16/2017 DUANE PIMENTEL APRN Ot Y92.[address] IN [facility] NON-INSTITUT (PRIVATE 11/16/2017 DUANE PIMENTEL APRN Ot Y99.8 OTHER EXTERNAL CAUSE STATUS 11/16/2017 LOREN DUANE Smiley APRN Ot R07.81 PLEURODYNIA 11/16/2017 LOREN DUANE Smiley APRN Ot W19.XXXA UNSPECIFIED FALL, INITIAL ENCOUNTER 11/16/2017 LOREN DUANE Smiley APRN Ot Y99.8 OTHER EXTERNAL CAUSE STATUS 11/16/2017 JULIAN HERNANDEZ DO Ot D50.9 IRON DEFICIENCY ANEMIA, UNSPECIFIED 11/16/2017 JULIAN HERNANDEZ DO Ot R79.89 OTHER SPECIFIED ABNORMAL FINDINGS OF BLO 11/16/2017 BASILIO ABHISHEK Rhea CARRASCO Ot 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 11/16/2017 LEE THOMAS MD Ot M48.07 SPINAL STENOSIS, LUMBOSACRAL REGION 11/16/2017 LEE THOMAS MD Ot M51.26 OTHER INTERVERTEBRAL DISC DISPLACEMENT, 11/16/2017 CHARLEY BOO DO Ot M54.16 RADICULOPATHY, LUMBAR REGION 11/16/2017 JULIAN HERNANDEZ DO Ot K28.1 ACUTE GASTROJEJUNAL ULCER WITH PERFORATI 11/16/2017 JULIAN HERNANDEZ DO Ot R74.8 ABNORMAL LEVELS OF OTHER SERUM ENZYMES 11/16/2017 JULIAN HERNANDEZ DO Ot 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 11/16/2017 CHRISTOPHER MANCUSO Ot 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 11/16/2017 CHRISTOPHER MANCUSO Ot D50.0 IRON DEFICIENCY ANEMIA SECONDARY TO BLOO 11/16/2017 CHRISTOPHER MANCUSO Ot E03.9 HYPOTHYROIDISM, UNSPECIFIED 11/16/2017 CHRISTOPHER MANCUSO Ot N18.3 CHRONIC KIDNEY DISEASE, STAGE 3 (MODERAT 11/16/2017 CHRISTOPHER MANCUSO Ot 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 11/16/2017 ESTEBAN HASTINGS, Sky KRUSE Ot I48.91 UNSPECIFIED ATRIAL FIBRILLATION 11/21/2017 Sky ORELLANA MD Ot I48.91 UNSPECIFIED ATRIAL FIBRILLATION 11/23/2017 Ot E89.0 POSTPROCEDURAL HYPOTHYROIDISM 11/23/2017 Ot I48.0 PAROXYSMAL ATRIAL FIBRILLATION 11/23/2017 Ot I63.9 CEREBRAL INFARCTION, UNSPECIFIED 11/23/2017 Ot K21.9 GASTRO-ESOPHAGEAL REFLUX DISEASE WITHOUT 11/23/2017 Ot N28.9 DISORDER OF KIDNEY AND URETER, UNSPECIFI 11/23/2017 Ot N30.00 ACUTE CYSTITIS WITHOUT HEMATURIA 11/23/2017 Ot Z85.850 PERSONAL HISTORY OF MALIGNANT NEOPLASM O 12/17/2017 ESTEBAN HASTINGS, Sky KRUSE Ot 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, UNSPECIFI 12/17/2017 ESTEBAN HASTINGS, Sky KRUSE Ot E03.9 HYPOTHYROIDISM, UNSPECIFIED 12/17/2017 ESTEBAN HASTINGS, Sky KRUSE Ot E78.5 HYPERLIPIDEMIA, UNSPECIFIED 12/17/2017 ESTEBAN HASTINGS, Sky KRUSE Ot I08.3 COMB RHEUMATIC DISORD OF MITRAL, AORTIC 12/17/2017 Sky ORELLANA MD Ot I25.10 ATHSCL HEART DISEASE OF [place] CORONARY 12/17/2017 Sky ORELLANA MD Ot I48.1 PERSISTENT ATRIAL FIBRILLATION 12/17/2017 ESTEBAN HASTINGS, Sky KRUSE Ot N18.3 CHRONIC KIDNEY DISEASE, STAGE 3 (MODERAT 12/17/2017 Sky ORELLANA MD Ot R53.83 OTHER FATIGUE 12/17/2017 ESTEBAN HASTINGS, Sky KRUSE Ot 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 12/17/2017 Sky ORELLANA MD Ot Z87.891 PERSONAL HISTORY OF NICOTINE DEPENDENCE 12/17/2017 CHRISTOPHER MANCUSO Ot 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 12/17/2017 CHRISTOPHER MANCUSO N Ot D50.0 IRON DEFICIENCY ANEMIA SECONDARY TO BLOO 12/17/2017 CHRISTOPHER MANCUSO N Ot E03.9 HYPOTHYROIDISM, UNSPECIFIED 12/17/2017 CHRISTOPHER MANCUSO N Ot N18.3 CHRONIC KIDNEY DISEASE, STAGE 3 (MODERAT 12/17/2017 CHRISTOPHER MANCUSO N Ot 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 12/17/2017 CHRISTOPHER MANCUSO N Ot 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 12/17/2017 CHRISTOPHER MANCUSO N Ot D50.0 IRON DEFICIENCY ANEMIA SECONDARY TO BLOO 12/17/2017 CHRISTOPHER MANCUSO N Ot E03.9 HYPOTHYROIDISM, UNSPECIFIED 12/17/2017 CHRISTOPHER MANCUSO Ot N18.3 CHRONIC KIDNEY DISEASE, STAGE 3 (MODERAT 12/17/2017 CHRISTOPHER MANCUSO Ot 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 12/17/2017 LAURITA HASTINGS, MIGUEL ANGEL Ot V72.84 EXAM PRE-OPERATIVE NOS 12/17/2017 COLBY DOERIKA Ot 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 12/17/2017 ERIKA COLBY DO Ot 535.50 UNSP GASTRITIS GASTRODUODENITIS W/O ME 12/17/2017 Ot 285.9 ANEMIA NOS 12/17/2017 Ot V72.84 EXAM PRE-OPERATIVE NOS 12/17/2017 VANESSA HASTINGS, ROSLAINA Shukla Ot I73.9 PERIPHERAL VASCULAR DISEASE, UNSPECIFIED 12/17/2017 ROSALINA MENDEZ MD Ot N39.0 URINARY TRACT INFECTION, SITE NOT SPECIF 12/17/2017 CRHISTOPHER MANCUSO Ot 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 12/17/2017 CHRISTOPHER MANCUSO Ot K31.9 DISEASE OF STOMACH AND DUODENUM, UNSPECI 12/17/2017 CHRISTOPHER MANCUSO Ot 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/O PERFORATION OR AB 12/17/2017 CHRISTOPHER MANCUSO Ot M85.88 OTH DISRD OF BONE DENSITY AND STRUCTURE, 12/17/2017 ROSALINA MENDEZ MD Ot R10.32 LEFT LOWER QUADRANT PAIN 12/17/2017 ROSALINA MENDEZ MD Ot K46.9 UNSPECIFIED ABDOMINAL HERNIA WITHOUT OBS 12/17/2017 ROSALINA MENDEZ MD Ot 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/O PERFORATION OR AB 12/17/2017 ROSALINA MENDEZ MD Ot R93.5 ABN FINDINGS ON DX IMAGING OF ABD REGION 12/17/2017 ABHISHEK BASILIO Ot 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 12/17/2017 ABHISHEK BASILIOP Ot E03.9 HYPOTHYROIDISM, UNSPECIFIED 12/17/2017 ABHISHEK BASILIO Ot 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 12/17/2017 CHRISTOPHER MANCUSO Ot 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 12/17/2017 CHRISTOPHER MANCUSO Ot Z01.89 ENCOUNTER FOR OTHER SPECIFIED SPECIAL EX 12/17/2017 LORENDUANE Baljit LYNCH Ot S59.902A UNSPECIFIED INJURY OF LEFT ELBOW, INITIA 12/17/2017 ZION PIMENTELN Baljit SYED Ot W19.XXXA UNSPECIFIED FALL, INITIAL ENCOUNTER 12/17/2017 LORENDUANE SYED Ot Y92.[address] IN [facility] NON-INSTITUT (PRIVATE 12/17/2017 LOREN DUANE Smiley APRN Ot Y99.8 OTHER EXTERNAL CAUSE STATUS 12/17/2017 LOREN DUANE Smiley APRN Ot R07.81 PLEURODYNIA 12/17/2017 LOREN DUANE Baljit SYED Ot W19.XXXA UNSPECIFIED FALL, INITIAL ENCOUNTER 12/17/2017 LOREN DUANE Baljit SYED Ot Y99.8 OTHER EXTERNAL CAUSE STATUS 12/17/2017 JULIAN HERNANDEZ DO Ot D50.9 IRON DEFICIENCY ANEMIA, UNSPECIFIED 12/17/2017 JULIAN HERNANDEZ DO Ot R79.89 OTHER SPECIFIED ABNORMAL FINDINGS OF BLO 12/17/2017 ABHISHEK BASILIO RECORD CLERK SALESPERSON Ot 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 12/17/2017 LEE THOMAS MD Ot M48.07 SPINAL STENOSIS, LUMBOSACRAL REGION 12/17/2017 LEE THOMAS MD Ot M51.26 OTHER INTERVERTEBRAL DISC DISPLACEMENT, 12/17/2017 CHARLEY BOO DO Ot M54.16 RADICULOPATHY, LUMBAR REGION 12/17/2017 JULIAN HERNANDEZ DO Ot K28.1 ACUTE GASTROJEJUNAL ULCER WITH PERFORATI 12/17/2017 JULIAN HERNANDEZ DO Ot R74.8 ABNORMAL LEVELS OF OTHER SERUM ENZYMES 12/17/2017 JULIAN HERNANDEZ DO Ot 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 12/17/2017 Sky ORELLANA MD Ot 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, UNSPECIFI 12/17/2017 Sky ORELLANA MD Ot E03.9 HYPOTHYROIDISM, UNSPECIFIED 12/17/2017 Sky ORELLANA MD Ot E78.5 HYPERLIPIDEMIA, UNSPECIFIED 12/17/2017 Sky ORELLANA MD Ot I08.3 COMB RHEUMATIC DISORD OF MITRAL, AORTIC 12/17/2017 Sky ORELLANA MDZWAN Ot I25.10 ATHSCL HEART DISEASE OF [place] CORONARY 12/17/2017 ESTEBAN HASTINGS, Sky KRUSE Ot I48.1 PERSISTENT ATRIAL FIBRILLATION 12/17/2017 ESTEBAN HASTINGS, Sky KRUSE Ot N18.3 CHRONIC KIDNEY DISEASE, STAGE 3 (MODERAT 12/17/2017 ESTEBAN HASTINGS, Sky KRUSE Ot R53.83 OTHER FATIGUE 12/17/2017 ESTEBAN HASTINGS, Sky KRUSE Ot 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 12/17/2017 ESTEBAN HASTINGS, Sky KRUSE Ot Z87.891 PERSONAL HISTORY OF NICOTINE DEPENDENCE 12/17/2017 Ot I48.91 UNSPECIFIED ATRIAL FIBRILLATION 12/17/2017 BARTOLOME, BOBAN N Ot 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 12/17/2017 BARTOLOME, BOBAN N Ot D50.0 IRON DEFICIENCY ANEMIA SECONDARY TO BLOO 12/17/2017 BARTOLOME, BOBAN N Ot E03.9 HYPOTHYROIDISM, UNSPECIFIED 12/17/2017 BARTOLOME, BOBAN N Ot N18.3 CHRONIC KIDNEY DISEASE, STAGE 3 (MODERAT 12/17/2017 BARTOLOME, BOBAN N Ot 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 12/21/2017 BARTOLOME, BOBAN N Ot 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 12/21/2017 BARTOLOME, BOBAN N Ot D50.0 IRON DEFICIENCY ANEMIA SECONDARY TO BLOO 12/21/2017 BARTOLOME, BOBAN N Ot E03.9 HYPOTHYROIDISM, UNSPECIFIED 12/21/2017 BARTOLOME, BOBAN N Ot N18.3 CHRONIC KIDNEY DISEASE, STAGE 3 (MODERAT 12/21/2017 BARTOLOME, BOBAN N Ot Z79.899 OTHER MCC (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 THERAPY 12/22/2017 BARTOLOME, BOBAN N Ot 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 12/22/2017 BARTOLOME, BOBAN N Ot D50.0 IRON DEFICIENCY ANEMIA SECONDARY TO BLOO 12/22/2017 BARTOLOME, BOBAN N Ot E03.9 HYPOTHYROIDISM, UNSPECIFIED 12/22/2017 BARTOLOME, BOBAN N Ot N18.3 CHRONIC KIDNEY DISEASE, STAGE 3 (MODERAT 12/22/2017 BARTOLOME, BOBAN N Ot 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 01/03/2018 Ot 610.0 01/03/2018 Ot V72.81 01/03/2018 Ot 786.50 01/03/2018 Ot 608.9 01/03/2018 Ot 550.90 01/03/2018 Ot 562.10 01/03/2018 Ot 550.91 01/03/2018 Ot V72.81 01/03/2018 Ot V72.83 01/03/2018 Ot V74.8 01/03/2018 Ot 550.91 01/03/2018 Ot V72.81 01/03/2018 Ot V74.8 01/03/2018 Ot 785.9 01/03/2018 Ot 611.71 MASTODYNIA 01/03/2018 Ot 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 01/03/2018 Ot 530.81 ESOPHAGEAL REFLUX 01/03/2018 Ot 518.89 OTHER DISEASES OF LUNG, NEC 01/03/2018 Ot 786.50 CHEST PAIN NOS 01/03/2018 Ot 807.03 FRACTURE THREE RIBS-CLOS 01/03/2018 Ot E000.8 OTHER EXTERNAL CAUSE STATUS 01/03/2018 Ot E928.9 ACCIDENT NOS 01/03/2018 Ot 429.3 CARDIOMEGALY 01/03/2018 Ot 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 01/03/2018 LAURITA HASTINGS, MIGUEL ANGEL Ot V72.84 EXAM PRE-OPERATIVE NOS 01/03/2018 ERIKA COLBY DO Ot 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 01/03/2018 ERIKA COLBY DO Ot 535.50 UNSP GASTRITIS GASTRODUODENITIS W/O ME 01/03/2018 Ot 285.9 ANEMIA NOS 01/03/2018 Ot V72.84 EXAM PRE-OPERATIVE NOS 01/03/2018 ROSALINA MENDEZ MD Ot I73.9 PERIPHERAL VASCULAR DISEASE, UNSPECIFIED 01/03/2018 ROSALINA MENDEZ MD Ot N39.0 URINARY TRACT INFECTION, SITE NOT SPECIF 01/03/2018 CHRISTOPHER MANCUSO Ot 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 01/03/2018 CHRISTOPHER MANCUSO Ot K31.9 DISEASE OF STOMACH AND DUODENUM, UNSPECI 01/03/2018 CHRISTOPHER MANCUSO Ot 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/O PERFORATION OR AB 01/03/2018 CHRISTOPHER MANCUSO Ot M85.88 [facility] DISRD OF BONE DENSITY AND STRUCTURE, 01/03/2018 ROSALINA MENDEZ MD Ot R10.32 LEFT LOWER QUADRANT PAIN 01/03/2018 ROSALINA MENDEZ MD Ot K46.9 UNSPECIFIED ABDOMINAL HERNIA WITHOUT OBS 01/03/2018 ROSALINA MENDEZ MD Ot 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/O PERFORATION OR AB 01/03/2018 ROSALINA MENDEZ MD Ot R93.5 ABN FINDINGS ON DX IMAGING OF ABD REGION 01/03/2018 ABHISHEK BASILIOP Ot 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 01/03/2018 ABHISHEK BASILIO RECORD CLERK SALESPERSON Ot E03.9 HYPOTHYROIDISM, UNSPECIFIED 01/03/2018 ABHISHEK BASILIOP Ot 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 01/03/2018 CHRISTOPHER MANCUSO Ot 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 01/03/2018 CHRISTOPHER MANCUSO Ot Z01.89 ENCOUNTER FOR OTHER SPECIFIED SPECIAL EX 01/03/2018 DUANE PIMENTEL APRN Ot S59.902A UNSPECIFIED INJURY OF LEFT ELBOW, INITIA 01/03/2018 DUANE PIMENTEL APRN Ot W19.XXXA UNSPECIFIED FALL, INITIAL ENCOUNTER 01/03/2018 DUANE PIMENTEL APRN Ot Y92.[address] [facility] [address] IN [facility] (PRIVATE 01/03/2018 DUANE PIMENTEL APRN Ot Y99.8 OTHER EXTERNAL CAUSE STATUS 01/03/2018 DUANE PIMENTEL APRN Ot R07.81 PLEURODYNIA 01/03/2018 DUANE PIMENTEL APRN Ot W19.XXXA UNSPECIFIED FALL, INITIAL ENCOUNTER 01/03/2018 DUANE PIMENTEL APRN Ot Y99.8 OTHER EXTERNAL CAUSE STATUS 01/03/2018 JULIAN HERNANDEZ DO Ot D50.9 IRON DEFICIENCY ANEMIA, UNSPECIFIED 01/03/2018 JULIAN HERNANDEZ DO Ot R79.89 OTHER SPECIFIED ABNORMAL FINDINGS OF BLO 01/03/2018 ABHISHEK BASILIO RECORD CLERK SALESPERSON Ot 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 01/03/2018 LEE THOMAS MD Ot M48.07 SPINAL STENOSIS, LUMBOSACRAL REGION 01/03/2018 LEE THOMAS MD Ot M51.26 OTHER INTERVERTEBRAL DISC DISPLACEMENT, 01/03/2018 CHARLEY BOO DO Ot M54.16 RADICULOPATHY, LUMBAR REGION 01/03/2018 JULIAN HERNANDEZ DO Ot K28.1 ACUTE GASTROJEJUNAL ULCER WITH PERFORATI 01/03/2018 JULIAN HERNANDEZ DO Ot R74.8 ABNORMAL LEVELS OF OTHER SERUM ENZYMES 01/03/2018 JULIAN HERNANDEZ DO Ot 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 01/03/2018 Sky ORELLANA MD Ot 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, UNSPECIFI 01/03/2018 Sky ORELLANA MD Ot E03.9 HYPOTHYROIDISM, UNSPECIFIED 01/03/2018 Sky ORELLANA MD Ot E78.5 HYPERLIPIDEMIA, UNSPECIFIED 01/03/2018 Sky ORELLANA MD Ot I08.3 COMB RHEUMATIC DISORD OF MITRAL, AORTIC 01/03/2018 Sky ORELLANA MD Ot I25.10 ATHSCL HEART DISEASE OF [place] CORONARY 01/03/2018 Sky ORELLANA MD Ot I48.1 PERSISTENT ATRIAL FIBRILLATION 01/03/2018 Sky ORELLANA MD Ot N18.3 CHRONIC KIDNEY DISEASE, STAGE 3 (MODERAT 01/03/2018 Sky ORELLANA MD Ot R53.83 OTHER FATIGUE 01/03/2018 Sky ORELLANA MD Ot Z79.01 [facility] (CURRENT) USE OF ANTICOAGULANT 01/03/2018 Sky ORELLANA MD Ot Z87.891 PERSONAL HISTORY OF NICOTINE DEPENDENCE 01/03/2018 Ot I48.91 UNSPECIFIED ATRIAL FIBRILLATION 01/03/2018 CHRISTOPHER MANCUSO Ot 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 01/03/2018 CHRISTOPHER MANCUSO Ot D50.0 IRON DEFICIENCY ANEMIA SECONDARY TO BLOO 01/03/2018 CHRISTOPHER MANCUSO Ot E03.9 HYPOTHYROIDISM, UNSPECIFIED 01/03/2018 CHRISTOPHER MANCUSO Ot I48.91 UNSPECIFIED ATRIAL FIBRILLATION 01/03/2018 CHRISTOPHER MANCUSO Ot N18.3 CHRONIC KIDNEY DISEASE, STAGE 3 (MODERAT 01/03/2018 BARTOLOME, BOBAN N Ot R00.1 BRADYCARDIA, UNSPECIFIED 01/03/2018 BARTOLOME, BOBAN N Ot R13.10 DYSPHAGIA, UNSPECIFIED 01/03/2018 BARTOLOME, BOBAN N Ot R53.1 WEAKNESS 01/03/2018 BARTOLOME, BOBAN N Ot Z79.01 [facility] (CURRENT) USE OF ANTICOAGULANT 01/03/2018 BARTOLOME, BOBAN N Ot 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 01/16/2018 BARTOLOME, BOBAN N Ot 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 01/16/2018 BARTOLOME, BOBAN N Ot D50.0 IRON DEFICIENCY ANEMIA SECONDARY TO BLOO 01/16/2018 BARTOLOME, BOBAN N Ot E03.9 HYPOTHYROIDISM, UNSPECIFIED 01/16/2018 BARTOLOME, BOBAN N Ot I48.91 UNSPECIFIED ATRIAL FIBRILLATION 01/16/2018 BARTOLOME, BOBAN N Ot N18.3 CHRONIC KIDNEY DISEASE, STAGE 3 (MODERAT 01/16/2018 BARTOLOME, BOBAN N Ot R00.1 BRADYCARDIA, UNSPECIFIED 01/16/2018 BARTOLOME, BOBAN N Ot R13.10 DYSPHAGIA, UNSPECIFIED 01/16/2018 BARTOLOME, BOBAN N Ot R53.1 WEAKNESS 01/16/2018 BARTOLOME, BOBAN N Ot Z79.01 [facility] (CURRENT) USE OF ANTICOAGULANT 01/16/2018 BARTOLOME, BOBAN N Ot 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 01/19/2018 BARTOLOME, BOBAN N Ot 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 01/19/2018 BARTOLOME, BOBAN N Ot D50.0 IRON DEFICIENCY ANEMIA SECONDARY TO BLOO 01/19/2018 BARTOLOME, BOBAN N Ot E03.9 HYPOTHYROIDISM, UNSPECIFIED 01/19/2018 BARTOLOME, BOBAN N Ot I48.91 UNSPECIFIED ATRIAL FIBRILLATION 01/19/2018 BARTOLOME, BOBAN N Ot N18.3 CHRONIC KIDNEY DISEASE, STAGE 3 (MODERAT 01/19/2018 BARTOLOME, BOBAN N Ot R00.1 BRADYCARDIA, UNSPECIFIED 01/19/2018 BARTOLOME, BOBAN N Ot R13.10 DYSPHAGIA, UNSPECIFIED 01/19/2018 BARTOLOME, BOBAN N Ot R53.1 WEAKNESS 01/19/2018 BARTOLOME, BOBAN N Ot Z79.01 [facility] (CURRENT) USE OF ANTICOAGULANT 01/19/2018 CHRISTOPHER MANCUSO Ot Z79.899 OTHER [facility] (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 THERAPY 03/01/2018 DEFFENBADEL DO, JULIAN D Ot K76.9 LIVER DISEASE, UNSPECIFIED 03/01/2018 DEFFENBAUGH DO, JULIAN D Ot N28.1 CYST OF KIDNEY, ACQUIRED 03/01/2018 DEFFENBAUGH DO JULIAN D Ot N28.89 OTHER SPECIFIED DISORDERS OF KIDNEY AND 03/01/2018 DEFFENBAUGH DO, JULIAN D Ot R14.0 ABDOMINAL DISTENSION (GASEOUS) 03/01/2018 DEFFENBAUGH DO, JULIAN D Ot 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 03/23/2018 DEFFENBAUGH DO JULIAN D Ot K76.9 LIVER DISEASE, UNSPECIFIED 03/23/2018 DEFFENBAUGH DO, JULIAN D Ot N28.1 CYST OF KIDNEY, ACQUIRED 03/23/2018 DEFFENBAUGH DO, JULIAN D Ot N28.89 OTHER SPECIFIED DISORDERS OF KIDNEY AND 03/23/2018 DEFFENBAUGH DO, JULIAN D Ot R14.0 ABDOMINAL DISTENSION (GASEOUS) 03/23/2018 DEFFENBAUGH DO, JULIAN D Ot 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 04/15/2018 CHRISTOPHER MANCUSO Ot 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 04/15/2018 CHRISTOPHER MANCUSO Ot D50.0 IRON DEFICIENCY ANEMIA SECONDARY TO BLOO 04/15/2018 CHRISTOPHER MANCUSO Ot E03.9 HYPOTHYROIDISM, UNSPECIFIED 04/15/2018 CHRISTOPHER MANCUSO Ot I48.91 UNSPECIFIED ATRIAL FIBRILLATION 04/15/2018 CHRISTOPHER MANCUSO Ot N18.3 CHRONIC KIDNEY DISEASE, STAGE 3 (MODERAT 04/15/2018 CHRISTOPHER MANCUSO Ot R00.1 BRADYCARDIA, UNSPECIFIED 04/15/2018 CHRISTOPHER MANCUSO Ot R13.10 DYSPHAGIA, UNSPECIFIED 04/15/2018 CHRISTOPHER MANCUSO Ot R53.1 WEAKNESS 04/15/2018 CHRISTOPHER MANCUSO Ot 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 04/15/2018 CHRISTOPHER MANCUSO Ot 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 04/22/2018 BARTOLOME, BOBAN N Ot 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 04/22/2018 BARTOLOME, BOBAN N Ot D50.0 IRON DEFICIENCY ANEMIA SECONDARY TO BLOO 04/22/2018 BARTOLOME, BOBAN N Ot E03.9 HYPOTHYROIDISM, UNSPECIFIED 04/22/2018 BARTOLOME, BOBAN N Ot I48.91 UNSPECIFIED ATRIAL FIBRILLATION 04/22/2018 BARTOLOME, BOBAN N Ot N18.3 CHRONIC KIDNEY DISEASE, STAGE 3 (MODERAT 04/22/2018 BARTOLOME, BOBAN N Ot R00.1 BRADYCARDIA, UNSPECIFIED 04/22/2018 BARTOLOME, BOBAN N Ot R13.10 DYSPHAGIA, UNSPECIFIED 04/22/2018 BARTOLOME, BOBAN N Ot R53.1 WEAKNESS 04/22/2018 BARTOLOME, BOBAN N Ot Z79.01 [facility] (CURRENT) USE OF ANTICOAGULANT 04/22/2018 BARTOLOME, BOBAN N Ot 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 05/19/2018 BARTOLOME, BOBAN N Ot 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 05/19/2018 BARTOLOME, BOBAN N Ot D50.0 IRON DEFICIENCY ANEMIA SECONDARY TO BLOO 05/19/2018 BARTOLOME, BOBAN N Ot E03.9 HYPOTHYROIDISM, UNSPECIFIED 05/19/2018 BARTOLOME, BOBAN N Ot I48.91 UNSPECIFIED ATRIAL FIBRILLATION 05/19/2018 BARTOLOME, BOBAN N Ot N18.3 CHRONIC KIDNEY DISEASE, STAGE 3 (MODERAT 05/19/2018 BARTOLOME, BOBAN N Ot R00.1 BRADYCARDIA, UNSPECIFIED 05/19/2018 BARTOLOME, BOBAN N Ot R13.10 DYSPHAGIA, UNSPECIFIED 05/19/2018 BARTOLOME, BOBAN N Ot R53.1 WEAKNESS 05/19/2018 BARTOLOME, BOBAN N Ot Z79.01 [facility] (CURRENT) USE OF ANTICOAGULANT 05/19/2018 BARTOLOME, BOBAN N Ot Z79.899 OTHER [facility] (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 THERAPY 05/20/2018 BARTOLOME, BOBAN N Ot 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 05/20/2018 BARTOLOME, BOBAN N Ot D50.0 IRON DEFICIENCY ANEMIA SECONDARY TO BLOO 05/20/2018 BARTOLOME, BOBAN N Ot E03.9 HYPOTHYROIDISM, UNSPECIFIED 05/20/2018 BARTOLOME, BOBAN N Ot I48.91 UNSPECIFIED ATRIAL FIBRILLATION 05/20/2018 BARTOLOME, BOBAN N Ot N18.3 CHRONIC KIDNEY DISEASE, STAGE 3 (MODERAT 05/20/2018 BARTOLOME, BOBAN N Ot R00.1 BRADYCARDIA, UNSPECIFIED 05/20/2018 BARTOLOME, BOBAN N Ot R13.10 DYSPHAGIA, UNSPECIFIED 05/20/2018 BARTOLOME, BOBAN N Ot R53.1 WEAKNESS 05/20/2018 BARTOLOME, BOBAN N Ot Z79.01 [facility] (CURRENT) USE OF ANTICOAGULANT 05/20/2018 BARTOLOME, BOBAN N Ot 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 07/29/2018 BARTOLOME, BOBAN N Ot 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 07/29/2018 BARTOLOME, BOBAN N Ot D50.0 IRON DEFICIENCY ANEMIA SECONDARY TO BLOO 07/29/2018 BARTOLOME, BOBAN N Ot E03.9 HYPOTHYROIDISM, UNSPECIFIED 07/29/2018 BARTOLOME, BOBAN N Ot I48.91 UNSPECIFIED ATRIAL FIBRILLATION 07/29/2018 BARTOLOME, BOBAN N Ot N18.3 CHRONIC KIDNEY DISEASE, STAGE 3 (MODERAT 07/29/2018 BARTOLOME, BOBAN N Ot R00.1 BRADYCARDIA, UNSPECIFIED 07/29/2018 BARTOLOME, BOBAN N Ot R13.10 DYSPHAGIA, UNSPECIFIED 07/29/2018 BARTOLOME, BOBAN N Ot R53.1 WEAKNESS 07/29/2018 BARTOLOME, BOBAN N Ot 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 07/29/2018 BARTOLOME, BOBAN N Ot 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 09/08/2018 BARTOLOME, BOBAN N Ot 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 09/08/2018 BARTOLOME, BOBAN N Ot D50.0 IRON DEFICIENCY ANEMIA SECONDARY TO BLOO 09/08/2018 BARTOLOME, BOBAN N Ot E03.9 HYPOTHYROIDISM, UNSPECIFIED 09/08/2018 BARTOLOME, BOBAN N Ot I48.91 UNSPECIFIED ATRIAL FIBRILLATION 09/08/2018 BARTOLOME, BOBAN N Ot N18.3 CHRONIC KIDNEY DISEASE, STAGE 3 (MODERAT 09/08/2018 BARTOLOME, BOBAN N Ot R00.1 BRADYCARDIA, UNSPECIFIED 09/08/2018 BARTOLOME, BOBAN N Ot R13.10 DYSPHAGIA, UNSPECIFIED 09/08/2018 BARTOLOME, BOBAN N Ot R53.1 WEAKNESS 09/08/2018 BARTOLOME, BOBAN N Ot Z79.01 [facility] (CURRENT) USE OF ANTICOAGULANT 09/08/2018 BARTOLOME, BOBAN N Ot 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 09/15/2018 BARTOLOME, BOBAN N Ot 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 09/15/2018 BARTOLOME, BOBAN N Ot D50.0 IRON DEFICIENCY ANEMIA SECONDARY TO BLOO 09/15/2018 BARTOLOME, BOBAN N Ot E03.9 HYPOTHYROIDISM, UNSPECIFIED 09/15/2018 BARTOLOME, BOBAN N Ot I48.91 UNSPECIFIED ATRIAL FIBRILLATION 09/15/2018 BARTOLOME, BOBAN N Ot N18.3 CHRONIC KIDNEY DISEASE, STAGE 3 (MODERAT 09/15/2018 BARTOLOME, BOBAN N Ot R00.1 BRADYCARDIA, UNSPECIFIED 09/15/2018 BARTOLOME, BOBAN N Ot R13.10 DYSPHAGIA, UNSPECIFIED 09/15/2018 BARTOLOME, BOBAN N Ot R53.1 WEAKNESS 09/15/2018 BARTOLOME, BOBAN N Ot 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 09/15/2018 BARTOLOME, BOBAN N Ot Z79.899 OTHER [facility] (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 THERAPY 10/26/2018 BARTOLOME, BOBAN N Ot 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 10/26/2018 BARTOLOME, BOBAN N Ot D50.0 IRON DEFICIENCY ANEMIA SECONDARY TO BLOO 10/26/2018 BARTOLOME, BOBAN N Ot E03.9 HYPOTHYROIDISM, UNSPECIFIED 10/26/2018 BARTOLOME, BOBAN N Ot I48.91 UNSPECIFIED ATRIAL FIBRILLATION 10/26/2018 BARTOLOME, BOBAN N Ot N18.3 CHRONIC KIDNEY DISEASE, STAGE 3 (MODERAT 10/26/2018 BARTOLOME, BOBAN N Ot R00.1 BRADYCARDIA, UNSPECIFIED 10/26/2018 BARTOLOME, BOBAN N Ot R13.10 DYSPHAGIA, UNSPECIFIED 10/26/2018 BARTOLOME, BOBAN N Ot R53.1 WEAKNESS 10/26/2018 BARTOLOME, BOBAN N Ot Z79.01 [facility] (CURRENT) USE OF ANTICOAGULANT 10/26/2018 BARTOLOME, BOBAN N Ot Z79.899 OTHER [facility] (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 THERAPY 11/01/2018 BARTOLOME, BOBAN N Ot 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 11/01/2018 BARTOLOME, BOBAN N Ot D50.0 IRON DEFICIENCY ANEMIA SECONDARY TO BLOO 11/01/2018 BARTOLOME, BOBAN N Ot E03.9 HYPOTHYROIDISM, UNSPECIFIED 11/01/2018 BARTOLOME, BOBAN N Ot I48.91 UNSPECIFIED ATRIAL FIBRILLATION 11/01/2018 BARTOLOME, BOBAN N Ot N18.3 CHRONIC KIDNEY DISEASE, STAGE 3 (MODERAT 11/01/2018 BARTOLOME, BOBAN N Ot R00.1 BRADYCARDIA, UNSPECIFIED 11/01/2018 BARTOLOME, BOBAN N Ot R13.10 DYSPHAGIA, UNSPECIFIED 11/01/2018 BARTOLOME, BOBAN N Ot R53.1 WEAKNESS 11/01/2018 BARTOLOME, BOBAN N Ot Z79.01 [facility] (CURRENT) USE OF ANTICOAGULANT 11/01/2018 BARTLOOME, BOBAN N Ot 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 11/03/2018 BARTOLOME, BOBAN N Ot 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 11/03/2018 BARTOLOME, BOBAN N Ot D50.0 IRON DEFICIENCY ANEMIA SECONDARY TO BLOO 11/03/2018 BARTOLOME, BOBAN N Ot E03.9 HYPOTHYROIDISM, UNSPECIFIED 11/03/2018 BARTOLOME, BOBAN N Ot I48.91 UNSPECIFIED ATRIAL FIBRILLATION 11/03/2018 BARTOLOME, BOBAN N Ot N18.3 CHRONIC KIDNEY DISEASE, STAGE 3 (MODERAT 11/03/2018 BARTOLOME, BOBAN N Ot R00.1 BRADYCARDIA, UNSPECIFIED 11/03/2018 BARTOLOME, BOBAN N Ot R13.10 DYSPHAGIA, UNSPECIFIED 11/03/2018 BARTOLOME, BOBAN N Ot R53.1 WEAKNESS 11/03/2018 BARTOLOME, BOBAN N Ot Z79.01 [facility] (CURRENT) USE OF ANTICOAGULANT 11/03/2018 BARTOLOME, BOBAN N Ot 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 Procedures Code Description Performed [...] Automated erythrocyte mean corpuscular hemoglobin concentration measurement (mass/volume) 32 g/dL 32-36 Automated erythrocyte distribution width ratio 14.2 % 10.0- 14.5 Automated blood platelet count (count/volume) 127 10*3/uL [...] Blood monocytes automated count (number/volume) 0.4 10*3 0.0- 1.0 Automated eosinophil count 0.1 10*3/uL 0.0-0.3 Automated [...] Automated erythrocyte mean corpuscular hemoglobin concentration measurement (mass/volume) 32 g/dL 32-36 Automated erythrocyte distribution width ratio 15.2 % 10.0- 14.5 Automated blood platelet count (count/volume) 163 10*3/uL [...] Blood monocytes automated count (number/volume) 0.4 10*3 0.0- 1.0 Automated eosinophil count 0.1 10*3/uL 0.0-0.3 Automated [...] Serum or plasma aspartate aminotransferase measurement (enzymatic activity/volume) 30 U/L 5-34 Serum or plasma alanine aminotransferase measurement (enzymatic activity/volume) 35 U/L 0-55 Serum or plasma protein measurement (mass/volume) 6.7 g/dL 6.4-8.2 Serum or plasma albumin measurement (mass/volume) 3.7 g/dL 3.2-4.5 Digoxin - 07/31/17 06:50 Digoxin 1.26 ng/mL 0.80-2.00 Complete blood count (CBC) with automated white blood cell (WBC) differential - 11/21/17 20:40 Blood leukocytes automated count (number/volume) 5.1 10*3/uL 4.3-11.0 Blood erythrocytes automated count (number/volume) 3.45 10*6/uL 4.35-5.85 Venous blood hemoglobin measurement (mass/volume) 10.8 g/dL 13.3-17.7 Blood hematocrit (volume fraction) 34 % 40-54 Automated erythrocyte mean corpuscular volume 98 [foz_us] 80-99 Automated erythrocyte mean corpuscular hemoglobin (mass per erythrocyte) 31 pg 25-34 Automated erythrocyte mean corpuscular hemoglobin concentration measurement (mass/volume) 32 g/dL 32-36 Automated erythrocyte distribution width ratio 15.2 % 10.0- 14.5 Automated blood platelet count (count/volume) 160 10*3/uL 130-400 Automated blood platelet mean volume measurement 9.8 [foz_us] 7.4-10.4 Automated blood neutrophils/100 leukocytes 70 % 42-75 Automated blood lymphocytes/100 leukocytes 18 % 12-44 Blood monocytes/100 leukocytes 10 % 0-12 Automated blood eosinophils/100 leukocytes 2 % 0-10 Automated blood basophils/100 leukocytes 0 % 0-10 Blood neutrophils automated count (number/volume) 3.6 10*3 1.8-7.8 Blood lymphocytes automated count (number/volume) 0.9 10*3 1.0-4.0 Blood monocytes automated count (number/volume) 0.5 10*3 0.0- 1.0 Automated eosinophil count 0.1 10*3/uL 0.0-0.3 Automated blood basophil count (count/volume) 0.0 10*3/uL 0.0-0.1 Comprehensive metabolic panel - 11/21/17 20:40 Serum or plasma sodium measurement (moles/volume) 142 mmol/L 135-145 Serum or plasma potassium measurement (moles/volume) 4.7 mmol/L 3.6-5.0 Serum or plasma chloride measurement (moles/volume) 112 mmol/L 98-107 Carbon dioxide 23 mmol/L 21-32 Serum or plasma anion gap determination (moles/volume) 7 mmol/L 5-14 Serum or plasma urea nitrogen measurement (mass/volume) 42 mg/dL 7-18 Serum or plasma creatinine measurement (mass/volume) 1.68 mg/dL 0.60-1.30 Serum or plasma urea nitrogen/creatinine mass ratio 25 NRG Serum or plasma creatinine measurement with calculation of estimated glomerular filtration rate 39 NRG Serum or plasma glucose measurement (mass/volume) 117 mg/dL 70-105 Serum or plasma calcium measurement (mass/volume) 8.8 mg/dL 8.5-10.1 Serum or plasma total bilirubin measurement (mass/volume) 0.5 mg/dL 0.1-1.0 Serum or plasma alkaline phosphatase measurement (enzymatic activity/volume) 153 U/L 40-136 Serum or plasma aspartate aminotransferase measurement (enzymatic activity/volume) 42 U/L 5-34 Serum or plasma alanine aminotransferase measurement (enzymatic activity/volume) 48 U/L 0-55 Serum or plasma protein measurement (mass/volume) 6.1 g/dL 6.4-8.2 Serum or plasma albumin measurement (mass/volume) 3.4 g/dL 3.2-4.5 Serum or plasma troponin i.cardiac measurement (mass/volume) - 11/21/17 20:40 Serum or plasma troponin i.cardiac measurement (mass/volume) < ng/mL <0.30 PT panel in platelet poor plasma by coagulation assay - 11/21/17 20:40 Prothrombin time (PT) in platelet poor plasma by coagulation assay 16.1 s 12.2-14.7 INR in platelet poor plasma or blood by coagulation assay 1.3 0.8-1.4 Activated partial thromboplastin time (aPTT) in platelet poor plasma bycoagulation assay - 11/21/17 20:40 Activated partial thromboplastin time (aPTT) in platelet poor plasma bycoagulation assay 37 s 24-35 Fibrin D-dimer FEU measurement in platelet poor plasma (mass/volume) - 11/21/17 20:40 Fibrin D-dimer FEU measurement in platelet poor plasma (mass/volume) 1.06 ug/mL 0.00-0.49 Complete urinalysis with reflex to culture - 11/21/17 20:55 Urine color determination YELLOW NRG Urine clarity determination CLEAR NRG Urine pH measurement by test strip 6 5-9 Specific gravity of urine by test strip 1.010 1.016-1.022 Urine protein assay by test strip, semi-quantitative NEGATIVE NEGATIVE Urine glucose detection by automated test strip NEGATIVE NEGATIVE Erythrocytes detection in urine sediment by light microscopy 1+ NEGATIVE Urine ketones detection by automated test strip NEGATIVE NEGATIVE Urine nitrite detection by test strip NEGATIVE NEGATIVE Urine total bilirubin detection by test strip NEGATIVE NEGATIVE Urine urobilinogen measurement by automated test strip (mass/volume) NORMAL NORMAL Urine leukocyte esterase detection by dipstick 3+ NEGATIVE Automated urine sediment erythrocyte count by microscopy (number/high power field) [HPF] NRG Automated urine sediment leukocyte count by microscopy (number/high power field) > [HPF] NRG Bacteria detection in urine sediment by light microscopy FEW NRG Crystals detection in urine sediment by light microscopy NONE NRG Casts detection in urine sediment by light microscopy NONE NRG Mucus detection in urine sediment by light microscopy NEGATIVE NRG Complete urinalysis with reflex to culture YES NRG Bacterial urine culture - 11/21/17 20:55 Bacterial urine culture [facility] NRG COLONY COUNT . NRG FTX;REPORTABLE FINAL REPORT PRINTED 11-25-2017 [id number] NR RML Sensitivity Panel - 11/21/17 20:55 Gentamicin susceptibility test by minimum inhibitory concentration <= NRG Trimethoprim/sulfamethoxazole susceptibility test by minimum inhibitoryconcentration <= NRG Levofloxacin susceptibility test by minimum inhibitory concentration <= NRG Ampicillin susceptibility test by minimum inhibitory concentration > NRG Cefazolin susceptibility test by minimum inhibitory concentration > NRG Ceftriaxone susceptibility test by minimum inhibitory concentration <= NRG Ciprofloxacin susceptibility test by minimum inhibitory concentration <= NRG Meropenem susceptibility test by minimum inhibitory concentration <= NRG Nitrofurantoin susceptibility test by minimum inhibitory concentration <= NRG Amoxicillin and clavulanate potassium susc SERGEI > NRG Capillary blood glucose measurement by glucometer (mass/volume) - 11/21/17 21:20 Capillary blood glucose measurement by glucometer (mass/volume) 88 mg/dL 70-110 Complete blood count (CBC) with automated white blood cell (WBC) differential - 11/22/17 05:32 Blood leukocytes automated count (number/volume) 4.2 10*3/uL 4.3-11.0 Blood erythrocytes automated count (number/volume) 3.45 10*6/uL 4.35-5.85 Venous blood hemoglobin measurement (mass/volume) 10.7 g/dL 13.3-17.7 Blood hematocrit (volume fraction) 34 % 40-54 Automated erythrocyte mean corpuscular volume 97 [foz_us] 80-99 Automated erythrocyte mean corpuscular hemoglobin (mass per erythrocyte) 31 pg 25-34 Automated erythrocyte mean corpuscular hemoglobin concentration measurement (mass/volume) 32 g/dL 32-36 Automated erythrocyte distribution width ratio 15.0 % 10.0- 14.5 Automated blood platelet count (count/volume) 144 10*3/uL 130-400 Automated blood platelet mean volume measurement 9.7 [foz_us] 7.4-10.4 Automated blood neutrophils/100 leukocytes 66 % 42-75 Automated blood lymphocytes/100 leukocytes 20 % 12-44 Blood monocytes/100 leukocytes 12 % 0-12 Automated blood eosinophils/100 leukocytes 3 % 0-10 Automated blood basophils/100 leukocytes 0 % 0-10 Blood neutrophils automated count (number/volume) 2.7 10*3 1.8-7.8 Blood lymphocytes automated count (number/volume) 0.8 10*3 1.0-4.0 Blood monocytes automated count (number/volume) 0.5 10*3 0.0- 1.0 Automated eosinophil count 0.1 10*3/uL 0.0-0.3 Automated blood basophil count (count/volume) 0.0 10*3/uL 0.0-0.1 Comprehensive metabolic panel - 11/22/17 05:32 Serum or plasma sodium measurement (moles/volume) 146 mmol/L 135-145 Serum or plasma potassium measurement (moles/volume) 4.6 mmol/L 3.6-5.0 Serum or plasma chloride measurement (moles/volume) 113 mmol/L 98-107 Carbon dioxide 25 mmol/L 21-32 Serum or plasma anion gap determination (moles/volume) 8 mmol/L 5-14 Serum or plasma urea nitrogen measurement (mass/volume) 38 mg/dL 7-18 Serum or plasma creatinine measurement (mass/volume) 1.50 mg/dL 0.60-1.30 Serum or plasma urea nitrogen/creatinine mass ratio 25 NRG Serum or plasma creatinine measurement with calculation of estimated glomerular filtration rate 44 NRG Serum or plasma glucose measurement (mass/volume) 86 mg/dL 70-105 Serum or plasma calcium measurement (mass/volume) 8.9 mg/dL 8.5-10.1 Serum or plasma total bilirubin measurement (mass/volume) 0.5 mg/dL 0.1-1.0 Serum or plasma alkaline phosphatase measurement (enzymatic activity/volume) 131 U/L 40-136 Serum or plasma aspartate aminotransferase measurement (enzymatic activity/volume) 33 U/L 5-34 Serum or plasma alanine aminotransferase measurement (enzymatic activity/volume) 39 U/L 0-55 Serum or plasma protein measurement (mass/volume) 5.5 g/dL 6.4-8.2 Serum or plasma albumin measurement (mass/volume) 3.0 g/dL 3.2-4.5 Lipid 1996 panel - 11/22/17 05:32 Serum or plasma triglyceride measurement (mass/volume) 30 mg/dL <150 Serum or plasma cholesterol measurement (mass/volume) 140 mg/dL < 200 Serum or plasma cholesterol in HDL measurement (mass/volume) 55 mg/dL 40-60 Cholesterol in LDL [mass/volume] in serum or plasma by direct assay 66 mg/dL 1-129 Serum or plasma cholesterol in VLDL measurement (mass/volume) 6 mg/dL 5-40 Serum or plasma C reactive protein measurement (mass/volume) - 02/21/18 15:15 Serum or plasma C reactive protein measurement (mass/volume) 0.46 mg/dL 0.00-0.50 Erythrocyte sedimentation rate by westergren method - 02/21/18 15:15 Erythrocyte sedimentation rate by westergren method 15 mm 0-30 Complete blood count (CBC) with automated white blood cell (WBC) differential - 11/06/18 22:01 Blood leukocytes automated count (number/volume) 5.9 10*3/uL 4.3-11.0 Blood erythrocytes automated count (number/volume) 3.06 10*6/uL 4.35-5.85 Venous blood hemoglobin measurement (mass/volume) 9.6 g/dL 13.3-17.7 Blood hematocrit (volume fraction) 31 % 40-54 Automated erythrocyte mean corpuscular volume 102 [foz_us] 80-99 Automated erythrocyte mean corpuscular hemoglobin (mass per erythrocyte) 31 pg 25-34 Automated erythrocyte mean corpuscular hemoglobin concentration measurement (mass/volume) 31 g/dL 32-36 Automated erythrocyte distribution width ratio 15.1 % 10.0- 14.5 Automated blood platelet count (count/volume) 197 10*3/uL 130-400 Automated blood platelet mean volume measurement 10.0 [foz_us] 7.4-10.4 Automated blood neutrophils/100 leukocytes 75 % 42-75 Automated blood lymphocytes/100 leukocytes 14 % 12-44 Blood monocytes/100 leukocytes 10 % 0-12 Automated blood eosinophils/100 leukocytes 2 % 0-10 Automated blood basophils/100 leukocytes 0 % 0-10 Blood neutrophils automated count (number/volume) 4.4 10*3 1.8-7.8 Blood lymphocytes automated count (number/volume) 0.8 10*3 1.0-4.0 Blood monocytes automated count (number/volume) 0.6 10*3 0.0- 1.0 Automated eosinophil count 0.1 10*3/uL 0.0-0.3 Automated blood basophil count (count/volume) 0.0 10*3/uL 0.0-0.1 Complete urinalysis with reflex to culture - 11/06/18 22:01 Urine color determination YELLOW NRG Urine clarity determination CLEAR NRG Urine pH measurement by test strip 5 5-9 Specific gravity of urine by test strip 1.015 1.016-1.022 Urine protein assay by test strip, semi-quantitative NEGATIVE NEGATIVE Urine glucose detection by automated test strip NEGATIVE NEGATIVE Erythrocytes detection in urine sediment by light microscopy NEGATIVE NEGATIVE Urine ketones detection by automated test strip NEGATIVE NEGATIVE Urine nitrite detection by test strip NEGATIVE NEGATIVE Urine total bilirubin detection by test strip NEGATIVE NEGATIVE Urine urobilinogen measurement by automated test strip (mass/volume) NORMAL NORMAL Urine leukocyte esterase detection by dipstick 1+ NEGATIVE Automated urine sediment erythrocyte count by microscopy (number/high power field) NONE NRG Automated urine sediment leukocyte count by microscopy (number/high power field) [HPF] NRG Bacteria detection in urine sediment by light microscopy TRACE NRG Squamous epithelial cells detection in urine sediment by light microscopy 0-2 NRG Crystals detection in urine sediment by light microscopy NONE NRG Casts detection in urine sediment by light microscopy PRESENT NRG Mucus detection in urine sediment by light microscopy NEGATIVE NRG Complete urinalysis with reflex to culture NO NRG Hyaline casts detection in urine sediment by light microscopy RARE NRG Whole blood basic metabolic panel - 11/06/18 22:01 Serum or plasma sodium measurement (moles/volume) 141 mmol/L 135-145 Serum or plasma potassium measurement (moles/volume) 5.2 mmol/L 3.6-5.0 Serum or plasma chloride measurement (moles/volume) 110 mmol/L 98-107 Carbon dioxide 19 mmol/L 21-32 Serum or plasma anion gap determination (moles/volume) 12 mmol/L 5-14 Serum or plasma urea nitrogen measurement (mass/volume) 39 mg/dL 7-18 Serum or plasma creatinine measurement (mass/volume) 1.78 mg/dL 0.60-1.30 Serum or plasma urea nitrogen/creatinine mass ratio 22 NRG Serum or plasma creatinine measurement with calculation of estimated glomerular filtration rate 36 NRG Serum or plasma glucose measurement (mass/volume) 88 mg/dL 70-105 Serum or plasma calcium measurement (mass/volume) 8.9 mg/dL 8.5-10.1 Serum or plasma lithium measurement (moles/volume) - 11/06/18 22:01 BNP PT 608.6 pg/mL <100.0 Encounters ACCT No. Visit Date/Time Discharge Status Pt. Type Provider Facility Loc./Unit Complaint [id number] 11/03/2018 10:35:00 11/03/2018 23:59:59 CLS Outpatient CHRISTOPHER MANCUSO [facility] ONC [id number] 07/28/2018 09:20:00 10/26/2018 00:01:00 DIS Outpatient CHRISTOPHER MANCUSO [facility] ONC [id number] 05/02/2018 10:17:00 05/19/2018 00:01:00 DIS Outpatient CHRISTOPHER MANCUSO [facility] ONC [id number] 02/28/2018 07:25:00 02/28/2018 23:59:59 CLS Outpatient JULIAN HERNANDEZ DO [facility] RAD ABNORMAL FINDING OF BLOOD CHEMISTY [id number] 02/21/2018 15:07:00 02/21/2018 23:59:59 CLS Outpatient JULIAN HERNANDEZ DO [facility] LAB R79.89 [id number] 12/21/2017 10:27:00 01/16/2018 00:01:00 DIS Outpatient CHRISTOPHER MANCUSO [facility] ONC [id number] 09/20/2017 10:19:00 12/17/2017 13:25:00 DIS Outpatient CHRISTOPHER MANCUSO [facility] ONC [id number] 11/18/2017 09:00:00 11/18/2017 23:59:59 CLS Outpatient Sky ORELLANA MD [facility] CATH PERSITENT ATRIAL FIBRILLATION [id number] 08/25/2017 08:30:00 08/25/2017 23:59:59 CLS Preadmit Sky ORELLANA MD [facility] CARD I48.91 AFIB [id number] 08/23/2017 09:45:00 08/23/2017 23:59:59 CLS Outpatient Sky ORELLANA MD [facility] CARD I48.91 AFIB [id number] 06/21/2017 10:38:00 08/08/2017 00:01:00 DIS Outpatient CHRISTOPHER MANCUSO [facility] ONC [id number] 07/31/2017 06:32:00 07/31/2017 08:22:00 DIS Emergency PO DALAL MD [facility] ER DIZZY [id number] 06/08/2017 08:22:00 06/08/2017 23:59:59 CLS Outpatient JULIAN HERNANDEZ DO [facility] RAD R769 [id number] [id number] 04/27/2017 14:24:00 05/02/2017 00:01:00 DIS Outpatient CHRISTOPHER MANCUSO [facility] ONC [id number] 01/21/2017 13:08:00 01/21/2017 23:59:59 CLS Outpatient CHARLEY BOO DO [facility] CARD LUMBAR RADICULOPATHY [id number] 01/06/2017 09:39:00 01/16/2017 00:01:00 DIS Outpatient BARTOLOME CHRISTOPHER Roman [facility] ONC [id number] 01/06/2017 08:25:00 01/06/2017 08:25:00 CAN Preadmit BARTOLOME CHRISTOPHER Roman [facility] ONC [id number] 01/01/2017 12:59:00 01/01/2017 23:59:59 CLS Outpatient LEE THOMAS MD [facility] RAD M54.5 [id number] 12/29/2016 09:51:00 12/29/2016 23:59:59 CLS Outpatient ABHISHEK BASILIO [facility] 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 [id number] 12/29/2016 10:00:00 12/29/2016 00:01:00 DIS Outpatient CHRISTOPHER MANCUSO [facility] ONC [id number] 10/01/2016 10:00:00 10/01/2016 23:59:59 CLS Outpatient JOSÉTEVINLATRICIA JULIAN Vazquez [facility] LAB R79.89, D50.9 [id number] 07/02/2016 15:45:00 09/27/2016 00:01:00 DIS Outpatient CHRISTOPHER MANCUSO [facility] ONC [id number] 06/29/2016 09:07:00 06/29/2016 23:59:59 CLS Outpatient CHRISTOPHER MANCUSO [facility] RAD C49.4 [id number] 05/07/2016 13:56:00 05/07/2016 23:59:59 CLS Outpatient DUANE PIMENTEL APRN [facility] RAD LEFT RIB PAIN POST FALL [id number] 05/06/2016 12:10:00 05/06/2016 23:59:59 CLS Outpatient DUANE PIMENTEL APRN [facility] RAD FALL AT HOME ON 05/03/16 [id number] 04/02/2016 09:43:00 05/03/2016 00:01:00 DIS Outpatient BARTOLOME CHRISTOPHER Roman [facility] ONC [id number] 12/05/2015 14:14:00 12/31/2015 00:01:00 DIS Outpatient CHRISTOPHER MANCUSO [facility] ONC [id number] 12/05/2015 14:12:00 12/05/2015 23:59:59 CLS Outpatient BASILIO ABHISHEK CARRASCO [facility] ONC [id number] 11/08/2015 07:59:00 11/08/2015 15:00:00 DIS Outpatient ERIKA COLBY DO [facility] LEFT INGUINAL HERNIA [id number] 11/06/2015 09:37:00 11/06/2015 12:37:00 DIS Outpatient ERIKA COLBY DO [facility] PREOP LEFT INGUINAL HERNIA [id number] 10/28/2015 11:40:00 10/28/2015 23:59:59 CLS Outpatient ROSALINA MENDEZ MD [facility] RAD ABNORMAL ABD SONO [id number] 10/17/2015 14:17:00 10/17/2015 23:59:59 CLS Outpatient ROSALINA MENDEZ MD [facility] RAD L GROIN PAIN [id number] 10/02/2015 09:16:00 10/02/2015 23:59:59 CLS Outpatient CHRISTOPHER MANCUSO [facility] RAD GIST MALIGNANT,GASTRIC MASS [id number] 07/09/2015 13:28:00 07/09/2015 15:55:00 DIS Outpatient ERIKA COLBY DO [facility] HISTORY GASTRIC MASS [id number] 07/08/2015 09:55:00 07/08/2015 10:32:00 DIS Outpatient ERIKA COLBY DO [facility] PREOP HISTORY GASTRIC MASS [id number] 01/30/2015 15:00:00 01/30/2015 17:40:00 DIS Emergency ANDERS MENDEZ MD [facility] ER CP [id number] 01/28/2015 13:00:00 01/28/2015 23:59:59 CLS Outpatient ROSALINA MENDEZ MD [facility] RAD CLAUDICATION, LT LEG DIMISHED PULSE IN LOWER LT EX [id number] 01/24/2015 09:22:00 01/24/2015 23:59:59 CLS Outpatient ROSALINA MENDEZ MD [facility] LAB URINARY TRACT INFECTION N39.0 [id number] 12/23/2014 15:17:00 12/23/2014 17:35:00 DIS Emergency RG CLINTON MD [facility] ER FEVER,PAINFUL URINATION [id number] 12/21/2014 15:46:00 12/21/2014 17:45:00 DIS Emergency RG CLINTON MD [facility] ER BLOOD IN STOOLS [id number] 12/20/2014 11:33:00 12/20/2014 23:59:59 CLS Outpatient ERIKA COLBY DO [facility] ANEMIA [id number] 10/02/2014 18:54:00 10/08/2014 10:30:00 DIS Inpatient ROSALINA MENDEZ MD [facility] CSD CVA,SYNCOPE,SEVERE ANEMIA,CP,MINOR HEAD INJ [id number] 05/17/2013 07:54:00 05/17/2013 11:30:00 DIS Outpatient MIGUEL ANGEL SHAY MD [facility] HISTORY OF [place] [id number] 05/10/2013 07:21:00 05/10/2013 23:59:59 CLS Outpatient MIGUEL ANGEL SHAY MD [facility] PREOP HISTORY OF [place] [id number] 11/06/2018 22:10:00 Document Registration [id number] 08/24/2018 09:46:00 Document Registration [id number] 01/03/2018 08:39:00 Document Registration [id number] 01/03/2018 08:39:00 Document Registration [id number] 11/22/2017 08:30:00 Document Registration [id number] 11/21/2017 20:57:00 Document Registration [id number] 12/19/2014 06:23:00 Document Registration [id number] 08/28/2011 10:06:00 Document Registration [id number] 08/24/2011 10:44:00 Document Registration [id number] 06/12/2011 10:46:00 Document Registration [id number] 04/30/2011 06:34:00 Document Registration [id number] 05/30/2010 11:08:00 Document Registration [id number] 07/09/2009 09:32:00 Document Registration [id number] 12/06/2008 09:00:00 Document Registration [id number] 06/19/2008 08:56:00 Document Registration [id number] 05/17/2008 09:13:00 Document Registration [id number] 04/02/2008 11:52:00 Document Registration [id number] 03/30/2008 06:09:00 Document Registration [id number] 03/27/2008 14:42:00 Document Registration [id number] 02/23/2007 19:46:00 Document Registration [id number] 07/27/2005 15:48:00 Document Registration
== END 2018-11-06 22:52 | disposition home or self-care (01) ==
LOC: EDUNIT# 21:36 → ER 21:37
DX: N47.1 Phimosis (principal); R60.9 Edema, unspecified; E78.00 Pure hypercholesterolemia, unspecified; I48.91 Unspecified atrial fibrillation; N18.9 Chronic kidney disease, unspecified; K21.9 Gastro-esophageal reflux disease without esophagitis; E03.9 Hypothyroidism, unspecified; Z98.1 Arthrodesis status; Z87.442 Personal history of urinary calculi; Z88.5 Allergy status to narcotic agent; Z88.2 Allergy status to sulfonamides; Z88.1 Allergy status to other antibiotic agents; Z88.8 Allergy status to other drugs, medicaments and biological substances; Z90.49 Acquired absence of other specified parts of digestive tract; Z82.49 Family history of ischemic heart disease and other diseases of the circulatory system; Z80.6 Family history of leukemia; Z80.51 Family history of malignant neoplasm of kidney
CPT/HCPCS: 36415; 71045; 80048; 81000; 83880; 85025

== ENCOUNTER 2019-01-17 13:53 | Outpatient (RCR) | payer MEDICARE ==
[2018-11-03 10:45] LABS: BASOPHILS % (AUTO) 0 % (0-10); EOSINOPHILS % (AUTO) 1 % (0-10); HEMATOCRIT 31 % (40-54); HEMOGLOBIN 9.4 G/DL (13.3-17.7); LYMPHOCYTES # (AUTO) 0.5 X 10^3 (1.0-4.0); LYMPHOCYTES % (AUTO) 12 % (12-44); MEAN CORPUSCULAR HEMOGLOBIN 31 PG (25-34); MEAN CORPUSCULAR HGB CONC 30 G/DL (32-36); MEAN CORPUSCULAR VOLUME 103 FL (80-99); MEAN PLATELET VOLUME 9.6 FL (7.4-10.4); MONOCYTES # (AUTO) 0.4 X 10^3 (0.0-1.0); MONOCYTES % (AUTO) 11 % (0-12); NEUTROPHILS # (AUTO) 3.1 X 10^3 (1.8-7.8); NEUTROPHILS % (AUTO) 77 % (42-75); PLATELET COUNT 159 10^3/uL (130-400); RED CELL DISTRIBUTION WIDTH 15.1 % (10.0-14.5); WHITE BLOOD COUNT 4.1 10^3/uL (4.3-11.0)
[2018-11-03 11:18] LABS: ALBUMIN 3.4 GM/DL (3.2-4.5); BILIRUBIN,TOTAL 0.5 MG/DL (0.1-1.0); CALCIUM 8.8 MG/DL (8.5-10.1); CREATININE SERUM 1.85 MG/DL (0.60-1.30); POTASSIUM 4.4 MMOL/L (3.6-5.0); TOTAL PROTEIN 6.1 GM/DL (6.4-8.2)
[2018-11-03 11:30] LABS: RETICULOCYTE % 1.08 % (0.50-2.40)
[2018-12-06 13:39] LABS: BASOPHILS % (AUTO) 0 % (0-10); EOSINOPHILS # (AUTO) 0.1 10^3/uL (0.0-0.3); EOSINOPHILS % (AUTO) 1 % (0-10); HEMATOCRIT 29 % (40-54); HEMOGLOBIN 8.9 G/DL (13.3-17.7); LYMPHOCYTES # (AUTO) 0.6 X 10^3 (1.0-4.0); LYMPHOCYTES % (AUTO) 16 % (12-44); MEAN CORPUSCULAR HEMOGLOBIN 31 PG (25-34); MEAN CORPUSCULAR HGB CONC 31 G/DL (32-36); MEAN CORPUSCULAR VOLUME 101 FL (80-99); MEAN PLATELET VOLUME 9.8 FL (7.4-10.4); MONOCYTES # (AUTO) 0.4 X 10^3 (0.0-1.0); MONOCYTES % (AUTO) 9 % (0-12); NEUTROPHILS % (AUTO) 73 % (42-75); PLATELET COUNT 172 10^3/uL (130-400); RED CELL DISTRIBUTION WIDTH 14.6 % (10.0-14.5); WHITE BLOOD COUNT 4.1 10^3/uL (4.3-11.0)
[2018-12-06 13:57] LABS: ALBUMIN 3.3 GM/DL (3.2-4.5); BILIRUBIN,TOTAL 0.5 MG/DL (0.1-1.0); CALCIUM 8.5 MG/DL (8.5-10.1); CREATININE SERUM 1.77 MG/DL (0.60-1.30); POTASSIUM 4.7 MMOL/L (3.6-5.0); TOTAL PROTEIN 6.1 GM/DL (6.4-8.2)
[~2019-01-17 13:53] MED LIST changes: +FERRIC CARBOXYMALTOSE (CANCER) 750 MG in NS (IVPB) CANCER CENTER 250 ML IV SCH; +FURO-124 PO
== END 2019-02-01 | disposition home or self-care (01) ==
LOC: ONC 13:53
PROVIDERS: ATTEND Internal Medicine Hematology & Oncology
DX: C49.4 Malignant neoplasm of connective and soft tissue of abdomen (principal); D50.0 Iron deficiency anemia secondary to blood loss (chronic); N18.3 Chronic kidney disease, stage 3 (moderate); I48.91 Unspecified atrial fibrillation; R00.1 Bradycardia, unspecified; R53.1 Weakness; R13.10 Dysphagia, unspecified; E03.9 Hypothyroidism, unspecified; Z79.899 Other long term (current) drug therapy; Z79.01 Long term (current) use of anticoagulants
CPT/HCPCS: 36415; 80053; 82728; 85025; 85045; 96365; 99213

== ENCOUNTER → 2019-02-02 | Outpatient (CLI) | payer MEDICARE ==
[~2019-02-02] MED LIST changes: -FERRIC CARBOXYMALTOSE (CANCER) 750 MG in NS (IVPB) CANCER CENTER 250 ML IV SCH
--- NOTE | 2019-02-02 14:35 | Diagnostic Imaging Report ---
PROCEDURE: US Scrotum. TECHNIQUE: Multiple real-time grayscale images were obtained over the scrotum in various projections bilaterally. INDICATION: Left groin pain. FINDINGS: The right testicle measures 2.8 x 1.7 x 2.4 cm and the left testicle measures 2.8 x 1.6 x 2.1 cm. Both testes show homogeneous echotexture. No discrete mass is detected. There is blood flow to both testes. Trace fluid around bilateral testicles is seen. Epididymides are unremarkable. No definite groin hernia is identified on the left. IMPRESSION: 1. No evidence of testicular mass or vascular compromise. 2. Small bilateral hydroceles. 3. No evidence of left groin hernia. Dictated by: Dictated on workstation # [id number]
== END ==
LOC: RAD 11:55
PROVIDERS: ATTEND Internal Medicine
DX: N43.3 Hydrocele, unspecified (principal); R10.30 Lower abdominal pain, unspecified
CPT/HCPCS: 76870

== ENCOUNTER 2019-03-04 11:15 | Observation (INO) | payer MEDICARE ==
[~2019-03-04] VITALS: Ht 177.8 cm; Wt 65.7 kg
--- NOTE | 2019-03-04 11:39 | NUR ---
TO ROOM NO CHANGE FROM TRIAGE.
--- NOTE | 2019-03-04 11:48 | NUR ---
AMB TO BATHROOM
--- NOTE | 2019-03-04 11:58 | ED Upper Extremity ---
General Chief Complaint: Upper Extremity Stated Complaint: FEVER - SORE ON L HAND Nursing Triage Note: PT TO TRIAGE VIA W/C WITH C/O LEFT ARM SWELLING FOR APPROX 7 DAYS. PT WAS SEEN BY DR MENDEZ AND WAS GIVEN ABX. PT STATES THAT SWELLING IMPROVED FOR ONE DAY AND THEN THE SWELLING RETURNED. Nursing Sepsis Screen: No Definite Risk Source: patient Exam Limitations: no limitations History of Present Illness Date Seen by Provider: Mar 04, 2019 Time Seen by Provider: 11:54 Initial Comments ER with reports of left arm swelling for about 7 days. Saw primary care at the onset of this and was given keflex 02/09/19 then clindamycin, initially had some improvement but subsequently had a return of the tenderness redness and swelling. Has had fevers nothing current however. He states this/ started with a scratch to the dorsal radial side of the left pointer finger, that has subsequently healed. Onset: last week Severity: moderate Pain/Injury Location: left hand Method of Injury: unknown Modifying Factors: Worse With Movement Allergies and Home Medications Allergies Coded Allergies: morphine (Verified Allergy, Mild, 12/20/14) quinine (Verified Allergy, Mild, 12/20/14) sulfamethoxazole (Verified Allergy, Unknown, 11/06/15) trimethoprim (Verified Allergy, Unknown, 11/06/15) digoxin (Verified Adverse Reaction, Unknown, bradycardia, 11/22/17) Home Medications Apixaban 2.5 Mg Tablet, 2.5 MG PO BID, (Reported) Calcium Carbonate/Vitamin D3 1 Each Tablet, 1 TAB PO DAILY, (Reported) Cephalexin 500 Mg Capsule, 500 MG PO BID Prescribed by: MISTY HAGEN on 11/23/17 0845 Cyanocobalamin (Vitamin B-12) 1,000 Mcg Tablet, 1,000 MCG PO DAILY, (Reported) Ferrous Sulfate 325 Mg Tablet, 325 MG PO DAILY, (Reported) Furosemide 40 Mg Tablet, 40 MG PO DAILY Prescribed by: SRAVANI OCAMPO on 11/06/187 Hyoscyamine Sulfate 0.125 Mg Tab.subl, 0.125 MG SL AC, (Reported) Levothyroxine Sodium 88 Mcg Tablet, 88 MCG PO DAILY, (Reported) Magnesium Oxide 250 Mg Tablet, 250 MG PO DAILY, (Reported) Oxybutynin Chloride 10 Mg Tab.er.24, 10 MG PO DAILY, (Reported) Oxycodone HCl 5 Mg Tablet, 5 MG PO TID PRN for PAIN-SEVERE, (Reported) Pantoprazole Sodium 40 Mg Tablet.dr, 40 MG PO DAILY, (Reported) Simvastatin 20 Mg Tablet, 10 MG PO HS, (Reported) TAKES 1/2 (20MG) TABLET Patient Home Medication List Home Medication List Reviewed: Yes Review of Systems Constitutional: see HPI EENTM: see HPI Respiratory: no symptoms reported Cardiovascular: no symptoms reported Genitourinary: no symptoms reported Musculoskeletal: see HPI Skin: no symptoms reported Psychiatric/Neurological: No Symptoms Reported Past Vmgsxwy-Fgcfeu-Oumbli Hx Patient Social History Alcohol Use: Denies Use Recreational Drug Use: No Smoking Status: Never a Smoker 2nd Hand Smoke Exposure: No Recent Foreign Travel: No Contact w/Someone Who Travel: No Recent Infectious Disease Expo: No Recent Hopitalizations: No Physical Abuse: No Sexual Abuse: No Mistreated: No Fear: No Immunizations Up To Date Tetanus Booster (TDap): Less than 5yrs Date of Pneumonia Vaccine: Jan 17, 2015 Date of Influenza Vaccine: Jan 17, 2015 Seasonal Allergies Seasonal Allergies: No Past Medical History Surgeries: Yes (TUMOR REMOVED FROM STOMACH IN FEBRUARY OF THIS YEAR) Abdominal, Appendectomy, Cardiac, Gallbladder, Orthopedic, Thyroidectomy Respiratory: No Currently Using CPAP: No Currently Using BIPAP: No Cardiac: Yes (HX HEART MURMUR) Atrial Fibrillation, Chronic Edema/Swelling, Heart Murmur, High Cholesterol Neurological: No Reproductive Disorders: No Sexually Transmitted Disease: No HIV/AIDS: No Genitourinary: Yes (CHRONIC RENAL INSUFFICIENCY) Kidney Stones, Renal Failure 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) Gastroesophageal Reflux Musculoskeletal: Yes ( neck fusion, FX STERNUM 1996) Arthritis Endocrine: Yes Hypothyroidsim HEENT: Yes Loss of Vision: Bilateral Hearing Impairment: Hard of Hearing, Bilateral Hearing Aide Cancer: Yes Stomach Did You Recieve Any Treatments: Yes What Type of Treatment Did You: Chemotherapy, Surgical Intervention 20% OF STOMACH REMOVED Psychosocial: No Integumentary: Yes (DRY SKIN, THIN SKIN) Blood Disorders: Yes (ANEMIA) Adverse Reaction/Blood Tranf: No (HAS HAD BLOOD WITH NO REACTION) Family Medical History Congenital heart disease 19 FATHER 19 MOTHER FH: renal cell carcinoma G8 SISTER Leukemia G8 BROTHER G8 BROTHER No Pertinent Family Hx Physical Exam Vital Signs Vital Signs - First Documented 03/04/19 11:26 Temp 37.0 Pulse 94 Resp 17 B/P (MAP) 103/58 (73) O2 Delivery Room Air Capillary Refill : Less Than 3 Seconds Height, Weight, BMI Height: 5'10.00" Weight: 145lbs. 0.0oz. 65.108980nu; 18.00 BMI Method:Stated General Appearance: WD/WN, no apparent distress Respiratory: no respiratory distress, no accessory muscle use Shoulder: normal inspection, non-tender (hours I did see something) Elbow/Forearm: normal inspection, non-tender, Left Wrist: Yes swelling (erythema swelling tenderness volar surface of the wrist) Hand: Left, soft tissue tenderness, swelling (swelling to the dorsal aspect of the hand tenderness to palpation slight erythema no open wounds or drainage, difficulty closing his hand into a fist because of swelling and pain.) Neurologic/Tendon: normal sensation, normal motor functions Neurologic/Psychiatric: alert, normal mood/affect, oriented x 3 Skin: normal color, warm/dry Progress/Results/Core Measures Results/Orders Lab Results Laboratory Tests Test 03/04/19 12:02 03/04/19 12:41 Range/Units Lactic Acid Level 1.13 0.50-2.00 MMOL/L White Blood Count 5.7 4.3-11.0 10^3/uL Red Blood Count 2.58 L 4.35-5.85 10^6/uL Hemoglobin 8.0 L 13.3-17.7 G/DL Hematocrit 27 L 40-54 % Mean Corpuscular Volume 104 H 80-99 FL Mean Corpuscular Hemoglobin 31 25-34 PG Mean Corpuscular Hemoglobin Concent 30 L 32-36 G/DL Red Cell Distribution Width 14.0 10.0-14.5 % Platelet Count 180 130-400 10^3/uL Mean Platelet Volume 9.7 7.4-10.4 FL Neutrophils (%) (Auto) 75 42-75 % Lymphocytes (%) (Auto) 10 L 12-44 % Monocytes (%) (Auto) 15 H 0-12 % Eosinophils (%) (Auto) 0 0-10 % Basophils (%) (Auto) 0 0-10 % Neutrophils # (Auto) 4.2 1.8-7.8 X 10^3 Lymphocytes # (Auto) 0.6 L 1.0-4.0 X 10^3 Monocytes # (Auto) 0.9 0.0-1.0 X 10^3 Eosinophils # (Auto) 0.0 0.0-0.3 10^3/uL Basophils # (Auto) 0.0 0.0-0.1 10^3/uL Sodium Level 142 135-145 MMOL/L Potassium Level 4.8 3.6-5.0 MMOL/L Chloride Level 111 H 98-107 MMOL/L Carbon Dioxide Level 23 21-32 MMOL/L Anion Gap 8 5-14 MMOL/L Blood Urea Nitrogen 46 H 7-18 MG/DL Creatinine 2.01 H 0.60-1.30 MG/DL Estimat Glomerular Filtration Rate 32 BUN/Creatinine Ratio 23 Glucose Level 103 70-105 MG/DL Calcium Level 8.1 L 8.5-10.1 MG/DL Corrected Calcium 8.7 8.5-10.1 MG/DL Total Bilirubin 0.5 0.1-1.0 MG/DL Aspartate Amino Transf (AST/SGOT) 25 5-34 U/L Alanine Aminotransferase (ALT/SGPT) 26 0-55 U/L Alkaline Phosphatase 181 H 40-136 U/L Total Protein 6.1 L 6.4-8.2 GM/DL Albumin 3.2 3.2-4.5 GM/DL My Orders Orders - SRAVANI OCAMPO APRN Cbc With Automated Diff (03/04/19 11:49) Comprehensive Metabolic Panel (03/04/19 11:49) Ed Iv/Invasive Line Start (03/04/19 11:49) Blood Culture (03/04/19 11:49) Lactic Acid Analyzer (03/04/19 11:49) Hand, Left, 3 Views (03/04/19 11:59) Vancomycin Injection (Vancomycin Injecti (03/04/19 12:00) Ceftriaxone For Iv Use (Rocephin For I (03/04/19 12:45) Medications Given in ED Vital Signs/I&O 03/04/19 11:26 Temp 37.0 Pulse 94 Resp 17 B/P (MAP) 103/58 (73) O2 Delivery Room Air Blood Pressure Mean: 73 POS Diagnostic Imaging Diagonstic Imaging: Xray Comments NAME: SHIRLEY PATEL [facility] REC#: [id number] PT STATUS: REG ER : 1930 PHYSICIAN: SRAVANI OCAMPO APRN ADMIT DATE: 03/04/19/ER Signed POSDate of Exam:03/04/19 HAND, LEFT, 3 VIEWS PATIENT HISTORY: Left arm swelling. TECHNIQUE: Three views of the left hand. COMPARISON: None. FINDINGS: There is diffuse osteopenia. No acute fracture is seen in the left hand. Alignment appears normal. A small hyperdensity is seen lateral to the triscaphe joint, may be from prior surgery or a foreign body. There are moderate degenerative changes at the basal joints of the thumb. There is mild soft tissue swelling about the left wrist. IMPRESSION: 1. No acute osseous abnormality is seen in the left hand. 2. Moderate degenerative changes at the basal joints of the left thumb. 3. Hyperdensity lateral to the triscaphe joint, may be a foreign body or from prior surgery. Dictated by: Dictated on workstation # [id number] Dict: 03/04/19 1241 Trans: 03/04/19 1255 [id number] Interpreted by: FREDERICK MCGRATH MD Electronically signed by: FREDERICK MCGRATH MD 03/04/19 1255 Departure Communication (Admissions) Time/Spoke to Admitting Phy: 13:[address] Oakes, agrees to admit on just vancomycin given the failed outpatient therapy. He has also had some issues with swallowing recently, is on a thickened liquid diet, scheduled to see Dr. Gr for a swallow study next week. I also discussed the dysphasia with Dr. Gr, he'll move up the swallow study to Wednesday, there is no value to having him consult during this admission however. X-ray shows foreign body in the wrist, small metallic. Patient states he doesn't know about anything in there but he is unaware of any activity that could've c ontributed to this and recent time. Unsure how long its been there but is in a different place from the initial laceration to the pointer finger which seems to be the nidus of this infection. Impression Primary Impression: Cellulitis of left hand Additional Impression: failure of outpatient antibiotics Disposition: ADMITTED INPATIENT Condition: Stable Admissions Decision to Admit Reason: Admit from ER (General) Decision to Admit/Date: Mar 04, 2019 Time/Decision to Admit Time: 11:57 Departure-Patient Inst. Referrals: ROSALINA MENDEZ MD (PCP/Family) Primary Care Physician SRAVANI OCAMPO APRN Mar 04, 2019 11:58 POS
[2019-03-04] MEDS ORDERED: VANCOMYCIN INJECTION 1,000 MG in NS (IVPB) 250 ML IV SCH (12:00)
--- NOTE | 2019-03-04 12:11 | NUR ---
LAB HERE TO DRAW 2ND BLOOD CULTURE.
[2019-03-04] MEDS ORDERED: cefTRIAXone FOR IV USE 1,000 MG in WATER (STERILE) FOR INJECTION 10 ML IV ONE (12:45)
--- NOTE | 2019-03-04 12:45 | NUR ---
CBC AND CHEM TUBE REDRAWN PER LAB REQUEST.
--- NOTE | 2019-03-04 12:48 | Diagnostic Imaging Report ---
PATIENT HISTORY: Left arm swelling. TECHNIQUE: Three views of the left hand. COMPARISON: None. FINDINGS: There is diffuse osteopenia. No acute fracture is seen in the left hand. Alignment appears normal. A small hyperdensity is seen lateral to the triscaphe joint, may be from prior surgery or a foreign body. There are moderate degenerative changes at the basal joints of the thumb. There is mild soft tissue swelling about the left wrist. IMPRESSION: 1. No acute osseous abnormality is seen in the left hand. 2. Moderate degenerative changes at the basal joints of the left thumb. 3. Hyperdensity lateral to the triscaphe joint, may be a foreign body or from prior surgery. Dictated by: Dictated on workstation # [id number]
[2019-03-04 12:51] LABS: BASOPHILS % (AUTO) 0 % (0-10); EOSINOPHILS % (AUTO) 0 % (0-10); HEMATOCRIT 27 % (40-54); LYMPHOCYTES # (AUTO) 0.6 X 10^3 (1.0-4.0); LYMPHOCYTES % (AUTO) 10 % (12-44); MEAN CORPUSCULAR HEMOGLOBIN 31 PG (25-34); MEAN CORPUSCULAR HGB CONC 30 G/DL (32-36); MEAN CORPUSCULAR VOLUME 104 FL (80-99); MEAN PLATELET VOLUME 9.7 FL (7.4-10.4); MONOCYTES # (AUTO) 0.9 X 10^3 (0.0-1.0); MONOCYTES % (AUTO) 15 % (0-12); NEUTROPHILS # (AUTO) 4.2 X 10^3 (1.8-7.8); NEUTROPHILS % (AUTO) 75 % (42-75); PLATELET COUNT 180 10^3/uL (130-400); WHITE BLOOD COUNT 5.7 10^3/uL (4.3-11.0)
[2019-03-04 13:07] LABS: ALBUMIN 3.2 GM/DL (3.2-4.5); BILIRUBIN,TOTAL 0.5 MG/DL (0.1-1.0); CALCIUM 8.1 MG/DL (8.5-10.1); CREATININE SERUM 2.01 MG/DL (0.60-1.30); POTASSIUM 4.8 MMOL/L (3.6-5.0); TOTAL PROTEIN 6.1 GM/DL (6.4-8.2)
[2019-03-04 14:39] VITALS: BP 117/48
--- NOTE | 2019-03-04 14:40 | NUR ---
Vancomycin - dose renally adjusted to 500mg every 24 hours. CrCl = 23ml/min using actual bodywt.
[2019-03-04] MEDS ORDERED: HYDROcodone/APAP 5 MG/325 MG (LORTAB) TAB PO PRN (14:45)
[2019-03-04] MEDS: NS IV 1000 ML 1,000 ML IV SCH (15:28)
--- NOTE | 2019-03-04 15:30 | NUR ---
Shirley Patel] admitted to room 419-1, with an admitting diagnosis of Cellulitis L hand, on 03/04/19 from [place] via , accompanied by .SHIRLEY PATEL introduced to surroundings, call light, bed controls, phone, TV, temperature control, lights, meal times, smoking policy, visitor policy, side rail policy, bathrooms and showers. Patient Rights given to patient in the handbook.
[2019-03-04 16:00] VITALS: BP 132/56
[2019-03-04 20:00] VITALS: BP 111/63
[2019-03-05] VITALS: BP 123/69
[2019-03-05] MEDS: NS IV 1000 ML 1,000 ML IV SCH ×3 (01:30→22:36)
[2019-03-05 04:00] VITALS: BP 120/69
[2019-03-05 07:39] LABS: BASOPHILS % (AUTO) 0 % (0-10); EOSINOPHILS # (AUTO) 0.1 10^3/uL (0.0-0.3); EOSINOPHILS % (AUTO) 1 % (0-10); HEMATOCRIT 28 % (40-54); HEMOGLOBIN 8.3 G/DL (13.3-17.7); LYMPHOCYTES # (AUTO) 0.6 X 10^3 (1.0-4.0); LYMPHOCYTES % (AUTO) 12 % (12-44); MEAN CORPUSCULAR HEMOGLOBIN 31 PG (25-34); MEAN CORPUSCULAR HGB CONC 30 G/DL (32-36); MEAN CORPUSCULAR VOLUME 103 FL (80-99); MONOCYTES # (AUTO) 0.5 X 10^3 (0.0-1.0); MONOCYTES % (AUTO) 10 % (0-12); NEUTROPHILS # (AUTO) 3.5 X 10^3 (1.8-7.8); NEUTROPHILS % (AUTO) 76 % (42-75); PLATELET COUNT 168 10^3/uL (130-400); RED CELL DISTRIBUTION WIDTH 13.8 % (10.0-14.5); WHITE BLOOD COUNT 4.6 10^3/uL (4.3-11.0)
[2019-03-05 08:00] VITALS: BP 130/69
[2019-03-05 08:07] LABS: CALCIUM 8.1 MG/DL (8.5-10.1); CREATININE SERUM 1.83 MG/DL (0.60-1.30); POTASSIUM 4.8 MMOL/L (3.6-5.0)
[2019-03-05] MEDS: LEVOTHYROXINE 88 MCG (LEVOTHORID) TAB PO SCH (08:09)
[2019-03-05] MEDS: APIXABAN 2.5 MG (ELIQUIS) TABLET PO SCH ×3 (10:06→20:26)
[2019-03-05] MEDS: FUROSEMIDE 40 MG (LASIX) TAB PO SCH (10:06)
[2019-03-05] MEDS: VANCOMYCIN 500 MG/NS 100 ML IV SCH ×2 (10:08)
[2019-03-05] MEDS ORDERED: KCL 10 MEQ TAB (MICRO K) PO ONE (10:15)
[2019-03-05] MEDS ORDERED: ONDANSETRON 4 MG/2 ML (SDV) Z0FRAN IV PRN (10:30)
[2019-03-05] MEDS ORDERED: ONDANSETRON 4 MG (ZOFRAN) ORAL DISSOLVE TAB PO PRN (10:30)
[2019-03-05] MEDS ORDERED: PATIENT MAY USE OWN MEDS, ALL PO SCH (10:30)
[2019-03-05] MEDS ORDERED: ACETAMINOPHEN 325 MG TABLET PO PRN (10:30)
[2019-03-05] MEDS ORDERED: MELATONIN 3 MG TABLET PO PRN (10:30)
[2019-03-05] MEDS ORDERED: ANTACID SUSP 30 ML UDC (MYLANTA) PO PRN (10:30)
[2019-03-05] MEDS ORDERED: POLYETHYLENE GLYCOL 17 GM (MIRALAX) PACK PO PRN (10:30)
[2019-03-05 12:00] VITALS: BP 117/58
[2019-03-05] MEDS: HYOSCYAMINE 0.125 MG (LEVSIN) TAB SL SCH ×2 (12:08→16:54)
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
--- NOTE | 2019-03-05 14:05 | Diagnostic Imaging Report ---
PROCEDURE: CT left upper extremity without contrast. TECHNIQUE: Multiple contiguous axial images were obtained through the left upper extremity without the use of intravenous contrast. Auto Exposure Controls were utilized during the CT exam to meet ALARA standards for radiation dose reduction. INDICATION: Left arm cellulitis with decreased mobility. COMPARISON: Radiographs from 03/04/2019 FINDINGS: No acute fracture is seen in the left forearm. There is diffuse osteopenia. No elbow joint effusion is seen. There is diffuse subcutaneous and superficial fascial edema. There appears to be mild deep fascial edema as well, but no soft tissue gas or fluid collections are seen on this noncontrast exam. No cortical erosions are seen. No muscular atrophy is appreciated. IMPRESSION: 1. Extensive superficial soft tissue edema in the left forearm with mild deep soft tissue edema. No drainable fluid collections are seen on this noncontrast exam. No soft tissue gas is seen. 2. No acute osseous abnormality seen in the left forearm. Dictated by: Dictated on workstation # [id number]
[2019-03-05 16:00] VITALS: BP 154/69
[2019-03-05 20:00] VITALS: BP 136/59
[2019-03-05] MEDS: DOCUSATE SODIUM 100 MG (COLACE) CAP PO SCH (20:30)
[2019-03-05] MEDS ORDERED: SIMvastatin 20 MG (ZOCOR) TAB PO SCH (21:00)
[2019-03-06 00:05] VITALS: BP 114/66
[2019-03-06 04:00] VITALS: BP 121/78
[2019-03-06] MEDS: HYOSCYAMINE 0.125 MG (LEVSIN) TAB SL SCH ×2 (05:23→12:30)
[2019-03-06] MEDS: LEVOTHYROXINE 88 MCG (LEVOTHORID) TAB PO SCH (05:23)
[2019-03-06 05:45] LABS: CALCIUM 7.7 MG/DL (8.5-10.1); CREATININE SERUM 1.72 MG/DL (0.60-1.30); POTASSIUM 4.3 MMOL/L (3.6-5.0)
[2019-03-06 08:00] VITALS: BP 138/65
[2019-03-06] MEDS ORDERED: KCL 10 MEQ TAB (MICRO K) PO NR (08:00)
[2019-03-06] MEDS ORDERED: PATIENT MAY USE OWN MEDS, ALL MC SCH (08:00)
[2019-03-06] MEDS ORDERED: FURO20TA4 PO (08:23)
[2019-03-06] MEDS ORDERED: POTA10TA10 PO (08:23)
[2019-03-06] MEDS ORDERED: SIMV40TA4 PO (08:23)
[2019-03-06] MEDS ORDERED: PEG15DRO9 OU (08:25)
[2019-03-06] MEDS ORDERED: CLIN300C11 PO (08:25)
[2019-03-06] MEDS ORDERED: KCL 10 MEQ TAB (MICRO K) PO SCH (08:33)
[2019-03-06] MEDS ORDERED: PANT40TA2 PO (09:01)
[2019-03-06] MEDS ORDERED: OXYB10TA PO (09:01)
[2019-03-06] MEDS ORDERED: HYOS-19 SL (09:01)
--- NOTE | 2019-03-06 09:03 | NUR ---
SPOKE WITH PT (AND HIS SON WHO HELPS WITH HIS MEDS) WENT THRU THE EXT MED HISTORY [facility] PT (AND HIS SON) WERE ABLE TO TELL ME HIS MEDICATIONS AND HOW/WHEN HE TAKES THEM. THE FOLLOWING ARE FILL DATES NOT SHOWN ON THE EXT MED HISTORY: 11-25-2017 OXYCODONE 5MG #60 (USES PRN) 12-09-2018 HYOSCYAMINE #270/90DS 01-16-2019 LEVOTHYROXINE #90/90DS 01-16-2019 OXYBUTYNIN #90/90DS 01-16-2019 SIMVASTATIN #45/90DS 02-05-2019 PANTOPRAZOLE #90/90DS 02-16-2019 ELIQUIS #60/30DS OTC MEDS: VIT B12 MAGNESIUM IRON CALCIUM WITH VIT D DRY EYE DROPS
[2019-03-06] MEDS: VANCOMYCIN 500 MG/NS 100 ML IV SCH ×2 (10:20)
[2019-03-06] MEDS ORDERED: DOXY100T2 PO (11:28)
--- NOTE | 2019-03-06 11:40 | Discharge Summary ---
Diagnosis/Chief Complaint Date of Admission Mar 04, 2019 at 12:28 Date of Discharge Discharge Date: Mar 06, 2019 Admission Diagnosis Cellulitis Primary Care Juan Bettencourt MD Discharge Diagnosis (1) Cellulitis of left wrist Status: Acute Discharge Summary Procedures/Consulations Dr Gr- Surgery Discharge Physical Exam Allergies: Coded Allergies: morphine (Verified Allergy, Mild, 12/20/14) quinine (Verified Allergy, Mild, 12/20/14) sulfamethoxazole (Verified Allergy, Unknown, 11/06/15) trimethoprim (Verified Allergy, Unknown, 11/06/15) digoxin (Verified Adverse Reaction, Unknown, bradycardia, 11/22/17) Vitals & I&Os Vital Signs Date Time Temp Pulse Resp B/P (MAP) Pulse Ox O2 Delivery O2 Flow Rate FiO2 03/06/19 08:00 Room Air 03/06/19 08:00 36.8 80 20 138/65 (89) 91 General Appearance: No Apparent Distress, Thin Respiratory: Lungs Clear, No Respiratory Distress Cardiovascular: Regular Rate, Rhythm, No Murmur Neurologic/Psychiatric: Alert, Oriented x3 Hospital Course Pt was admitted due to cellulitis of left wrist after failing outpatient management. He had quite pronounced edema and CT wrist was done which just revealed soft tissue edema and no gas. He was started on Vancomycin and improved dramatically. He was transitioned to doxycycline for discharge and is to follow up with his PCP this week. He was seen by Dr Gr as well due to dysphagia and barium swallow was done. Labs (last 24 hrs) Laboratory Tests 03/06/19 04:45: Sodium Level 142, Potassium Level 4.3, Chloride Level 114H, Carbon Dioxide Level 20L, Anion Gap 8, Blood Urea Nitrogen 39H, Creatinine 1.72H, Estimat Glomerular Filtration Rate 38, BUN/Creatinine Ratio 23, Glucose Level 96, Calcium Level 7.7L Microbiology 03/04/19 Blood Culture - Preliminary, Resulted No growth Patient resulted labs reviewed. Pending Labs Laboratory Tests 03/06/19 04:45: Sodium Level 142, Potassium Level 4.3, Chloride Level 114, Carbon Dioxide Level 20, Anion Gap 8, Blood Urea Nitrogen 39, Creatinine 1.72, Estimat Glomerular Filtration Rate 38, BUN/Creatinine Ratio 23, Glucose Level 96, Calcium Level 7.7 Imaging: Reviewed Imaging Report Discussion & Recommendations Discharge Planning: >30 minutes discharge planning Discharge Home Medications: Active Scripts Active Doxycycline Hyclate 100 Mg Tablet 100 Mg PO BID Reported Protonix (Pantoprazole Sodium) 40 Mg Tablet.dr 40 Mg PO DAILY Oxybutynin Chloride ER (Oxybutynin Chloride) 10 Mg Tab.er.24 10 Mg PO DAILY Hyoscyamine Sulfate 0.125 Mg Tab.subl 0.125 Mg SL TIDAC PRN Visine Dry Eye Relief Drop (Peg 400/Hypromellose/Glycerin) 15 Ml Drops 2 Ml OU PRN PRN Clindamycin HCl 300 Mg Capsule 300 Mg PO QID PICKED UP A 7 DAY SUPPLY ON 02-27-2019 Furosemide 20 Mg Tablet 20 Mg PO DAILY Potassium Chloride 10 Meq Tablet.er 10 Meq PO DAILY Simvastatin 40 Mg Tablet 20 Mg PO DAILY TAKES 1/2 OF A 40MG TO EQUAL 20MG DAILY Oxycodone HCl 5 Mg Tablet 5 Mg PO TID PRN LAST FILLED 11-25-2017 #60 Eliquis (Apixaban) 2.5 Mg Tablet 2.5 Mg PO BID Calcium 500 + Vit D 200 Caplet (Calcium Carbonate/Vitamin D3) 1 Each Tablet 1 Tab PO DAILY Magnesium Oxide 250 Mg Tablet 250 Mg PO DAILY Levothyroxine Sodium 88 Mcg Tablet 88 Mcg PO DAILY B-12 (Cyanocobalamin (Vitamin B-12)) 1,000 Mcg Tablet 1,000 Mcg PO DAILY Iron (Ferrous Sulfate) 325 Mg Tablet 325 Mg PO DAILY Instructions to patient/family Please see electronic discharge instructions given to patient. Clinical Quality Measures DVT/VTE Risk/Contraindication: Risk Factor Score Per Nursin RFS Level Per Nursing on Admit: 4+=Very High MISTY HAGEN MD Mar 06, 2019 11:40 POS
[2019-03-06] MEDS ORDERED: BARIUM for suspension 96% w/w (Vanilla Silq Medium Density) PO ONE (11:45)
[2019-03-06] MEDS ORDERED: BARIUM for suspension 98% w/w (Vanilla Silq High Density) PO ONE (11:45)
[2019-03-06] MEDS: APIXABAN 2.5 MG (ELIQUIS) TABLET PO SCH (12:30)
[2019-03-06] MEDS: DOCUSATE SODIUM 100 MG (COLACE) CAP PO SCH (12:31)
[2019-03-06] MEDS: FUROSEMIDE 40 MG (LASIX) TAB PO SCH (12:32)
--- NOTE | 2019-03-06 13:26 | Diagnostic Imaging Report ---
INDICATION: Difficulty swallowing. The patient ingested effervescent crystals as well as thin and thick barium and imaging of esophagus was performed. Preliminary radiograph of the chest is unremarkable apart from a sclerotic chondroid appearing lesion in the proximal left humerus, similar to examination from October. Lungs are clear. Images over the neck demonstrate some deep laryngeal penetration. No definite aspiration was observed. Upper esophagus unremarkable. Midthoracic esophagus does contain a diverticulum which arises from the right aspect of the esophagus. There is no obstruction. Contrast passes freely beyond the diverticulum into the stomach. There are occasional tertiary contractions present. No stricture or mass is seen. No gastroesophageal reflux or significant hiatal hernia is identified. IMPRESSION: Mid thoracic esophageal diverticulum. No esophageal stricture or mass is detected. Dictated by: Dictated on workstation # [id number]
[2019-03-07] MEDS ORDERED: KCL 10 MEQ TAB (MICRO K) PO SCH (07:00)
[2019-03-07] MEDS ORDERED: TROUGH ORDER-PHARMACY XX NR (08:00)
== END 2019-03-06 13:46 | disposition home or self-care (01) ==
LOC: EDUNIT# 11:15 → ER 11:16 → 4TH 12:28 → UNDOADMOB 12:28 → 4TH 14:00 → UNDODISOB 03-06 14:00
PROVIDERS: ADMIT Internal Medicine; ATTEND Internal Medicine
DX: L03.114 Cellulitis of left upper limb (principal); E78.5 Hyperlipidemia, unspecified; E03.9 Hypothyroidism, unspecified; N18.9 Chronic kidney disease, unspecified; E78.00 Pure hypercholesterolemia, unspecified; K21.9 Gastro-esophageal reflux disease without esophagitis; M19.90 Unspecified osteoarthritis, unspecified site; I48.21 Permanent atrial fibrillation; D53.9 Nutritional anemia, unspecified; Z88.5 Allergy status to narcotic agent; Z88.3 Allergy status to other anti-infective agents; Z88.2 Allergy status to sulfonamides; Z88.1 Allergy status to other antibiotic agents; Z79.01 Long term (current) use of anticoagulants; Z79.899 Other long term (current) drug therapy; Z79.2 Long term (current) use of antibiotics; Z79.891 Long term (current) use of opiate analgesic; Z85.028 Personal history of other malignant neoplasm of stomach; Z92.21 Personal history of antineoplastic chemotherapy; Z90.49 Acquired absence of other specified parts of digestive tract; Z82.49 Family history of ischemic heart disease and other diseases of the circulatory system; Z80.6 Family history of leukemia; Z80.51 Family history of malignant neoplasm of kidney
CPT/HCPCS: 36415; 73130; 73200; 74220; 80048; 80053; 82607; 82746; 83605; 85025; 85652; 86141; 87040; 96365; 96375; G0378

== ENCOUNTER 2019-05-11 17:22 | Inpatient (IN) | payer MEDICARE ==
[~2019-05-11] VITALS: Ht 177.8 cm; Wt 72.0 kg
[~2019-05-11 17:22] MED LIST changes: +CLIN300C11 PO; -DIGO125T; +DIGO125T3; +DOXY100T2 PO; +FURO20TA4 PO; -OXYB10TA PO; +OXYB10TA2 PO; +PEG15DRO9 OU; +POTA10TA10 PO; +SIMV20TA26 PO; +SIMV40TA25 PO
[2019-05-11 17:56] LABS: BASOPHILS % (AUTO) 0 % (0-10); EOSINOPHILS # (AUTO) 0.1 10^3/uL (0.0-0.3); EOSINOPHILS % (AUTO) 2 % (0-10); HEMATOCRIT 30 % (40-54); LYMPHOCYTES # (AUTO) 0.7 X 10^3 (1.0-4.0); LYMPHOCYTES % (AUTO) 14 % (12-44); MEAN CORPUSCULAR HEMOGLOBIN 30 PG (25-34); MEAN CORPUSCULAR HGB CONC 30 G/DL (32-36); MEAN CORPUSCULAR VOLUME 100 FL (80-99); MEAN PLATELET VOLUME 9.8 FL (7.4-10.4); MONOCYTES # (AUTO) 0.6 X 10^3 (0.0-1.0); MONOCYTES % (AUTO) 12 % (0-12); NEUTROPHILS # (AUTO) 3.7 X 10^3 (1.8-7.8); NEUTROPHILS % (AUTO) 72 % (42-75); PLATELET COUNT 221 10^3/uL (130-400); RED CELL DISTRIBUTION WIDTH 15.9 % (10.0-14.5); WHITE BLOOD COUNT 5.1 10^3/uL (4.3-11.0)
--- NOTE | 2019-05-11 17:56 | ED Cardiac General ---
History of Present Illness General Chief Complaint: Cardiac/General Problems Stated Complaint: FLUID RETENTION Source: patient Exam Limitations: no limitations (GEENA LINN MD) History of Present Illness Date Seen by Provider: May 11, 2019 Time Seen by Provider: 17:43 Initial Comments Here with report of worsening fluid retention over the last 1-2 weeks. He has had his Lasix increased from 3 days a week to 7 days a week without appropriate affect. Patient has had 15-20 pound weight gain during that timeframe. He is a resident via [facility] and his diet has changed a little bit. They are wondering if the salt intake may be a little bit more than before. He denies chest pain or breathing problems currently. Does have pain in the legs were they are swelling up to the level of the hips. Has had this previously and required Lasix to get the fluid off. Also has renal dysfunction. Does have history of stomach cancer and there is question of GI bleed. He is also supposed to have ultrasound of his liver as an outpatient tomorrow per the family. Timing/Duration: 1 week Severity: moderate Location: other (swelling of the legs) Activities at Onset: none Modifying Factors: improves with rest NTG SL TOY PARTS FORMER SUPERVISOR: No ASA po TOY PARTS FORMER SUPERVISOR: No Associated Systoms: No Chest Pain, No Fever/Chills, No Loss of Appetite, No Nausea/Vomiting, No Shortness of Air; Weakness (GEENA LINN MD) Allergies and Home Medications Allergies Coded Allergies: morphine (Verified Allergy, Mild, 12/20/14) quinine (Verified Allergy, Mild, 12/20/14) sulfamethoxazole (Verified Allergy, Unknown, 11/06/15) trimethoprim (Verified Allergy, Unknown, 11/06/15) digoxin (Verified Adverse Reaction, Unknown, bradycardia, 11/22/17) Home Medications Apixaban 2.5 Mg Tablet, 2.5 MG PO BID, (Reported) Calcium Carbonate/Vitamin D3 1 Each Tablet, 1 TAB PO DAILY, (Reported) Cyanocobalamin (Vitamin B-12) 1,000 Mcg Tablet, 1,000 MCG PO DAILY, (Reported) Doxycycline Hyclate 100 Mg Tablet, 100 MG PO BID Prescribed by: MISTY HAGEN on 03/06/19 1128 Ferrous Sulfate 325 Mg Tablet, 325 MG PO DAILY, (Reported) Furosemide 20 Mg Tablet, 20 MG PO DAILY, (Reported) Hyoscyamine Sulfate 0.125 Mg Tab.subl, 0.125 MG SL TIDAC PRN for SPASMS, (Reported) Levothyroxine Sodium 88 Mcg Tablet, 88 MCG PO DAILY, (Reported) Magnesium Oxide 250 Mg Tablet, 250 MG PO DAILY, (Reported) Oxybutynin Chloride 10 Mg Tab.er.24, 10 MG PO DAILY, (Reported) Oxycodone HCl 5 Mg Tablet, 5 MG PO TID PRN for PAIN-SEVERE, (Reported) LAST FILLED 11-25-2017 #60 Pantoprazole Sodium 40 Mg Tablet.dr, 40 MG PO DAILY, (Reported) Peg 400/Hypromellose/Glycerin 15 Ml Drops, 2 ML OU PRN PRN for DRY EYES, (Reported) Potassium Chloride 10 Meq Tablet.er, 10 MEQ PO DAILY, (Reported) Simvastatin 40 Mg Tablet, 20 MG PO DAILY, (Reported) TAKES 1/2 OF A 40MG TO EQUAL 20MG DAILY Patient Home Medication List Home Medication List Reviewed: Yes (GEENA LINN MD) Review of Systems Review of Systems Constitutional: see HPI; No chills, No fever EENTM: No Symptoms Reported Respiratory: No Symptoms Reported Cardiovascular: See HPI; Denies Chest Pain; Edema Gastrointestinal: Denies Nausea, Denies Vomiting Genitourinary: No Symptoms Reported Musculoskeletal: no symptoms reported Skin: no symptoms reported Psychiatric/Neurological: No Symptoms Reported (GEENA LINN MD) All Other Systems Reviewed Negative Unless Noted: Yes (GEENA LINN MD) Past Jzlgemo-Xdmukh-Hrhyov Hx Past Med/Social Hx: Reviewed Nursing Past Med/Soc Hx (GEENA LINN MD) Patient Social History Alcohol Use: Denies Use Recreational Drug Use: No Smoking Status: Never a Smoker 2nd Hand Smoke Exposure: No Recent Foreign Travel: No Contact w/Someone Who Travel: No (N) Recent Hopitalizations: No (GEENA LINN MD) Immunizations Up To Date Tetanus Booster (TDap): Less than 5yrs Date of Pneumonia Vaccine: Nov 17, 2018 Date of Influenza Vaccine: Jan 19, 2019 (GEENA LINN MD) Seasonal Allergies Seasonal Allergies: No (GEENA LINN MD) Past Medical History Surgeries: Yes (TUMOR REMOVED FROM STOMACH IN FEBRUARY OF THIS YEAR) Abdominal, Appendectomy, Cardiac, Gallbladder, Orthopedic, Thyroidectomy Respiratory: No Currently Using CPAP: No Currently Using BIPAP: No Cardiac: Yes (HX HEART MURMUR) Atrial Fibrillation, Chronic Edema/Swelling, Heart Murmur, High Cholesterol Neurological: No Reproductive Disorders: No Sexually Transmitted Disease: No HIV/AIDS: No Genitourinary: Yes (CHRONIC RENAL INSUFFICIENCY) Kidney Stones, Renal Failure 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) Gastroesophageal Reflux Musculoskeletal: Yes ( neck fusion, FX STERNUM 1996) Arthritis Endocrine: Yes Hypothyroidsim HEENT: Yes Loss of Vision: Bilateral Hearing Impairment: Hard of Hearing, Bilateral Hearing Aide Cancer: Yes Stomach Did You Recieve Any Treatments: Yes What Type of Treatment Did You: Chemotherapy, Surgical Intervention Psychosocial: No Integumentary: Yes (DRY SKIN, THIN SKIN) Blood Disorders: Yes (ANEMIA) Adverse Reaction/Blood Tranf: No (HAS HAD BLOOD WITH NO REACTION) (GEENA LINN MD) Surgeries: Yes (C-SPINE SURGERY; LEFT UPPER ARM/SHOULDER SURGERY) Cardiac: Yes (CHF) Atrial Fibrillation, Chronic Edema/Swelling, High Cholesterol, Hypertension Genitourinary: Yes Renal Failure Endocrine: Yes Hypothyroidsim Blood Disorders: Yes (CHRONIC ANEMIA) (STEFANIA ORTIZ DO) Family Medical History Reviewed Nursing Family Hx (GEENA LINN MD) Congenital heart disease 19 FATHER 19 MOTHER FH: renal cell carcinoma G8 SISTER Leukemia G8 BROTHER G8 BROTHER No Pertinent Family Hx (GEENA ILNN MD) Physical Exam Vital Signs Vital Signs - First Documented 05/11/19 17:30 Temp 36.8 Pulse 90 Resp 16 B/P (MAP) 123/74 (90) Pulse Ox 99 O2 Delivery Room Air (STEFANIA ORTIZ DO) Vital Signs Capillary Refill : (GEENA LINN MD) Height, Weight, BMI Height: 5'10.00" Weight: 145lbs. 0.0oz. 65.073710ku; 434.08 BMI Method:Stated General Appearance: No Apparent Distress, WD/WN HEENT: PERRL/EOMI, Pharynx Normal Neck: Non Tender, Supple Respiratory: Lungs Clear, Normal Breath Sounds Cardiovascular: Systolic Murmur, Irregularly Irregular Gastrointestinal: Non Tender, Soft Extremity: Non Tender, Pedal Edema (3+ edema to the level of the knee with less but still notable edema to the upper legs.) Neurologic/Psychiatric: Alert, Oriented x3 Skin: Normal Color, Warm/Dry (GEENA LINN MD) Progress/Results/Core Measures Results/Orders Lab Results Laboratory Tests Test 05/11/19 17:39 05/11/19 18:09 Range/Units White Blood Count 5.1 4.3-11.0 10^3/uL Red Blood Count 2.97 L 4.35-5.85 10^6/uL Hemoglobin 9.0 L 13.3-17.7 G/DL Hematocrit 30 L 40-54 % Mean Corpuscular Volume 100 H 80-99 FL Mean Corpuscular Hemoglobin 30 25-34 PG Mean Corpuscular Hemoglobin Concent 30 L 32-36 G/DL Red Cell Distribution Width 15.9 H 10.0-14.5 % Platelet Count 221 130-400 10^3/uL Mean Platelet Volume 9.8 7.4-10.4 FL Neutrophils (%) (Auto) 72 42-75 % Lymphocytes (%) (Auto) 14 12-44 % Monocytes (%) (Auto) 12 0-12 % Eosinophils (%) (Auto) 2 0-10 % Basophils (%) (Auto) 0 0-10 % Neutrophils # (Auto) 3.7 1.8-7.8 X 10^3 Lymphocytes # (Auto) 0.7 L 1.0-4.0 X 10^3 Monocytes # (Auto) 0.6 0.0-1.0 X 10^3 Eosinophils # (Auto) 0.1 0.0-0.3 10^3/uL Basophils # (Auto) 0.0 0.0-0.1 10^3/uL Sodium Level 143 135-145 MMOL/L Potassium Level 4.8 3.6-5.0 MMOL/L Chloride Level 111 H 98-107 MMOL/L Carbon Dioxide Level 22 21-32 MMOL/L Anion Gap 10 5-14 MMOL/L Blood Urea Nitrogen 54 H 7-18 MG/DL Creatinine 1.88 H 0.60-1.30 MG/DL Estimat Glomerular Filtration Rate 34 BUN/Creatinine Ratio 29 Glucose Level 86 70-105 MG/DL Calcium Level 8.7 8.5-10.1 MG/DL Corrected Calcium 9.0 8.5-10.1 MG/DL Total Bilirubin 0.3 0.1-1.0 MG/DL Aspartate Amino Transf (AST/SGOT) 21 5-34 U/L Alanine Aminotransferase (ALT/SGPT) 22 0-55 U/L Alkaline Phosphatase 177 H 40-136 U/L Troponin I 0.056 H <0.028 NG/ML C-Reactive Protein High Sensitivity 1.13 H 0.00-0.50 MG/DL B-Type Natriuretic Peptide 794.3 H <100.0 PG/ML Total Protein 6.6 6.4-8.2 GM/DL Albumin 3.6 3.2-4.5 GM/DL Digoxin Level < 0.30 L 0.80-2.00 NG/ML Urine Color YELLOW Urine Clarity CLEAR Urine pH 5.5 5-9 Urine Specific Lovejoy 1.015 L 1.016-1.022 Urine Protein NEGATIVE NEGATIVE Urine Glucose (UA) NEGATIVE NEGATIVE Urine Ketones NEGATIVE NEGATIVE Urine Nitrite NEGATIVE NEGATIVE Urine Bilirubin NEGATIVE NEGATIVE Urine Urobilinogen 0.2 < = 1.0 MG/DL Urine Leukocyte Esterase TRACE NEGATIVE Urine RBC (Auto) NEGATIVE NEGATIVE Urine RBC NONE /HPF Urine WBC 5-10 H /HPF Urine Squamous Epithelial Cells RARE /HPF Urine Crystals NONE /LPF Urine Bacteria FEW H /HPF Urine Casts NONE /LPF Urine Mucus NEGATIVE /LPF Urine Culture Indicated YES (STEFANIA ORTIZ DO) My Orders Orders - STEFANIA ORTIZ DO Digoxin (05/11/19 18:22) Furosemide Injection (Lasix Injection) (05/11/19 18:30) (STEFANIA ORTIZ DO) Medications Given in ED Current Medications Medications Dose Ordered Sig/Femi Route Start Time Stop Time Status Last Admin Dose Admin Furosemide 40 mg ONCE ONCE IVP 05/11/19 18:30 05/11/19 18:31 DC 05/11/19 18:43 40 MG (ARIANNA ORTIZA Candis NYE) Vital Signs/I&O 05/11/19 17:30 Temp 36.8 Pulse 90 Resp 16 B/P (MAP) 123/74 (90) Pulse Ox 99 O2 Delivery Room Air (STEFANIA ORTIZ DO) Progress Progress Note : Progress Note Seen and evaluated. IV, labs, EKG, chest x-ray and UA ordered. Monitor patient. 1805: Care transferred to Dr. Ortiz pending labs. (GEENA LINN MD) Progress Note : Progress Note 1804--ASSUMED CARE FROM DR. LINN, ALL STUDIES PENDING PT HAD NO COMPLAINTS FOR REMAINDER OF ER STAY VITALS STABLE PT IS DNR (STEFANIA ORTIZ DO) Initial ECG Impression Date: May 11, 2019 Initial ECG Impression Time: 17:37 Initial ECG Rate: 93 Initial ECG Rhythm: A Fib/Flutter Comment Atrial fibrillation with left axis deviation. No evidence of ST elevation [place]. PVCs noted. Similar to previous of 11/21/17. Interpreted by me. (GEENA LINN MD) Diagnostic Imaging Comments CXR--BILATERAL PLEURAL EFFUSIONS, CHF WITH VASCULAR CONGESTION--PER RADIOLOGIST REPORT AT 1829 Reviewed: Reviewed by Me (STEFANIA ORTIZ DO) Departure Communication (Admissions) 1834--MESSAGE TO DR. ORELLANA IN [facility] 1835--SPOKE WITH DR. BAUTISTA, HOSPITALIST, ACCEPTS PT FOR ADMIT. (STEFANIA ORTIZ DO) Impression Primary Impression: CHF (congestive heart failure) Additional Impressions: Elevated troponin Chronic atrial fibrillation Chronic renal failure Chronic anemia Disposition: ADMITTED INPATIENT Condition: Stable Admissions Decision to Admit Reason: Admit from ER (General) Decision to Admit/Date: May 11, 2019 Time/Decision to Admit Time: 18:40 (STEFANIA ORTIZ DO) Departure-Patient Inst. Referrals: ROSALINA MENDEZ MD (PCP/Family) Primary Care Physician GEENA LINN MD May 11, 2019 17:56 STEFANIA ORTIZ DO May 11, 2019 18:23
[2019-05-11 18:16] LABS: ALBUMIN 3.6 GM/DL (3.2-4.5); BILIRUBIN,TOTAL 0.3 MG/DL (0.1-1.0); CALCIUM 8.7 MG/DL (8.5-10.1); CREATININE SERUM 1.88 MG/DL (0.60-1.30); POTASSIUM 4.8 MMOL/L (3.6-5.0); TOTAL PROTEIN 6.6 GM/DL (6.4-8.2)
--- NOTE | 2019-05-11 18:27 | Diagnostic Imaging Report ---
CHEST 1 VIEW, AP/PA ONLY INDICATION: Weight gain and increased swelling for approximately one week. Shortness of air. COMPARISON: 11/06/2018. FINDINGS: Cardiomegaly is present. Central vascular indistinctness is noted. Trace bilateral pleural effusions have developed. No pneumothorax. IMPRESSION: 1. Imaging features suggest mild heart failure with central vascular congestion and small pleural effusions. Dictated by: Dictated on workstation # [id number]
[2019-05-11] MEDS ORDERED: FUROSEMIDE 40 MG/4 ML INJ (LASIX) IVP ONE (18:30)
[2019-05-11 18:52] LABS: BILIRUBIN,URINE NEGATIVE (NEGATIVE); CLARITY,URINE CLEAR; COLOR,URINE YELLOW; GLUCOSE, URINE (UA) NEGATIVE (NEGATIVE); KETONES,URINE NEGATIVE (NEGATIVE); LEUKOCYTE ESTERASE ,URINE TRACE (NEGATIVE); NITRITE,URINE NEGATIVE (NEGATIVE); PH,URINE 5.5 (5-9); PROTEIN,URINE NEGATIVE (NEGATIVE)
[2019-05-11 19:01] LABS: BACTERIA,URINE FEW /HPF; SQUAMOUS EPITHELIAL CELL,UR RARE /HPF
--- NOTE | 2019-05-11 20:01 | Consultation-Cardiology ---
HPI-Cardiology Cardiology Consultation: Date of Consultation 05/11/19 Date of Admission Attending Physician Aaron Bautista MD Admitting Physician Juan Bettencourt MD Consulting Physician Sky ORELLANA MD HPI: Time Seen by a Provider: 20:01 Chief Complaint: Lower extremity swelling. This is a 88-year-old gentleman who has history of atrial fibrillation on Eliquis, chronic kidney disease, congestive heart failure. He was recently admitted for significant weight gain and lower extremity swelling. He was given IV Lasix and his pedal edema improved significantly. He denied any chest pain or shortness of breath. His troponins were mildly elevated likely due to congestive heart failure. He denies any significant shortness of breath. Patient is DO NOT RESUSCITATE. The patient denies active smoking. No significant pertinent family history. Review of Systems-Cardiology Review of Systems Constitutional: As described under HPI; No As described under HPI, No no symptoms reported, No chills, No fever, No lightheadedness Eyes: No As described under HPI, No no symptoms reported, No blindness, No blurred vision, No contact lenses, No drainage, No decreased acuity, No foreign body sensation, No pain, No vision change Ears/Nose/Throat: No As described under HPI, No no symptoms reported, No chronic hearing loss, No ear discharge, No ear pain, No nasal drainage, No ulcerations Respiratory: No no symptoms reported; As described under HPI; No As described under HPI, No cough, No orthopnea, No shortness of breath, No SOB with excertion Cardiovascular: No no symptoms reported; As described under HPI; No As described under HPI, No chest pain, No edema, No irregular heart rate, No lightheadedness, No palpitations Gastrointestinal: No no symptoms reported, No As described under HPI, No abdomen distended, No abdominal pain, No blood streaked bowels, No constipation, No diarrhea, No nausea, No vomiting, No stool coloration changes Genitourinary: No As described under HPI, No burning, No dysuria, No discharge, No frequency, No flank pain, No hematuria, No urgency Musculoskeletal: other (bilateral lower extremity swelling.) Skin: No rash, No skin related problems, No ulcerations Psychiatric/Neurological: No anxiety, No depression, No seizure, No focal weakness, No syncope Hematologic: No bleeding abnormalities All Other Systems Reviewed Negative Unless Noted: Yes FAG-Rqgoyi-Tpoefl Hx Patient Social History Alcohol Use: Denies Use Recreational Drug Use: No Smoking Status: Never a Smoker Former smoker/When Quit: Jan 01, 1955 2nd Hand Smoke Exposure: No Recent Foreign Travel: No Recent Infectious Disease Expo: No Hospitalization with Isolation: Denies Immunizations Up To Date Tetanus Booster (TDap): Less than 5yrs Date of Pneumonia Vaccine: Nov 17, 2018 Date of Influenza Vaccine: Jan 19, 2019 Past Medical History PMH As described under Assessment. Family Medical History Family History: Congenital heart disease 19 FATHER 19 MOTHER FH: renal cell carcinoma G8 SISTER Leukemia G8 BROTHER G8 BROTHER Allergies and Home Medications Allergies Coded Allergies: morphine (Verified Allergy, Mild, 12/20/14) quinine (Verified Allergy, Mild, 12/20/14) sulfamethoxazole (Verified Allergy, Unknown, 11/06/15) trimethoprim (Verified Allergy, Unknown, 11/06/15) digoxin (Verified Adverse Reaction, Unknown, bradycardia, 11/22/17) Home Medications Apixaban 2.5 Mg Tablet, 2.5 MG PO BID, (Reported) Calcium Carbonate/Vitamin D3 1 Each Tablet, 1 TAB PO DAILY, (Reported) Carboxymethylcellulose Sodium 15 Ml Drops, 2 DROPS OU QID PRN for DRY EYES, ( Reported) Cyanocobalamin (Vitamin B-12) 1,000 Mcg Tablet, 1,000 MCG PO DAILY, (Reported) Ferrous Sulfate 325 Mg Tablet, 325 MG PO DAILY, (Reported) Furosemide 20 Mg Tablet, 20 MG PO DAILY Prescribed by: AARON BAUTISTA on 05/13/19 1309 Hyoscyamine Sulfate 0.125 Mg Tab.subl, 0.125 MG SL TID, (Reported) Levothyroxine Sodium 100 Mcg Tablet, 100 MCG PO DAILY, (Reported) Magnesium Oxide 250 Mg Tablet, 250 MG PO DAILY, (Reported) Oxybutynin Chloride 10 Mg Tab.er.24, 10 MG PO DAILY, (Reported) Oxycodone Hcl 5 Mg Tab, 5 MG PO Q8H PRN for PAIN-SEVERE (8-10), (Reported) Pantoprazole Sodium 40 Mg Tablet.dr, 40 MG PO DAILY, (Reported) Potassium Chloride 10 Meq Tab.er.prt, 10 MEQ PO DAILY, (Reported) Simvastatin 20 Mg Tablet, 10 MG PO HS, (Reported) TAKES 1/2 (20MG) TABLET Patient Home Medication List Home Medication List Reviewed: Yes Physical Exam-Cardiology Physical Exam Vital Signs/I&O 05/13/19 00:00 Intake Total 100 ml Output Total 1100 ml Balance -1000 ml Capillary Refill : Less Than 3 Seconds Constitutional: appears stated age, AAO x 3; No apparent distress; well- developed, well-nourished HEENT: PERRL; No discharge; hearing is well preserved, oral hygience is good; No ulceration, No xanthelasmas are seen Neck: No carotid bruit; carotid pulses are 2 + bilaterally Respiratory: chest is bilaterally symmetric, lungs clear to auscultation Cardiovascular: irregularly irregular, S1 and S2 Gastrointestinal: soft, audible bowel sounds; No spleenomegaly Rectal: deferred Extremities: normal range of motion, non-tender, normal inspection; No clubbing, No cyanosis; significant edema Neurologic/Psychiatric: no motor/sensory deficits, alert, normal mood/affect, oriented x 3, power is 5/5 both on sides Skin: normal color, warm/dry; No rash, No ulcerations Data Review Labs Microbiology 05/11/19 Urine Culture - Final, Complete Escherichia coli A/P-Cardiology Assessment/Admission Diagnosis Mild acute on chronic systolic congestive heart failure, Type II myocardial infarction, Long-standing persistent atrial fibrillation, Bilateral lower extremity swelling, Mild pulmonary hypertension, Chronic kidney disease, Anemia, [id number]-[id number] aortic stenosis Plan Mild acute on chronic systolic congestive heart failure, elevated BNP. Chest x- ray shows increased vascularity. Continue IV Lasix 40 mg. Strict input and output. Daily weights. Significantly improved overnight. Salt restriction is recommended. Type II myocardial infarction, positive troponin likely due to acute congestive heart failure. Long-standing persistent atrial fibrillation, continue oral anticoagulation therapy. Bilateral lower extremity swelling, Lasix. Mild pulmonary hypertension, likely due to chronic congestive heart failure. Chronic kidney disease, stable kidney function. GFR of 38. Outpatient nephrology referral is recommended. Anemia, defer to the primary team. [id number] aortic stenosis, continue to monitor. Thank you for your consultation. Please call me if you have any questions. Asher Orellana MD, FACP, FACC, FSCAI, FHRS, CCDS Interventional Cardiology Cardiac Electrophysiology Vascular Medicine and Endovascular Interventions Clinical Quality Measures AMI/AHF: ASA po Prior to arrival: Sky Naik MD May 11, 2019 20:01
[2019-05-11] MEDS ORDERED: NITROGLYCERIN 0.4 MG SL TABS BTL 25'S SL PRN (20:30)
[2019-05-11] MEDS ORDERED: CATHETER FLUSH 10 ML SYR IV PRN (20:30)
[2019-05-11] MEDS ORDERED: ONDANSETRON 4 MG/2 ML (SDV) Z0FRAN IV PRN (20:30)
[2019-05-11 20:37] VITALS: BP 126/78
[2019-05-11] MEDS: CATHETER FLUSH 10 ML SYR IV SCH (22:00)
[2019-05-12] VITALS (10 sets, daily range): BP systolic 117–149; BP diastolic 64–85
[2019-05-12 03:53] LABS: BASOPHILS % (AUTO) 0 % (0-10); EOSINOPHILS # (AUTO) 0.1 10^3/uL (0.0-0.3); EOSINOPHILS % (AUTO) 3 % (0-10); HEMATOCRIT 29 % (40-54); LYMPHOCYTES # (AUTO) 0.6 X 10^3 (1.0-4.0); LYMPHOCYTES % (AUTO) 13 % (12-44); MEAN CORPUSCULAR HEMOGLOBIN 30 PG (25-34); MEAN CORPUSCULAR HGB CONC 31 G/DL (32-36); MEAN CORPUSCULAR VOLUME 99 FL (80-99); MEAN PLATELET VOLUME 9.7 FL (7.4-10.4); MONOCYTES # (AUTO) 0.5 X 10^3 (0.0-1.0); MONOCYTES % (AUTO) 12 % (0-12); NEUTROPHILS # (AUTO) 3.1 X 10^3 (1.8-7.8); NEUTROPHILS % (AUTO) 72 % (42-75); PLATELET COUNT 209 10^3/uL (130-400); RED CELL DISTRIBUTION WIDTH 15.8 % (10.0-14.5); WHITE BLOOD COUNT 4.3 10^3/uL (4.3-11.0)
[2019-05-12 04:20] LABS: ALBUMIN 3.4 GM/DL (3.2-4.5); BILIRUBIN,TOTAL 0.4 MG/DL (0.1-1.0); CREATININE SERUM 1.77 MG/DL (0.60-1.30); TOTAL PROTEIN 6.5 GM/DL (6.4-8.2)
[2019-05-12] MEDS: CATHETER FLUSH 10 ML SYR IV SCH ×2 (05:45→14:02)
[2019-05-12] MEDS ORDERED: FUROSEMIDE 40 MG/4 ML INJ (LASIX) IV NR (06:00)
--- NOTE | 2019-05-12 07:26 | Diagnostic Imaging Report ---
INDICATION: Congestive heart failure Portable chest 3:16 AM There is cardiomegaly. There is mild pulmonary vascular congestion. There are no effusions or pneumothoraces. IMPRESSION: Cardiomegaly with mild pulmonary vascular congestion. This appears to have improved slightly compared to the previous day. Dictated by: Dictated on workstation # [id number]
--- NOTE | 2019-05-12 07:38 | NUR ---
PT ARRIVED AT THE UNIT AT APPROX 2100. PT A/O. DENIES CHEST PAIN, SOA, N/V. SON AT THE BEDSIDE. AFEBRILE. VSS. SLEEPS WELL FOR THE NIGHT. DENIES NEEDS. WILL KEEP MONITORING
[2019-05-12] MEDS: ASPIRIN E.C. 81 MG (ECOTRIN) TAB PO SCH ×2 (08:43→09:23)
[2019-05-12] MEDS ORDERED: OXYC5CAP18 PO (08:47)
[2019-05-12] MEDS ORDERED: LEVO100T7 PO (08:47)
[2019-05-12] MEDS ORDERED: SIMV20TA26 PO (08:47)
[2019-05-12] MEDS ORDERED: APIX5TAB PO (08:47)
[2019-05-12] MEDS ORDERED: [UNRECOGNIZED DRUG - CODE] PO (08:47)
[2019-05-12] MEDS ORDERED: POTA10TA36 PO (08:47)
[2019-05-12] MEDS ORDERED: CALC-6 PO (08:47)
--- NOTE | 2019-05-12 08:49 | NUR ---
UPDATED MED REC WITH PHYSICIAN VISIT FORM THAT WAS SCANNED ONTO HIS CHART. I CALLED THE [facility] AND VERIFIED THIS PATIENT USES [facility] THEIR PHARMACY. Addendum: 05/12/19 at 0917 by SHELLY WHITE [facility] AFTER REVIEWING PREVIOUS NOTES AND SPEAKING WITH THE [facility] IT WAS BROUGHT TO MY ATTENTION THE PATIENT ADMINISTERS HIS OWN MEDS AT HOME. HE GETS THEM FILLED THROUGH THE [facility]. AFTER CALLED THEM FOR RECENT FILL DATES I FOUND THE LIST FROM THE [facility] DOES NOT REFLECT ALL THE CORRECT INFORMATION. ELIQUIS, SIMVASTATIN, AND HYOSCYAMINE WERE INCORRECT AND THE PATIENT NO LONGER TAKES METAMUCIL. ADDITIONALLY HE DOES USE AN OTC EYE LUBRICANT DROP NEEDED. Repair Report FILLED: 05-01-19 PROTONIX 40MG DAILY #90 05-09-19 HYOSCYAMINE 0.125MG SL TID #90 04-24-19 ELIQUIS 2.5MG BID #60 04-13-19 SIMVASTATIN 20MG 1/2 HS #45 04-13-19 OXYBUTYNIN SA 10MG DAILY #90 04-04-19 LEVOTHYROXINE 100MCG DAILY #90 EXT MED HX [facility] FILLED: 05-03-19 LASIX 20MG DAILY #30 05-03-19 POTASSIUM 10MEQ DAILY #30 [facility] FILLED: 11-25-17 OXYCODONE 5MG TABS #60 FOR 20 DAYS - SON STATES HE KEEPS THESE AT HIS HOUSE, PATIENT DOES NOT USE OFTEN. HE CAN'T TAKE ANY ASPIRIN. OTC MEDS: MAGNESIUM DAILY CALCIUM +D DAILY B12 DAILY IRON DAILY ARTIFICIAL TEARS PRN
[2019-05-12] MEDS ORDERED: APIX2.5T PO (09:05)
[2019-05-12] MEDS ORDERED: CARB-254 OU (09:05)
[2019-05-12] MEDS ORDERED: OXC5T PO (09:18)
--- NOTE | 2019-05-12 09:23 | NUR ---
PT FAMILY IN ROOM WHILE THIS RN ATTEMPTING TO GIVE ASPIRIN. PT SON STATED PT CAN'T TAKE ASPIRIN DUE TO PCP SUSPECTING GI BLEED AND HISTORY OF INTERNAL BLEEDING. PT SON ALSO STATED HE NEEDS TO TAKE HIS ELIQUIS. THIS RN EDUCATED FAMILY ON MEDICATIONS AND SIDE EFFECTS. PT SON STATED HE DOES NOT WANT PT TAKING ASPIRIN. THIS RN NOTIFIED DR. BAUTISTA AND DR. ORELLANA.
--- NOTE | 2019-05-12 13:44 | NUR ---
CM/SS visited with the patient to assess for needs. The patient states he is a resident of [facility] along with his ( 67 years). The patient reports [place] was [place] The patient feels as though he wants to leave the hospital and go back home. The patient stated he did not have any other needs at this time. If patient leaves over the weekend then other staff will have to call [facility] for transport.
--- NOTE | 2019-05-12 15:05 | History & Physical-Hospitalist ---
History of Present Illness HPI/Chief Complaint Julio Dubois is an 88-year-old male with past medical history of AFib on Eliquis, CKD, HLD, hypothyroidism, stomach cancer s/p surgical resection and chemotherapy 2017, who presented with lower extremity swelling. He denies any shortness of breath. He denies any orthopnea. He denies any chest pain or palpitations. He denies any fevers or chills. He denies any abdominal pain, nausea, or vomiting. He denies any diarrhea. He is reporting some dysuria this morning. He denies any history of heart failure. He has gained about 20 pounds recently. He has increased his Lasix dose intermittently without success. He has not noticed his close fitting more tightly. His family believes that the food at his penitent[facility] may be getting too much salt in his diet. Source: patient Exam Limitations: no limitations Date Seen 05/12/19 Time Seen by a Provider: 08:30 Attending Physician Aaron Bautista MD PCP Juan Bettencourt MD Referring Physician Date of Admission May 11, 2019 at 18:40 Home Medications & Allergies Home Medications Reviewed patient Home Medication Reconciliation performed by pharmacy medication reconciliations mold repair technician and/or nursing. Patients Allergies have been reviewed. Allergies Allergies Coded Allergies morphine (Verified Allergy, Mild, 12/20/14) quinine (Verified Allergy, Mild, 12/20/14) sulfamethoxazole (Verified Allergy, Unknown, 11/06/15) trimethoprim (Verified Allergy, Unknown, 11/06/15) digoxin (Verified Adverse Reaction, Unknown, bradycardia, 11/22/17) Past Edvljby-Ncuyys-Ataycz Hx Past Med/Social Hx: Reviewed Nursing Past Med/Soc Hx Patient Social History Alcohol Use: Denies Use Recreational Drug Use: No Smoking Status: Never a Smoker 2nd Hand Smoke Exposure: No Recent Foreign Travel: No Contact w/other who traveled: No Recent Hopitalizations: No Recent Infectious Disease Expo: No Immunizations Up To Date Tetanus Booster (TDap): Less than 5yrs Date of Pneumonia Vaccine: Feb 08, 2019 Date of Influenza Vaccine: Mar 11, 2019 Seasonal Allergies Seasonal Allergies: No Past Medical History Surgeries: Abdominal, Appendectomy, Cardiac, Gallbladder, Orthopedic, Thyroidectomy Currently Using CPAP: No Currently Using BIPAP: No Cardiac: Atrial Fibrillation, Chronic Edema/Swelling, High Cholesterol, Hypertension Reproductive: No Sexually Transmitted Disease: No HIV/AIDS: No Genitourinary: Renal Failure Gastrointestinal: Gastroesophageal Reflux Musculoskeletal: Arthritis Endocrine: Hypothyroidsim Loss of Vision: Bilateral Hearing Impairment: Hard of Hearing, Bilateral Hearing Aide Cancer: Stomach Did You Recieve Any Treatments: Yes What Type of Treatment Did You: Chemotherapy, Surgical Intervention History of Blood Disorders: Yes (CHRONIC ANEMIA) Adverse Reaction to Blood Marquez: No (HAS HAD BLOOD WITH NO REACTION) Family History Reviewed Nursing Family Hx Congenital heart disease 19 FATHER 19 MOTHER FH: renal cell carcinoma G8 SISTER Leukemia G8 BROTHER G8 BROTHER No Pertinent Family Hx Review of Systems Constitutional: no symptoms reported EENTM: no symptoms reported Respiratory: no symptoms reported Cardiovascular: no symptoms reported Gastrointestinal: no symptoms reported Genitourinary: dysuria Musculoskeletal: no symptoms reported Skin: no symptoms reported Psychiatric/Neurological: No Symptoms Reported Physical Exam Physical Exam Vital Signs Vital Signs - First Documented 05/11/19 17:30 Temp 36.8 Pulse 90 Resp 16 B/P (MAP) 123/74 (90) Pulse Ox 99 O2 Delivery Room Air Capillary Refill : Less Than 3 Seconds Height, Weight, BMI Height: 5'10.00" Weight: 145lbs. 0.0oz. 65.360574im; 23.34 BMI Method:Stated General Appearance: No Apparent Distress, WD/WN HEENT: PERRL/EOMI, Pharynx Normal Neck: Normal Inspection, Supple Respiratory: Lungs Clear, Normal Breath Sounds, No Respiratory Distress Cardiovascular: Regular Rate, Rhythm, No Edema, No Murmur Gastrointestinal: Normal Bowel Sounds, Non Tender, Soft Extremity: Normal Inspection, Non Tender, Pedal Edema Neurologic/Psychiatric: Alert, Oriented x3, No Motor/Sensory Deficits, Normal Mood/Affect Skin: Normal Color, Warm/Dry Results Results/Procedures Labs Laboratory Tests 05/11/19 17:39 05/12/19 03:10 Patient resulted labs reviewed. Imaging: Reviewed Imaging Report Assessment/Plan Admission Diagnosis acute exacerbation of CHF, unspecified type Admission Status: Inpatient Order (span 2 midnights) Reason for Inpatient Admission: CHF requiring IV diuresis and further evaluation Assessment and Plan Acute exacerbation of CHF, unspecified type Elevated troponin Troponin mildly elevated at 0.069 BNP elevated at 700 on admission chest x-ray consistent with CHF Started on IV Lasix Monitor I's and O's Daily weights Low-sodium diet next lineCardiology consulted, appreciate assistance Echocardiogram ordered Chronic kidney disease Creatinine 1.77 this morning, appears to be a baseline continue to monitor and avoid nephrotoxins anemia Hemoglobin 9 iron studies negative Check B12/folate Paroxysmal atrial fibrillation Continue Eliquis Diagnosis/Problems Diagnosis/Problems (1) Acute exacerbation of CHF (congestive heart failure) Status: Acute Qualifiers: Heart failure type: unspecified Qualified Codes: I50.9 - Heart failure, unspecified (2) Elevated troponin Status: Acute (3) Afib Status: Chronic Qualifiers: Atrial fibrillation type: paroxysmal Qualified Codes: I48.0 - Paroxysmal atrial fibrillation (4) Chronic anemia Status: Chronic Clinical Quality Measures AMI/AHF: ASA po Prior to arrival: No DVT/VTE Risk/Contraindication: Risk Factor Score Per Nursin RFS Level Per Nursing on Admit: 4+=Very High AARON BAUTISTA MD May 12, 2019 15:05
[2019-05-12] MEDS ORDERED: FUROSEMIDE 40 MG/4 ML INJ (LASIX) IVP SCH (15:15)
--- NOTE | 2019-05-12 16:06 | Cardiology Progress Note ---
Cardiology SOAP Progress Note Subjective: Significantly improved lower external to swelling. Objective: I&O/Vital Signs 05/13/19 00:00 Intake Total 100 ml Output Total 1100 ml Balance -1000 ml Weight (Pounds): 145 Weight (Ounces): 0.0 Weight (Calculated Kilograms): 65.826118 Constitutional: AAO x 3, well-developed, well-nourished Respiratory: chest is bilaterally symmetric, lungs clear to auscultation Cardiovascular: irregularly irregular, S1 and S2 Gastrointestional: soft, audible bowel sounds Extremities: normal range of motion, non-tender, normal inspection, pedal edema Neurologic/Psychiatric: no motor/sensory deficits, alert, normal mood/affect, oriented x 3 Skin: normal color Results/Procedures: Labs Microbiology 05/11/19 Urine Culture - Final, Complete Escherichia coli A/P: Assessment/Dx: Mild acute on chronic congestive heart failure, Type II myocardial infarction, Atrial fibrillation, Chronic kidney disease. Plan: Mild acute on chronic systolic congestive heart failure, elevated BNP. Chest x- ray shows increased vascularity. Continue IV Lasix 40 mg. Strict input and output. Daily weights. Significantly improved overnight. Type II myocardial infarction, positive troponin likely due to acute congestive heart failure. Long-standing persistent atrial fibrillation, continue oral anticoagulation therapy. Bilateral lower extremity swelling, Lasix. Mild pulmonary hypertension, likely due to chronic congestive heart failure. Chronic kidney disease, stable kidney function. GFR of 38. Outpatient nephrology referral is recommended. Anemia, defer to the primary team. Njca-zb-gsopthqf aortic stenosis, continue to monitor. Echocardiogram done 05/11/2019 shows LVEF of 45-50 percent. Moderate mitral regurgitation, gnaf-pf-mlsvabkh aortic stenosis with mean gradient of 23 mmHg. PA pressure of 40 mmHg. Thank you for your consultation. Please call me if you have any questions. Asher Lord MD, FACP, FACC, FSCAI, FHRS, CCDS Interventional Cardiology Cardiac Electrophysiology Vascular Medicine and Endovascular Interventions Clinical Quality Measures AMI/AHF: ASA po Prior to arrival: Sky Naik MD May 12, 2019 16:06
--- NOTE | 2019-05-12 17:11 | NUR ---
PT SON ON UNIT. REQUESTED UPDATE ON PT STATUS. THIS RN PROVIDED UPDATE STATING THAT DR. ORELLANA AND DR. BAUTISTA BOTH AGREE THAT PT NEEDS TO STAY IN THE HOSPITAL FOR CONTINUED MONITORING. PT SON STATED "NO, HE DOESN'T NEED THAT." PT SON EXPRESSED CONCERNS OVER PT CARE STATING THAT PT WOULD RECEIVE BETTER CARE AT THE [facility]. THIS RN ACKNOWLEDGED PT SON CONCERNS AND ADDRESSED CONCERNS. PT SON STATED HE WOULD BE CHECKING PT OUT OF HOSPITAL. THIS RN EXPLAINED AMA PROCESS TO PT SON AND PT. PT SON STATED "HE DOESN'T NEED TO BE KEPT IN THE ICU JUST TO WATCH HIM PEE, HE CAN BE GIVEN LASIX AT THE [facility]." PT SON STATED TO PT THAT THEY WERE LE[place]. THIS NURSE EDUCATED PT AND PT SON ON LEAVING AMA AND THE BENEFITS OF STAYING IN THE HOSPITAL. PT CHOSE TO LEAVE AMA WITH SON. THIS RN REMOVED IV AND DISCONNECTED PT FROM MONITORS, ALSO PROVIDED A WHEELCHAIR FOR PT SON TO TAKE PT DOWNSTAIRS. PT SON REQUESTED PT MEDICAL RECORDS. THIS RN INFORMED PT SON THAT WOULD HAVE BE TO OBTAINED FROM MEDICAL RECORDS ON WEDNESDAY WHEN THEY OPEN. PT SON UNHAPPY. PT THANKED THIS RN FOR CARE RECEIVED THIS DAY. PT LEFT WITH SON VIA WHEELCHAIR.
[2019-05-12] MEDS ORDERED: OXYBUTYNIN (DITROPAN) 5 MG TAB PO SCH (21:00)
[2019-05-12] MEDS ORDERED: APIXABAN 2.5 MG (ELIQUIS) TABLET PO SCH (21:00)
[2019-05-13] MEDS ORDERED: LEVOTHYROXINE 100 MCG (LEVOTHROID) TAB PO SCH (06:30)
[2019-05-13] MEDS ORDERED: PANTOPRAZOLE 40 MG (PROTONIX) TAB PO SCH (09:00)
[2019-05-13] MEDS ORDERED: FURO20TA4 PO (13:09)
--- NOTE | 2019-05-13 13:20 | Discharge Summary ---
Discharge Summary Hospital Course Was the Problem List Reviewed?: Yes Problems/Dx: (1) Acute exacerbation of CHF (congestive heart failure) Status: Acute Qualifiers: Qualified Codes: I50.9 - Heart failure, unspecified (2) Elevated troponin Status: Acute (3) Afib Status: Chronic Qualifiers: Qualified Codes: I48.0 - Paroxysmal atrial fibrillation (4) Chronic anemia Status: Chronic Final Diagnosis: acute congestive heart failure, unspecified type Hospital Course Date of Admission: May 11, 2019 at 18:40 Admission Diagnosis : acute congestive heart failure, unspecified type Family Physician/Provider: Juan Bettencourt MD Date of Discharge: 05/13/19 Discharge Diagnosis: acute congestive heart failure, unspecified type Hospital Course: Julio Dubois is an 88-year-old male who presented with lower extremity swelling and weight gain and was admitted with acute congestive heart failure, unspecified type. Cardiology was consulted and assisted with his care. An echocardiogram was performed but was not read prior to his discharge. He was given IV Lasix during his stay and his fluid overload improved. He and his son both thought that he did not need to be in the hospital any longer and despite the recommendations of the hospitalist and financial operations clerk, they decided to leave the hospital AGAINST MEDICAL ADVICE. Labs and Pending Lab Test: Microbiology 05/11/19 Urine Culture - Final, Complete Escherichia coli Home Meds Active Furosemide 20 Mg Tablet 20 Mg PO DAILY 30 Days Reported Oxycodone IR (Oxycodone HCl) 5 Mg Tab 5 Mg PO Q8H PRN Artificial Tears (Carboxymethylcellulose Sodium) 15 Ml Drops 2 Drops OU QID PRN Eliquis (Apixaban) 2.5 Mg Tablet 2.5 Mg PO BID Levothyroxine Sodium 100 Mcg Tablet 100 Mcg PO DAILY Potassium Chloride 10 Meq Tab.er.prt 10 Meq PO DAILY Simvastatin 20 Mg Tablet 10 Mg PO HS TAKES 1/2 (20MG) TABLET Calcium 600 + Vit D 200 Tablet (Calcium Carbonate/Vitamin D3) 1 Each Tablet 1 Tab PO DAILY Protonix (Pantoprazole Sodium) 40 Mg Tablet.dr 40 Mg PO DAILY Oxybutynin Chloride ER (Oxybutynin Chloride) 10 Mg Tab.er.24 10 Mg PO DAILY Hyoscyamine Sulfate 0.125 Mg Tab.subl 0.125 Mg SL TID Magnesium Oxide 250 Mg Tablet 250 Mg PO DAILY B-12 (Cyanocobalamin (Vitamin B-12)) 1,000 Mcg Tablet 1,000 Mcg PO DAILY Iron (Ferrous Sulfate) 325 Mg Tablet 325 Mg PO DAILY Assessment/Pt Instructions patient left AGAINST MEDICAL ADVICE Discharge Instructions Discharge Diet: Low Sodium Diet Activity as Tolerated: Yes Consultations Cardiology Discharge Physical Examination Allergies: Coded Allergies: morphine (Verified Allergy, Mild, 12/20/14) quinine (Verified Allergy, Mild, 12/20/14) sulfamethoxazole (Verified Allergy, Unknown, 11/06/15) trimethoprim (Verified Allergy, Unknown, 11/06/15) digoxin (Verified Adverse Reaction, Unknown, bradycardia, 11/22/17) Discharge Summary Date of Admission May 11, 2019 at 18:40 Date of Discharge May 12, 2019 at 17:03 Discharge Date: May 12, 2019 Discharge Time: 17:03 Admission Diagnosis acute exacerbation of CHF, unspecified type Consults/Procedures Consulations Cardiology Discharge Diagnosis Acute exacerbation of CHF, unspecified type (1) Acute exacerbation of CHF (congestive heart failure) Status: Acute Qualifiers: Qualified Codes: I50.9 - Heart failure, unspecified (2) Elevated troponin Status: Acute (3) Afib Status: Chronic Qualifiers: Qualified Codes: I48.0 - Paroxysmal atrial fibrillation (4) Chronic anemia Status: Chronic Clinical Quality Measures AMI/AHF: ASA po Prior to arrival: No DVT/VTE Risk/Contraindication: Risk Factor Score Per Nursin RFS Level Per Nursing on Admit: 4+=Very High AARON BAUTISTA MD May 13, 2019 13:20
--- NOTE | 2019-05-15 10:30 | Physician Query Clarification ---
PQ-Uncertain Diagnosis Admission/Discharge Admission Date: May 11, 2019 at 18:40 Discharge Date: May 12, 2019 at 17:03 The medical record reflects the following clinical scenario: History/Risk Factors: Lower extremity swelling, Hx of Afib Clinical Findings: Elevated troponin, Mild acute on chronic systolic congestive heart failure, Type II myocardial infarction, positive troponin likely due to acute congestive heart failure. Treatment: IV Lasix Question: Is Type II Myocardial infarction a clinically valid diagnosis? Type II Myocardial infarction was documented in the in Dr. Lord's consult and PN with no further documentation in the medical record. Please document a response in Progress Note or Discharge Summary. 1. Yes, clinically valid, condition resolved. 2. No, condition ruled out. 3. Other, with explanation of clinical findings. 4. Undetermined, no explanation for clinical findings. PHYSICIAN RESPONSE Diagnosis clinically valid: Yes, Conditon resolved Please remember a lack of response to the above will prompt a phone page by CDI/Coding staff. In responding to this query, please exercise your independent professional judgment. The purpose of this communication is to more accurately reflect the complexity of your patients condition. The fact that a question is asked does not imply that any particular answer is desired or expected. Thank you for your timely response to this clarification. Requestors name: [employer] THIS PHYSICIAN QUERY FORM IS A PERMANENT PART OF THE MEDICAL RECORD GUILLERMO VIVAR May 15, 2019 10:30 AARON BAUTISTA MD May 22, 2019 16:45
== END 2019-05-12 17:03 | disposition left against medical advice (07) | DRG 280 ==
LOC: EDUNIT# 17:22 → ER 17:23 → ICU 18:40
PROVIDERS: ADMIT Internal Medicine; ATTEND Internal Medicine
DX: I13.0 Hypertensive heart and chronic kidney disease with heart failure and stage 1 through stage 4 chronic kidney disease, or unspecified chronic kidney disease (principal); I21.A1 Myocardial infarction type 2; I50.23 Acute on chronic systolic (congestive) heart failure; I48.20 Chronic atrial fibrillation, unspecified; N18.9 Chronic kidney disease, unspecified; D64.9 Anemia, unspecified; E78.00 Pure hypercholesterolemia, unspecified; E89.0 Postprocedural hypothyroidism; Z66 Do not resuscitate; R01.1 Cardiac murmur, unspecified; K21.9 Gastro-esophageal reflux disease without esophagitis; M19.91 Primary osteoarthritis, unspecified site; H91.93 Unspecified hearing loss, bilateral; Z85.028 Personal history of other malignant neoplasm of stomach; Z98.1 Arthrodesis status; Z97.4 Presence of external hearing-aid; Z92.21 Personal history of antineoplastic chemotherapy; Z87.442 Personal history of urinary calculi
CPT/HCPCS: 36415; 71045; 80053; 80061; 80162; 81000; 82607; 82728; 82746; 83540; 83874; 83880; 84484; 85025; 86141; 87077; 87088; 87186; 93005; 93041; 93306; 96374

== ENCOUNTER 2019-05-12 18:03 | Observation (INO) | payer MEDICARE ==
[~2019-05-12] VITALS: Ht 180 cm; Wt 69.9 kg
[~2019-05-12 18:03] MED LIST changes: +APIX5TAB PO; +CALC-6 PO; +CARB-254 OU; +LEVO100T7 PO; +OXC5T PO; +OXYC5CAP18 PO; +POTA10TA36 PO; +[UNRECOGNIZED DRUG - CODE] PO
--- NOTE | 2019-05-12 18:39 | ED General ---
General Chief Complaint: General Problems/Pain Stated Complaint: FLUID RETENTION, LEFT AMA TODAY Nursing Triage Note: pt presents to ed accompanied by son with request of medical health release to be able to go back to via [facility], [place]. pt left AMA from Step-Down Unit aprox 40 min door captain. Nursing Sepsis Screen: No Definite Risk Source of Information: Patient, Family Exam Limitations: No Limitations History of Present Illness Date Seen by Provider: May 12, 2019 Time Seen by Provider: 18:10 Initial Comments To ER by son with reports of needing released to go back to assisted living facility. Admitted here yesterday for CHF with weight gain of approximately 20 pounds, pedal edema. He was admitted to ICU and diuresed (and trouble with staff upstairs she states, son signed him out AGAINST MEDICAL ADVICE to go back to the nursing facility. Upon arrival to the nursing facility they were informed that he couldn't go back to assisted living without readmission orders. I spoke with Nichole who is the director oncology from the assisted-living facility via [facility] who advised there will not be a nurse present over the weekend, they would feel safer if he was admitted here over the weekend for continued diuresis as well as the initial plan. I discussed with Dr. Oakes who graciously agrees to readmit and resume previous treatment plan. Patient would be willing to stay if he could go to the fourth medical floor. Son is agreeable. Patient's DO NOT RESUSCITATE status. Timing/Duration: 1 Week Severity: Moderate Allergies and Home Medications Allergies Coded Allergies: morphine (Verified Allergy, Mild, 12/20/14) quinine (Verified Allergy, Mild, 12/20/14) sulfamethoxazole (Verified Allergy, Unknown, 11/06/15) trimethoprim (Verified Allergy, Unknown, 11/06/15) digoxin (Verified Adverse Reaction, Unknown, bradycardia, 11/22/17) Home Medications Apixaban 2.5 Mg Tablet, 2.5 MG PO BID, (Reported) Calcium Carbonate/Vitamin D3 1 Each Tablet, 1 TAB PO DAILY, (Reported) Carboxymethylcellulose Sodium 15 Ml Drops, 2 DROPS OU QID PRN for DRY EYES, (Reported) Cyanocobalamin (Vitamin B-12) 1,000 Mcg Tablet, 1,000 MCG PO DAILY, (Reported) Ferrous Sulfate 325 Mg Tablet, 325 MG PO DAILY, (Reported) Furosemide 20 Mg Tablet, 20 MG PO DAILY, (Reported) Hyoscyamine Sulfate 0.125 Mg Tab.subl, 0.125 MG SL TID, (Reported) Levothyroxine Sodium 100 Mcg Tablet, 100 MCG PO DAILY, (Reported) Magnesium Oxide 250 Mg Tablet, 250 MG PO DAILY, (Reported) Oxybutynin Chloride 10 Mg Tab.er.24, 10 MG PO DAILY, (Reported) Oxycodone Hcl 5 Mg Tab, 5 MG PO Q8H PRN for PAIN-SEVERE (8-10), (Reported) Pantoprazole Sodium 40 Mg Tablet.dr, 40 MG PO DAILY, (Reported) Potassium Chloride 10 Meq Tab.er.prt, 10 MEQ PO DAILY, (Reported) Simvastatin 20 Mg Tablet, 10 MG PO HS, (Reported) TAKES 1/2 (20MG) TABLET Patient Home Medication List Home Medication List Reviewed: Yes Review of Systems Review of Systems Constitutional: see HPI EENTM: see HPI Respiratory: no symptoms reported Cardiovascular: no symptoms reported Genitourinary: no symptoms reported Musculoskeletal: no symptoms reported Skin: no symptoms reported Hematologic/Lymphatic: No Symptoms Reported Past Bdxyxsj-Dynxqy-Nvctns Hx Patient Social History Alcohol Use: Denies Use Recreational Drug Use: No Smoking Status: Never a Smoker 2nd Hand Smoke Exposure: No Recent Foreign Travel: No Contact w/Someone Who Travel: No Recent Infectious Disease Expo: No Recent Hopitalizations: No Physical Abuse: No Sexual Abuse: No Mistreated: No Fear: No Immunizations Up To Date Tetanus Booster (TDap): Less than 5yrs Date of Pneumonia Vaccine: Feb 08, 2019 Date of Influenza Vaccine: Mar 11, 2019 Seasonal Allergies Seasonal Allergies: No Past Medical History Surgeries: Yes (C-SPINE SURGERY; LEFT UPPER ARM/SHOULDER SURGERY) Abdominal, Appendectomy, Cardiac, Gallbladder, Orthopedic, Thyroidectomy Respiratory: No Currently Using CPAP: No Currently Using BIPAP: No Cardiac: Yes (CHF) Atrial Fibrillation, Chronic Edema/Swelling, High Cholesterol, Hypertension Neurological: No Reproductive Disorders: No Sexually Transmitted Disease: No HIV/AIDS: No Genitourinary: Yes Renal Failure 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) Gastroesophageal Reflux Musculoskeletal: Yes ( neck fusion, FX STERNUM 1996) Arthritis Endocrine: Yes Hypothyroidsim HEENT: Yes Loss of Vision: Bilateral Hearing Impairment: Hard of Hearing, Bilateral Hearing Aide Cancer: Yes Stomach Did You Recieve Any Treatments: Yes What Type of Treatment Did You: Chemotherapy, Surgical Intervention Psychosocial: No Integumentary: Yes (DRY SKIN, THIN SKIN) Blood Disorders: Yes (CHRONIC ANEMIA) Adverse Reaction/Blood Tranf: No (HAS HAD BLOOD WITH NO REACTION) Family Medical History Congenital heart disease 19 FATHER 19 MOTHER FH: renal cell carcinoma G8 SISTER Leukemia G8 BROTHER G8 BROTHER No Pertinent Family Hx Physical Exam Vital Signs Vital Signs - First Documented 05/12/19 18:18 Temp 36.5 Pulse 92 Resp 16 B/P (MAP) 130/84 (99) Pulse Ox 99 Capillary Refill : Less Than 3 Seconds Height, Weight, BMI Height: 5'10.00" Weight: 145lbs. 0.0oz. 65.462320tv; 21.00 BMI Method:Stated General Appearance: No Apparent Distress, WD/WN Eyes: Bilateral Eye Normal Inspection, Bilateral Eye PERRL, Bilateral Eye EOMI Neck: Full Range of Motion, Normal Inspection Respiratory: No Accessory Muscle Use, No Respiratory Distress Cardiovascular: Normal Peripheral Pulses, Irregularly Irregular Gastrointestinal: Non Tender, Soft Neurologic/Psychiatric: Alert, Oriented x3, No Motor/Sensory Deficits Skin: Normal Color, Warm/Dry Comments No distress alert and oriented conversing with him he states that he overall feels better than he did upon arrival yesterday. Progress/Results/Core Measures Suspected Sepsis Recent Fever Within 48 Hours: No Infection Criteria Present: None New/Unexplained Altered Menta: No Sepsis Screen: No Definite Risk SIRS Temperature: Pulse: 92 Respiratory Rate: 16 Blood Pressure 130 /84 Mean: 99 Results/Orders Vital Signs/I&O 05/12/19 18:18 Temp 36.5 Pulse 92 Resp 16 B/P (MAP) 130/84 (99) Pulse Ox 99 Capillary Refill : Less Than 3 Seconds Blood Pressure Mean: 99 Departure Communication (Admissions) Time/Spoke to Admitting Phy: 18:43 Dr. Salazar, also spoke with Dr. Lord. Impression Primary Impression: Acute exacerbation of CHF (congestive heart failure) Qualified Codes: I50.9 - Heart failure, unspecified Disposition: ADMITTED INPATIENT Condition: Stable Admissions Decision to Admit Reason: Admit from ER (General) Decision to Admit/Date: May 12, 2019 Time/Decision to Admit Time: 18:38 Departure-Patient Inst. Referrals: ROSALINA MENDEZ MD (PCP/Family) Primary Care Physician SRAVANI OCAMPO APRN May 12, 2019 18:39
[2019-05-12 19:55] VITALS: BP 117/59
[2019-05-12] MEDS ORDERED: CATHETER FLUSH 10 ML SYR IV PRN (20:15)
[2019-05-12] MEDS: FUROSEMIDE 40 MG/4 ML INJ (LASIX) IV SCH (20:27)
[2019-05-12] MEDS: CATHETER FLUSH 10 ML SYR IV SCH (20:28)
[2019-05-13] VITALS: BP 123/83
[2019-05-13] MEDS ORDERED: PATIENT MAY USE OWN MEDS, ALL MC SCH (00:30)
[2019-05-13 04:00] VITALS: BP 117/69
[2019-05-13] MEDS: FUROSEMIDE 40 MG/4 ML INJ (LASIX) IV SCH (06:55)
[2019-05-13] MEDS: CATHETER FLUSH 10 ML SYR IV SCH (06:56)
[2019-05-13] MEDS ORDERED: MELATONIN 3 MG TABLET PO PRN (07:15)
[2019-05-13] MEDS ORDERED: ANTACID SUSP 30 ML UDC (MYLANTA) PO PRN (07:15)
[2019-05-13] MEDS ORDERED: ONDANSETRON 4 MG (ZOFRAN) ORAL DISSOLVE TAB PO PRN (07:15)
[2019-05-13] MEDS ORDERED: ONDANSETRON 4 MG/2 ML (SDV) Z0FRAN IV PRN (07:15)
[2019-05-13] MEDS ORDERED: ACETAMINOPHEN 325 MG TABLET PO PRN (07:15)
[2019-05-13] MEDS ORDERED: POLYETHYLENE GLYCOL 17 GM (MIRALAX) PACK PO PRN (07:15)
[2019-05-13] MEDS ORDERED: NITROGLYCERIN 0.4 MG SL TABS BTL 25'S SL PRN (07:15)
[2019-05-13] MEDS ORDERED: BISACODYL 10 MG SUPP (DULCOLAX) PR PRN (07:15)
--- NOTE | 2019-05-13 07:25 | History & Physical-Hospitalist ---
History of Present Illness HPI/Chief Complaint Julio Dubois is an 88-year-old male with past medical history of AFib on Eliquis, CKD, HLD, hypothyroidism, stomach cancer s/p surgical resection and chemotherapy 2017, who presented with Source: patient Exam Limitations: no limitations Date Seen 05/13/19 Attending Physician Aaron Bautista MD PCP Juan Bettencourt MD Referring Physician Date of Admission May 12, 2019 at 18:32 Home Medications & Allergies Home Medications Reviewed patient Home Medication Reconciliation performed by pharmacy medication reconciliations motorsports technician and/or nursing. Patients Allergies have been reviewed. Allergies Allergies Coded Allergies morphine (Verified Allergy, Mild, 12/20/14) quinine (Verified Allergy, Mild, 12/20/14) sulfamethoxazole (Verified Allergy, Unknown, 11/06/15) trimethoprim (Verified Allergy, Unknown, 11/06/15) digoxin (Verified Adverse Reaction, Unknown, bradycardia, 11/22/17) Past Igzevom-Ftpztx-Thbzkj Hx Patient Social History Alcohol Use: Denies Use Recreational Drug Use: No Smoking Status: Never a Smoker 2nd Hand Smoke Exposure: No Recent Foreign Travel: No Contact w/other who traveled: No Recent Hopitalizations: No Recent Infectious Disease Expo: No Immunizations Up To Date Tetanus Booster (TDap): Less than 5yrs Date of Pneumonia Vaccine: Feb 08, 2019 Date of Influenza Vaccine: Mar 11, 2019 Seasonal Allergies Seasonal Allergies: No Past Medical History Surgeries: Abdominal, Appendectomy, Cardiac, Gallbladder, Orthopedic, Thyroidectomy Currently Using CPAP: No Currently Using BIPAP: No Cardiac: Atrial Fibrillation, Chronic Edema/Swelling, High Cholesterol, Hypertension Reproductive: No Sexually Transmitted Disease: No HIV/AIDS: No Genitourinary: Renal Failure Gastrointestinal: Gastroesophageal Reflux Musculoskeletal: Arthritis Endocrine: Hypothyroidsim Loss of Vision: Bilateral Hearing Impairment: Hard of Hearing, Bilateral Hearing Aide Cancer: Stomach Did You Recieve Any Treatments: Yes What Type of Treatment Did You: Chemotherapy, Surgical Intervention History of Blood Disorders: Yes (CHRONIC ANEMIA) Adverse Reaction to Blood Marquez: No (HAS HAD BLOOD WITH NO REACTION) Family History Congenital heart disease 19 FATHER 19 MOTHER FH: renal cell carcinoma G8 SISTER Leukemia G8 BROTHER G8 BROTHER No Pertinent Family Hx Physical Exam Physical Exam Vital Signs Vital Signs - First Documented 05/12/19 05/12/19 18:18 19:55 Temp 36.5 Pulse 92 Resp 16 B/P (MAP) 130/84 (99) Pulse Ox 99 O2 Delivery Room Air Capillary Refill : Less Than 3 Seconds Height, Weight, BMI Height: 5'10.00" Weight: 145lbs. 0.0oz. 65.535347nr; 21.57 BMI Method:Stated Results Results/Procedures Labs Patient resulted labs reviewed. Assessment/Plan Assessment and Plan Acute exacerbation of CHF, unspecified type Elevated troponin Troponin mildly elevated at 0.069 BNP elevated at 700 on admission chest x-ray consistent with CHF Started on IV Lasix Monitor I's and O's Daily weights Low-sodium diet next lineCardiology consulted, appreciate assistance Echocardiogram ordered Chronic kidney disease Creatinine 1.77 this morning, appears to be a baseline continue to monitor and avoid nephrotoxins anemia Hemoglobin 9 iron studies negative Check B12/folate Paroxysmal atrial fibrillation Continue Eliquis Clinical Quality Measures DVT/VTE Risk/Contraindication: Risk Factor Score Per Nursin RFS Level Per Nursing on Admit: 3=High AARON BAUTISTA MD May 13, 2019 07:25
[2019-05-13] MEDS ORDERED: LEVOTHYROXINE 100 MCG (LEVOTHROID) TAB PO SCH (07:26)
[2019-05-13 07:55] LABS: BASOPHILS % (AUTO) 0 % (0-10); EOSINOPHILS # (AUTO) 0.1 10^3/uL (0.0-0.3); EOSINOPHILS % (AUTO) 2 % (0-10); HEMATOCRIT 30 % (40-54); HEMOGLOBIN 9.2 G/DL (13.3-17.7); LYMPHOCYTES # (AUTO) 0.7 X 10^3 (1.0-4.0); LYMPHOCYTES % (AUTO) 13 % (12-44); MEAN CORPUSCULAR HEMOGLOBIN 30 PG (25-34); MEAN CORPUSCULAR HGB CONC 31 G/DL (32-36); MEAN CORPUSCULAR VOLUME 99 FL (80-99); MEAN PLATELET VOLUME 9.4 FL (7.4-10.4); MONOCYTES # (AUTO) 0.5 X 10^3 (0.0-1.0); MONOCYTES % (AUTO) 10 % (0-12); NEUTROPHILS # (AUTO) 3.8 X 10^3 (1.8-7.8); NEUTROPHILS % (AUTO) 75 % (42-75); PLATELET COUNT 232 10^3/uL (130-400); RED CELL DISTRIBUTION WIDTH 15.9 % (10.0-14.5)
[2019-05-13 08:11] LABS: CALCIUM 9.2 MG/DL (8.5-10.1); CREATININE SERUM 1.72 MG/DL (0.60-1.30); MAGNESIUM 2.1 MG/DL (1.6-2.4); POTASSIUM 4.2 MMOL/L (3.6-5.0)
[2019-05-13 08:55] VITALS: BP 113/56
[2019-05-13] MEDS ORDERED: APIXABAN 2.5 MG (ELIQUIS) TABLET PO SCH (09:00)
[2019-05-13] MEDS ORDERED: SENNOSIDES 8.6 MG (SENOKOT) TAB PO SCH (09:00)
[2019-05-13] MEDS ORDERED: ASPIRIN E.C. 81 MG (ECOTRIN) TAB PO SCH (09:00)
[2019-05-13] MEDS ORDERED: OXYBUTYNIN (DITROPAN) 5 MG TAB PO SCH (09:00)
[2019-05-13] MEDS ORDERED: PANTOPRAZOLE 40 MG (PROTONIX) TAB PO SCH (09:00)
[2019-05-13] MEDS ORDERED: DOCUSATE SODIUM 100 MG (COLACE) CAP PO SCH (09:00)
[2019-05-13 12:25] VITALS: BP 108/79
[2019-05-13] MEDS ORDERED: FURO20TA4 PO (13:09)
--- NOTE | 2019-05-13 13:16 | Discharge Summary ---
Discharge Summary Reconcile Patient Problems Problems Reviewed?: Yes Hospital Course Hospital Course Date of Admission: May 12, 2019 at 18:32 Admission Diagnosis : acute congestive heart failure, unspecified type Family Physician/Provider: Juan Bettencourt MD Date of Discharge: 05/13/19 Discharge Diagnosis: acute heart failure with preserved ejection fraction Hospital Course: Julio Dubois is an 88-year-old male who presented with weight gain and the lower extremity swelling and was admitted with heart failure with preserved ejection fraction. He underwent an echocardiogram which revealed the ejection fraction 45-50 percent. He was treated with IV Lasix and his swelling improved. He was discharged on an increased dose of Lasix, 40 mg daily. He will have a repeat BMP in one week. He will follow up with cardiology as scheduled. Labs and Pending Lab Test: Laboratory Tests 05/13/19 07:45: White Blood Count 5.0, Red Blood Count 3.06L, Hemoglobin 9.2L, Hematocrit 30L, Mean Corpuscular Volume 99, Mean Corpuscular Hemoglobin 30, Mean Corpuscular Hemoglobin Concent 31L, Red Cell Distribution Width 15.9H, Platelet Count 232, Mean Platelet Volume 9.4, Neutrophils (%) (Auto) 75, Lymphocytes (%) (Auto) 13, Monocytes (%) (Auto) 10, Eosinophils (%) (Auto) 2, Basophils (%) (Auto) 0, Neutrophils # (Auto) 3.8, Lymphocytes # (Auto) 0.7L, Monocytes # (Auto) 0.5, Eosinophils # (Auto) 0.1, Basophils # (Auto) 0.0, Sodium Level 144, Potassium Level 4.2, Chloride Level 107, Carbon Dioxide Level 26, Anion Gap 11, Blood Urea Nitrogen 55H, Creatinine 1.72H, Estimat Glomerular Filtration Rate 38, BUN/Creatinine Ratio 32, Glucose Level 81, Calcium Level 9.2, Magnesium Level 2.1 Home Meds Active Furosemide 20 Mg Tablet 20 Mg PO DAILY 30 Days Reported Oxycodone IR (Oxycodone HCl) 5 Mg Tab 5 Mg PO Q8H PRN Artificial Tears (Carboxymethylcellulose Sodium) 15 Ml Drops 2 Drops OU QID PRN Eliquis (Apixaban) 2.5 Mg Tablet 2.5 Mg PO BID Levothyroxine Sodium 100 Mcg Tablet 100 Mcg PO DAILY Potassium Chloride 10 Meq Tab.er.prt 10 Meq PO DAILY Simvastatin 20 Mg Tablet 10 Mg PO HS TAKES 1/2 (20MG) TABLET Calcium 600 + Vit D 200 Tablet (Calcium Carbonate/Vitamin D3) 1 Each Tablet 1 Tab PO DAILY Protonix (Pantoprazole Sodium) 40 Mg Tablet.dr 40 Mg PO DAILY Oxybutynin Chloride ER (Oxybutynin Chloride) 10 Mg Tab.er.24 10 Mg PO DAILY Hyoscyamine Sulfate 0.125 Mg Tab.subl 0.125 Mg SL TID Magnesium Oxide 250 Mg Tablet 250 Mg PO DAILY B-12 (Cyanocobalamin (Vitamin B-12)) 1,000 Mcg Tablet 1,000 Mcg PO DAILY Iron (Ferrous Sulfate) 325 Mg Tablet 325 Mg PO DAILY Instructions to Patient/Family Assessment/Instructions Take medications as prescribed. Increase to Lasix 40 mg daily. Repeat a basic metabolic panel in 1 week. Follow-up with cardiology as scheduled. Return with worsening shortness of breath, swelling, or if you feel you're getting worse. Follow Up Appt.: next skilled nursing rounds Skilled NF Admit to: [facility] ([facility]) I certify that SNF services are required to be given on an inpatient basis because of the above named patient's need for group home care on a continuing basis for the conditions(s) for which he/she was receiving inpatient hospital services prior to his/her transfer to the SNF. [facility] Order: Nursing Services, [facility] Hand-Evaluate & Treat, Physical Therapy-Evaluate & Treat Oxygen Delivery Method: Room Air Discharge Diet: Low Sodium Diet Resuscitation Status: Do Not Resuscitate Aaron Bautista May 13, 2019 13:11 Discharge Physical Exam General: Alert, Oriented X3, No Acute Distress HEENT: Atraumatic, PERRLA, EOMI, Mucous Memb Moist/[place] Lungs: Clear to Auscultation, Normal Air Movement Heart: Regular Rate, Normal S1, Normal S2, No Murmurs Abdomen: Normal Bowel Sounds, Soft, No Tenderness Extremities: No Tenderness/Swelling, Other (1+ bilateral lower extremity pitting edema) Skin: No Rashes, No Significant Lesion Neuro: Normal Speech, Normal Tone Psych/Mental Status: Mental Status NL, Mood NL AARON BAUTISTA MD May 13, 2019 13:16
--- NOTE | 2019-05-13 13:23 | Consultation-Cardiology ---
HPI-Cardiology Cardiology Consultation: Date of Consultation 05/13/19 Date of Admission Attending Physician Aaron Bautista MD Admitting Physician Juan Bettencourt MD Consulting Physician Sky ORELLANA MD HPI: Time Seen by a Provider: 11:45 Chief Complaint: Lower extremity swelling This is a 88-year-old gentleman who has history of atrial fibrillation on Eliquis, chronic kidney disease, congestive heart failure. He was recently admitted for significant weight gain and lower extremity swelling. He was given IV Lasix and his pedal edema improved significantly. He denied any chest pain or shortness of breath. His troponins were mildly elevated likely due to congestive heart failure. The patient signed out AGAINST MEDICAL ADVICE however the nursing facility from which he had come to the hospital would not accept the patient therefore he came back to the ER. He denies any significant shortness of breath. Patient is DO NOT RESUSCITATE. The patient denies active smoking. No significant pertinent family history. Review of Systems-Cardiology Review of Systems Constitutional: As described under HPI; No As described under HPI, No no symptoms reported, No chills, No fever, No lightheadedness Eyes: No As described under HPI, No no symptoms reported, No blindness, No blurred vision, No contact lenses, No drainage, No decreased acuity, No foreign body sensation, No pain, No vision change Ears/Nose/Throat: No As described under HPI, No no symptoms reported, No chronic hearing loss, No ear discharge, No ear pain, No nasal drainage, No ulcerations Respiratory: No no symptoms reported; As described under HPI; No As described under HPI, No cough, No orthopnea, No shortness of breath, No SOB with excertion Cardiovascular: No no symptoms reported; As described under HPI; No As described under HPI, No chest pain, No edema, No irregular heart rate, No lightheadedness, No palpitations Gastrointestinal: No no symptoms reported, No As described under HPI, No abdomen distended, No abdominal pain, No blood streaked bowels, No constipation, No diarrhea, No nausea, No vomiting, No stool coloration changes Genitourinary: No As described under HPI, No burning, No dysuria, No discharge, No frequency, No flank pain, No hematuria, No urgency Musculoskeletal: other (bilateral lower extremity swelling.) Skin: No rash, No skin related problems, No ulcerations Psychiatric/Neurological: No anxiety, No depression, No seizure, No focal weakness, No syncope Hematologic: anemia; No bleeding abnormalities [id number] Hx Patient Social History Alcohol Use: Denies Use Recreational Drug Use: No Smoking Status: Never a Smoker Former smoker/When Quit: Jan 01, 1955 2nd Hand Smoke Exposure: No Recent Foreign Travel: No Recent Infectious Disease Expo: No Immunizations Up To Date Tetanus Booster (TDap): Less than 5yrs Date of Pneumonia Vaccine: Feb 08, 2019 Date of Influenza Vaccine: Mar 11, 2019 Past Medical History PMH As described under Assessment. Family Medical History Family History: Congenital heart disease 19 FATHER 19 MOTHER FH: renal cell carcinoma G8 SISTER Leukemia G8 BROTHER G8 BROTHER Allergies and Home Medications Allergies Coded Allergies: morphine (Verified Allergy, Mild, 12/20/14) quinine (Verified Allergy, Mild, 12/20/14) sulfamethoxazole (Verified Allergy, Unknown, 11/06/15) trimethoprim (Verified Allergy, Unknown, 11/06/15) digoxin (Verified Adverse Reaction, Unknown, bradycardia, 11/22/17) Home Medications Apixaban 2.5 Mg Tablet, 2.5 MG PO BID, (Reported) Calcium Carbonate/Vitamin D3 1 Each Tablet, 1 TAB PO DAILY, (Reported) Carboxymethylcellulose Sodium 15 Ml Drops, 2 DROPS OU QID PRN for DRY EYES, (Reported) Cyanocobalamin (Vitamin B-12) 1,000 Mcg Tablet, 1,000 MCG PO DAILY, (Reported) Ferrous Sulfate 325 Mg Tablet, 325 MG PO DAILY, (Reported) Furosemide 20 Mg Tablet, 20 MG PO DAILY Prescribed by: AARON BAUTISTA on 05/13/19 1309 Hyoscyamine Sulfate 0.125 Mg Tab.subl, 0.125 MG SL TID, (Reported) Levothyroxine Sodium 100 Mcg Tablet, 100 MCG PO DAILY, (Reported) Magnesium Oxide 250 Mg Tablet, 250 MG PO DAILY, (Reported) Oxybutynin Chloride 10 Mg Tab.er.24, 10 MG PO DAILY, (Reported) Oxycodone Hcl 5 Mg Tab, 5 MG PO Q8H PRN for PAIN-SEVERE (8-10), (Reported) Pantoprazole Sodium 40 Mg Tablet.dr, 40 MG PO DAILY, (Reported) Potassium Chloride 10 Meq Tab.er.prt, 10 MEQ PO DAILY, (Reported) Simvastatin 20 Mg Tablet, 10 MG PO HS, (Reported) TAKES 1/2 (20MG) TABLET Patient Home Medication List Home Medication List Reviewed: Yes Physical Exam-Cardiology Physical Exam Vital Signs/I&O 05/13/19 05/13/19 05/13/19 05/13/19 04:00 07:00 08:55 12:25 Temp 36.4 36.5 36.6 Pulse 80 68 79 89 Resp 18 18 18 B/P (MAP) 117/69 (85) 113/56 (75) 108/79 (89) Pulse Ox 98 97 95 O2 Delivery Room Air Room Air Room Air 05/13/19 00:00 Intake Total 200 ml Output Total 900 ml Balance -700 ml Capillary Refill : Less Than 3 Seconds Constitutional: appears stated age, AAO x 3; No apparent distress; well- developed, well-nourished HEENT: PERRL; No discharge; hearing is well preserved, oral hygience is good; No ulceration, No xanthelasmas are seen Neck: No carotid bruit; carotid pulses are 2 + bilaterally Respiratory: chest is bilaterally symmetric, lungs clear to auscultation Cardiovascular: regular rate-rhythm, S1 and S2, systolic murmur Gastrointestinal: soft, audible bowel sounds; No spleenomegaly Rectal: deferred Extremities: normal range of motion, non-tender, normal inspection, pedal edema; No clubbing, No cyanosis, No significant edema Neurologic/Psychiatric: no motor/sensory deficits, alert, normal mood/affect, oriented x 3, power is 5/5 both on sides Skin: normal color; No rash, No ulcerations Data Review Labs Laboratory Tests 05/13/19 07:45: White Blood Count 5.0, Red Blood Count 3.06L, Hemoglobin 9.2L, Hematocrit 30L, Mean Corpuscular Volume 99, Mean Corpuscular Hemoglobin 30, Mean Corpuscular Hemoglobin Concent 31L, Red Cell Distribution Width 15.9H, Platelet Count 232, Mean Platelet Volume 9.4, Neutrophils (%) (Auto) 75, Lymphocytes (%) (Auto) 13, Monocytes (%) (Auto) 10, Eosinophils (%) (Auto) 2, Basophils (%) (Auto) 0, Neutr ophils # (Auto) 3.8, Lymphocytes # (Auto) 0.7L, Monocytes # (Auto) 0.5, Eosinophils # (Auto) 0.1, Basophils # (Auto) 0.0, Sodium Level 144, Potassium Level 4.2, Chloride Level 107, Carbon Dioxide Level 26, Anion Gap 11, Blood Urea Nitrogen 55H, Creatinine 1.72H, Estimat Glomerular Filtration Rate 38, BUN/Creatinine Ratio 32, Glucose Level 81, Calcium Level 9.2, Magnesium Level 2.1 A/P-Cardiology Assessment/Admission Diagnosis Mild acute on chronic systolic congestive heart failure, Type II myocardial infarction, Long-standing persistent atrial fibrillation, Bilateral lower extremity swelling, Mild pulmonary hypertension, Chronic kidney disease, Anemia, [id number] aortic stenosis Plan Mild acute on chronic systolic congestive heart failure, elevated BNP. Chest x- ray shows increased vascularity. Continue IV Lasix 40 mg. Strict input and output. Daily weights. Significantly improved overnight. Okay to be discharged to nursing facility but will increase daily Lasix to 40 mg daily. Basic metabolic profile in one week. Patient will continue potassium supplementation as well. Salt restriction is recommended. Type II myocardial infarction, positive troponin likely due to acute congestive heart failure. Long-standing persistent atrial fibrillation, continue oral anticoagulation therapy. Bilateral lower extremity swelling, Lasix. Mild pulmonary hypertension, likely due to chronic congestive heart failure. Chronic kidney disease, stable kidney function. GFR of 38. Outpatient nephrology referral is recommended. Anemia, defer to the primary team. Kfik-ne-lpsnqegb aortic stenosis, continue to monitor. Echocardiogram done 05/11/2019 shows LVEF of 45-50 percent. Moderate mitral regurgitation, [id number] aortic stenosis with mean gradient of 23 mmHg. PA pressure of 40 mmHg. Thank you for your consultation. Please call me if you have any questions. Asher Orellana MD, FACP, FACC, FSCAI, FHRS, CCDS Interventional Cardiology Cardiac Electrophysiology Vascular Medicine and Endovascular Interventions Clinical Quality Measures DVT/VTE Risk/Contraindication: Risk Factor Score Per Nursin RFS Level Per Nursing on Admit: 3=High Sky ORELLANA MD May 13, 2019 13:22
[2019-05-13] MEDS ORDERED: CATHETER FLUSH 10 ML SYR IV SCH (14:00)
[2019-05-13] MEDS ORDERED: SIMvastatin 10 MG (ZOCOR) TAB PO SCH (21:00)
== END 2019-05-13 13:45 ==
LOC: EDUNIT# 18:03 → ER 18:04 → 4TH 18:32
PROVIDERS: ADMIT Internal Medicine; ATTEND Internal Medicine
DX: I13.0 Hypertensive heart and chronic kidney disease with heart failure and stage 1 through stage 4 chronic kidney disease, or unspecified chronic kidney disease (principal); I50.23 Acute on chronic systolic (congestive) heart failure; I48.0 Paroxysmal atrial fibrillation; I48.11 Longstanding persistent atrial fibrillation; I35.0 Nonrheumatic aortic (valve) stenosis; I27.20 Pulmonary hypertension, unspecified; N18.9 Chronic kidney disease, unspecified; K21.9 Gastro-esophageal reflux disease without esophagitis; M19.90 Unspecified osteoarthritis, unspecified site; E78.00 Pure hypercholesterolemia, unspecified; E03.9 Hypothyroidism, unspecified; E78.5 Hyperlipidemia, unspecified; D64.9 Anemia, unspecified; Z88.5 Allergy status to narcotic agent; Z88.2 Allergy status to sulfonamides; Z88.1 Allergy status to other antibiotic agents; Z88.8 Allergy status to other drugs, medicaments and biological substances; Z79.899 Other long term (current) drug therapy; Z79.891 Long term (current) use of opiate analgesic; Z90.89 Acquired absence of other organs; Z79.01 Long term (current) use of anticoagulants; Z85.028 Personal history of other malignant neoplasm of stomach; Z92.21 Personal history of antineoplastic chemotherapy; Z82.49 Family history of ischemic heart disease and other diseases of the circulatory system; Z80.51 Family history of malignant neoplasm of kidney
CPT/HCPCS: 36415; 80048; 83735; 85025

== ENCOUNTER → 2019-05-19 | Outpatient (CLI) | payer MEDICARE ==
--- NOTE | 2019-05-19 08:51 | Diagnostic Imaging Report ---
PROCEDURE: US Hepatic (Liver). TECHNIQUE: Multiple real-time grayscale images were obtained over the right upper quadrant in various projections. INDICATION: Hepatomegaly. FINDINGS: Overall study is somewhat limited due to overlying bowel gas. Liver is normal in size at 12.7 cm. No discrete liver mass is detected. The portal vein is patent and shows normal direction of flow. The gallbladder is surgically absent. No definite biliary ductal dilatation is seen. The pancreas is obscured by bowel gas. Aorta is poorly visualized. IVC is patent. The right kidney does contain a cyst in the lower pole approximately 16 mm in size. No calculi or hydronephrosis is seen. There is no ascites. IMPRESSION: Limited study. No significant abnormality is identified. There is a small right renal cyst. Dictated by: Dictated on workstation # [id number]
== END ==
LOC: RAD 07:23
PROVIDERS: ATTEND Internal Medicine Gastroenterology
DX: R16.0 Hepatomegaly, not elsewhere classified (principal); E53.9 Vitamin B deficiency, unspecified; R79.9 Abnormal finding of blood chemistry, unspecified; N28.1 Cyst of kidney, acquired
CPT/HCPCS: 76705

== ENCOUNTER → 2019-05-20 | Outpatient (CLI) | payer MEDICARE | LOC: LAB 09:20 → LABNPT 09:20 → EDSTATUS 05-23 14:08 | PROVIDERS: ATTEND Internal Medicine Gastroenterology | DX: R16.0 Hepatomegaly, not elsewhere classified (principal); E53.9 Vitamin B deficiency, unspecified; R79.9 Abnormal finding of blood chemistry, unspecified | CPT/HCPCS: 82274 ==

== ENCOUNTER 2019-06-27 09:16 | Outpatient (RCR) | payer MEDICARE ==
[2019-05-03 15:57] LABS: BASOPHILS % (AUTO) 1 % (0-10); EOSINOPHILS # (AUTO) 0.1 10^3/uL (0.0-0.3); EOSINOPHILS % (AUTO) 2 % (0-10); HEMATOCRIT 27 % (40-54); HEMOGLOBIN 8.3 G/DL (13.3-17.7); LYMPHOCYTES # (AUTO) 0.5 X 10^3 (1.0-4.0); LYMPHOCYTES % (AUTO) 12 % (12-44); MEAN CORPUSCULAR HEMOGLOBIN 30 PG (25-34); MEAN CORPUSCULAR HGB CONC 30 G/DL (32-36); MEAN CORPUSCULAR VOLUME 100 FL (80-99); MEAN PLATELET VOLUME 9.1 FL (7.4-10.4); MONOCYTES # (AUTO) 0.5 X 10^3 (0.0-1.0); MONOCYTES % (AUTO) 11 % (0-12); NEUTROPHILS # (AUTO) 3.2 X 10^3 (1.8-7.8); NEUTROPHILS % (AUTO) 75 % (42-75); PLATELET COUNT 192 10^3/uL (130-400); RED CELL DISTRIBUTION WIDTH 15.4 % (10.0-14.5); WHITE BLOOD COUNT 4.3 10^3/uL (4.3-11.0)
[2019-05-03 16:24] LABS: ALBUMIN 3.3 GM/DL (3.2-4.5); BILIRUBIN,TOTAL 0.3 MG/DL (0.1-1.0); CALCIUM 8.4 MG/DL (8.5-10.1); CREATININE SERUM 2.22 MG/DL (0.60-1.30); POTASSIUM 4.8 MMOL/L (3.6-5.0); TOTAL PROTEIN 6.1 GM/DL (6.4-8.2)
[2019-05-03 16:33] LABS: RETICULOCYTE % 1.49 % (0.50-2.40)
[~2019-06-27 09:16] MED LIST changes: -HYDR-3062 PO; -OXYB10TA2 PO; +OXYB10TA29 PO; -OXYC-529 PO; +OXYC5TAB96 PO
[2019-06-27 09:52] LABS: BASOPHILS % (AUTO) 0 % (0-10); EOSINOPHILS % (AUTO) 1 % (0-10); HEMATOCRIT 31 % (40-54); HEMOGLOBIN 8.9 G/DL (13.3-17.7); LYMPHOCYTES # (AUTO) 0.6 X 10^3 (1.0-4.0); LYMPHOCYTES % (AUTO) 13 % (12-44); MEAN CORPUSCULAR HEMOGLOBIN 30 PG (25-34); MEAN CORPUSCULAR HGB CONC 29 G/DL (32-36); MEAN CORPUSCULAR VOLUME 104 FL (80-99); MEAN PLATELET VOLUME 9.1 FL (7.4-10.4); MONOCYTES # (AUTO) 0.5 X 10^3 (0.0-1.0); MONOCYTES % (AUTO) 11 % (0-12); NEUTROPHILS # (AUTO) 3.3 X 10^3 (1.8-7.8); NEUTROPHILS % (AUTO) 75 % (42-75); PLATELET COUNT 184 10^3/uL (130-400); RED CELL DISTRIBUTION WIDTH 15.8 % (10.0-14.5); WHITE BLOOD COUNT 4.4 10^3/uL (4.3-11.0)
[2019-06-27] MEDS ORDERED: DARBEPOETIN 40 MCG/ML (ARANESP) 1 ML VIAL SC SCH (10:30)
== END 2019-08-01 | disposition home or self-care (01) ==
LOC: ONC 09:16
PROVIDERS: ATTEND Internal Medicine Hematology & Oncology
DX: C49.A0 Gastrointestinal stromal tumor, unspecified site (principal); I48.91 Unspecified atrial fibrillation; D50.0 Iron deficiency anemia secondary to blood loss (chronic); N18.4 Chronic kidney disease, stage 4 (severe)
CPT/HCPCS: 36415; 80053; 82728; 85025; 85045; 86003; 96372; 99213